=== PATIENT | male | born 1960 | race Caucasian/White ===

== ENCOUNTER 2020-05-17 00:41 | Outpatient (CLI) | payer BC, SELFPAY ==
[2020-05-18 13:40] LABS: SARS-CoV-2 RNA PCR Negative
== END 2020-05-17 00:42 | disposition home or self-care (01) ==
LOC: ANHCOVIDDT 00:42
PROVIDERS: Visit Provider Internal Medicine Critical Care Medicine
DX: R09.89 Other specified symptoms and signs involving the circulatory and respiratory systems (principal); Z20.828 Contact with and (suspected) exposure to other viral communicable diseases
CPT/HCPCS: 87635; C9803; U0003

== ENCOUNTER 2020-05-20 12:47 | Outpatient (CLI) | payer BC, SELFPAY ==
--- NOTE | 2020-06-06 02:02 | SLEEP_ITS ---
Split-night Sleep Study DATE OF STUDY: 05/20/2020 ORDERING PHYSICIAN: Lexis Garcia MD. REASON FOR THE STUDY: Hypersomnolence, insomnia. HISTORY: The patient is a 59-year-old male, 68 inches tall, weighing 230 pounds with a body mass index of 35. He had a CABG in 2018, and developed shortness of breath afterwards. About a year ago, he started having worsening insomnia, sleeping in very small blocks of time, going to bed at 2 a.m., waking at 9 or 10 in the morning, not feeling refreshed. He snores at night, kicks his legs and wears out the sheets. His is slept in a separate room for many years due to the work schedule. He wakes up with a dry mouth, keeps a glass of water by the bed and falls asleep soon after waking in the morning even right after breakfast. He attributes this to his diabetes and sleeps every time after he has a meal. Sometimes, he falls asleep with food in his mouth and chokes. Sleep is fragmented. He naps frequently. He has felt paralyzed on occasion when he wakes up. He is not having muscle weakness with strong emotion. He rarely has trouble sleeping with a cold. He frequently wakes up gasping for breath at night and has breathing problems at night observed by his . He does not sweat excessively at night or notices heart pounding irregularly at night. He constantly falls asleep during the day and involuntarily, occasionally while driving. He does not have difficulty during the daytime due to excessive sleepiness. He is never afraid to go to sleep and he denies nightmares. He occasionally remembers his dreams. He frequently has racing thoughts. He does not feel sad or depressed. He does not have anxiety or muscular tension. He does not notice parts of his body jerking and he does not kick at night, although he does wear out the sheets. He constantly has crawly achy feelings in his legs and leg pain at night. He does urinate multiple times at night. He naps frequently throughout the day. MEDICAL COMORBIDITIES: COPD, coronary artery disease with a history of a CABG x2, ablation for atrial fibrillation, thoracic aortic aneurysm replacement, aortic valve replacement for a bicuspid valve with a left atrial appendage removal, hypothyroidism, retinopathy, diabetes, peripheral arterial disease with revascularization of the right lower leg. MEDICATIONS: 1. Furosemide 20 mg a day. 2. Albuterol inhaler p.r.n. shortness of breath. 3. Aspirin 81 mg a day. 4. Atorvastatin 80 mg a day. 5. Hydralazine 50 mg t.i.d. 6. Lispro as instructed. 7. Levothyroxine 112 mcg a day. 8. Lisinopril 5 mg a day. 9. Tizanidine 2 mg p.o. t.i.d. 10. Clopidogrel 75 mg a day. 11. Empagliflozin 10 mg daily. 12. Nortriptyline 25 mg 2 tablets daily. 13. Gabapentin 300 mg daily. 14. Metoprolol tartrate 50 mg q.12 hours. 15. Anoro 1 puff daily. HABITS: Tobacco, 50-pack year history, quit in 2018. No alcohol. DESCRIPTION OF THE STUDY: On the [place] Sleepiness Scale, his score is 18. This was performed as a split-night study using the [employer] multiple channel system including EOG, EEG, submental EMG, EKG, nasal and oral airflow using thermistors and nasal pressure sensors, chest and abdominal belts, body position data, and pulse oximetry. The study was scored using [facility] guidelines. The duration of the study was during the diagnostic portion 230 minutes. The sleep time was 168 minutes. Sleep efficiency was 72.9%. Sleep latency was 3.2 minutes. REM latency was 188 minutes prolonged. He had 6 awakenings and spent 59 minutes awake after sleep onset. Sleep architecture showed 6.3% stage I sleep, 74.1% stage II sleep, 6.8% stage III sleep, and 12.8% stage REM. Stage II was increased relative to controls and stage REM was decreased. The patient had an a
== END 2020-05-20 12:48 | disposition home or self-care (01) ==
LOC: ANHCSM 12:53
PROVIDERS: Visit Provider Internal Medicine Critical Care Medicine
DX: G47.33 Obstructive sleep apnea (adult) (pediatric) (principal)
CPT/HCPCS: 95811

== ENCOUNTER 2020-07-10 13:36 | Outpatient (CLI) | payer BC, SELFPAY ==
--- NOTE | 2020-07-15 14:18 | WPDPFTINT ---
PFT Interpretation PFT Interpretation: DOS: 07/10/2020 REQUESTING: Dr. Garcia REASON FOR TESTING: COPD PULMONARY FUNCTION TESTS Test results are not reproducible or reliable. The patient had difficulty performing lung volumes, was unable to obtain the second attempt due to worsening shortness of breath. Spirometry: FEV1 is 47%, severely decreased, 1.44 L. FVC is 37%, severely decreased. The FEV1% is normal. VXL49-47% is 72% predicted. There is no statistically significant change after bronchodilator administration. Lung volumes: TLC severely decreased, 46%. RV is normal. RV/TLC mildly increased consistent with mild air trapping. Diffusion: DLCO 38%, severely decreased. Flow volume loop: Consistent with restriction. IMPRESSION: Severe restrictive ventilatory impairment, mild air trapping, severe diffusion impairment without change following bronchodilator. Restrictive disease can mask obstruction. Clinical correlation is recommended. Lack of response to bronchodilators should not preclude use if clinically indicated. Lexis Garcia MD
== END 2020-07-10 13:37 | disposition home or self-care (01) ==
LOC: ANHPFT 13:37
PROVIDERS: PCP Family Medicine; Visit Provider Internal Medicine Critical Care Medicine
DX: J44.9 Chronic obstructive pulmonary disease, unspecified (principal)
CPT/HCPCS: 94060; 94726; 94729

== ENCOUNTER 2022-02-19 08:21 | Outpatient (CLI) | payer BC, SELFPAY ==
[2022-02-19 08:30] VITALS: PULSE 80; O2SAT 87
[2022-02-19 08:31] VITALS: O2SAT 94
[2022-02-19 08:35] VITALS: O2SAT 87
[2022-02-19 08:37] VITALS: PULSE 99; O2SAT 93
[2022-02-19 08:45] VITALS: PULSE 86; O2SAT 95
--- NOTE | 2022-02-19 09:02 | HOMEO2EVAL ---
Evaluation was performed at [facility] Home Oxygen Evaluation RC: Home Oxygen (O2) Evaluation Start: 02/19/22 08:59 Freq: Status: Active Protocol: RPE Activity Type Activity Date Activity User E-sign Co-sign Detail Recorded Client Recorded Date Recorded By Document 02/19/22 08:30 LESTER [email or web address] 02/19/22 09:01 LESTER Document 02/19/22 08:31 LESTER [email or web address] 02/19/22 09:01 LESTER Document 02/19/22 08:35 LESTER [email or web address] 02/19/22 09:01 LESTER Document 02/19/22 08:37 LESTER [email or web address] 02/19/22 09:01 LESTER Document 02/19/22 08:45 LESTER [email or web address] 02/19/22 09:01 LESTER 02/19/22 02/19/22 02/19/22 08:30 08:31 08:35 Home O2 Evaluation Test Phase Resting Resting Exercise Oxygen Delivery Room Air Nasal Cannula Nasal Cannula Oxygen Flow Rate (L/min) 1 1 Pulse Oximetry (90-100 %) 87 L 94 87 L Pulse Rate (60-100 beats/min) 80 Ambulation Distance (feet) Ambulation Distance (meters) Home Oxygen Evaluation Comments Treatment Charges O2 Evaluation - Outpatient 02/19/22 02/19/22 08:37 08:45 Home O2 Evaluation Test Phase Exercise Resting Oxygen Delivery Nasal Cannula Nasal Cannula Oxygen Flow Rate (L/min) 2 1 Pulse Oximetry (90-100 %) 93 95 Pulse Rate (60-100 beats/min) 99 86 Ambulation Distance (feet) 400 Ambulation Distance (meters) 121.91 Home Oxygen Evaluation Comments Pt requires 1 l at rest and 2 l with activity Treatment Charges
--- NOTE | 2022-02-19 09:03 | PCRCNOTE ---
home o2 eval faxed to [facility] office staff
== END 2022-02-19 08:22 | disposition home or self-care (01) ==
PROVIDERS: PCP Family Medicine; Visit Provider Internal Medicine Critical Care Medicine
DX: J44.9 Chronic obstructive pulmonary disease, unspecified (principal); Z99.81 Dependence on supplemental oxygen
CPT/HCPCS: 94618

== ENCOUNTER 2022-08-07 13:53 | Outpatient (CLI) | payer BC, SELFPAY ==
--- NOTE | ~2022-08-07 | XR_ITS ---
XR abdomen/kub 1V 08/07/2022 14:19 INDICATION: End-stage renal disease TECHNIQUE: KUB COMPARISON: 04/11/2018 FINDINGS: Bowel gas pattern is normal. There is a peritoneal dialysis catheter coiled in the pelvis. There are splenic arterial calcifications. There is no evidence of free air, mass, organomegaly, asci carleen or obstruction. No abnormal calculi are seen. The bones appear intact. IMPRESSION: 1: No acute abdominal abnormality identified. Reviewed, dictated and finalized at location A. OGRAPHER ASSISTANT
== END 2022-08-07 13:54 | disposition home or self-care (01) ==
PROVIDERS: PCP Family Medicine; Visit Provider Internal Medicine Nephrology
DX: N18.6 End stage renal disease (principal)
CPT/HCPCS: 74018

== ENCOUNTER 2024-06-12 11:37 | Outpatient (CLI) | payer MEDICARE, SELFPAY ==
--- NOTE | ~2024-06-12 | XR_ITS ---
Lumbosacral Spine: AP and lateral views Clinical History: Pain Findings: The normal lordotic curve is maintained. The vertebral bodies and posterior elements are i ntact. The intervertebral disc spaces are preserved. There is moderate to advanced facet arthropathy from L4 through S1. The sacroiliac joints are normally outlined. Impression: Facet arthropathy lower lumbar spine, as above. Reviewed, dictated and finalized at location . Impression: Facet arthropathy lower lumbar spine, as above.
--- NOTE | ~2024-06-12 | XR_ITS ---
Clinical Indication: Shortness of breath PA and lateral views of the chest: Comparison: None Findings: There is probable bibasilar pulmonary edema and left basilar atelectasis. Probable right up per lobe scarring. Cardiomediastinal silhouette is within normal limits. Bones and soft tissues are unremarkable. Impression: Mild bibasilar pulmonary edema with probable discoid left basilar atelectasis. Probable right upper lobe scarring. Reviewed, dictated and finalized at location . Impression: Mild bibasilar pulmonary edema with probable discoid left basilar atelectasis. Probable right upper lobe scarring.
== END 2024-06-12 11:38 | disposition home or self-care (01) ==
LOC: ANHIMG 11:39
PROVIDERS: PCP Family Medicine
DX: R06.02 Shortness of breath (principal); Z91.81 History of falling; M54.9 Dorsalgia, unspecified
CPT/HCPCS: 71046; 72100

== ENCOUNTER 2024-06-23 16:08 | Inpatient (IN) | payer MEDICARE, SELFPAY ==
[2024-06-23] VITALS (59 sets, daily range): BP systolic 84–169; BP diastolic 54–90; PULSE 58–81; RESP 11–25; TEMP 35.2–37; O2SAT 50–100
--- NOTE | ~2024-06-23 | XR_ITS ---
EXAMINATION: XR chest 1V portable DATE: 06/30/2024 06:08 INDICATION: Pneumonia. TECHNIQUE: A single frontal view of the chest was obtained. COMPARISON: Chest single view 06/27/2024, chest CT 06/28/2024, chest 2 views 06/12/2024 FINDINGS: The lung volumes are small. There are interstitial airspace opacities involving all lung zo ashleigh bilaterally. No pleural effusion or pneumothorax. The heart size is normal. Median sternotomy wir es and mediastinal surgical clips are seen, likely from prior coronary artery bypass grafting. IMPRESSION: 1. Stable diffuse lung disease, likely a combination of chronic interstitial lung disease and pneumon ia. Reviewed, dictated and finalized at location A. IMPRESSION: 1. Stable diffuse lung disease, likely a combination of chronic interstitial chelsie ng disease and pneumonia.
--- NOTE | ~2024-06-23 | CT_ITS ---
EXAMINATION: CT diagnostic chest wo con DATE: 06/28/2024 14:12 INDICATION: pneumonia TECHNIQUE: Computed tomography (CT) of the chest was performed without intravenous contrast. Addition al 3D reconstructions utilizing coronal maximum intensity projection (MIP) were performed. Automated exposure control and iterative reconstruction technique were employed. The dose-length product was 56 5.17 mGy-cm. COMPARISON: None FINDINGS: Patchy consolidation groundglass opacities in the basilar left lower lobe consistent with pneumonia. There are additional more linear, bandlike and groundglass opacities scattered throughout the remaind er of the lungs with some associated bronchiectatic changes also suspicious for pneumonia rather acut e or chronic. The distribution is not performed basilar predominant is be expected for chronic inters titial lung disease although this would also remain on the differential. Small left pleural effusion. Heart size is normal. Atherosclerotic coronary artery calcific lesions and change of prior median st ernotomy and coronary artery bypass grafting. Likely prior aortic valve repair. Thoracic aorta is nor mal in caliber. No pathologically enlarged thoracic lymphadenopathy. Mild focal hepatic steatosis lig amentum teres. Mild thoracic spondylosis with mild dextrocurvature. IMPRESSION: 1. Patchy consolidation and groundglass opacities in the left lower lobe suspicious for pneumonia. Mo re widespread scattered bilateral linear, bandlike and groundglass opacities for which would include a broader differential also including chronic pneumonia or chronic interstitial lung disease. Reviewed, dictated and finalized at location A. IMPRESSION: 1. Patchy consolidation and groundglass opacities in the left lower lobe suspic ious for pneumonia. More widespread scattered bilateral linear, bandlike and gr oundglass opacities for which would include a broader differential also includi ng chronic pneumonia or chronic interstitial lung disease.
--- NOTE | ~2024-06-23 | XR_ITS ---
EXAMINATION: XR chest 1V portable DATE: 06/27/2024 04:32 INDICATION: Acute respiratory failure. TECHNIQUE: A single frontal view of the chest was obtained. COMPARISON: Chest single view 06/26/2024, chest CT 12/05/2018 FINDINGS: The lung volumes are small. There are airspace and interstitial opacities in all lung zones bilaterally. No pleural effusion or pneumothorax. The heart size is normal. Median sternotomy wires and mediastinal surgical clips are seen, likely from prior coronary artery bypass grafting. IMPRESSION: 1. Small lung volumes with stable diffuse lung disease, consistent with pulmonary edema versus pneumo benito. Reviewed, dictated and finalized at location A. IMPRESSION: 1. Small lung volumes with stable diffuse lung disease, consistent with pulmona ry edema versus pneumonia.
--- NOTE | ~2024-06-23 | XR_ITS ---
Portable chest x-ray Comparison: 06/25/2024 Clinical History: Respiratory failure Findings: Endotracheal tube and NG tube are in place. Bibasilar pulmonary consolidation is present, left worse than right. Probable small left pleural effusion. There is mild haziness right upper lobe. Cardiomediastinal silhouette is stable. Bones and soft tissues are unremarkable. Impression: Bilateral pulmonary airspace disease, with bibasilar predominance, as detailed above. Correlate for p ulmonary edema/atelectasis versus possibly pneumonia. Small left pleural effusion. Support tubes, as above. Reviewed, dictated and finalized at location . Impression: Bilateral pulmonary airspace disease, with bibasilar predominance, as detailed above. Correlate for pulmonary edema/atelectasis versus possibly pneumonia. Small left pleural effusion. Support tubes, as above.
--- NOTE | ~2024-06-23 | US_ITS ---
US renal BI 06/24/2024 09:03 Procedure: Realtime transabdominal ultrasound of the kidneys and bladder. Indication: Acute renal insufficiency Comparison: No prior studies for comparison. Findings: Renal echotexture is normal bilaterally without hydronephrosis, contour deforming mass or r enal calculus. The right kidney measures 11.3 cm and left kidney measures 9.5 cm. There is a Browning ca theter present limiting evaluation of the bladder. Impression: 1: Unremarkable renal ultrasound. No stones, masses or hydronephrosis. Reviewed, dictated and finalized at location B. Impression: 1: Unremarkable renal ultrasound. No stones, masses or hydronephrosis.
--- NOTE | ~2024-06-23 | XR_ITS ---
XR chest ET placement Ordering provider: Raina Tee MD History: 63 years Male with . ET PLACEMENT . Comparison: June 23, 2024 FINDINGS: MEDIASTINUM: The cardiac silhouette is slightly enlarged. Endotracheal tube is seen with the tip abov e the [place]. Retraction by 2 cm is advised. Congestive terri are noted. Postoperative changes in the mediastinum. Nasogastric tube is seen with the tip in the distal stomach. LUNGS: No effusions or pneumothorax. Opacification in the right upper lobe and left lower lobe suggestive of pneumonia. Changes are the sa me as previous study. OTHER: No free air under the diaphragm. Degenerative changes of the spine. IMPRESSION: Bilateral pneumonia. Endotracheal tube needs to be retracted by about 2 cm. Reviewed, dictated and finalized at location A.
--- NOTE | ~2024-06-23 | US_ITS ---
BILATERAL LOWER EXTREMITY VENOUS ULTRASOUND Ordering provider: Anyi Don MD History: . rule out DVT . Comparison: None. FINDINGS: RIGHT LOWER EXTREMITY VEINS: --COMMON FEMORAL: Patent and free of thrombus. Normal compressibility, phasic flow and augmentation. --PROXIMAL SUPERFICIAL FEMORAL: Patent and free of thrombus. Normal compressibility, phasic flow and augmentation. --DISTAL SUPERFICIAL FEMORAL: Patent and free of thrombus. Normal compressibility, phasic flow and au gmentation. --POPLITEAL: Patent and free of thrombus. Normal compressibility, phasic flow and augmentation. --POSTERIOR TIBIAL: Patent and free of thrombus. Normal compressibility, phasic flow and augmentation . LEFT LOWER EXTREMITY VEINS: --COMMON FEMORAL: Patent and free of thrombus. Normal compressibility, phasic flow and augmentation. --PROXIMAL SUPERFICIAL FEMORAL: Patent and free of thrombus. Normal compressibility, phasic flow and augmentation. --DISTAL SUPERFICIAL FEMORAL: Patent and free of thrombus. Normal compressibility, phasic flow and au gmentation. --POPLITEAL: Patent and free of thrombus. Normal compressibility, phasic flow and augmentation. --POSTERIOR TIBIAL: Patent and free of thrombus. Normal compressibility, phasic flow and augmentation . IMPRESSION: Negative bilateral lower extremity venous US. No deep vein thrombosis. Reviewed, dictated and finalized at location A.
--- NOTE | ~2024-06-23 | XR_ITS ---
Portable chest x-ray Comparison: 06/23/2024 Clinical History: Pneumonia Findings: Endotracheal tube and NG tube are in place. Probable mild pulmonary edema pattern and mild left basilar atelectatic change. Possible underlying chronic interstitial disease. Cardiomediastina l silhouette is stable. Bones and soft tissues are unremarkable. Impression: Probable mild central pulmonary edema and left basilar atelectatic change. Suspected mild underlying chronic interstitial disease. Support tubes, as above. Reviewed, dictated and finalized at location . Impression: Probable mild central pulmonary edema and left basilar atelectatic change. Suspected mild underlying chronic interstitial disease. Support tubes, as above.
--- NOTE | ~2024-06-23 | XR_ITS ---
XR chest 1V portable Ordering provider: Raina Tee MD History: 63 years Male with . hypoxia . Comparison: June 12, 2024 FINDINGS: MEDIASTINUM: The cardiac silhouette is slightly enlarged. Postoperative changes in the mediastinum. C ongestive terri. LUNGS: No effusions or pneumothorax. Bilateral airspace disease seen in the lower lobes more on the l eft side. Interstitial changes with prominent markings are seen bilaterally. OTHER: No free air under the diaphragm. IMPRESSION: Cardiomegaly with cardiac decompensation and pulmonary edema. Bilateral basal pneumonia with highly s uggestive bilateral pneumonitis. Changes are worse the the previous study. Reviewed, dictated and finalized at location A. IMPRESSION: Cardiomegaly with cardiac decompensation and pulmonary edema. Bilateral basal p neumonia with highly suggestive bilateral pneumonitis. Changes are worse the th e previous study.
--- NOTE | 2024-06-23 16:25 | PC.NURSE ---
Dr. Tee at bedside
--- NOTE | 2024-06-23 16:40 | ED.WEAKNESS ---
HPI - Weakness General Chief complaint: Weakness Stated complaint: I'm confused and weak. Time Seen by Provider: 06/23/24 16:24 History of Present Illness HPI Narrative: 63-year-old male with a history of COPD, diabetes, hypertension, aortic root and valve replacement, history of CABG, chronic noncompliance presenting with confusion and weakness. His is at bedside and provides the following history. Patient is noncompliant with apparently all of his medications and CPAP. He will intermittently be compliant. He has been increasingly agitated and confused over the last several days. Today he started saying nonsensical things so his family made him come in for evaluation. Apparently all of his outpatient specialists have been advising him to go to the ER for the last several days but he has refused. On my evaluation, the patient is somnolent but arouses to verbal stimuli. He is speaking nonsensically. Related Data Home Medications Medication Instructions Recorded Confirmed atorvastatin 80 mg tablet 80 mg PO DAILY 08/17/19 06/23/24 amlodipine 10 mg tablet 10 mg PO DAILY 02/25/23 06/23/24 sotalol 80 mg tablet 80 mg PO DAILY 02/25/23 06/23/24 blood-glucose sensor (Plan B [employer] G6 #1 ea 05/06/23 06/23/24 Sensor device) hydralazine 10 mg tablet 10 mg PO BID 05/06/23 06/23/24 insulin aspart U-100 100 unit/mL 0.09 unit continuous subcutaneous 05/06/23 06/23/24 subcutaneous solution infusion DAILY furosemide 20 mg tablet 60 mg PO DAILY 05/17/23 06/23/24 insulin aspart U-100 100 unit/mL 1 sliding scale dose subcut 11/10/23 06/23/24 (3 mL) subcutaneous pen (Novolog USEASDIRECTD FlexPen U-100 Insulin aspart) subcutaneous insulin pump (MiniMed 11/10/23 06/23/24 630G Insulin Pump) pregabalin 75 mg capsule 75 mg PO BID 06/12/24 06/23/24 Allergies Allergy/AdvReac Type Severity Reaction Status Date / Time cefepime Allergy Severe respiratory Verified 06/12/24 10:36 decompensation codeine AdvReac Severe Swelling Verified 06/12/24 10:36 penicillin G AdvReac Mild immune Verified 06/12/24 10:36 iv contrast Allergy Intermediate Anaphylaxis Uncoded 06/12/24 10:36 Review of Systems Review of Systems: ROS unobtainable: Yes unobtainable due to mental status [facility] Past Medical History Medical History Adult BMI 36.0-36.9 kg/sq m Adult BMI 37.0-37.9 kg/sq m Atrial fibrillation BMI 31.0-31.9,adult BMI 32.0-32.9,adult BMI 33.0-33.9,adult BMI greater than 30 Chronic shortness of breath COPD (chronic obstructive pulmonary disease) History of tobacco abuse Hypersomnia Hypothyroidism Loud snoring Low vitamin D level Major depressive disorder Neuropathy Pneumonia Retinopathy, diabetic, right eye Shortness of Breath Surgical History Surgical History History of revascularization procedure of lower extremity RLE S/P AVR S/P CABG x 2 Status post ablation of atrial fibrillation January 2018 Status post aortic aneurysm repair Family History Family History Father Acute myocardial infarction Hypertension Mother Diabetes mellitus Hypertension Thyroid activity decreased Scleroderma involving lung Heart disease Sibling Diabetes mellitus Other Loud snoring Social History Social History Social History: , is Lynda, has 2 grown kids; quit tobacco January 2018 with his PA and Atrial fib, smoked 1.5 ppd Smoking packs per day: 1.5 Smoking cigarettes per day: 30.0 Years smoked: 30 Smoking pack-years: 45.00 Smoking status: Former smoker Tobacco type: cigarettes Second hand tobacco smoke exposure: No Smoking end date: 12/05/17 Alcohol intake: former Substance use: never Substance use type: does not use Do You Feel Safe in your Home?: Yes Lack of Transportation: No Lack of Food: Never True Current Housing: I Have Housing Concerned About Future Housing: YES Difficulty Paying Gas/Electric Bills: No Difficulty Paying for Meds: No Currently Unemployed: No Education: High School Diploma/GED Difficulty w/ Childcare or Family Care: No Living arrangements: with family Occupation/Education: retired Additional occupation/education comments: 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 EYES: PERRLA and EOMI. ENT: Mucous membranes moist. NECK: Supple. CHEST: saturating 50% on room air, diminished breath sounds bilaterally HEART: Regular rate and rhythm ABDOMEN: Soft, obese non tender abdomen EXTREMITIES: Normal range of motion SKIN: Warm, dry, no rash. NEURO: somnolent, arouses to verbal stimuli, not responding appropriately, moving all extremities spontaneously PSYCH: Normal mood and affect. Course Vital Signs Vital signs: Vital Signs Temperature 98.6 F 06/23/24 16:17 Pulse Rate 79 06/23/24 16:17 Respiratory Rate 24 H 06/23/24 16:17 Blood Pressure 120/75 06/23/24 16:17 Pulse Oximetry 50 L 06/23/24 16:17 Oxygen Delivery Room Air 06/23/24 16:17 Temperature 96.8 F L 06/24/24 18:00 Pulse Rate 52 L 06/24/24 18:00 Respiratory Rate 18 06/24/24 18:00 Blood Pressure 103/52 L 06/24/24 18:00 Pulse Oximetry 96 06/24/24 18:00 Oxygen Delivery Mechanical Ventilation 06/24/24 16:18 Oxygen Flow Rate 10 06/23/24 16:31 Fraction of Inspired Oxygen 40 06/24/24 16:18 Procedures Intubation Intubation #1: Intubation Date: 06/23/24 Intubation Time: 20:33 sedative: Etomidate Mg Given: 20 paralytic: Rocuronium Mg Given: 100 Laryngoscope: Adebayo Tube Size (cm): 7.5 Method of Intubation: orotracheal Number of Attempts: 1 Tube Secured Depth (cm): 25 Tube Secured Location: lips Tube Placement Confirmation: visualized tube passing through cords, equal breath sounds bilaterally, no breath sounds over epigastrium and confirmation by capnometry Patient Tolerated Procedure: well Intubation Complications: none Additional Comments: post-intubation xray with tube a bit deep so it was retracted approx 2 cm MDM - Weakness MDM Narrative Medical decision making narrative: 63-year-old male presenting with confusion and hypoxia. On arrival, he is saturating 50% on room air. Placed on non-rebreather with improvement in his saturations to the upper 90s. He has a very long history of COPD and noncompliance. Stat BiPAP, ABG has been ordered. Will start breathing treatments, steroids. Patient's ABGs continue to not significantly improved despite BiPAP. He is really not pulling adequate tidal volumes to despite multiple adjustments to his settings. Decision was made to intubate. His is at bedside and agrees with intubation. patient has been covered with doxy and IV fluids are ongoing. Aztreonam added after discussing with hospitalist. He requires admission to the ICU for further management. I spoke with the pediatric associate accepts for admission. I spoke with the hospitalist who also accepts admission. Differential Diagnosis Differential diagnosis: Likely sepsis, dehydration and other ( COPD exacerbation, hypercapnic respiratory failure, noncompliance) Medical Records Attestation: I reviewed the patient's medical records. Lab Data Attestation: I reviewed the patient's lab results. 06/24/24 04:40 06/24/24 16:08 Labs: Lab Results 06/23/24 06/23/24 06/23/24 Range/Units 16:55 16:58 17:01 WBC 14.4 H (4.5-10.0) K/mm3 RBC 4.34 L (4.6-6.20) M/mm3 Hgb 13.0 L (14.0-18.0) g/dL Hct 42.2 (42.0-52.0) % MCV 97.2 (80-100) fl MCH 30.0 (26-34) pg MCHC 30.8 L (32-36) g/dl RDW 15.3 H (11.5-14.5) % Plt Count 165 (150-375) k/mm3 MPV 12.1 H (7.4-10.4) fl Immature Gran % (Auto) 2.8 H (0-0.5) % Neut % (Auto) 73.7 H (45.5-73.1) % Lymph % (Auto) 12.5 L (18.3-44.2) % [place] % (Auto) 10.2 H (2.6-8.5) % Eos % (Auto) 0.2 (0-4.4) % Baso % (Auto) 0.6 (0.2-1.2) % Lymph # (Auto) 1.81 (0.9-3.2) K/mm3 [place] # (Auto) 1.5 H (0.1-0.6) K/mm3 Eos # (Auto) 0.0 (0-0.3) K/mm3 Baso # (Auto) 0.1 (0.0-0.1) K/mm3 Abs Immat Gran (auto) 0.41 H (0.00-0.031) K/mm3 Absolute Neuts (auto) 10.6 H (1.3-6.7) K/mm3 Absolute Nucleated RBC 0.040 H (0.0-0.012) K/mm3 Nucleated RBC % 0.3 H (0.0-0.2) % PT 15.3 H (11.1-14.7) Seconds INR 1.2 APTT 30.2 (22.3-36.8) Seconds Methemoglobin 0.2 (0-1.5) %THb Expiratory Pressure CMH2O Inspiratory Pressure CMH2O Sodium 135 L (137-145) mmol/L Potassium 4.8 (3.4-5.0) mmol/L Chloride 101 (98-107) mmol/L Carbon Dioxide 26 (22-30) mmol/L Anion Gap 8 (4-12) mmol/L BUN 66 H (9-20) mg/dL Creatinine 3.00 H (0.7-1.3) mg/dL Estim Creat Clear Calc 27 ml/min Estimated GFR 21 L (59 - ) Glucose 259 H (65-110) mg/dL Lactic Acid 1.1 (0.7-2.0) mmol/L Calcium 8.7 (8.4-10.2) mg/dL Magnesium 2.5 H (1.6-2.3) mg/dL Total Bilirubin 0.3 (0.2-1.3) mg/dL AST 28 (17-59) U/L ALT 33 (6-50) U/L Alkaline Phosphatase 119 (38-126) U/L Troponin I < 0.012 (0.000-0.034) ng/mL NT-Pro-B Natriuret Pep 2780 H (19.9-100) pg/mL Total Protein 7.0 (6.3-8.2) g/dL Albumin 3.8 (3.5-5.1) g/dL Influenza A (RT-PCR) Negative (Negative) Influenza B (RT-PCR) Negative (Negative) RSV (RT-PCR) Negative (Negative) SARS-CoV-2 RNA (RT-PCR) Negative (Negative) 06/23/24 06/23/24 Range/Units 18:00 19:23 WBC (4.5-10.0) K/mm3 RBC (4.6-6.20) M/mm3 Hgb (14.0-18.0) g/dL Hct (42.0-52.0) % MCV (80-100) fl MCH (26-34) pg MCHC (32-36) g/dl RDW (11.5-14.5) % Plt Count (150-375) k/mm3 MPV (7.4-10.4) fl Immature Gran % (Auto) (0-0.5) % Neut % (Auto) (45.5-73.1) % Lymph % (Auto) (18.3-44.2) % [place] % (Auto) (2.6-8.5) % Eos % (Auto) (0-4.4) % Baso % (Auto) (0.2-1.2) % Lymph # (Auto) (0.9-3.2) K/mm3 [place] # (Auto) (0.1-0.6) K/mm3 Eos # (Auto) (0-0.3) K/mm3 Baso # (Auto) (0.0-0.1) K/mm3 Abs Immat Gran (auto) (0.00-0.031) K/mm3 Absolute Neuts (auto) (1.3-6.7) K/mm3 Absolute Nucleated RBC (0.0-0.012) K/mm3 Nucleated RBC % (0.0-0.2) % PT (11.1-14.7) Seconds INR APTT (22.3-36.8) Seconds Methemoglobin 0.2 (0-1.5) %THb Expiratory Pressure 7 8 CMH2O Inspiratory Pressure 16 20 CMH2O Sodium (137-145) mmol/L Potassium (3.4-5.0) mmol/L Chloride (98-107) mmol/L Carbon Dioxide (22-30) mmol/L Anion Gap (4-12) mmol/L BUN (9-20) mg/dL Creatinine (0.7-1.3) mg/dL Estim Creat Clear Calc ml/min Estimated GFR (59 - ) Glucose (65-110) mg/dL Lactic Acid (0.7-2.0) mmol/L Calcium (8.4-10.2) mg/dL Magnesium (1.6-2.3) mg/dL Total Bilirubin (0.2-1.3) mg/dL AST (17-59) U/L ALT (6-50) U/L Alkaline Phosphatase (38-126) U/L Troponin I (0.000-0.034) ng/mL NT-Pro-B Natriuret Pep (19.9-100) pg/mL Total Protein (6.3-8.2) g/dL Albumin (3.5-5.1) g/dL Influenza A (RT-PCR) (Negative) Influenza B (RT-PCR) (Negative) RSV (RT-PCR) (Negative) SARS-CoV-2 RNA (RT-PCR) (Negative) ABG Data ABG results: 06/23/24 06/23/24 06/23/24 16:58 18:00 19:23 Puncture Site Left brachial Left radial Right radial ABG pH 7.115 L* 7.104 L* 7.081 L* ABG pCO2 79.9 H* 87.2 H* 80.2 H* ABG pO2 211.6 H 90.4 82.5 ABG PO2/FiO2 Ratio 2.12 1.81 1.83 ABG HCO3 25.1 26.7 H 23.3 ABG O2 Saturation 99.0 93.1 L 90.8 L ABG O2 Content 18.8 17.4 17.0 ABG Base Excess -6.0 -4.9 -8.1 A-a Gradient 421.5 168.0 147.1 Oxyhemoglobin 97.3 93.3 92.2 Carboxyhemoglobin 1.4 1.6 Reduced Hemoglobin 1.1 4.9 Total Hemoglobin 13.4 13.2 13.1 O2 Delivery Device Non-rebreather mask Non-invasive vent Bipap O2 Liters/Min 10.0 Not Reportable Not Reportable Vent Rate 14 FiO2 100 50 45 Imaging Data Radiologist's impression: ITS Impressions Chest X-Ray 06/23/24 17:52 IMPRESSION: Cardiomegaly with cardiac decompensation and pulmonary edema. Bilateral basal pneumonia with highly suggestive bilateral pneumonitis. Changes are worse the the previous study. Critical Care Time Critical Care Time Critical Care Time: Yes Total Critical Care Time: 75 Discharge Plan Discharge Clinical Impression: Hypercapnic respiratory failure, COPD (chronic obstructive pulmonary disease), Pneumonia, Acute kidney injury superimposed on CKD, Noncompliance Patient Disposition: Still a Patient Condition: Serious
--- NOTE | 2024-06-23 16:47 | ECG_ITS ---
Test Date: 2024-06-23 16:21:46 Measurements Intervals [place] Rate: 76 P: 37 MD: 174 QRS: -54 QRSD: 113 T: 31 QT: 403 QTc: 456 Interpretive Statements SINUS RHYTHM LOW QRS VOLTAGE IN PRECORDIAL LEADS [QRS DEFLECTION < 1.0 mV IN CHEST LEADS] POOR R-WAVE PROGRESSION INFERIOR MYOCARDIAL INFARCTION , OF INDETERMINATE AGE [40+ ms Q WAVE AND/OR ST/T ABNORMALITY IN II/aVF] ABNORMAL ELECTROCARDIOGRAM No previous ECG available for comparison Electronically Signed On 06-24-2024 09:41:41 CDT by Bryant Patel M.D.
[2024-06-23] MEDS: IPRATROPIUM BR 0.02% INH SOLN 0.5 MG/2.5 ML VIAL INHALATION ×2 (17:00→18:19)
[2024-06-23] MEDS: ALBUTEROL SULFATE NEB 2.5 MG/3 ML INH 10 MG INHALATION ×2 (17:00→18:19)
--- NOTE | 2024-06-23 17:01 | PC.NURSE ---
RT at bedside
[2024-06-23 17:06] LABS: Basophils Absolute Auto 0.1 K/mm3 (0.0-0.1); Basophils Percent Auto 0.6 % (0.2-1.2); Eosinophils Percent Auto 0.2 % (0-4.4); Hematocrit 42.2 % (42.0-52.0); Immature Granulocyte Absolute 0.41 K/mm3 (0.00-0.031); Immature Granulocyte Percent A 2.8 % (0-0.5); Lymphocytes Absolute Auto 1.81 K/mm3 (0.9-3.2); Lymphocytes Percent Auto 12.5 % (18.3-44.2); Mean Corpuscular HGB Conc 30.8 g/dl (32-36); Mean Corpuscular Volume 97.2 fl (80-100); Mean Platelet Volume 12.1 fl (7.4-10.4); Monocytes Absolute Auto 1.5 K/mm3 (0.1-0.6); Monocytes Percent Auto 10.2 % (2.6-8.5); Neutrophils Absolute Auto 10.6 K/mm3 (1.3-6.7); Neutrophils Percent Auto 73.7 % (45.5-73.1); Nucleated Red Blood Cells Perc 0.3 % (0.0-0.2); Platelet Count Result 165 k/mm3 (150-375); Red Blood Count 4.34 M/mm3 (4.6-6.20); Red Cell Distribution Width 15.3 % (11.5-14.5); White Blood Count 14.4 K/mm3 (4.5-10.0)
[2024-06-23] MEDS: methylPREDNISolone SOD SUCC 125 MG VIAL IV PUSH (17:07)
[2024-06-23 17:11] LABS: Alveolar/Arterial O2 Gradient 421.5 mmHg; Carboxyhemoglobin 1.4 % THb (0-2.0); Fractional Inspired Oxygen 100 %; HCO3 ABG 25.1 mEq/l (22.0-26.0); Methemoglobin ABG 0.2 %THb (0-1.5); Oxygen Content ABG 18.8 %vol (16.0-22.0); Oxyhemoglobin 97.3 % THb (90.0-100.0); PO2 ABG 211.6 mmHg (80.0-100.0); PO2 FiO2 Ratio Arterial Blood 2.12 %; Reduced Hemoglobin 1.1 %THb (0-5.0); Total Hemoglobin 13.4 g/dL (12.0-18.0)
[2024-06-23 17:13] LABS: PCO2 ABG 79.9 mmHg (35.0-45.0); Site Drawn LEFT BRACHIAL; pH ABG 7.115 (7.350-7.450)
[2024-06-23 17:14] LABS: Device NON-REBREATHER MASK
[2024-06-23 17:16] LABS: INR 1.2; Prothrombin Time 15.3 Seconds (11.1-14.7)
[2024-06-23 17:17] LABS: Lactic Acid Reflex 1.1 mmol/L (0.7-2.0); Partial Thromboplastin Time 30.2 Seconds (22.3-36.8)
[2024-06-23 17:23] LABS: Alanine Aminotransferase 33 U/L (6-50); Albumin Level 3.8 g/dL (3.5-5.1); Alkaline Phosphatase 119 U/L (38-126); Anion Gap 8 mmol/L (4-12); Aspartate Amino Transferase 28 U/L (17-59); Bilirubin,Total 0.3 mg/dL (0.2-1.3); Blood Urea Nitrogen 66 mg/dL (9-20); Calcium 8.7 mg/dL (8.4-10.2); Carbon Dioxide 26 mmol/L (22-30); Chloride 101 mmol/L (98-107); Estimated CRCL calculation 27 ml/min; Estimated Glomerular Filt Rate 21; Glucose 259 mg/dL (65-110); Magnesium 2.5 mg/dL (1.6-2.3); Potassium 4.8 mmol/L (3.4-5.0); Sodium 135 mmol/L (137-145)
[2024-06-23 17:34] LABS: NT Pro B Type Natriuretic Pept 2780 pg/mL (19.9-100); Troponin I < 0.012 ng/mL (0.000-0.034)
[2024-06-23] MEDS: SODIUM CHLORIDE 0.9% IV 1,000 ML 999 ML IV CONT (17:36)
[2024-06-23 17:42] LABS: Influenza A QL RT-PCR Negative (Negative); Influenza B QL RT-PCR Negative (Negative); RSV RNA, RT-PCR Negative (Negative); SARS-CoV-2 RNA PCR Negative (Negative)
[2024-06-23 18:10] LABS: Base Excess ABG -4.9 mEq/l (+/-2.0); Carboxyhemoglobin 1.6 % THb (0-2.0); Fractional Inspired Oxygen 50 %; HCO3 ABG 26.7 mEq/l (22.0-26.0); Methemoglobin ABG 0.2 %THb (0-1.5); Oxygen Content ABG 17.4 %vol (16.0-22.0); Oxygen Saturation ABG 93.1 % (95.0-100.0); Oxyhemoglobin 93.3 % THb (90.0-100.0); PO2 ABG 90.4 mmHg (80.0-100.0); PO2 FiO2 Ratio Arterial Blood 1.81 %; Reduced Hemoglobin 4.9 %THb (0-5.0); Total Hemoglobin 13.2 g/dL (12.0-18.0)
[2024-06-23 18:12] LABS: Device NON-INVASIVE VENT; Modified Allen's Test Pass; Non-Invasive Expiratory Pressure 7 CMH2O; Non-Invasive Inspiratory Pressure 16 CMH2O; Non-Invasive Vent Rate 14 /MIN; PCO2 ABG 87.2 mmHg (35.0-45.0); Site Drawn LEFT RADIAL; pH ABG 7.104 (7.350-7.450)
[2024-06-23] MEDS: AZITHROMYCIN 500 MG/NS 250 ML 500 MG/250 ML BAG 250 MG IVPB (18:15)
--- NOTE | 2024-06-23 18:58 | PC.NURSE ---
BP cuff repositioned on both sides. BP still reading 80s/50s. made aware.
[2024-06-23] MEDS: ALBUMIN HUMAN 25% 25 GM/100 ML 100 ML IVPB (19:14)
[2024-06-23 19:30] LABS: Alveolar/Arterial O2 Gradient 147.1 mmHg; Base Excess ABG -8.1 mEq/l (+/-2.0); Fractional Inspired Oxygen 45 %; HCO3 ABG 23.3 mEq/l (22.0-26.0); Oxygen Saturation ABG 90.8 % (95.0-100.0); Oxyhemoglobin 92.2 % THb (90.0-100.0); PO2 ABG 82.5 mmHg (80.0-100.0); PO2 FiO2 Ratio Arterial Blood 1.83 %; Total Hemoglobin 13.1 g/dL (12.0-18.0)
[2024-06-23 19:32] LABS: pH ABG 7.081 (7.350-7.450)
[2024-06-23 19:33] LABS: Device BIPAP; Expiratory Pressure 8 cmH2O; Inspiratory Pressure 20 cmH2O; Modified Allen's Test Pass; PCO2 ABG 80.2 mmHg (35.0-45.0); Site Drawn RIGHT RADIAL
--- NOTE | 2024-06-23 19:43 | PC.NURSE ---
edp at bedside to speak with about need for intubation. asked for a few minutes to make a decision and speak with the family.
[2024-06-23] MEDS: ROCURONIUM BROMIDE 50 MG/5 ML VIAL 100 MG IV PUSH (20:07)
[2024-06-23] MEDS: ETOMIDATE 20 MG/10 ML AMPUL IV PUSH (20:07)
--- NOTE | 2024-06-23 20:07 | PC.NURSE ---
preparing to intubate due hypoxemia, 1L NS started for blood pressure support prior to RSI. 20 etomidate @2006 100 Rocuronium @2006. 7.5 ETT tube 25 @ lip verified by auscultation, CO2 color change, and radiology. plan for fentanyl and versed for sedation. Soft restraints applied @ 2010 OG inserted @2013 and temp sensing Browning placed @2019
--- NOTE | 2024-06-23 20:26 | PM.IMHP ---
H&P: HPI History of Present Illness Date/Time: 06/23/24 20:26 Chief Complaint: ams Narrative: This is a 63-year-old male with past medical history significant for obstructive sleep apnea, noncompliance with CPAP, insulin-dependent diabetes mellitus, COPD/emphysema, hypothyroidism, diabetic peripheral neuropathy, coronary artery bypass graft x2 vessel disease, atrial fibrillation rate controlled, aortic valve repair. Patient presents to the emergency room due to altered mental status speaking nonsensical, incoherent, history has been obtained from who is at bedside and emergency room medical records at the time of my visit patient is on ventilator support. Preliminary workup was significant for ABG with pH of 7.08 pCO2 80 PO2 82 a chest x-ray was significant for bilateral lung infiltrates. Patient has been admitted to the intensive care unit XR chest 1V portable Ordering provider: Raina Tee MD History: 63 years Male with . hypoxia . Comparison: June 12, 2024 FINDINGS: MEDIASTINUM: The cardiac silhouette is slightly enlarged. Postoperative changes in the mediastinum. Congestive terri. LUNGS: No effusions or pneumothorax. Bilateral airspace disease seen in the lower lobes more on the left side. Interstitial changes with prominent markings are seen bilaterally. OTHER: No free air under the diaphragm. IMPRESSION: Cardiomegaly with cardiac decompensation and pulmonary edema. Bilateral basal pneumonia with highly suggestive bilateral pneumonitis. Changes are worse the the previous study. Review of Systems Review of Systems: ROS unobtainable: Yes other (on ventilator support.) [facility] Past Medical History Medical History Adult BMI 36.0-36.9 kg/sq m Adult BMI 37.0-37.9 kg/sq m Atrial fibrillation BMI 31.0-31.9,adult BMI 32.0-32.9,adult BMI 33.0-33.9,adult BMI greater than 30 Chronic shortness of breath COPD (chronic obstructive pulmonary disease) History of tobacco abuse Hypersomnia Hypothyroidism Loud snoring Low vitamin D level Major depressive disorder Neuropathy Pneumonia Retinopathy, diabetic, right eye Shortness of Breath Surgical History Surgical History History of revascularization procedure of lower extremity RLE S/P AVR S/P CABG x 2 Status post ablation of atrial fibrillation January 2018 Status post aortic aneurysm repair Family History Family History Father Acute myocardial infarction Hypertension Mother Diabetes mellitus Hypertension Thyroid activity decreased Scleroderma involving lung Heart disease Sibling Diabetes mellitus Other Loud snoring Social History Social History Social History: , is Lynda, has 2 grown kids; quit tobacco January 2018 with his MT and Atrial fib, smoked 1.5 ppd Smoking packs per day: 1.5 Smoking cigarettes per day: 30.0 Years smoked: 30 Smoking pack-years: 45.00 Smoking status: Former smoker Tobacco type: cigarettes Second hand tobacco smoke exposure: No Smoking end date: 12/05/17 Alcohol intake: former Substance use: never Substance use type: does not use Do You Feel Safe in your Home?: Yes Lack of Transportation: No Lack of Food: Never True Current Housing: I Have Housing Concerned About Future Housing: YES Difficulty Paying Gas/Electric Bills: No Difficulty Paying for Meds: No Currently Unemployed: No Education: High School Diploma/GED Difficulty w/ Childcare or Family Care: No Living arrangements: with family Occupation/Education: retired Additional occupation/education comments: 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/ [employer]; had exposure to inks but does not think he had occupational exposure to anything adverse for his breathing Gender identity (if verbalized by the patient): Male Sexual Orientation (if Verbalized by the Patient): Straight or Heterosexual Spiritual care concerns: No Agree to blood products: Yes Meds Home Medications and Allergies Home Medications Medication Instructions Recorded Confirmed Type atorvastatin 80 mg tablet 80 mg PO DAILY 08/17/19 06/23/24 History amlodipine 10 mg tablet 10 mg PO DAILY 02/25/23 06/23/24 History sotalol 80 mg tablet 80 mg PO DAILY 02/25/23 06/23/24 History blood-glucose sensor (Dexcom G6 #1 ea 05/06/23 06/23/24 History Sensor device) hydralazine 10 mg tablet 10 mg PO BID 05/06/23 06/23/24 History insulin aspart U-100 100 unit/mL 0.09 unit continuous subcutaneous 05/06/23 06/23/24 History subcutaneous solution infusion DAILY furosemide 20 mg tablet 60 mg PO DAILY 05/17/23 06/23/24 History insulin aspart U-100 100 unit/mL 1 sliding scale dose subcut 11/10/23 06/23/24 History (3 mL) subcutaneous pen (Novolog USEASDIRECTD FlexPen U-100 Insulin aspart) subcutaneous insulin pump (MiniMed 11/10/23 06/23/24 History 630G Insulin Pump) levothyroxine 175 mcg tablet 175 mcg PO DAILY #90 tabs 01/05/24 06/23/24 Rx quetiapine 100 mg tablet (Seroquel) 100 mg PO QHS #90 tabs 02/03/24 06/23/24 Rx pantoprazole 40 mg tablet,delayed See Rx Instructions .Route 03/14/24 06/23/24 Rx release .COMPLEX #180 tabs fluticasone fur. 100 mcg-umeclid 1 inh inhalation Q24H #60 ea 03/22/24 06/23/24 Rx 62.5 mcg-vilant 25 mcg inhalat.powder (Trelegy Ellipta) lorazepam 1 mg tablet 1 mg PO BID PRN anxiety #180 tabs 04/03/24 06/23/24 Rx albuterol sulfate 90 mcg/actuation 2 inh inhalation Q4H PRN shortness 04/30/24 06/23/24 Rx aerosol inhaler of breath or wheezing #8.5 grams sertraline 100 mg tablet 100 mg PO DAILY #90 tabs 04/30/24 06/23/24 Rx pregabalin 75 mg capsule 75 mg PO BID 06/12/24 06/23/24 History Allergies Allergy/AdvReac Type Severity Reaction Status Date / Time cefepime Allergy Severe respiratory Verified 06/12/24 10:36 decompensation codeine AdvReac Severe Swelling Verified 06/12/24 10:36 penicillin G AdvReac Mild immune Verified 06/12/24 10:36 iv contrast Allergy Intermediate Anaphylaxis Uncoded 06/12/24 10:36 Vital Signs Vital Signs - 24 hr 06/23/24 16:17 06/23/24 16:28 06/23/24 16:31 Temperature 98.6 F Pulse Rate 79 Respiratory Rate 24 H Blood Pressure 120/75 Pulse Oximetry 50 L 98 100 Oxygen Delivery Room Air Non-Rebreather Mask Non-Rebreather Mask Oxygen Flow Rate 15 10 06/23/24 17:09 06/23/24 16:24 06/23/24 16:31 Temperature Pulse Rate 78 Respiratory Rate 15 14 Blood Pressure 120/67 Pulse Oximetry 100 96 100 Oxygen Delivery BiPAP Oxygen Flow Rate 06/23/24 16:32 06/23/24 16:45 06/23/24 17:01 Temperature Pulse Rate 80 80 80 Respiratory Rate 23 H 12 12 Blood Pressure Pulse Oximetry 100 100 Oxygen Delivery Oxygen Flow Rate 06/23/24 17:07 06/23/24 17:05 06/23/24 17:07 Temperature Pulse Rate 81 81 76 Respiratory Rate 14 18 16 Blood Pressure 115/68 Pulse Oximetry 97 100 Oxygen Delivery BiPAP Oxygen Flow Rate 06/23/24 17:59 06/23/24 18:19 06/23/24 17:08 Temperature Pulse Rate 72 77 81 Respiratory Rate 17 18 14 Blood Pressure Pulse Oximetry 100 Oxygen Delivery Oxygen Flow Rate 06/23/24 17:44 06/23/24 18:07 06/23/24 18:37 Temperature Pulse Rate 73 71 69 Respiratory Rate 12 13 21 H Blood Pressure Pulse Oximetry 96 95 92 Oxygen Delivery BiPAP Oxygen Flow Rate 06/23/24 18:57 06/23/24 19:26 06/23/24 19:30 Temperature Pulse Rate 67 62 Respiratory Rate 20 Blood Pressure 86/57 L 87/59 L Pulse Oximetry 96 96 96 Oxygen Delivery BiPAP BiPAP Oxygen Flow Rate Exam Narrative: lying i stretcher Const: General: comfortable, well developed, obese and other (on ventilator support) Nutritional Appearance: obese Orientation/consciousness: Other orientation findings (on ventilator support) HENMT: Head: normal to inspection, normocephalic and atraumatic Ears: hearing grossly normal bilaterally Face/Nose/Sinus: normal facial exam Face and sinus: normal facial exam Eyes: General: appearance normal, both eyes and all related structures Pupils: Equal, round and reactive pupils present EOM: EOMs intact bilaterally Neck: Neck: full ROM, no lymphadenopathy and no JVD Thyroid: thyroid normal Lymphatic: no lymphadenopathy noted Resp: Effort & Inspection: no paradoxical thoraco-abdom movements, symmetric chest movement and other Auscultation: clear to auscultation bilaterally Cardio: Jugular venous distension: no JVD Rate: regular rate Rhythm: regular rhythm Heart sounds: S1 normal heart sound present and S2 normal heart sound present GI: Inspection: Pannus present and obesity GI Palp: Yes Soft to palpation and Yes No hepatosplenomegaly present : General: Yes deferred Skin: Rashes: no rashes Wounds: no wounds Neuro: Cranial nerves: Yes CN's II-XII intact bilaterally and Yes Equal, round and reactive pupils present Cognition (Neuro): abnormal cognition (comatose) Speech: normal speech Gait exam (Neuro): Unable to assess gait Extrem: General: normal to inspection, full ROM, no joint enlargement and no pedal edema H&P: Results Labs Labs: Short CBC 06/23/24 Range/Units 16:55 WBC 14.4 H (4.5-10.0) K/mm3 Hgb 13.0 L (14.0-18.0) g/dL Hct 42.2 (42.0-52.0) % Plt Count 165 (150-375) k/mm3 BMP 06/23/24 16:55 Sodium 135 L Potassium 4.8 Chloride 101 Carbon Dioxide 26 BUN 66 H Creatinine 3.00 H Glucose 259 H Calcium 8.7 Cardiac Enzymes 06/23/24 Range/Units 16:55 Troponin I < 0.012 (0.000-0.034) ng/mL Liver Function 06/23/24 Range/Units 16:55 Total Bilirubin 0.3 (0.2-1.3) mg/dL AST 28 (17-59) U/L ALT 33 (6-50) U/L Alkaline Phosphatase 119 (38-126) U/L Albumin 3.8 (3.5-5.1) g/dL Assessment and Plan Assessment and plan (1) Hypercapnic respiratory failure: Code(s): J96.92 - Respiratory failure, unspecified with hypercapnia Status: Acute Assessment and Plan: patient placed on ventilator support admitted to intensive care unit vent management as per events traffic controller (2) COPD (chronic obstructive pulmonary disease): Code(s): J44.9 - Chronic obstructive pulmonary disease, unspecified Status: Acute Assessment and Plan: breathing treatments (3) Acute kidney injury superimposed on CKD: Code(s): N17.9 - Acute kidney failure, unspecified; N18.9 - Chronic kidney disease, unspecified Status: Acute Assessment and Plan: Browning catheter in daily intake and output kidney ultrasound in a.m. likely prerenal azotemia gentle hydration will hold Lasix use as needed continue to monitor (4) Obstructive sleep apnea: Code(s): G47.33 - Obstructive sleep apnea (adult) (pediatric) Status: Acute Assessment and Plan: currently on ventilator support history of noncompliance Hospitalist MIPS Advance Care Plan I have confirmed that the patient's Advanced Care Plan is present, code status is documented, or surrogate decision maker is listed in patient medical record.: Yes Medication Reconciliation I have utilized all available resources to obtain, update and review the patients current medications (includes all prescriptions, OTC, herbals, cannabis, and nutritional supplements).: Yes
[2024-06-23] MEDS: SODIUM CHLORIDE 0.9% IV 1,000 ML 999 ML (20:29)
--- NOTE | 2024-06-23 20:38 | PC.NURSE ---
Bed request received from warehouse administrator at 2037. Asked that chart be updated with current vital signs prior to giving bed assignment since patient's blood pressure has trended down and bp has not been charted since 1925.
[2024-06-23 20:54] LABS: Add Urine Microscopic? YES; Appearance Urine Cloudy (Clear); Bacteria Urine None Seen /hpf; Bilirubin Urine Negative (Negative); Blood Urine Negative (Negative); Color Urine Dark Yellow (Yellow); Glucose Urine UA Negative (Negative); Hyaline Casts Urine Present /lpf; Ketones Urine Negative (Negative); Leukocyte Esterase Ur Negative LEU/UL (Negative); Need Manual Microscopic Reviewed; Nitrate Urine Negative (Negative); Protein Urine 2+ mg/dL (Negative); RBC Urine 0-2 /hpf (0-2); Specific Grav Ur 1.019 (1.001-1.035); Squamous Epithelial Cell Urine Occasional /hpf (Few); Urobilinogen Urine 0.2 mg/dL (<2.0); WBC Urine 0-5 /hpf (0-3)
[2024-06-23] MEDS: FENTANYL 2,500MCG/NS250ML(*CRX 2,500 MCG/250 ML BAG IV CONT (21:02)
--- NOTE | 2024-06-23 22:13 | ADMGEN ---
This patient, Sherif Restrepo, \]
--- NOTE | 2024-06-23 22:15 | ADMGEN ---
This patient, Sherif Restrepo, was admitted to Intensive Care Unit-10. Patient/family oriented to hospital policies and general routines including ID bracelet, bed and alarms, visiting hours, pain management, procedures, bathroom and other care routines, personal items, smoking policy, room service/diet, and visiting hours. Information on how to activate the Rapid Response Team has been discussed. Patient/Family are encouraged to report perceived risks to care and to ask questions if they do not understand what they are told or what they should do.
[2024-06-23] MEDS: AZTREONAM 1 GM in SODIUM CHLORIDE 0.9% IV 50 ML 100 ML IVPB (23:00)
[2024-06-24] VITALS (38 sets, daily range): BP systolic 97–159; BP diastolic 45–82; PULSE 52–85; RESP 14–21; TEMP 35.9–37.6; O2SAT 93–100
[2024-06-24] MEDS: MIDAZOLAM HCL (*CRX) 2 MG/2 ML VIAL IV PUSH ×2 (01:42→02:35)
[2024-06-24] MEDS: FENTANYL 2,500MCG/NS250ML(*CRX 2,500 MCG/250 ML BAG IV CONT (02:00)
[2024-06-24] MEDS: MIDAZOLAM 100MG/NS 100ML(*CRX) 100 MG/100 ML BAG IV CONT (02:20)
[2024-06-24] MEDS: ALBUTEROL SULFATE NEB 2.5 MG/3 ML INH INHALATION ×4 (02:51→19:53)
[2024-06-24] MEDS: IPRATROPIUM BR 0.02% INH SOLN 0.5 MG/2.5 ML VIAL INHALATION ×3 (02:51→19:53)
[2024-06-24 04:50] LABS: Hematocrit 44.6 % (42.0-52.0); Hemoglobin 13.4 g/dL (14.0-18.0); Mean Corpuscular Hemoglobin 29.6 pg (26-34); Mean Corpuscular Volume 98.5 fl (80-100); Mean Platelet Volume 12.5 fl (7.4-10.4); Platelet Count Result 152 k/mm3 (150-375); Red Blood Count 4.53 M/mm3 (4.6-6.20); Red Cell Distribution Width 15.3 % (11.5-14.5); White Blood Count 16.8 K/mm3 (4.5-10.0)
[2024-06-24 05:22] LABS: Anion Gap 16 mmol/L (4-12); Blood Urea Nitrogen 66 mg/dL (9-20); Calcium 8.3 mg/dL (8.4-10.2); Carbon Dioxide 20 mmol/L (22-30); Chloride 101 mmol/L (98-107); Estimated CRCL calculation 27 ml/min; Estimated Glomerular Filt Rate 21; Glucose 445 mg/dL (65-110); Magnesium 2.4 mg/dL (1.6-2.3); Potassium 5.2 mmol/L (3.4-5.0); Sodium 137 mmol/L (137-145)
[2024-06-24 05:36] LABS: Alveolar/Arterial O2 Gradient 178.9 mmHg; Base Excess ABG -6.9 mEq/l (+/-2.0); Fractional Inspired Oxygen 45 %; HCO3 ABG 18.7 mEq/l (22.0-26.0); Oxygen Content ABG 18.3 %vol (16.0-22.0); Oxyhemoglobin 96.1 % THb (90.0-100.0); PCO2 ABG 38.2 mmHg (35.0-45.0); PO2 ABG 98.5 mmHg (80.0-100.0); PO2 FiO2 Ratio Arterial Blood 2.19 %; Total Hemoglobin 13.5 g/dL (12.0-18.0); pH ABG 7.308 (7.350-7.450)
[2024-06-24 05:43] LABS: Arterial Blood Gas PEEP 5 cmH2O; Arterial Blood Gas Vent Mode CMV; Arterial Blood Gas Ventilator rate 20 /MIN; Device VENTILATOR; Modified Allen's Test Pass; Site Drawn LEFT RADIAL
[2024-06-24 05:44] LABS: Arterial Blood Gas Tidal Volume 480 ml
[2024-06-24] MEDS: FLUTICASONE/UMECLIDIN/VILANTER 100-62.5-25 MCG ELLIPTA 1 PUFF INHALATION (07:25)
[2024-06-24 07:54] LABS: MRSA (PCR) NOT DETECTED (NOT DETECTE)
[2024-06-24 08:12] LABS: Hemoglobin A1C 7.5 % (<5.7)
[2024-06-24] MEDS: HEPARIN SODIUM 5,000 UNITS/ML VIAL 5000 UNITS SUB-Q ×3 (08:20→21:09)
[2024-06-24] MEDS: ATORVASTATIN 40 MG TABLET 80 MG PO (08:25)
[2024-06-24] MEDS: PANTOPRAZOLE SODIUM IV 40 MG VIAL IV PUSH ×2 (08:25→21:09)
[2024-06-24] MEDS: PREGABALIN (*CRX) 75 MG CAPSULE PO ×2 (08:25→18:15)
[2024-06-24] MEDS: SERTRALINE HCL 50 MG TABLET 100 MG PO (08:25)
[2024-06-24] MEDS: LACTATED RINGERS 500 ML IV CONT (08:26)
[2024-06-24] MEDS: INSULIN GLARGINE (*BKC) 100 UNITS/ML 32 UNITS SUB-Q (08:28)
[2024-06-24 08:34] LABS: Glucose Point of Care 461 mg/dl (65-105)
[2024-06-24] MEDS: INSULIN HUMAN REGULAR (*BKC) 100 UNITS/ML 10 UNITS IV PUSH ×2 (08:43→10:08)
[2024-06-24] MEDS: HYDROCORTISONE SODIUM SUCCINATE 100 MG/2 ML VIAL 50 MG IV PUSH ×3 (08:56→18:15)
[2024-06-24] MEDS: VANCOMYCIN 1,250 MG/NS 250 ML 1,250 MG/250 ML BAG 166.67 MG IVPB ×2 (08:57→10:41)
[2024-06-24 09:43] LABS: Glucose Point of Care 398 mg/dl (65-105)
[2024-06-24] MEDS: MINERAL OIL/WHITE PETROLATUM OINTMENT 1 APPLIC EACH EYE ×2 (10:46→21:10)
[2024-06-24] MEDS: LEVOTHYROXINE SODIUM 25 MCG TABLET PO (10:46)
[2024-06-24] MEDS: LACTATED RINGERS 1,000 ML 999 ML IV CONT (10:46)
[2024-06-24] MEDS: LEVOTHYROXINE SODIUM 150 MCG TABLET PO (10:46)
--- NOTE | 2024-06-24 11:28 | P.CONIN_ITS ---
Assessment and Plan Assessment and plan (1) Hypercapnic respiratory failure: Code(s): J96.92 - Respiratory failure, unspecified with hypercapnia Status: Acute Assessment and Plan: Patient presented with confusion, hypercapnia ABGs, was placed on BiPAP with worsening ABGs, likely related to COPD exacerbation, pneumonia and hypercapnic respiratory failure requiring intubation on 06/23/2024 -this morning remains intubated on CMV mode of ventilation -ABGs and chest x-rays reviewed, hypercapnia has resolved -patient does have bilateral pneumonia, ETT was retracted 3 cm -started patient on steroids for pneumonia -will wean FiO2 to maintain O2 sats greater than 92% -sedated with fentanyl and Versed infusion, daily SBT and SAT. -maintain RASS between 0 and -2 (2) COPD (chronic obstructive pulmonary disease): Code(s): J44.9 - Chronic obstructive pulmonary disease, unspecified Status: Acute Assessment and Plan: Patient has a history of COPD for which he has been intubated in the past, along with pneumonia. -continue bronchodilators, steroids, antibiotics -will start home Trelegy Ellipta - (3) Pneumonia: Code(s): J18.9 - Pneumonia, unspecified organism Status: Acute Assessment and Plan: Patient with bilateral pneumonia on chest x-ray -continue mechanical ventilation -continue bronchodilators -continue azithromycin, aztreonam and vancomycin (started on 06/23) (4) Acute kidney injury superimposed on CKD: Code(s): N17.9 - Acute kidney failure, unspecified; N18.9 - Chronic kidney disease, unspecified Status: Acute Assessment and Plan: Patient with acute kidney injury, has a history of stage 5 kidney injury requiring dialysis in the past -patient has been given IV fluids -will check urine lytes, urine eosinophils, CK level -06/24: Renal ultrasound did not show any stones masses or hydronephrosis -will continue to monitor urine output, renal function electrolytes -if renal functions worsen will obtain Nephrology consult (5) Diabetes: Qualifiers: Diabetes mellitus type: type 2 Diabetes mellitus superintendent terminal insulin use: with superintendent terminal use Diabetes mellitus complication status: without complication Qualified Code(s): E11.9 - Type 2 diabetes mellitus without complications; Z79.4 - remote computer terminal operator (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) use of insulin Code(s): E11.9 - Type 2 diabetes mellitus without complications Status: Acute Assessment and Plan: Patient has a history of diabetes, has an insulin pump -this morning patient is blood sugars 445, anion gap of 16, potassium of 5.2, CO2 of 20 -will obtain beta hydroxybutyrate -patient was given regular insulin Lantus despite which the blood sugars have been elevated -will start insulin infusion per DKA protocol -1.5 L of IV fluid bolus was given morning -will monitor blood sugars closely (6) Obstructive sleep apnea: Code(s): G47.33 - Obstructive sleep apnea (adult) (pediatric) Status: Acute Assessment and Plan: History of obstructive sleep apnea, noncompliant with CPAP. -follows with Dr. 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 Plan DVT prophylaxis: Heparin subQ Stress ulcer prophylaxis: Protonix Nutrition: Will start diabetic diet Code Status: Full code Critical Care Time Spent: 48 minutes Discussed with patient's spouse Lynda, updated with patient's condition and plan of care. Answered all her questions Due to a high probability of clinically significant, life threatening deterioration, the patient required my highest level of preparedness to intervene emergently and I personally spent this critical care time directly and personally managing the patient. This critical care time included obtaining a history; examining the patient; pulse oximetry; ordering and review of studies; arranging urgent treatment with development of a management plan; evaluation of patient's response to treatment; frequent reassessment; and discussions with other providers. It was exclusive of separately billable procedures and treating other patients and teaching time. Please see Assessment and Plan section and the rest of the note for further information on patient assessment and treatment This dictation may have been done utilizing a voice recognition system. Attempts have been made to correct errors. However, there may be uncorrected grammatical, spelling, and recognitions errors present. [employer] Consult Note Consult date: 06/24/24 Reason for consult: Acute hypercapnic respiratory failure, COPD exacerbation, confusion, altered mental status, acute kidney injury HPI: Sherif Restrepo is a 63 year old male with past medical history of COPD, obstructive sleep apnea noncompliant with his CPAP/BiPAP, hypothyroidism depression, history of pneumonia, multiple admissions with intubations in the past for COPD secondary to noncompliance presented the ED on with complains of confusion, altered mental status, generalized weakness, was found to have acute hypercapnic respiratory failure and was placed on BiPAP, repeat ABGs showed worsening of pH and pCO2, patient was intubated in the ER, sedated with fentanyl and Versed infusion and transfer the ICU for further management Pertinent labs showed a WBC count of 14.4, hemoglobin of 13.0, platelet counts of 165, INR was 1.2. ABG showed a pH of 7.08, pCO2 of 80, PO2 of 82, CO2 of 23, O2 sats of 90% on BiPAP, 20/8, 45% FiO2. Sodium 135, potassium 4.8, CO2 26, BUN 66, creatinine 3.0, blood sugar of 259, lactic acid 1.1, proBNP of 2780, troponins negative x1, LFTs were pneumonia Chest x-ray on admission: Cardiomegaly with cardiac decompensation and pulmonary edema. Bilateral basal pneumonia with highly suggestive bilateral pneumonitis. 06/24/2024: Patient seen and examined the ICU this morning, remains intubated on CMV mode of ventilation, peep 5, 45% FiO2. Sedated with fentanyl and Versed infusion. Patient does open his eyes, follows simple commands and nods to questions. Blood sugars 445, potassium 5.2, creatinine remains 3.00, urine output has been adequate. Chest x-ray shows ET tube at the [place], have asked the respiratory therapist to withdraw the ETT 3 cm. Anion gap of 16 Review of Systems Review of Systems: ROS unobtainable: Yes unobtainable due to endotracheal tube, unobtainable due to medical condition and unobtainable due to mental status PMFSH Past Medical History Medical History Adult BMI 36.0-36.9 kg/sq m Adult BMI 37.0-37.9 kg/sq m Atrial fibrillation BMI 31.0-31.9,adult BMI 32.0-32.9,adult BMI 33.0-33.9,adult BMI greater than 30 Chronic shortness of breath COPD (chronic obstructive pulmonary disease) History of tobacco abuse Hypersomnia Hypothyroidism Loud snoring Low vitamin D level Major depressive disorder Neuropathy Pneumonia Retinopathy, diabetic, right eye Shortness of Breath Surgical History Surgical History History of revascularization procedure of lower extremity RLE S/P AVR S/P CABG x 2 Status post ablation of atrial fibrillation January 2018 Status post aortic aneurysm repair Family History Family History Father Acute myocardial infarction Hypertension Mother Diabetes mellitus Hypertension Thyroid activity decreased Scleroderma involving lung Heart disease Sibling Diabetes mellitus Other Loud snoring Social History Social History Social History: , is Lynda, has 2 grown kids; quit tobacco January 2018 with his DE and Atrial fib, smoked 1.5 ppd Smoking packs per day: 1.5 Smoking cigarettes per day: 30.0 Years smoked: 30 Smoking pack-years: 45.00 Smoking status: Former smoker Tobacco type: cigarettes Second hand tobacco smoke exposure: No Smoking end date: 12/05/17 Alcohol intake: former Substance use: never Substance use type: does not use Do You Feel Safe in your Home?: Yes Lack of Transportation: No Lack of Food: Never True Current Housing: I Have Housing Concerned About Future Housing: YES Difficulty Paying Gas/Electric Bills: No Difficulty Paying for Meds: No Currently Unemployed: No Education: High School Diploma/GED Difficulty w/ Childcare or Family Care: No Living arrangements: with family Occupation/Education: retired Additional occupation/education comments: 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; had exposure to inks but does not think he had occupational exposure to anything adverse for his breathing Gender identity (if verbalized by the patient): Male Sexual Orientation (if Verbalized by the Patient): Straight or Heterosexual Spiritual care concerns: No Agree to blood products: Yes Meds Home Medications and Allergies Home Medications Medication Instructions Recorded Confirmed Type atorvastatin 80 mg tablet 80 mg PO DAILY 08/17/19 06/23/24 History amlodipine 10 mg tablet 10 mg PO DAILY 02/25/23 06/23/24 History sotalol 80 mg tablet 80 mg PO DAILY 02/25/23 06/23/24 History blood-glucose sensor (Dexcom G6 #1 ea 05/06/23 06/23/24 History Sensor device) hydralazine 10 mg tablet 10 mg PO BID 05/06/23 06/23/24 History insulin aspart U-100 100 unit/mL 0.09 unit continuous subcutaneous 05/06/23 06/23/24 History subcutaneous solution infusion DAILY furosemide 20 mg tablet 60 mg PO DAILY 05/17/23 06/23/24 History insulin aspart U-100 100 unit/mL 1 sliding scale dose subcut 11/10/23 06/23/24 History (3 mL) subcutaneous pen (Novolog USEASDIRECTD FlexPen U-100 Insulin aspart) subcutaneous insulin pump (MiniMed 11/10/23 06/23/24 History 630G Insulin Pump) levothyroxine 175 mcg tablet 175 mcg PO DAILY #90 tabs 01/05/24 06/23/24 Rx quetiapine 100 mg tablet (Seroquel) 100 mg PO QHS #90 tabs 02/03/24 06/23/24 Rx pantoprazole 40 mg tablet,delayed See Rx Instructions .Route 03/14/24 06/23/24 Rx release .COMPLEX #180 tabs fluticasone fur. 100 mcg-umeclid 1 inh inhalation Q24H #60 ea 03/22/24 06/23/24 Rx 62.5 mcg-vilant 25 mcg inhalat.powder (Trelegy Ellipta) lorazepam 1 mg tablet 1 mg PO BID PRN anxiety #180 tabs 04/03/24 06/23/24 Rx albuterol sulfate 90 mcg/actuation 2 inh inhalation Q4H PRN shortness 04/30/24 06/23/24 Rx aerosol inhaler of breath or wheezing #8.5 grams sertraline 100 mg tablet 100 mg PO DAILY #90 tabs 04/30/24 06/23/24 Rx pregabalin 75 mg capsule 75 mg PO BID 06/12/24 06/23/24 History Allergies Allergy/AdvReac Type Severity Reaction Status Date / Time cefepime Allergy Severe respiratory Verified 06/12/24 10:36 decompensation codeine AdvReac Severe Swelling Verified 06/12/24 10:36 penicillin G AdvReac Mild immune Verified 06/12/24 10:36 iv contrast Allergy Intermediate Anaphylaxis Uncoded 06/12/24 10:36 Vital Signs Vital Signs - 24 hr 06/23/24 16:17 06/23/24 16:28 06/23/24 16:31 Temperature 98.6 F Pulse Rate 79 Respiratory Rate 24 H Blood Pressure 120/75 Pulse Oximetry 50 L 98 100 Oxygen Delivery Room Air Non-Rebreather Mask Non-Rebreather Mask Oxygen Flow Rate 15 10 Fraction of Inspired Oxygen 06/23/24 17:09 06/23/24 16:24 06/23/24 16:31 Temperature Pulse Rate 78 Respiratory Rate 15 14 Blood Pressure 120/67 Pulse Oximetry 100 96 100 Oxygen Delivery BiPAP Oxygen Flow Rate Fraction of Inspired Oxygen 06/23/24 16:32 06/23/24 16:45 06/23/24 17:01 Temperature Pulse Rate 80 80 80 Respiratory Rate 23 H 12 12 Blood Pressure Pulse Oximetry 100 100 Oxygen Delivery Oxygen Flow Rate Fraction of Inspired Oxygen 06/23/24 17:07 06/23/24 17:05 06/23/24 17:07 Temperature Pulse Rate 81 81 76 Respiratory Rate 14 18 16 Blood Pressure 115/68 Pulse Oximetry 97 100 Oxygen Delivery BiPAP Oxygen Flow Rate Fraction of Inspired Oxygen 06/23/24 17:59 06/23/24 18:19 06/23/24 17:08 Temperature Pulse Rate 72 77 81 Respiratory Rate 17 18 14 Blood Pressure Pulse Oximetry 100 Oxygen Delivery Oxygen Flow Rate Fraction of Inspired Oxygen 06/23/24 17:44 06/23/24 18:07 06/23/24 18:37 Temperature Pulse Rate 73 71 69 Respiratory Rate 12 13 21 H Blood Pressure Pulse Oximetry 96 95 92 Oxygen Delivery BiPAP Oxygen Flow Rate Fraction of Inspired Oxygen 06/23/24 18:57 06/23/24 19:26 06/23/24 19:30 Temperature Pulse Rate 67 62 Respiratory Rate 20 Blood Pressure 86/57 L 87/59 L Pulse Oximetry 96 96 96 Oxygen Delivery BiPAP BiPAP Oxygen Flow Rate Fraction of Inspired Oxygen 06/23/24 20:27 06/23/24 20:41 06/23/24 21:02 Temperature Pulse Rate 65 59 L Respiratory Rate 20 Blood Pressure 106/80 Pulse Oximetry 100 Oxygen Delivery Mechanical Ventilation Oxygen Flow Rate Fraction of Inspired Oxygen 45 06/23/24 20:53 06/23/24 18:32 06/23/24 18:37 Temperature 96.0 F L Pulse Rate 70 Respiratory Rate 12 11 L Blood Pressure 85/54 L Pulse Oximetry 92 Oxygen Delivery Oxygen Flow Rate Fraction of Inspired Oxygen 06/23/24 18:45 06/23/24 18:53 06/23/24 18:55 Temperature Pulse Rate 68 67 67 Respiratory Rate 11 L 15 12 Blood Pressure 89/55 L 86/57 L Pulse Oximetry 94 95 95 Oxygen Delivery Oxygen Flow Rate Fraction of Inspired Oxygen 06/23/24 19:00 06/23/24 19:01 06/23/24 19:15 Temperature Pulse Rate 66 69 65 Respiratory Rate 12 12 14 Blood Pressure 88/62 L Pulse Oximetry 96 95 95 Oxygen Delivery Oxygen Flow Rate Fraction of Inspired Oxygen 06/23/24 19:16 06/23/24 19:21 06/23/24 19:26 Temperature Pulse Rate 64 63 62 Respiratory Rate 12 16 13 Blood Pressure 84/57 L 86/60 L 87/59 L Pulse Oximetry 96 95 96 Oxygen Delivery Oxygen Flow Rate Fraction of Inspired Oxygen 06/23/24 19:30 06/23/24 19:45 06/23/24 19:46 Temperature Pulse Rate 62 62 62 Respiratory Rate 13 17 14 Blood Pressure 97/58 L Pulse Oximetry 96 95 94 Oxygen Delivery Oxygen Flow Rate Fraction of Inspired Oxygen 06/23/24 19:51 06/23/24 20:00 06/23/24 20:01 Temperature Pulse Rate 61 62 61 Respiratory Rate 14 13 13 Blood Pressure 100/62 103/63 Pulse Oximetry 95 94 94 Oxygen Delivery Oxygen Flow Rate Fraction of Inspired Oxygen 06/23/24 20:06 06/23/24 20:21 06/23/24 20:22 Temperature Pulse Rate 62 65 65 Respiratory Rate 17 20 20 Blood Pressure 104/62 127/75 Pulse Oximetry 94 100 100 Oxygen Delivery Oxygen Flow Rate Fraction of Inspired Oxygen 06/23/24 20:26 06/23/24 20:30 06/23/24 20:31 Temperature 95.4 F L 96.1 F L 96.3 F L Pulse Rate 65 65 71 Respiratory Rate 20 20 20 Blood Pressure 142/85 H 160/89 H Pulse Oximetry 100 100 100 Oxygen Delivery Oxygen Flow Rate Fraction of Inspired Oxygen 06/23/24 20:36 06/23/24 20:41 06/23/24 20:45 Temperature 96.9 F L 97.2 F L 97.4 F L Pulse Rate 72 61 59 L Respiratory Rate 20 20 20 Blood Pressure 164/89 H 166/90 H Pulse Oximetry 100 100 100 Oxygen Delivery Oxygen Flow Rate Fraction of Inspired Oxygen 06/23/24 20:46 06/23/24 20:51 06/23/24 20:52 Temperature 97.4 F L 97.5 F L 97.5 F L Pulse Rate 63 59 L Respiratory Rate 20 25 H 20 Blood Pressure 162/84 H 165/84 H Pulse Oximetry 100 100 100 Oxygen Delivery Oxygen Flow Rate Fraction of Inspired Oxygen 06/23/24 21:00 06/23/24 21:01 06/23/24 21:11 Temperature 97.6 F 97.7 F 97.9 F Pulse Rate 58 L 59 L 58 L Respiratory Rate 20 20 20 Blood Pressure 166/86 H 165/83 H Pulse Oximetry 100 100 100 Oxygen Delivery Oxygen Flow Rate Fraction of Inspired Oxygen 06/23/24 21:35 06/23/24 21:12 06/23/24 21:16 Temperature 97.9 F Pulse Rate 65 59 L Respiratory Rate 20 Blood Pressure 169/82 H Pulse Oximetry 100 100 Oxygen Delivery Mechanical Ventilation Oxygen Flow Rate Fraction of Inspired Oxygen 45 06/23/24 22:00 06/23/24 23:09 06/24/24 01:00 Temperature Pulse Rate 67 68 68 Respiratory Rate 20 20 Blood Pressure Pulse Oximetry Oxygen Delivery Oxygen Flow Rate Fraction of Inspired Oxygen 06/23/24 21:30 06/24/24 00:00 06/24/24 02:00 Temperature 98.6 F 99 F 99.6 F Pulse Rate 72 69 69 Respiratory Rate 20 20 15 Blood Pressure 166/86 H 159/82 H 140/74 Pulse Oximetry 92 100 97 Oxygen Delivery Oxygen Flow Rate Fraction of Inspired Oxygen 06/23/24 21:28 06/24/24 00:00 06/23/24 23:28 Temperature Pulse Rate 67 67 64 Respiratory Rate 20 20 Blood Pressure Pulse Oximetry 100 100 97 Oxygen Delivery Mechanical Ventilation Mechanical Ventilation Mechanical Ventilation Oxygen Flow Rate Fraction of Inspired Oxygen 45 45 45 06/24/24 02:56 06/24/24 02:58 06/24/24 02:00 Temperature Pulse Rate 64 66 65 Respiratory Rate 20 20 Blood Pressure Pulse Oximetry 97 Oxygen Delivery Mechanical Ventilation Oxygen Flow Rate Fraction of Inspired Oxygen 45 06/24/24 02:20 06/24/24 03:02 06/24/24 03:37 Temperature Pulse Rate 67 74 63 Respiratory Rate 20 20 20 Blood Pressure Pulse Oximetry Oxygen Delivery Oxygen Flow Rate Fraction of Inspired Oxygen 06/24/24 04:06 06/24/24 03:15 06/24/24 03:45 Temperature Pulse Rate 61 62 61 Respiratory Rate 20 20 20 Blood Pressure Pulse Oximetry Oxygen Delivery Oxygen Flow Rate Fraction of Inspired Oxygen 06/24/24 05:25 06/24/24 04:00 06/24/24 04:00 Temperature Pulse Rate 61 64 61 Respiratory Rate 20 Blood Pressure Pulse Oximetry 96 96 Oxygen Delivery Mechanical Ventilation Mechanical Ventilation Oxygen Flow Rate Fraction of Inspired Oxygen 45 45 06/24/24 04:00 06/24/24 06:00 06/24/24 04:00 Temperature 99.6 F Pulse Rate 63 64 Respiratory Rate 14 Blood Pressure 117/45 L Pulse Oximetry 93 Oxygen Delivery Oxygen Flow Rate Fraction of Inspired Oxygen 45 06/24/24 05:50 06/24/24 05:50 06/24/24 05:57 Temperature 99.0 F Pulse Rate 62 62 60 Respiratory Rate 21 H 21 H 20 Blood Pressure 118/60 Pulse Oximetry 95 Oxygen Delivery Oxygen Flow Rate Fraction of Inspired Oxygen 06/24/24 07:25 06/24/24 07:25 06/24/24 07:35 Temperature Pulse Rate 64 64 67 Respiratory Rate 20 20 Blood Pressure Pulse Oximetry 96 Oxygen Delivery Mechanical Ventilation Oxygen Flow Rate Fraction of Inspired Oxygen 45 06/24/24 07:54 06/24/24 07:59 06/24/24 08:15 Temperature 98.7 F Pulse Rate 65 65 Respiratory Rate 18 Blood Pressure 138/68 Pulse Oximetry 96 94 Oxygen Delivery Mechanical Ventilation Mechanical Ventilation Oxygen Flow Rate Fraction of Inspired Oxygen 45 45 06/24/24 08:00 06/24/24 08:50 06/24/24 10:50 Temperature Pulse Rate 67 85 Respiratory Rate Blood Pressure Pulse Oximetry 95 94 Oxygen Delivery Mechanical Ventilation Mechanical Ventilation Oxygen Flow Rate Fraction of Inspired Oxygen 40 40 06/24/24 10:00 06/24/24 08:00 Temperature Pulse Rate 62 Respiratory Rate Blood Pressure Pulse Oximetry Oxygen Delivery Oxygen Flow Rate Fraction of Inspired Oxygen 45 Exam Narrative: General: Obese patient was intubated, sedated, in no acute distress HEENT:? Pupils equal and reactive, sclera is clear, ETT in place Neck:? Supple Respiratory:? Coarse breath sounds bilaterally, decreased at bases, no wheezing, adequate air Cardiac:? S1-S2 normal, regular rate and rhythm Abdomen:? Soft, nontender, nondistended, obese, normoactive bowel sounds Extremities:? Bilateral lower extremity edema, palpable pedal pulses Neuro:? Patient is intubated, sedated but opens his eyes and follows simple comm ands in all extremities, he also nods to questions Skin:? Warm and dry Psych:? Unable to assess at this time Results Labs 06/24/24 04:40 06/24/24 04:40 Labs: Short CBC 06/23/24 06/24/24 Range/Units 16:55 04:40 WBC 14.4 H 16.8 H (4.5-10.0) K/mm3 Hgb 13.0 L 13.4 L (14.0-18.0) g/dL Hct 42.2 44.6 (42.0-52.0) % Plt Count 165 152 (150-375) k/mm3 BMP 06/23/24 06/24/24 16:55 04:40 Sodium 135 L 137 Potassium 4.8 5.2 H Chloride 101 101 Carbon Dioxide 26 20 L BUN 66 H 66 H Creatinine 3.00 H 3.00 H Glucose 259 H 445 H Calcium 8.7 8.3 L Cardiac Enzymes 06/23/24 Range/Units 16:55 Troponin I < 0.012 (0.000-0.034) ng/mL Liver Function 06/23/24 Range/Units 16:55 Total Bilirubin 0.3 (0.2-1.3) mg/dL AST 28 (17-59) U/L ALT 33 (6-50) U/L Alkaline Phosphatase 119 (38-126) U/L Albumin 3.8 (3.5-5.1) g/dL Urine 06/23/24 Range/Units 20:33 Urine Color Dark yellow (Yellow) Urine Appearance Cloudy H (Clear) Urine pH 5.0 (5.0-9.0) Ur Specific [place] 1.019 (1.001-1.035) Urine Protein 2+ H (Negative) mg/dL Urine Glucose (UA) Negative (Negative) mg/dL Quality VTE Prophylaxis VTE prophylaxis: pharmacologic ordered Hospitalist MIPS Advance Care Plan I have confirmed that the patient's Advanced Care Plan is present, code status is documented, or surrogate decision maker is listed in patient medical record.: Yes Medication Reconciliation I have utilized all available resources to obtain, update and review the patients current medications (includes all prescriptions, OTC, herbals, cannabis, and nutritional supplements).: Yes
[2024-06-24] MEDS: AZTREONAM 1 GM in SODIUM CHLORIDE 0.9% IV 50 ML 100 ML IVPB ×2 (12:13→21:09)
[2024-06-24] MEDS: INSULIN HUMAN REGULAR (*BKC) 100 UNITS in SODIUM CHLORIDE 0.9% IV 99 ML 10.8 UNITS IV CONT (12:15)
[2024-06-24] MEDS: INSULIN HUMAN REGULAR (*BKC) 100 UNITS/ML IV PUSH (12:25)
[2024-06-24 12:30] LABS: Creatine Kinase 54 U/L (55-170)
[2024-06-24 12:33] LABS: Anion Gap 14 mmol/L (4-12); Blood Urea Nitrogen 71 mg/dL (9-20); Calcium 8.2 mg/dL (8.4-10.2); Carbon Dioxide 18 mmol/L (22-30); Chloride 104 mmol/L (98-107); Estimated CRCL calculation 28 ml/min; Estimated Glomerular Filt Rate 22; Glucose 351 mg/dL (65-110); Potassium 4.4 mmol/L (3.4-5.0); Sodium 136 mmol/L (137-145)
[2024-06-24] MEDS: SODIUM CHLORIDE 0.9% IV 1,000 ML 150 ML IV CONT (12:39)
[2024-06-24 12:59] LABS: Glucose Point of Care 408 mg/dl (65-105)
[2024-06-24 13:36] LABS: Glucose Point of Care 315 mg/dl (65-105)
--- NOTE | 2024-06-24 14:13 | PM.IMPN ---
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 Diabetes mellitus complication status: without complication Qualified Code(s): E11.9 - Type 2 diabetes mellitus without complications; 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 Patient has increasingly agitated and confused over the past several days. Started saying nonsensical things so family meeting come to the ER for evaluation. On arrival to the ED he was somnolent but arouses to verbal stimuli. His vitals were showed hypoxia with SpO2 in 50s. On air. He was placed on non-rebreather mask with improvement in saturation to upper 90s. Laboratory evaluation showed WBC 14.4 hemoglobin 13 creatinine of 3 electrolytes were unremarkable blood sugar 259. INR 1.2 influenza RSV COVID negative. Troponin was less than 0.012 BNP 2780. ABG 7.11/7 9// suggesting hypercapnic respiratory failure. Chest x-ray showed cardiomegaly with cardiac decompensation and pulmonary edema. Bilateral basal pneumonia with highly suggestive bilateral pneumonitis. Patient was placed on BiPAP and breathing treatment was started along with steroid. Repeat ABG 7.10/87/90/. With non improvement decision made to intubate the patient. Patient was intubated and hence was admitted to the ICU for further treatment. Patient started on IV antibiotics for pneumonia possible COPD exacerbation with steroid and bronchodilators. JERRY has history of stage 5 kidney injury requiring dialysis in the past. Baseline creatinine 1.6 01/26. Started on IV fluid. Renal ultrasound with no hydronephrosis. Type 2 diabetes on insulin pump at home. Insulin infusion per ICU protocol started. CHAZ noncompliant with CPAP Paresis of diaphragmatic Medication noncompliance DVT prophylaxis apparent subQ Code status full code Subjective Date/time seen: 06/24/24 14:13 Interval history: Chart reviewed. Patient intubated and sedated. Review of Systems Review of Systems: ROS unobtainable: Yes unobtainable due to mental status Exam Narrative: General: Obese patient was intubated, sedated, in no acute distress HEENT:? Pupils equal and reactive, sclera is clear, ETT in place Neck:? Supple Respiratory:? Coarse breath sounds bilaterally, decreased at bases, no wheezing, adequate air Cardiac:? S1-S2 normal, regular rate and rhythm Abdomen:? Soft, nontender, nondistended, obese, normoactive bowel sounds Extremities:? Bilateral lower extremity edema, palpable pedal pulses Neuro:? Patient is intubated, sedated Skin:? Warm and dry Psych:? Unable to assess at this time Objective Data Vital Signs Vital Signs: Vital Signs - 24 hr 06/23/24 16:17 06/23/24 16:28 06/23/24 16:31 Temperature 98.6 F Pulse Rate 79 Respiratory Rate 24 H Blood Pressure 120/75 Pulse Oximetry 50 L 98 100 Oxygen Delivery Room Air Non-Rebreather Mask Non-Rebreather Mask Oxygen Flow Rate 15 10 Fraction of Inspired Oxygen 06/23/24 17:09 06/23/24 16:24 06/23/24 16:31 Temperature Pulse Rate 78 Respiratory Rate 15 14 Blood Pressure 120/67 Pulse Oximetry 100 96 100 Oxygen Delivery BiPAP Oxygen Flow Rate Fraction of Inspired Oxygen 06/23/24 16:32 06/23/24 16:45 06/23/24 17:01 Temperature Pulse Rate 80 80 80 Respiratory Rate 23 H 12 12 Blood Pressure Pulse Oximetry 100 100 Oxygen Delivery Oxygen Flow Rate Fraction of Inspired Oxygen 06/23/24 17:07 06/23/24 17:05 06/23/24 17:07 Temperature Pulse Rate 81 81 76 Respiratory Rate 14 18 16 Blood Pressure 115/68 Pulse Oximetry 97 100 Oxygen Delivery BiPAP Oxygen Flow Rate Fraction of Inspired Oxygen 06/23/24 17:59 06/23/24 18:19 06/23/24 17:08 Temperature Pulse Rate 72 77 81 Respiratory Rate 17 18 14 Blood Pressure Pulse Oximetry 100 Oxygen Delivery Oxygen Flow Rate Fraction of Inspired Oxygen 06/23/24 17:44 06/23/24 18:07 06/23/24 18:37 Temperature Pulse Rate 73 71 69 Respiratory Rate 12 13 21 H Blood Pressure Pulse Oximetry 96 95 92 Oxygen Delivery BiPAP Oxygen Flow Rate Fraction of Inspired Oxygen 06/23/24 18:57 06/23/24 19:26 06/23/24 19:30 Temperature Pulse Rate 67 62 Respiratory Rate 20 Blood Pressure 86/57 L 87/59 L Pulse Oximetry 96 96 96 Oxygen Delivery BiPAP BiPAP Oxygen Flow Rate Fraction of Inspired Oxygen 06/23/24 20:27 06/23/24 20:41 06/23/24 21:02 Temperature Pulse Rate 65 59 L Respiratory Rate 20 Blood Pressure 106/80 Pulse Oximetry 100 Oxygen Delivery Mechanical Ventilation Oxygen Flow Rate Fraction of Inspired Oxygen 45 06/23/24 20:53 06/23/24 18:32 06/23/24 18:37 Temperature 96.0 F L Pulse Rate 70 Respiratory Rate 12 11 L Blood Pressure 85/54 L Pulse Oximetry 92 Oxygen Delivery Oxygen Flow Rate Fraction of Inspired Oxygen 06/23/24 18:45 06/23/24 18:53 06/23/24 18:55 Temperature Pulse Rate 68 67 67 Respiratory Rate 11 L 15 12 Blood Pressure 89/55 L 86/57 L Pulse Oximetry 94 95 95 Oxygen Delivery Oxygen Flow Rate Fraction of Inspired Oxygen 06/23/24 19:00 06/23/24 19:01 06/23/24 19:15 Temperature Pulse Rate 66 69 65 Respiratory Rate 12 12 14 Blood Pressure 88/62 L Pulse Oximetry 96 95 95 Oxygen Delivery Oxygen Flow Rate Fraction of Inspired Oxygen 06/23/24 19:16 06/23/24 19:21 06/23/24 19:26 Temperature Pulse Rate 64 63 62 Respiratory Rate 12 16 13 Blood Pressure 84/57 L 86/60 L 87/59 L Pulse Oximetry 96 95 96 Oxygen Delivery Oxygen Flow Rate Fraction of Inspired Oxygen 06/23/24 19:30 06/23/24 19:45 06/23/24 19:46 Temperature Pulse Rate 62 62 62 Respiratory Rate 13 17 14 Blood Pressure 97/58 L Pulse Oximetry 96 95 94 Oxygen Delivery Oxygen Flow Rate Fraction of Inspired Oxygen 06/23/24 19:51 06/23/24 20:00 06/23/24 20:01 Temperature Pulse Rate 61 62 61 Respiratory Rate 14 13 13 Blood Pressure 100/62 103/63 Pulse Oximetry 95 94 94 Oxygen Delivery Oxygen Flow Rate Fraction of Inspired Oxygen 06/23/24 20:06 06/23/24 20:21 06/23/24 20:22 Temperature Pulse Rate 62 65 65 Respiratory Rate 17 20 20 Blood Pressure 104/62 127/75 Pulse Oximetry 94 100 100 Oxygen Delivery Oxygen Flow Rate Fraction of Inspired Oxygen 06/23/24 20:26 06/23/24 20:30 06/23/24 20:31 Temperature 95.4 F L 96.1 F L 96.3 F L Pulse Rate 65 65 71 Respiratory Rate 20 20 20 Blood Pressure 142/85 H 160/89 H Pulse Oximetry 100 100 100 Oxygen Delivery Oxygen Flow Rate Fraction of Inspired Oxygen 06/23/24 20:36 06/23/24 20:41 06/23/24 20:45 Temperature 96.9 F L 97.2 F L 97.4 F L Pulse Rate 72 61 59 L Respiratory Rate 20 20 20 Blood Pressure 164/89 H 166/90 H Pulse Oximetry 100 100 100 Oxygen Delivery Oxygen Flow Rate Fraction of Inspired Oxygen 06/23/24 20:46 06/23/24 20:51 06/23/24 20:52 Temperature 97.4 F L 97.5 F L 97.5 F L Pulse Rate 63 59 L Respiratory Rate 20 25 H 20 Blood Pressure 162/84 H 165/84 H Pulse Oximetry 100 100 100 Oxygen Delivery Oxygen Flow Rate Fraction of Inspired Oxygen 06/23/24 21:00 06/23/24 21:01 06/23/24 21:11 Temperature 97.6 F 97.7 F 97.9 F Pulse Rate 58 L 59 L 58 L Respiratory Rate 20 20 20 Blood Pressure 166/86 H 165/83 H Pulse Oximetry 100 100 100 Oxygen Delivery Oxygen Flow Rate Fraction of Inspired Oxygen 06/23/24 21:35 06/23/24 21:12 06/23/24 21:16 Temperature 97.9 F Pulse Rate 65 59 L Respiratory Rate 20 Blood Pressure 169/82 H Pulse Oximetry 100 100 Oxygen Delivery Mechanical Ventilation Oxygen Flow Rate Fraction of Inspired Oxygen 45 06/23/24 22:00 06/23/24 23:09 06/24/24 01:00 Temperature Pulse Rate 67 68 68 Respiratory Rate 20 20 Blood Pressure Pulse Oximetry Oxygen Delivery Oxygen Flow Rate Fraction of Inspired Oxygen 06/23/24 21:30 06/24/24 00:00 06/24/24 02:00 Temperature 98.6 F 99 F 99.6 F Pulse Rate 72 69 69 Respiratory Rate 20 20 15 Blood Pressure 166/86 H 159/82 H 140/74 Pulse Oximetry 92 100 97 Oxygen Delivery Oxygen Flow Rate Fraction of Inspired Oxygen 06/23/24 21:28 06/24/24 00:00 06/23/24 23:28 Temperature Pulse Rate 67 67 64 Respiratory Rate 20 20 Blood Pressure Pulse Oximetry 100 100 97 Oxygen Delivery Mechanical Ventilation Mechanical Ventilation Mechanical Ventilation Oxygen Flow Rate Fraction of Inspired Oxygen 45 45 45 06/24/24 02:56 06/24/24 02:58 06/24/24 02:00 Temperature Pulse Rate 64 66 65 Respiratory Rate 20 20 Blood Pressure Pulse Oximetry 97 Oxygen Delivery Mechanical Ventilation Oxygen Flow Rate Fraction of Inspired Oxygen 45 06/24/24 02:20 06/24/24 03:02 06/24/24 03:37 Temperature Pulse Rate 67 74 63 Respiratory Rate 20 20 20 Blood Pressure Pulse Oximetry Oxygen Delivery Oxygen Flow Rate Fraction of Inspired Oxygen 06/24/24 04:06 06/24/24 03:15 06/24/24 03:45 Temperature Pulse Rate 61 62 61 Respiratory Rate 20 20 20 Blood Pressure Pulse Oximetry Oxygen Delivery Oxygen Flow Rate Fraction of Inspired Oxygen 06/24/24 05:25 06/24/24 04:00 06/24/24 04:00 Temperature Pulse Rate 61 64 61 Respiratory Rate 20 Blood Pressure Pulse Oximetry 96 96 Oxygen Delivery Mechanical Ventilation Mechanical Ventilation Oxygen Flow Rate Fraction of Inspired Oxygen 45 45 06/24/24 04:00 06/24/24 06:00 06/24/24 04:00 Temperature 99.6 F Pulse Rate 63 64 Respiratory Rate 14 Blood Pressure 117/45 L Pulse Oximetry 93 Oxygen Delivery Oxygen Flow Rate Fraction of Inspired Oxygen 45 06/24/24 05:50 06/24/24 05:50 06/24/24 05:57 Temperature 99.0 F Pulse Rate 62 62 60 Respiratory Rate 21 H 21 H 20 Blood Pressure 118/60 Pulse Oximetry 95 Oxygen Delivery Oxygen Flow Rate Fraction of Inspired Oxygen 06/24/24 07:25 06/24/24 07:25 06/24/24 07:35 Temperature Pulse Rate 64 64 67 Respiratory Rate 20 20 Blood Pressure Pulse Oximetry 96 Oxygen Delivery Mechanical Ventilation Oxygen Flow Rate Fraction of Inspired Oxygen 45 06/24/24 07:54 06/24/24 07:59 06/24/24 08:15 Temperature 98.7 F Pulse Rate 65 65 Respiratory Rate 18 Blood Pressure 138/68 Pulse Oximetry 96 94 Oxygen Delivery Mechanical Ventilation Mechanical Ventilation Oxygen Flow Rate Fraction of Inspired Oxygen 45 45 06/24/24 08:00 06/24/24 08:50 06/24/24 10:50 Temperature Pulse Rate 67 85 Respiratory Rate Blood Pressure Pulse Oximetry 95 94 Oxygen Delivery Mechanical Ventilation Mechanical Ventilation Oxygen Flow Rate Fraction of Inspired Oxygen 40 40 06/24/24 10:00 06/24/24 08:00 06/24/24 12:00 Temperature Pulse Rate 62 Respiratory Rate Blood Pressure Pulse Oximetry Oxygen Delivery Mechanical Ventilation Oxygen Flow Rate Fraction of Inspired Oxygen 45 45 06/24/24 12:00 06/24/24 12:00 06/24/24 14:00 Temperature Pulse Rate 57 L 57 L Respiratory Rate Blood Pressure Pulse Oximetry Oxygen Delivery Oxygen Flow Rate Fraction of Inspired Oxygen 45 06/24/24 13:25 06/24/24 13:25 06/24/24 13:32 Temperature Pulse Rate 59 L 59 L 58 L Respiratory Rate 18 18 Blood Pressure Pulse Oximetry 95 Oxygen Delivery Mechanical Ventilation Oxygen Flow Rate Fraction of Inspired Oxygen 40 Intake/Output Intake/Output: Intake & Output 06/21/24 06/22/24 06/23/24 06/24/24 23:59 23:59 23:59 23:59 Intake Total 1405.3 560.3 Output Total 1000 Balance 1405.3 -439.7 Meds/Results Medications: Active Medications Generic Name Dose Route Start Last Admin Trade Name Freq PRN Reason Stop Dose Admin Acetaminophen 650 mg 06/24/24 02:04 Acetaminophen Elixir 325 Mg/10.15 Ml Udc PO Q4H PRN Mild Pain (1-3) or Fever Albuterol 2.5 mg 06/24/24 02:00 06/24/24 13:22 Albuterol Sulfate Neb 2.5 Mg/3 Ml Inh INHALATION 2.5 mg Q6HRT CHARITY Administration Atorvastatin Calcium 80 mg 06/24/24 09:00 06/24/24 08:25 Atorvastatin 40 Mg Tablet PO 80 mg DAILY [facility]ITY Administration Dextrose 12.5 gm 06/24/24 11:32 Dextrose 50% 25 Gm/50 Ml Syringe IV PUSH PRN PRN Hypoglycemia Protocol Fluticasone/Umeclidinium/Vilanterol 1 puff 06/24/24 08:00 06/24/24 07:25 Fluticasone/Umeclidin/Vilanter 100-62.5-25 Mcg Ellipta INHALATION 1 puff DAILYRT CHARITY Administration Glucagon 1 mg 06/24/24 11:32 Glucagon For Inj 1 Mg Vial IM PRN PRN Hypoglycemia Protocol Glucose 15 gm 06/24/24 11:32 Glucose Oral Gel 15 Gm Of Glucse In 37.5 Gm Tube PO PRN PRN Hypoglycemia Protocol Heparin Sodium (Porcine) 5,000 units 06/24/24 07:50 06/24/24 08:20 Heparin Sodium 5,000 Units/Ml Vial SUB-Q 5,000 units Q8HR [facility] Administration Hydrocortisone Sodium Succinate 50 mg 06/24/24 07:50 06/24/24 12:30 Hydrocortisone Sodium Succinate 100 Mg/2 Ml Vial IV PUSH 50 mg Q6HR [facility] Administration Aztreonam 1 gm/ Sodium 50 mls @ 100 mls/hr 06/23/24 22:00 06/24/24 12:13 Chloride IVPB 100 mls/hr Q12H [facility]ITY Administration Midazolam HCl 100 mg in 100 mls @ 3 mls/hr 06/24/24 02:00 06/24/24 05:50 Versed 100 Mg/Ns 100 Ml IV CONT 3 mg/hr .[id number] CHARITY 3 mls/hr Titration Protocol 3 MG/HR Fentanyl Citrate 2,500 mcg in 250 mls @ 7.5 mls/hr 06/24/24 02:05 06/24/24 05:50 Fentanyl 2,500 Mcg/Ns 250 Ml IV CONT 75 mcg/hr .[id number] [facility] 7.5 mls/hr Titration Protocol 75 MCG/HR Azithromycin 500 mg in 250 mls @ 250 mls/hr 06/24/24 18:00 Zithromax IVPB Q24H [facility] Vancomycin HCl 1,500 mg in 500 mls @ 250 mls/hr 06/25/24 21:00 Vancomycin 1,500 Mg/Ns 500 Ml IVPB Q36H [facility] Insulin Human Regular 100 100 mls @ 12.8 mls/hr 06/24/24 12:00 06/24/24 13:36 units/ Sodium Chloride IV CONT 12.8 units/hr .Q7H49M [facility]ITY 12.8 mls/hr Titration Protocol 12.8 UNITS/HR Dextrose 1,000 mls @ 100 mls/hr 06/24/24 11:32 Dextrose 5% 1,000 Ml IVPB PRN PRN Hypoglycemia Protocol Sodium Chloride 1,000 mls @ 150 mls/hr 06/24/24 12:30 06/24/24 12:39 Normal Saline Iv IV CONT 150 mls/hr .Q6H40M [facility]ITY Administration Potassium Chloride/Dextrose/Sod Cl 1,000 mls @ 150 mls/hr 06/24/24 12:30 Kcl 20 Meq/D5/0.45% Sod Chl IV CONT .Q6H40M [facility] Dextrose/Sodium Chloride 1,000 mls @ 150 mls/hr 06/24/24 12:30 Dextrose 5% Sodium Chloride 0.45% IV CONT .Q6H40M [facility] Insulin Aspart 4 - 8 units 06/24/24 07:50 06/24/24 12:25 Insulin Aspart (*Bkc) 100 Units/Ml SUB-Q Not Given Q4H [facility] Protocol Insulin Glargine 32 units 06/24/24 09:00 06/24/24 08:28 Insulin Glargine (*Bkc) 100 Units/Ml 0.3 units/kg (32 units) 32 units SUB-Q Administration DAILY [facility] Ipratropium [place] 0.5 mg 06/24/24 02:00 06/24/24 07:25 Ipratropium Br 0.02% Inh Soln 0.5 Mg/2.5 Ml Vial INHALATION 0.5 mg Q6HRT CHARITY Administration Levothyroxine Sodium 150 mcg 06/24/24 10:00 06/24/24 10:46 Levothyroxine Sodium 150 Mcg Tablet PO 150 mcg DAILY@0630 [facility] Administration Levothyroxine Sodium 25 mcg 06/24/24 10:00 06/24/24 10:46 Levothyroxine Sodium 25 Mcg Tablet PO 25 mcg DAILY@0630 [facility] Administration Midazolam HCl 2 mg 06/24/24 01:34 06/24/24 01:42 Midazolam Hcl (*Crx) 2 Mg/2 Ml Vial IV PUSH 2 mg PRN PRN Administration Sedation Multi-Ingred Cream/Lotion/Oil/Oint 1 applic 06/24/24 09:00 06/24/24 10:46 Mineral Oil/White Petrolatum Ointment EACH EYE 1 applic Q12HR [facility]ITY Administration Pantoprazole Sodium 40 mg 06/24/24 09:00 06/24/24 08:25 Pantoprazole Sodium Iv 40 Mg Vial IV PUSH 40 mg Q12HR [facility] Administration Pregabalin 75 mg 06/24/24 09:00 06/24/24 08:25 Pregabalin (*Crx) 75 Mg Capsule PO 75 mg BID [facility]ITY Administration Sertraline HCl 100 mg 06/24/24 09:00 06/24/24 08:25 Sertraline Hcl 50 Mg Tablet PO 100 mg DAILY CHARITY Administration Radiology Results: ITS Impressions Chest X-Ray 06/23/24 21:14 IMPRESSION: Bilateral pneumonia. Endotracheal tube needs to be retracted by about 2 cm. Renal Ultrasound 06/24/24 09:12 Impression: 1: Unremarkable renal ultrasound. No stones, masses or hydronephrosis. Labs Labs: Laboratory Results - last 24 hr 06/23/24 06/23/24 06/23/24 16:55 16:58 17:01 WBC 14.4 H RBC 4.34 L Hgb 13.0 L Hct 42.2 MCV 97.2 MCH 30.0 MCHC 30.8 L RDW 15.3 H Plt Count 165 MPV 12.1 H Immature Gran % (Auto) 2.8 H Neut % (Auto) 73.7 H Lymph % (Auto) 12.5 L Jerome % (Auto) 10.2 H Eos % (Auto) 0.2 Baso % (Auto) 0.6 Lymph # (Auto) 1.81 Jerome # (Auto) 1.5 H Eos # (Auto) 0.0 Baso # (Auto) 0.1 Abs Immat Gran (auto) 0.41 H Absolute Neuts (auto) 10.6 H Absolute Nucleated RBC 0.040 H Nucleated RBC % 0.3 H PT 15.3 H INR 1.2 APTT 30.2 Puncture Site Left brachial ABG pH 7.115 L* ABG pCO2 79.9 H* ABG pO2 211.6 H ABG PO2/FiO2 Ratio 2.12 ABG HCO3 25.1 ABG O2 Saturation 99.0 ABG O2 Content 18.8 ABG Base Excess -6.0 A-a Gradient 421.5 Oxyhemoglobin 97.3 Carboxyhemoglobin 1.4 Methemoglobin 0.2 Reduced Hemoglobin 1.1 Total Hemoglobin 13.4 O2 Delivery Device Non-rebreather mask O2 Liters/Min 10.0 Minute Volume Vent Rate Vent Mode FiO2 100 Expiratory Pressure Tidal Volume PEEP Inspiratory Pressure Peak Inspir Pressure Pressure Support Sodium 135 L Potassium 4.8 Chloride 101 Carbon Dioxide 26 Anion Gap 8 BUN 66 H Creatinine 3.00 H Estim Creat Clear Calc 27 Estimated GFR 21 L Glucose 259 H POC Capillary Glucose Hemoglobin A1c Lactic Acid 1.1 Calcium 8.7 Magnesium 2.5 H Total Bilirubin 0.3 AST 28 ALT 33 Alkaline Phosphatase 119 Total Creatine Kinase Troponin I < 0.012 NT-Pro-B Natriuret Pep 2780 H Total Protein 7.0 Albumin 3.8 Beta-Hydroxybutyrate/Acetoacetate Urine Color Urine Appearance Urine pH Ur Specific [place] Urine Protein Urine Glucose (UA) Urine Ketones Ur Blood (Man) Urine Nitrate Urine Bilirubin Urine Urobilinogen Add Ur Microanalysis Leukocyte Esterase Rfl Urine RBC Urine WBC Ur Squamous Epith Cells Urine Bacteria Urine Casts Hyaline Casts Nasal MRSA (PCR) Influenza A (RT-PCR) Negative Influenza B (RT-PCR) Negative RSV (RT-PCR) Negative SARS-CoV-2 RNA (RT-PCR) Negative 06/23/24 06/23/24 06/23/24 18:00 19:23 20:33 WBC RBC Hgb Hct MCV MCH MCHC RDW Plt Count MPV Immature Gran % (Auto) Neut % (Auto) Lymph % (Auto) Jerome % (Auto) Eos % (Auto) Baso % (Auto) Lymph # (Auto) Jerome # (Auto) Eos # (Auto) Baso # (Auto) Abs Immat Gran (auto) Absolute Neuts (auto) Absolute Nucleated RBC Nucleated RBC % PT INR APTT Puncture Site Left radial Right radial ABG pH 7.104 L* 7.081 L* ABG pCO2 87.2 H* 80.2 H* ABG pO2 90.4 82.5 ABG PO2/FiO2 Ratio 1.81 1.83 ABG HCO3 26.7 H 23.3 ABG O2 Saturation 93.1 L 90.8 L ABG O2 Content 17.4 17.0 ABG Base Excess -4.9 -8.1 A-a Gradient 168.0 147.1 Oxyhemoglobin 93.3 92.2 Carboxyhemoglobin 1.6 Methemoglobin 0.2 Reduced Hemoglobin 4.9 Total Hemoglobin 13.2 13.1 O2 Delivery Device Non-invasive vent Bipap O2 Liters/Min Not Reportable Not Reportable Minute Volume Vent Rate 14 Vent Mode FiO2 50 45 Expiratory Pressure 7 8 Tidal Volume PEEP Inspiratory Pressure 16 20 Peak Inspir Pressure Pressure Support Sodium Potassium Chloride Carbon Dioxide Anion Gap BUN Creatinine Estim Creat Clear Calc Estimated GFR Glucose POC Capillary Glucose Hemoglobin A1c Lactic Acid Calcium Magnesium Total Bilirubin AST ALT Alkaline Phosphatase Total Creatine Kinase Troponin I NT-Pro-B Natriuret Pep Total Protein Albumin Beta-Hydroxybutyrate/Acetoacetate Urine Color Dark yellow Urine Appearance Cloudy H Urine pH 5.0 Ur Specific [place] 1.019 Urine Protein 2+ H Urine Glucose (UA) Negative Urine Ketones Negative Ur Blood (Man) Negative Urine Nitrate Negative Urine Bilirubin Negative Urine Urobilinogen 0.2 Add Ur Microanalysis Reviewed Leukocyte Esterase Rfl Negative Urine RBC 0-2 Urine WBC 0-5 Ur Squamous Epith Cells Occasional Urine Bacteria None seen Urine Casts 11-20 Hyaline Casts Present Nasal MRSA (PCR) Influenza A (RT-PCR) Influenza B (RT-PCR) RSV (RT-PCR) SARS-CoV-2 RNA (RT-PCR) 06/24/24 06/24/24 06/24/24 04:32 04:40 05:33 WBC 16.8 H RBC 4.53 L Hgb 13.4 L Hct 44.6 MCV 98.5 MCH 29.6 MCHC 30.0 L RDW 15.3 H Plt Count 152 MPV 12.5 H Immature Gran % (Auto) Neut % (Auto) Lymph % (Auto) Jerome % (Auto) Eos % (Auto) Baso % (Auto) Lymph # (Auto) Jerome # (Auto) Eos # (Auto) Baso # (Auto) Abs Immat Gran (auto) Absolute Neuts (auto) Absolute Nucleated RBC Nucleated RBC % PT INR APTT Puncture Site Left radial ABG pH 7.308 L ABG pCO2 38.2 ABG pO2 98.5 ABG PO2/FiO2 Ratio 2.19 ABG HCO3 18.7 L ABG O2 Saturation 97.0 ABG O2 Content 18.3 ABG Base Excess -6.9 A-a Gradient 178.9 Oxyhemoglobin 96.1 Carboxyhemoglobin Methemoglobin Reduced Hemoglobin Total Hemoglobin 13.5 O2 Delivery Device Ventilator O2 Liters/Min Not Reportable Minute Volume Not Reportable Vent Rate 20 Vent Mode Cmv FiO2 45 Expiratory Pressure Tidal Volume 480 PEEP 5 Inspiratory Pressure Peak Inspir Pressure Not Reportable Pressure Support Not Reportable Sodium 137 Potassium 5.2 H Chloride 101 Carbon Dioxide 20 L Anion Gap 16 H BUN 66 H Creatinine 3.00 H Estim Creat Clear Calc 27 Estimated GFR 21 L Glucose 445 H POC Capillary Glucose Hemoglobin A1c 7.5 H Lactic Acid Calcium 8.3 L Magnesium 2.4 H Total Bilirubin AST ALT Alkaline Phosphatase Total Creatine Kinase Troponin I NT-Pro-B Natriuret Pep Total Protein Albumin Beta-Hydroxybutyrate/Acetoacetate Urine Color Urine Appearance Urine pH Ur Specific [place] Urine Protein Urine Glucose (UA) Urine Ketones Ur Blood (Man) Urine Nitrate Urine Bilirubin Urine Urobilinogen Add Ur Microanalysis Leukocyte Esterase Rfl Urine RBC Urine WBC Ur Squamous Epith Cells Urine Bacteria Urine Casts Hyaline Casts Nasal MRSA (PCR) Influenza A (RT-PCR) Influenza B (RT-PCR) RSV (RT-PCR) SARS-CoV-2 RNA (RT-PCR) 06/24/24 06/24/24 06/24/24 06:34 08:31 09:41 WBC RBC Hgb Hct MCV MCH MCHC RDW Plt Count MPV Immature Gran % (Auto) Neut % (Auto) Lymph % (Auto) Jerome % (Auto) Eos % (Auto) Baso % (Auto) Lymph # (Auto) Jerome # (Auto) Eos # (Auto) Baso # (Auto) Abs Immat Gran (auto) Absolute Neuts (auto) Absolute Nucleated RBC Nucleated RBC % PT INR APTT Puncture Site ABG pH ABG pCO2 ABG pO2 ABG PO2/FiO2 Ratio ABG HCO3 ABG O2 Saturation ABG O2 Content ABG Base Excess A-a Gradient Oxyhemoglobin Carboxyhemoglobin Methemoglobin Reduced Hemoglobin Total Hemoglobin O2 Delivery Device O2 Liters/Min Minute Volume Vent Rate Vent Mode FiO2 Expiratory Pressure Tidal Volume PEEP Inspiratory Pressure Peak Inspir Pressure Pressure Support Sodium Potassium Chloride Carbon Dioxide Anion Gap BUN Creatinine Estim Creat Clear Calc Estimated GFR Glucose POC Capillary Glucose 461 H 398 H Hemoglobin A1c Lactic Acid Calcium Magnesium Total Bilirubin AST ALT Alkaline Phosphatase Total Creatine Kinase Troponin I NT-Pro-B Natriuret Pep Total Protein Albumin Beta-Hydroxybutyrate/Acetoacetate Urine Color Urine Appearance Urine pH Ur Specific [place] Urine Protein Urine Glucose (UA) Urine Ketones Ur Blood (Man) Urine Nitrate Urine Bilirubin Urine Urobilinogen Add Ur Microanalysis Leukocyte Esterase Rfl Urine RBC Urine WBC Ur Squamous Epith Cells Urine Bacteria Urine Casts Hyaline Casts Nasal MRSA (PCR) Not detected Influenza A (RT-PCR) Influenza B (RT-PCR) RSV (RT-PCR) SARS-CoV-2 RNA (RT-PCR) 06/24/24 06/24/24 06/24/24 11:31 12:15 13:33 WBC RBC Hgb Hct MCV MCH MCHC RDW Plt Count MPV Immature Gran % (Auto) Neut % (Auto) Lymph % (Auto) [place] % (Auto) Eos % (Auto) Baso % (Auto) Lymph # (Auto) [place] # (Auto) Eos # (Auto) Baso # (Auto) Abs Immat Gran (auto) Absolute Neuts (auto) Absolute Nucleated RBC Nucleated RBC % PT INR APTT Puncture Site ABG pH ABG pCO2 ABG pO2 ABG PO2/FiO2 Ratio ABG HCO3 ABG O2 Saturation ABG O2 Content ABG Base Excess A-a Gradient Oxyhemoglobin Carboxyhemoglobin Methemoglobin Reduced Hemoglobin Total Hemoglobin O2 Delivery Device O2 Liters/Min Minute Volume Vent Rate Vent Mode FiO2 Expiratory Pressure Tidal Volume PEEP Inspiratory Pressure Peak Inspir Pressure Pressure Support Sodium 136 L Potassium 4.4 Chloride 104 Carbon Dioxide 18 L Anion Gap 14 H BUN 71 H Creatinine 2.90 H Estim Creat Clear Calc 28 Estimated GFR 22 L Glucose 351 H POC Capillary Glucose 408 H 315 H Hemoglobin A1c Lactic Acid Calcium 8.2 L Magnesium Total Bilirubin AST ALT Alkaline Phosphatase Total Creatine Kinase 54 L Troponin I NT-Pro-B Natriuret Pep Total Protein Albumin Beta-Hydroxybutyrate/Acetoacetate 2.50 H Urine Color Urine Appearance Urine pH Ur Specific [place] Urine Protein Urine Glucose (UA) Urine Ketones Ur Blood (Man) Urine Nitrate Urine Bilirubin Urine Urobilinogen Add Ur Microanalysis Leukocyte Esterase Rfl Urine RBC Urine WBC Ur Squamous Epith Cells Urine Bacteria Urine Casts Hyaline Casts Nasal MRSA (PCR) Influenza A (RT-PCR) Influenza B (RT-PCR) RSV (RT-PCR) SARS-CoV-2 RNA (RT-PCR)
[2024-06-24 14:28] LABS: Glucose Point of Care 309 mg/dl (65-105)
[2024-06-24 14:44] LABS: Eosinophil Urine None Seen % (None Seen); Urine Eos QC 2nd Tech Confirmed
[2024-06-24 14:46] LABS: Creatinine Urine 104.5 mg/dL
[2024-06-24 14:54] LABS: Potassium Urine Random 34.9 meq/L; Sodium Urine Random 13 meq/L
[2024-06-24 15:42] LABS: Glucose Point of Care 262 mg/dl (65-105)
[2024-06-24 16:40] LABS: Anion Gap 11 mmol/L (4-12); Blood Urea Nitrogen 64 mg/dL (9-20); Calcium 6.9 mg/dL (8.4-10.2); Carbon Dioxide 17 mmol/L (22-30); Chloride 110 mmol/L (98-107); Estimated CRCL calculation 34 ml/min; Estimated Glomerular Filt Rate 27; Glucose 214 mg/dL (65-110); Potassium 3.7 mmol/L (3.4-5.0); Sodium 138 mmol/L (137-145)
[2024-06-24] MEDS: KCL 20 MEQ/D5/0.45% SOD CHL 1,000 ML 150 ML IV CONT (16:50)
[2024-06-24 17:21] LABS: Glucose Point of Care 211 mg/dl (65-105)
[2024-06-24] MEDS: AZITHROMYCIN 500 MG/NS 250 ML 500 MG/250 ML BAG 250 MG IVPB (18:14)
[2024-06-24 19:06] LABS: Glucose Point of Care 172 mg/dl (65-105)
[2024-06-24] MEDS: INSULIN HUMAN REGULAR (*BKC) 100 UNITS in SODIUM CHLORIDE 0.9% IV 99 ML IV CONT (19:23)
[2024-06-24 19:36] LABS: Glucose Point of Care 115 mg/dl (65-105)
[2024-06-24 20:34] LABS: Anion Gap 9 mmol/L (4-12); Blood Urea Nitrogen 72 mg/dL (9-20); Calcium 8.3 mg/dL (8.4-10.2); Carbon Dioxide 22 mmol/L (22-30); Chloride 107 mmol/L (98-107); Estimated CRCL calculation 31 ml/min; Estimated Glomerular Filt Rate 25; Glucose 156 mg/dL (65-110); Potassium 4.5 mmol/L (3.4-5.0); Sodium 138 mmol/L (137-145)
[2024-06-24] MEDS: INSULIN GLARGINE (*BKC) 100 UNITS/ML 10 UNITS SUB-Q (21:05)
[2024-06-24 21:21] LABS: Glucose Point of Care 117 mg/dl (65-105)
[2024-06-24 21:50] LABS: Glucose Point of Care 129 mg/dl (65-105)
[2024-06-24 22:45] LABS: Glucose Point of Care 109 mg/dl (65-105)
[2024-06-25] VITALS (33 sets, daily range): BP systolic 112–176; BP diastolic 58–89; PULSE 51–62; RESP 14–24; TEMP 36.6–36.9; O2SAT 94–96
[2024-06-25] MEDS: HYDROCORTISONE SODIUM SUCCINATE 100 MG/2 ML VIAL 50 MG IV PUSH ×2 (00:07→06:49)
[2024-06-25 00:34] LABS: Glucose Point of Care 139 mg/dl (65-105)
[2024-06-25] MEDS: IPRATROPIUM BR 0.02% INH SOLN 0.5 MG/2.5 ML VIAL INHALATION ×2 (02:02→07:01)
[2024-06-25] MEDS: ALBUTEROL SULFATE NEB 2.5 MG/3 ML INH INHALATION ×2 (02:02→07:00)
[2024-06-25] MEDS: INSULIN ASPART (*BKC) 100 UNITS/ML SUB-Q ×6 (04:35→23:13)
[2024-06-25 04:45] LABS: Glucose Point of Care 225 mg/dl (65-105)
[2024-06-25 04:53] LABS: Alveolar/Arterial O2 Gradient 119.6 mmHg; Carboxyhemoglobin 0.9 % THb (0-2.0); Fractional Inspired Oxygen 35 %; HCO3 ABG 22.1 mEq/l (22.0-26.0); Oxygen Content ABG 18.6 %vol (16.0-22.0); Oxygen Saturation ABG 94.6 % (95.0-100.0); Oxyhemoglobin 94.2 % THb (90.0-100.0); PCO2 ABG 44.2 mmHg (35.0-45.0); PO2 ABG 78.6 mmHg (80.0-100.0); PO2 FiO2 Ratio Arterial Blood 2.25 %; Reduced Hemoglobin 4.9 %THb (0-5.0); pH ABG 7.317 (7.350-7.450)
[2024-06-25 05:12] LABS: Device VENTILATOR; Site Drawn LEFT BRACHIAL
[2024-06-25 05:13] LABS: Arterial Blood Gas PEEP 8 cmH2O; Arterial Blood Gas Tidal Volume 480 ml; Arterial Blood Gas Vent Mode CMV; Arterial Blood Gas Ventilator rate 18 /MIN
[2024-06-25] MEDS: HEPARIN SODIUM 5,000 UNITS/ML VIAL 5000 UNITS SUB-Q ×3 (06:49→21:02)
[2024-06-25] MEDS: LEVOTHYROXINE SODIUM 25 MCG TABLET PO (06:49)
[2024-06-25] MEDS: LEVOTHYROXINE SODIUM 150 MCG TABLET PO (06:49)
[2024-06-25] MEDS: FENTANYL 2,500MCG/NS250ML(*CRX 2,500 MCG/250 ML BAG 7.5 MCG IV CONT (07:05)
[2024-06-25 08:09] LABS: Basophils Absolute Auto 0.1 K/mm3 (0.0-0.1); Basophils Percent Auto 0.3 % (0.2-1.2); Hematocrit 41.5 % (42.0-52.0); Hemoglobin 13.4 g/dL (14.0-18.0); Immature Granulocyte Absolute 0.46 K/mm3 (0.00-0.031); Immature Granulocyte Percent A 1.9 % (0-0.5); Lymphocytes Absolute Auto 1.41 K/mm3 (0.9-3.2); Lymphocytes Percent Auto 5.9 % (18.3-44.2); Mean Corpuscular HGB Conc 32.3 g/dl (32-36); Mean Corpuscular Hemoglobin 30.2 pg (26-34); Mean Corpuscular Volume 93.5 fl (80-100); Mean Platelet Volume 12.1 fl (7.4-10.4); Monocytes Percent Auto 8.3 % (2.6-8.5); Neutrophils Absolute Auto 19.9 K/mm3 (1.3-6.7); Neutrophils Percent Auto 83.6 % (45.5-73.1); Nucleated Red Blood Cells Perc 0.1 % (0.0-0.2); Platelet Count Result 180 k/mm3 (150-375); Red Blood Count 4.44 M/mm3 (4.6-6.20); Red Cell Distribution Width 15.9 % (11.5-14.5); White Blood Count 23.8 K/mm3 (4.5-10.0)
[2024-06-25 08:20] LABS: Alanine Aminotransferase 42 U/L (6-50); Albumin Level 3.3 g/dL (3.5-5.1); Alkaline Phosphatase 122 U/L (38-126); Anion Gap 10 mmol/L (4-12); Aspartate Amino Transferase 27 U/L (17-59); Bilirubin,Total 0.2 mg/dL (0.2-1.3); Blood Urea Nitrogen 75 mg/dL (9-20); Calcium 8.5 mg/dL (8.4-10.2); Carbon Dioxide 21 mmol/L (22-30); Chloride 107 mmol/L (98-107); Estimated CRCL calculation 32 ml/min; Estimated Glomerular Filt Rate 25; Glucose 240 mg/dL (65-110); Magnesium 2.5 mg/dL (1.6-2.3); Phosphorus 4.4 mg/dL (2.5-4.5); Potassium 4.7 mmol/L (3.4-5.0); Sodium 138 mmol/L (137-145)
[2024-06-25 08:21] LABS: Lactic Acid Reflex 1.4 mmol/L (0.7-2.0)
[2024-06-25] MEDS: MINERAL OIL/WHITE PETROLATUM OINTMENT 1 APPLIC EACH EYE ×2 (09:00→20:53)
[2024-06-25] MEDS: SERTRALINE HCL 50 MG TABLET 100 MG PO (09:02)
[2024-06-25] MEDS: PREGABALIN (*CRX) 75 MG CAPSULE PO ×2 (09:02→16:18)
[2024-06-25] MEDS: FUROSEMIDE INJ 40 MG/4 ML VIAL IV PUSH (09:02)
[2024-06-25] MEDS: INSULIN GLARGINE (*BKC) 100 UNITS/ML 35 UNITS SUB-Q (09:03)
[2024-06-25] MEDS: ATORVASTATIN 40 MG TABLET 80 MG PO (09:03)
[2024-06-25] MEDS: PANTOPRAZOLE SODIUM IV 40 MG VIAL IV PUSH ×2 (09:03→20:49)
[2024-06-25 09:10] LABS: Glucose Point of Care 258 mg/dl (65-105)
--- NOTE | 2024-06-25 09:39 | P.PNINT_ITS ---
Progress Note: A&P Assessment and Plan (1) Hypercapnic respiratory failure: Code(s): J96.92 - Respiratory failure, unspecified with hypercapnia Status: Acute Assessment and Plan: Patient presented with confusion, hypercapnia ABGs, was placed on BiPAP with worsening ABGs, likely related to COPD exacerbation, pneumonia and hypercapnic respiratory failure requiring intubation on 06/23/2024 -this morning remains intubated on CMV mode of ventilation -ABGs and chest x-rays reviewed, hypercapnia has resolved -patient does have bilateral pneumonia, ETT was retracted 3 cm -started patient on steroids for pneumonia -will wean FiO2 to maintain O2 sats greater than 92% -sedated with fentanyl and Versed infusion, daily SBT and SAT. -maintain RASS between 0 and -2 -will diurese today as chest x-ray shows pulmonary edema (2) COPD (chronic obstructive pulmonary disease): Code(s): J44.9 - Chronic obstructive pulmonary disease, unspecified Status: Acute Assessment and Plan: Patient has a history of COPD for which he has been intubated in the past, along with pneumonia. -continue bronchodilators, steroids, antibiotics -will start home Trelegy Ellipta (3) Pneumonia: Code(s): J18.9 - Pneumonia, unspecified organism Status: Acute Assessment and Plan: Patient with bilateral pneumonia on chest x-ray -continue mechanical ventilation -continue bronchodilators -continue azithromycin, aztreonam and vancomycin (started on 06/23) (4) Acute kidney injury superimposed on CKD: Code(s): N17.9 - Acute kidney failure, unspecified; N18.9 - Chronic kidney disease, unspecified Status: Acute Assessment and Plan: Patient with acute kidney injury, has a history of stage 5 kidney injury requiring dialysis in the past -patient has been given IV fluids -will check urine lytes, urine eosinophils, CK level -06/24: Renal ultrasound did not show any stones masses or hydronephrosis -will continue to monitor urine output, renal function electrolytes -if renal functions worsen will obtain Nephrology consult (5) Diabetes: Qualifiers: Diabetes mellitus type: type 2 Diabetes mellitus 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 Diabetes mellitus complication status: without complication Qualified Code(s): E11.9 - Type 2 diabetes mellitus without complications; 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 Code(s): E11.9 - Type 2 diabetes mellitus without complications Status: Acute Assessment and Plan: Patient has a history of diabetes, has an insulin pump -this morning patient is blood sugars 445, anion gap of 16, potassium of 5.2, CO2 of 20, elevated beta hydroxybutyrate -06/24: Started patient on insulin infusion, anion gap had closed, transition patient to long-acting insulin and sliding scale insulin -continue Lantus and sliding scale insulin with Accu-Cheks - (6) Obstructive sleep apnea: Code(s): G47.33 - Obstructive sleep apnea (adult) (pediatric) Status: Acute Assessment and Plan: History of obstructive sleep apnea, noncompliant with CPAP. -follows with Dr. 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 Plan DVT prophylaxis: Heparin subQ Stress ulcer prophylaxis: Protonix Nutrition: Patient on tube feeds, at goal and tolerating Code Status: Full code Critical Care Time Spent: 33 minutes Discussed with patient's spouse Lynda, updated with patient's condition and plan of care. Answered all her questions Due to a high probability of clinically significant, life threatening deterioration, the patient required my highest level of preparedness to intervene emergently and I personally spent this critical care time directly and personally managing the patient. This critical care time included obtaining a history; examining the patient; pulse oximetry; ordering and review of studies; arranging urgent treatment with development of a management plan; evaluation of patient's response to treatment; frequent reassessment; and discussions with other providers. It was exclusive of separately billable procedures and treating other patients and teaching time. Please see Assessment and Plan section and the rest of the note for further information on patient assessment and treatment This dictation may have been done utilizing a voice recognition system. Attempts have been made to correct errors. However, there may be uncorrected grammatical, spelling, and recognitions errors present. Subjective Date/time seen: 06/25/24 09:39 Interval history: Reason for consult: Acute hypercapnic respiratory failure, COPD exacerbation, confusion, altered mental status, acute kidney injury 06/25/2024: Patient seen and examined the ICU, remains intubated on CMV mode of ventilation, peep 5, 35% FiO2. Sedated with fentanyl and Versed infusion, patient opens eyes, follows simple commands and nods to questions. WBC count is increasing, patient is on steroids. Urine output has been adequate Review of Systems Review of Systems: ROS unobtainable: Yes unobtainable due to endotracheal tube, unobtainable due to medical condition and unobtainable due to mental status Exam Narrative: General: Obese patient was intubated, sedated, in no acute distress HEENT:? Pupils equal and reactive, sclera is clear, ETT in place Neck:? Supple Respiratory:? Coarse breath sounds bilaterally, decreased at bases, no wheezing, adequate air Cardiac:? S1-S2 normal, regular rate and rhythm Abdomen:? Soft, nontender, nondistended, obese, normoactive bowel sounds Extremities:? Bilateral lower extremity edema, palpable pedal pulses Neuro:? Patient is intubated, sedated but opens his eyes and follows simple commands in all extremities, he also nods to questions Skin:? Warm and dry Psych:? Unable to assess at this time Objective Data Vital Signs Vital Signs: Vital Signs - 24 hr 06/24/24 10:50 06/24/24 10:00 06/24/24 12:00 Temperature Pulse Rate 85 62 Respiratory Rate Blood Pressure Pulse Oximetry 94 Oxygen Delivery Mechanical Ventilation Mechanical Ventilation Fraction of Inspired Oxygen 40 45 06/24/24 12:00 06/24/24 12:00 06/24/24 14:00 Temperature Pulse Rate 57 L 57 L Respiratory Rate Blood Pressure Pulse Oximetry Oxygen Delivery Fraction of Inspired Oxygen 45 06/24/24 13:25 06/24/24 13:25 06/24/24 13:32 Temperature Pulse Rate 59 L 59 L 58 L Respiratory Rate 18 18 Blood Pressure Pulse Oximetry 95 Oxygen Delivery Mechanical Ventilation Fraction of Inspired Oxygen 40 06/24/24 10:00 06/24/24 12:00 06/24/24 14:00 Temperature 98.2 F 97.1 F L 96.6 F L Pulse Rate 63 58 L 59 L Respiratory Rate 18 18 18 Blood Pressure 97/50 L 105/49 L 110/54 L Pulse Oximetry 95 95 96 Oxygen Delivery Fraction of Inspired Oxygen 06/24/24 16:18 06/24/24 10:00 06/24/24 12:00 Temperature Pulse Rate 55 L 63 58 L Respiratory Rate 18 18 Blood Pressure Pulse Oximetry 96 Oxygen Delivery Mechanical Ventilation Fraction of Inspired Oxygen 40 06/24/24 14:00 06/24/24 16:00 06/24/24 10:00 Temperature Pulse Rate 59 L 55 L 63 Respiratory Rate 18 18 18 Blood Pressure Pulse Oximetry Oxygen Delivery Fraction of Inspired Oxygen 06/24/24 12:00 06/24/24 14:00 06/24/24 16:00 Temperature Pulse Rate 56 L 59 L 55 L Respiratory Rate 18 18 18 Blood Pressure Pulse Oximetry Oxygen Delivery Fraction of Inspired Oxygen 06/24/24 16:00 06/24/24 16:00 06/24/24 16:00 Temperature 96.7 F L Pulse Rate 55 L Respiratory Rate 18 Blood Pressure 104/46 L Pulse Oximetry 96 Oxygen Delivery Mechanical Ventilation Fraction of Inspired Oxygen 45 40 06/24/24 17:00 06/24/24 18:00 06/24/24 18:00 Temperature 96.8 F L Pulse Rate 53 L 52 L 52 L Respiratory Rate 18 18 Blood Pressure 103/52 L Pulse Oximetry 96 Oxygen Delivery Fraction of Inspired Oxygen 06/24/24 16:00 06/24/24 19:56 06/24/24 19:45 Temperature Pulse Rate 55 L 59 L 54 L Respiratory Rate 18 Blood Pressure Pulse Oximetry 97 Oxygen Delivery Mechanical Ventilation Fraction of Inspired Oxygen 40 06/24/24 19:58 06/24/24 20:00 06/24/24 20:00 Temperature Pulse Rate 55 L 54 L 54 L Respiratory Rate 18 18 18 Blood Pressure Pulse Oximetry Oxygen Delivery Fraction of Inspired Oxygen 06/24/24 20:00 06/24/24 22:33 06/24/24 20:00 Temperature 97.3 F L Pulse Rate 54 L 55 L Respiratory Rate 18 Blood Pressure 107/68 Pulse Oximetry 97 97 Oxygen Delivery Mechanical Ventilation Fraction of Inspired Oxygen 35 40 06/24/24 20:00 06/24/24 22:00 06/25/24 00:00 Temperature Pulse Rate 54 L 51 L Respiratory Rate 18 18 Blood Pressure Pulse Oximetry Oxygen Delivery Mechanical Ventilation Fraction of Inspired Oxygen 40 06/24/24 22:00 06/25/24 00:00 06/24/24 22:00 Temperature 97.5 F L Pulse Rate 54 L 51 L 54 L Respiratory Rate 18 18 18 Blood Pressure 131/71 Pulse Oximetry 97 Oxygen Delivery Fraction of Inspired Oxygen 06/25/24 00:00 06/25/24 02:05 06/25/24 02:06 Temperature 97.9 F Pulse Rate 51 L 53 L 53 L Respiratory Rate 18 18 Blood Pressure 122/70 Pulse Oximetry 96 96 Oxygen Delivery Mechanical Ventilation Fraction of Inspired Oxygen 35 06/24/24 20:00 06/24/24 22:00 06/25/24 00:00 Temperature Pulse Rate 53 L 54 L 53 L Respiratory Rate Blood Pressure Pulse Oximetry Oxygen Delivery Fraction of Inspired Oxygen 06/25/24 00:00 06/25/24 00:00 06/25/24 02:00 Temperature 98.1 F Pulse Rate 52 L Respiratory Rate 18 Blood Pressure 121/66 Pulse Oximetry 96 Oxygen Delivery Mechanical Ventilation Fraction of Inspired Oxygen 35 40 06/25/24 04:00 06/25/24 02:00 06/25/24 04:00 Temperature 98.2 F Pulse Rate 57 L 52 L Respiratory Rate 18 Blood Pressure 144/89 H Pulse Oximetry 96 Oxygen Delivery Mechanical Ventilation Fraction of Inspired Oxygen 35 06/25/24 04:00 06/25/24 02:00 06/25/24 04:00 Temperature Pulse Rate 52 L 57 L Respiratory Rate 24 H 24 H Blood Pressure Pulse Oximetry Oxygen Delivery Fraction of Inspired Oxygen 40 06/25/24 02:00 06/25/24 04:00 06/25/24 05:00 Temperature Pulse Rate 52 L 57 L 56 L Respiratory Rate 24 H 24 H Blood Pressure Pulse Oximetry 96 Oxygen Delivery Mechanical Ventilation Fraction of Inspired Oxygen 35 06/25/24 07:01 06/25/24 07:03 06/25/24 07:05 Temperature Pulse Rate 55 L 55 L 57 L Respiratory Rate 18 19 Blood Pressure Pulse Oximetry 95 Oxygen Delivery Mechanical Ventilation Fraction of Inspired Oxygen 35 06/25/24 07:05 06/25/24 06:00 06/25/24 06:00 Temperature Pulse Rate 57 L 54 L 54 L Respiratory Rate 19 18 18 Blood Pressure Pulse Oximetry Oxygen Delivery Fraction of Inspired Oxygen 06/25/24 04:00 06/25/24 06:00 06/25/24 06:00 Temperature 98.3 F Pulse Rate 56 L 54 L 54 L Respiratory Rate 18 Blood Pressure 120/69 Pulse Oximetry 96 Oxygen Delivery Fraction of Inspired Oxygen 06/25/24 07:38 06/25/24 07:38 Temperature Pulse Rate 54 L Respiratory Rate 18 Blood Pressure Pulse Oximetry 96 Oxygen Delivery Mechanical Ventilation Fraction of Inspired Oxygen 35 Intake/Output Intake/Output: Intake & Output 06/22/24 06/23/24 06/24/24 06/25/24 23:59 23:59 23:59 23:59 Intake Total 1405.3 4605.5 586.1 Output Total 1550 450 Balance 1405.3 3055.5 136.1 Meds/Results Medications: Active Medications Generic Name Dose Route Start Last Admin Trade Name Freq PRN Reason Stop Dose Admin Acetaminophen 650 mg 06/24/24 02:04 Acetaminophen Elixir 325 Mg/10.15 Ml Udc PO Q4H PRN Mild Pain (1-3) or Fever Albuterol 2.5 mg 06/24/24 02:00 06/25/24 07:00 Albuterol Sulfate Neb 2.5 Mg/3 Ml Inh INHALATION 2.5 mg Q6HRT CHARITY Administration Atorvastatin Calcium 80 mg 06/24/24 09:00 06/25/24 09:03 Atorvastatin 40 Mg Tablet PO 80 mg DAILY CHARITY Administration Dextrose 12.5 gm 06/24/24 11:32 Dextrose 50% 25 Gm/50 Ml Syringe IV PUSH PRN PRN Hypoglycemia Protocol Fluticasone/Umeclidinium/Vilanterol 1 puff 06/24/24 08:00 06/25/24 07:44 Fluticasone/Umeclidin/Vilanter 100-62.5-25 Mcg Ellipta INHALATION Not Given DAILYRT CHARITY Glucagon 1 mg 06/24/24 11:32 Glucagon For Inj 1 Mg Vial IM PRN PRN Hypoglycemia Protocol Glucose 15 gm 06/24/24 11:32 Glucose Oral Gel 15 Gm Of Glucse In 37.5 Gm Tube PO PRN PRN Hypoglycemia Protocol Heparin Sodium (Porcine) 5,000 units 06/24/24 07:50 06/25/24 06:49 Heparin Sodium 5,000 Units/Ml Vial SUB-Q 5,000 units Q8HR CHARITY Administration Hydrocortisone Sodium Succinate 50 mg 06/24/24 07:50 06/25/24 06:49 Hydrocortisone Sodium Succinate 100 Mg/2 Ml Vial IV PUSH 50 mg Q6HR CHARITY Administration Aztreonam 1 gm/ Sodium 50 mls @ 100 mls/hr 06/23/24 22:00 06/24/24 21:39 Chloride IVPB Infused Q12H CHARITY Infusion Midazolam HCl 100 mg in 100 mls @ 2 mls/hr 06/24/24 02:00 06/25/24 06:00 Versed 100 Mg/Ns 100 Ml IV CONT 2 mg/hr .Q50H CHARITY 2 mls/hr Titration Protocol 2 MG/HR Fentanyl Citrate 2,500 mcg in 250 mls @ 7.5 mls/hr 06/24/24 02:05 06/25/24 07:05 Fentanyl 2,500 Mcg/Ns 250 Ml IV CONT 75 mcg/hr .[id number] CHARITY 7.5 mls/hr Administration Protocol 75 MCG/HR Azithromycin 500 mg in 250 mls @ 250 mls/hr 06/24/24 18:00 06/24/24 19:13 Zithromax IVPB Infused Q24H CHARITY Infusion Vancomycin HCl 1,500 mg in 500 mls @ 250 mls/hr 06/25/24 21:00 Vancomycin 1,500 Mg/Ns 500 Ml IVPB Q36H CHARITY Dextrose 1,000 mls @ 100 mls/hr 06/24/24 11:32 Dextrose 5% 1,000 Ml IVPB PRN PRN Hypoglycemia Protocol Insulin Aspart 4 - 8 units 06/24/24 07:50 06/25/24 08:55 Insulin Aspart (*Bkc) 100 Units/Ml SUB-Q 5 units Q4H CHARITY Administration Protocol Insulin Glargine 35 units 06/25/24 09:00 06/25/24 09:03 Insulin Glargine (*Bkc) 100 Units/Ml SUB-Q 35 units DAILY CHARITY Administration Ipratropium [place] 0.5 mg 06/24/24 02:00 06/25/24 07:01 Ipratropium Br 0.02% Inh Soln 0.5 Mg/2.5 Ml Vial INHALATION 0.5 mg Q6HRT CHARITY Administration Levothyroxine Sodium 150 mcg 06/24/24 10:00 06/25/24 06:49 Levothyroxine Sodium 150 Mcg Tablet PO 150 mcg DAILY@0630 CHARITY Administration Levothyroxine Sodium 25 mcg 06/24/24 10:00 06/25/24 06:49 Levothyroxine Sodium 25 Mcg Tablet PO 25 mcg DAILY@0630 CHARITY Administration Midazolam HCl 2 mg 06/24/24 01:34 06/24/24 01:42 Midazolam Hcl (*Crx) 2 Mg/2 Ml Vial IV PUSH 2 mg PRN PRN Administration Sedation Multi-Ingred Cream/Lotion/Oil/Oint 1 applic 06/24/24 09:00 06/24/24 21:10 Mineral Oil/White Petrolatum Ointment EACH EYE 1 applic Q12HR CHARITY Administration Pantoprazole Sodium 40 mg 06/24/24 09:00 06/25/24 09:03 Pantoprazole Sodium Iv 40 Mg Vial IV PUSH 40 mg Q12HR CHARITY Administration Pregabalin 75 mg 06/24/24 09:00 06/25/24 09:02 Pregabalin (*Crx) 75 Mg Capsule PO 75 mg BID CHARITY Administration Sertraline HCl 100 mg 06/24/24 09:00 06/25/24 09:02 Sertraline Hcl 50 Mg Tablet PO 100 mg DAILY CHARITY Administration Radiology Results: ITS Impressions Renal Ultrasound 06/24/24 09:12 Impression: 1: Unremarkable renal ultrasound. No stones, masses or hydronephrosis. Chest X-Ray 06/25/24 06:23 Impression: Probable mild central pulmonary edema and left basilar atelectatic change. Suspected mild underlying chronic interstitial disease. Support tubes, as above. Labs Labs: Laboratory Results - last 24 hr 06/24/24 06/24/24 06/24/24 09:41 11:31 12:15 WBC RBC Hgb Hct MCV MCH MCHC RDW Plt Count MPV Immature Gran % (Auto) Neut % (Auto) Lymph % (Auto) [place] % (Auto) Eos % (Auto) Baso % (Auto) Lymph # (Auto) [place] # (Auto) Eos # (Auto) Baso # (Auto) Abs Immat Gran (auto) Absolute Neuts (auto) Absolute Nucleated RBC Nucleated RBC % Puncture Site ABG pH ABG pCO2 ABG pO2 ABG PO2/FiO2 Ratio ABG HCO3 ABG O2 Saturation ABG O2 Content ABG Base Excess A-a Gradient Oxyhemoglobin Carboxyhemoglobin Methemoglobin Reduced Hemoglobin Total Hemoglobin O2 Delivery Device O2 Liters/Min Minute Volume Vent Rate Vent Mode FiO2 Tidal Volume PEEP Peak Inspir Pressure Pressure Support Sodium 136 L Potassium 4.4 Chloride 104 Carbon Dioxide 18 L Anion Gap 14 H BUN 71 H Creatinine 2.90 H Estim Creat Clear Calc 28 Estimated GFR 22 L Glucose 351 H POC Capillary Glucose 398 H 408 H Lactic Acid Calcium 8.2 L Phosphorus Magnesium Total Bilirubin AST ALT Alkaline Phosphatase Total Creatine Kinase 54 L Total Protein Albumin Beta-Hydroxybutyrate/Acetoacetate 2.50 H Urine Eosinophils Ur Random Sodium Ur Random Potassium Urine Creatinine 06/24/24 06/24/24 06/24/24 13:33 14:17 14:23 WBC RBC Hgb Hct MCV MCH MCHC RDW Plt Count MPV Immature Gran % (Auto) Neut % (Auto) Lymph % (Auto) [place] % (Auto) Eos % (Auto) Baso % (Auto) Lymph # (Auto) [place] # (Auto) Eos # (Auto) Baso # (Auto) Abs Immat Gran (auto) Absolute Neuts (auto) Absolute Nucleated RBC Nucleated RBC % Puncture Site ABG pH ABG pCO2 ABG pO2 ABG PO2/FiO2 Ratio ABG HCO3 ABG O2 Saturation ABG O2 Content ABG Base Excess A-a Gradient Oxyhemoglobin Carboxyhemoglobin Methemoglobin Reduced Hemoglobin Total Hemoglobin O2 Delivery Device O2 Liters/Min Minute Volume Vent Rate Vent Mode FiO2 Tidal Volume PEEP Peak Inspir Pressure Pressure Support Sodium Potassium Chloride Carbon Dioxide Anion Gap BUN Creatinine Estim Creat Clear Calc Estimated GFR Glucose POC Capillary Glucose 315 H 309 H Lactic Acid Calcium Phosphorus Magnesium Total Bilirubin AST ALT Alkaline Phosphatase Total Creatine Kinase Total Protein Albumin Beta-Hydroxybutyrate/Acetoacetate Urine Eosinophils None seen Ur Random Sodium 13 Ur Random Potassium 34.9 Urine Creatinine 104.5 06/24/24 06/24/24 06/24/24 15:34 16:08 16:46 WBC RBC Hgb Hct MCV MCH MCHC RDW Plt Count MPV Immature Gran % (Auto) Neut % (Auto) Lymph % (Auto) [place] % (Auto) Eos % (Auto) Baso % (Auto) Lymph # (Auto) [place] # (Auto) Eos # (Auto) Baso # (Auto) Abs Immat Gran (auto) Absolute Neuts (auto) Absolute Nucleated RBC Nucleated RBC % Puncture Site ABG pH ABG pCO2 ABG pO2 ABG PO2/FiO2 Ratio ABG HCO3 ABG O2 Saturation ABG O2 Content ABG Base Excess A-a Gradient Oxyhemoglobin Carboxyhemoglobin Methemoglobin Reduced Hemoglobin Total Hemoglobin O2 Delivery Device O2 Liters/Min Minute Volume Vent Rate Vent Mode FiO2 Tidal Volume PEEP Peak Inspir Pressure Pressure Support Sodium 138 Potassium 3.7 Chloride 110 H Carbon Dioxide 17 L Anion Gap 11 BUN 64 H Creatinine 2.40 H Estim Creat Clear Calc 34 Estimated GFR 27 L Glucose 214 H POC Capillary Glucose 262 H 211 H Lactic Acid Calcium 6.9 L Phosphorus Magnesium Total Bilirubin AST ALT Alkaline Phosphatase Total Creatine Kinase Total Protein Albumin Beta-Hydroxybutyrate/Acetoacetate Urine Eosinophils Ur Random Sodium Ur Random Potassium Urine Creatinine 06/24/24 06/24/24 06/24/24 18:22 19:19 20:14 WBC RBC Hgb Hct MCV MCH MCHC RDW Plt Count MPV Immature Gran % (Auto) Neut % (Auto) Lymph % (Auto) [place] % (Auto) Eos % (Auto) Baso % (Auto) Lymph # (Auto) [place] # (Auto) Eos # (Auto) Baso # (Auto) Abs Immat Gran (auto) Absolute Neuts (auto) Absolute Nucleated RBC Nucleated RBC % Puncture Site ABG pH ABG pCO2 ABG pO2 ABG PO2/FiO2 Ratio ABG HCO3 ABG O2 Saturation ABG O2 Content ABG Base Excess A-a Gradient Oxyhemoglobin Carboxyhemoglobin Methemoglobin Reduced Hemoglobin Total Hemoglobin O2 Delivery Device O2 Liters/Min Minute Volume Vent Rate Vent Mode FiO2 Tidal Volume PEEP Peak Inspir Pressure Pressure Support Sodium 138 Potassium 4.5 Chloride 107 Carbon Dioxide 22 Anion Gap 9 BUN 72 H Creatinine 2.60 H Estim Creat Clear Calc 31 Estimated GFR 25 L Glucose 156 H POC Capillary Glucose 172 H 115 H Lactic Acid Calcium 8.3 L Phosphorus Magnesium Total Bilirubin AST ALT Alkaline Phosphatase Total Creatine Kinase Total Protein Albumin Beta-Hydroxybutyrate/Acetoacetate Urine Eosinophils Ur Random Sodium Ur Random Potassium Urine Creatinine 06/24/24 06/24/24 06/24/24 20:33 21:47 22:38 WBC RBC Hgb Hct MCV MCH MCHC RDW Plt Count MPV Immature Gran % (Auto) Neut % (Auto) Lymph % (Auto) [place] % (Auto) Eos % (Auto) Baso % (Auto) Lymph # (Auto) [place] # (Auto) Eos # (Auto) Baso # (Auto) Abs Immat Gran (auto) Absolute Neuts (auto) Absolute Nucleated RBC Nucleated RBC % Puncture Site ABG pH ABG pCO2 ABG pO2 ABG PO2/FiO2 Ratio ABG HCO3 ABG O2 Saturation ABG O2 Content ABG Base Excess A-a Gradient Oxyhemoglobin Carboxyhemoglobin Methemoglobin Reduced Hemoglobin Total Hemoglobin O2 Delivery Device O2 Liters/Min Minute Volume Vent Rate Vent Mode FiO2 Tidal Volume PEEP Peak Inspir Pressure Pressure Support Sodium Potassium Chloride Carbon Dioxide Anion Gap BUN Creatinine Estim Creat Clear Calc Estimated GFR Glucose POC Capillary Glucose 117 H 129 H 109 H Lactic Acid Calcium Phosphorus Magnesium Total Bilirubin AST ALT Alkaline Phosphatase Total Creatine Kinase Total Protein Albumin Beta-Hydroxybutyrate/Acetoacetate Urine Eosinophils Ur Random Sodium Ur Random Potassium Urine Creatinine 06/25/24 06/25/24 06/25/24 00:06 04:31 04:47 WBC RBC Hgb Hct MCV MCH MCHC RDW Plt Count MPV Immature Gran % (Auto) Neut % (Auto) Lymph % (Auto) [place] % (Auto) Eos % (Auto) Baso % (Auto) Lymph # (Auto) [place] # (Auto) Eos # (Auto) Baso # (Auto) Abs Immat Gran (auto) Absolute Neuts (auto) Absolute Nucleated RBC Nucleated RBC % Puncture Site Left brachial ABG pH 7.317 L ABG pCO2 44.2 ABG pO2 78.6 L ABG PO2/FiO2 Ratio 2.25 ABG HCO3 22.1 ABG O2 Saturation 94.6 L ABG O2 Content 18.6 ABG Base Excess -4.0 A-a Gradient 119.6 Oxyhemoglobin 94.2 Carboxyhemoglobin 0.9 Methemoglobin 0.0 Reduced Hemoglobin 4.9 Total Hemoglobin 14.0 O2 Delivery Device Ventilator O2 Liters/Min Not Reportable Minute Volume Not Reportable Vent Rate 18 Vent Mode Cmv FiO2 35 Tidal Volume 480 PEEP 8 Peak Inspir Pressure Not Reportable Pressure Support Not Reportable Sodium Potassium Chloride Carbon Dioxide Anion Gap BUN Creatinine Estim Creat Clear Calc Estimated GFR Glucose POC Capillary Glucose 139 H 225 H Lactic Acid Calcium Phosphorus Magnesium Total Bilirubin AST ALT Alkaline Phosphatase Total Creatine Kinase Total Protein Albumin Beta-Hydroxybutyrate/Acetoacetate Urine Eosinophils Ur Random Sodium Ur Random Potassium Urine Creatinine 06/25/24 06/25/24 08:00 08:53 WBC 23.8 H RBC 4.44 L Hgb 13.4 L Hct 41.5 L MCV 93.5 D MCH 30.2 MCHC 32.3 RDW 15.9 H Plt Count 180 MPV 12.1 H Immature Gran % (Auto) 1.9 H Neut % (Auto) 83.6 H Lymph % (Auto) 5.9 L [place] % (Auto) 8.3 Eos % (Auto) 0.0 Baso % (Auto) 0.3 Lymph # (Auto) 1.41 [place] # (Auto) 2.0 H Eos # (Auto) 0.0 Baso # (Auto) 0.1 Abs Immat Gran (auto) 0.46 H Absolute Neuts (auto) 19.9 H Absolute Nucleated RBC 0.030 H Nucleated RBC % 0.1 Puncture Site ABG pH ABG pCO2 ABG pO2 ABG PO2/FiO2 Ratio ABG HCO3 ABG O2 Saturation ABG O2 Content ABG Base Excess A-a Gradient Oxyhemoglobin Carboxyhemoglobin Methemoglobin Reduced Hemoglobin Total Hemoglobin O2 Delivery Device O2 Liters/Min Minute Volume Vent Rate Vent Mode FiO2 Tidal Volume PEEP Peak Inspir Pressure Pressure Support Sodium 138 Potassium 4.7 Chloride 107 Carbon Dioxide 21 L Anion Gap 10 BUN 75 H Creatinine 2.60 H Estim Creat Clear Calc 32 Estimated GFR 25 L Glucose 240 H POC Capillary Glucose 258 H Lactic Acid 1.4 Calcium 8.5 Phosphorus 4.4 Magnesium 2.5 H Total Bilirubin 0.2 AST 27 ALT 42 Alkaline Phosphatase 122 Total Creatine Kinase Total Protein 6.0 L Albumin 3.3 L Beta-Hydroxybutyrate/Acetoacetate Urine Eosinophils Ur Random Sodium Ur Random Potassium Urine Creatinine Quality VTE Prophylaxis VTE prophylaxis: pharmacologic ordered
[2024-06-25] MEDS: AZTREONAM 1 GM in SODIUM CHLORIDE 0.9% IV 50 ML 100 ML IVPB ×2 (12:03→21:02)
--- NOTE | 2024-06-25 12:23 | P.PNIM_ITS ---
Progress Note: A&P Assessment and Plan (1) Hypercapnic respiratory failure: Code(s): J96.92 - Respiratory failure, unspecified with hypercapnia Status: Acute (2) COPD (chronic obstructive pulmonary disease): Code(s): J44.9 - Chronic obstructive pulmonary disease, unspecified Status: Acute (3) Pneumonia: Code(s): J18.9 - Pneumonia, unspecified organism Status: Acute (4) Acute kidney injury superimposed on CKD: Code(s): N17.9 - Acute kidney failure, unspecified; N18.9 - Chronic kidney disease, unspecified Status: Acute (5) Diabetes: Qualifiers: Diabetes mellitus type: type 2 Diabetes mellitus buttermaker insulin use: with mcfp use Diabetes mellitus complication status: without complication Qualified Code(s): E11.9 - Type 2 diabetes mellitus without complications; Z79.4 - long term care administrator (current) use of insulin Code(s): E11.9 - Type 2 diabetes mellitus without complications Status: Acute (6) Obstructive sleep apnea: Code(s): G47.33 - Obstructive sleep apnea (adult) (pediatric) Status: Acute (7) 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 Patient has increasingly agitated and confused over the past several days. Started saying nonsensical things so family meeting come to the ER for evaluation. On arrival to the ED he was somnolent but arouses to verbal stimuli. His vitals were showed hypoxia with SpO2 in 50s. On air. He was placed on non-rebreather mask with improvement in saturation to upper 90s. Laboratory evaluation showed WBC 14.4 hemoglobin 13 creatinine of 3 electrolytes were unremarkable blood sugar 259. INR 1.2 influenza RSV COVID negative. Troponin was less than 0.012 BNP 2780. ABG 7.11/7 9// suggesting hypercapnic respiratory failure. Chest x-ray showed cardiomegaly with cardiac decompensation and pulmonary edema. Bilateral basal pneumonia with highly suggestive bilateral pneumonitis. Patient was placed on BiPAP and breathing treatment was started along with steroid. Repeat ABG 7.10/87/90/. With non improvement decision made to intubate the patient. Patient was intubated and hence was admitted to the ICU for further treatment. Patient started on IV antibiotics for pneumonia possible COPD exacerbation with steroid and bronchodilators. Chest x-ray today with mild pulmonary edema diuresis started. JERRY has history of stage 5 kidney injury requiring dialysis in the past. Baseline creatinine 1.6 01/26. Started on IV fluid. Renal ultrasound with no hydronephrosis. Creatinine improved some Type 2 diabetes on insulin pump at home. Insulin infusion per ICU protocol started. CHAZ noncompliant with CPAP Paresis of diaphragmatic Medication noncompliance DVT prophylaxis apparent subQ Code status full code Subjective Date/time seen: 06/25/24 12:23 Interval history: Overnight events noted. Labs reviewed. Discussed with nursing staff. Remains on mechanical ventilation. Review of Systems Review of Systems: ROS unobtainable: Yes unobtainable due to mental status Exam Narrative: General: Obese patient was intubated, sedated, in no acute distress HEENT:? Pupils equal and reactive, sclera is clear, ETT in place Neck:? Supple Respiratory:? Coarse breath sounds bilaterally, decreased at bases, no wheezing, adequate air Cardiac:? S1-S2 normal, regular rate and rhythm Abdomen:? Soft, nontender, nondistended, obese, normoactive bowel sounds Extremities:? Bilateral lower extremity edema, palpable pedal pulses Neuro:? Patient is intubated, sedated but opens his eyes and follows simple commands in all extremities, he also nods to questions Skin:? Warm and dry Psych:? Unable to assess at this time Objective Data Vital Signs Vital Signs: Vital Signs - 24 hr 06/24/24 14:00 06/24/24 13:25 06/24/24 13:25 Temperature Pulse Rate 57 L 59 L 59 L Respiratory Rate 18 Blood Pressure Pulse Oximetry 95 Oxygen Delivery Mechanical Ventilation Fraction of Inspired Oxygen 40 06/24/24 13:32 06/24/24 14:00 06/24/24 16:18 Temperature 96.6 F L Pulse Rate 58 L 59 L 55 L Respiratory Rate 18 18 Blood Pressure 110/54 L Pulse Oximetry 96 96 Oxygen Delivery Mechanical Ventilation Fraction of Inspired Oxygen 40 06/24/24 14:00 06/24/24 16:00 06/24/24 14:00 Temperature Pulse Rate 59 L 55 L 59 L Respiratory Rate 18 18 18 Blood Pressure Pulse Oximetry Oxygen Delivery Fraction of Inspired Oxygen 06/24/24 16:00 06/24/24 16:00 06/24/24 16:00 Temperature 96.7 F L Pulse Rate 55 L 55 L Respiratory Rate 18 18 Blood Pressure 104/46 L Pulse Oximetry 96 Oxygen Delivery Mechanical Ventilation Fraction of Inspired Oxygen 45 06/24/24 16:00 06/24/24 17:00 06/24/24 18:00 Temperature 96.8 F L Pulse Rate 53 L 52 L Respiratory Rate 18 18 Blood Pressure 103/52 L Pulse Oximetry 96 Oxygen Delivery Fraction of Inspired Oxygen 40 06/24/24 18:00 06/24/24 16:00 06/24/24 19:56 Temperature Pulse Rate 52 L 55 L 59 L Respiratory Rate Blood Pressure Pulse Oximetry 97 Oxygen Delivery Mechanical Ventilation Fraction of Inspired Oxygen 40 06/24/24 19:45 06/24/24 19:58 06/24/24 20:00 Temperature Pulse Rate 54 L 55 L 54 L Respiratory Rate 18 18 18 Blood Pressure Pulse Oximetry Oxygen Delivery Fraction of Inspired Oxygen 06/24/24 20:00 06/24/24 20:00 06/24/24 22:33 Temperature 97.3 F L Pulse Rate 54 L 54 L 55 L Respiratory Rate 18 18 Blood Pressure 107/68 Pulse Oximetry 97 97 Oxygen Delivery Mechanical Ventilation Fraction of Inspired Oxygen 35 06/24/24 20:00 06/24/24 20:00 06/24/24 22:00 Temperature Pulse Rate 54 L Respiratory Rate 18 Blood Pressure Pulse Oximetry Oxygen Delivery Mechanical Ventilation Fraction of Inspired Oxygen 40 40 06/25/24 00:00 06/24/24 22:00 06/25/24 00:00 Temperature Pulse Rate 51 L 54 L 51 L Respiratory Rate 18 18 18 Blood Pressure Pulse Oximetry Oxygen Delivery Fraction of Inspired Oxygen 06/24/24 22:00 06/25/24 00:00 06/25/24 02:05 Temperature 97.5 F L 97.9 F Pulse Rate 54 L 51 L 53 L Respiratory Rate 18 18 Blood Pressure 131/71 122/70 Pulse Oximetry 97 96 96 Oxygen Delivery Mechanical Ventilation Fraction of Inspired Oxygen 35 06/25/24 02:06 06/24/24 20:00 06/24/24 22:00 Temperature Pulse Rate 53 L 53 L 54 L Respiratory Rate 18 Blood Pressure Pulse Oximetry Oxygen Delivery Fraction of Inspired Oxygen 06/25/24 00:00 06/25/24 00:00 06/25/24 00:00 Temperature Pulse Rate 53 L Respiratory Rate Blood Pressure Pulse Oximetry Oxygen Delivery Mechanical Ventilation Fraction of Inspired Oxygen 35 40 06/25/24 02:00 06/25/24 04:00 06/25/24 02:00 Temperature 98.1 F 98.2 F Pulse Rate 52 L 57 L 52 L Respiratory Rate 18 18 Blood Pressure 121/66 144/89 H Pulse Oximetry 96 96 Oxygen Delivery Fraction of Inspired Oxygen 06/25/24 04:00 06/25/24 04:00 06/25/24 02:00 Temperature Pulse Rate 52 L Respiratory Rate 24 H Blood Pressure Pulse Oximetry Oxygen Delivery Mechanical Ventilation Fraction of Inspired Oxygen 35 40 06/25/24 04:00 06/25/24 02:00 06/25/24 04:00 Temperature Pulse Rate 57 L 52 L 57 L Respiratory Rate 24 H 24 H 24 H Blood Pressure Pulse Oximetry Oxygen Delivery Fraction of Inspired Oxygen 06/25/24 05:00 06/25/24 07:01 06/25/24 07:03 Temperature Pulse Rate 56 L 55 L 55 L Respiratory Rate 18 Blood Pressure Pulse Oximetry 96 95 Oxygen Delivery Mechanical Ventilation Mechanical Ventilation Fraction of Inspired Oxygen 35 35 06/25/24 07:05 06/25/24 07:05 06/25/24 06:00 Temperature Pulse Rate 57 L 57 L 54 L Respiratory Rate 19 19 18 Blood Pressure Pulse Oximetry Oxygen Delivery Fraction of Inspired Oxygen 06/25/24 06:00 06/25/24 04:00 06/25/24 06:00 Temperature 98.3 F Pulse Rate 54 L 56 L 54 L Respiratory Rate 18 18 Blood Pressure 120/69 Pulse Oximetry 96 Oxygen Delivery Fraction of Inspired Oxygen 06/25/24 06:00 06/25/24 07:38 06/25/24 07:38 Temperature Pulse Rate 54 L 54 L Respiratory Rate 18 Blood Pressure Pulse Oximetry 96 Oxygen Delivery Mechanical Ventilation Fraction of Inspired Oxygen 35 06/25/24 08:00 06/25/24 08:00 06/25/24 10:00 Temperature Pulse Rate 56 L 57 L Respiratory Rate 14 Blood Pressure 176/80 H Pulse Oximetry 94 Oxygen Delivery Fraction of Inspired Oxygen 35 06/25/24 10:49 06/25/24 10:00 Temperature Pulse Rate 53 L 53 L Respiratory Rate Blood Pressure Pulse Oximetry 95 Oxygen Delivery Mechanical Ventilation Fraction of Inspired Oxygen 35 Intake/Output Intake/Output: Intake & Output 06/22/24 06/23/24 06/24/24 06/25/24 23:59 23:59 23:59 23:59 Intake Total 1405.3 4605.5 586.1 Output Total 1550 450 Balance 1405.3 3055.5 136.1 Meds/Results Medications: Active Medications Generic Name Dose Route Start Last Admin Trade Name Freq PRN Reason Stop Dose Admin Acetaminophen 650 mg 06/24/24 02:04 Acetaminophen Elixir 325 Mg/10.15 Ml Udc PO Q4H PRN Mild Pain (1-3) or Fever Albuterol/Ipratropium 3 ml 06/25/24 14:00 Ipratropium 0.5 Mg/Albuterol Sulfate 2.5 Mg Ampul.Neb 3 Ml INHALATION Q6HRT CHARITY Atorvastatin Calcium 80 mg 06/24/24 09:00 06/25/24 09:03 Atorvastatin 40 Mg Tablet PO 80 mg DAILY CHARITY Administration Dextrose 12.5 gm 06/24/24 11:32 Dextrose 50% 25 Gm/50 Ml Syringe IV PUSH PRN PRN Hypoglycemia Protocol Fluticasone/Umeclidinium/Vilanterol 1 puff 06/24/24 08:00 06/25/24 07:44 Fluticasone/Umeclidin/Vilanter 100-62.5-25 Mcg Ellipta INHALATION Not Given DAILYRT CHARITY Glucagon 1 mg 06/24/24 11:32 Glucagon For Inj 1 Mg Vial IM PRN PRN Hypoglycemia Protocol Glucose 15 gm 06/24/24 11:32 Glucose Oral Gel 15 Gm Of Glucse In 37.5 Gm Tube PO PRN PRN Hypoglycemia Protocol Heparin Sodium (Porcine) 5,000 units 06/24/24 07:50 06/25/24 06:49 Heparin Sodium 5,000 Units/Ml Vial SUB-Q 5,000 units Q8HR CHARITY Administration Aztreonam 1 gm/ Sodium 50 mls @ 100 mls/hr 06/23/24 22:00 06/25/24 12:03 Chloride IVPB 100 mls/hr Q12H CHARITY Administration Midazolam HCl 100 mg in 100 mls @ 2 mls/hr 06/24/24 02:00 06/25/24 06:00 Versed 100 Mg/Ns 100 Ml IV CONT 2 mg/hr .Q50H CHARITY 2 mls/hr Titration Protocol 2 MG/HR Fentanyl Citrate 2,500 mcg in 250 mls @ 7.5 mls/hr 06/24/24 02:05 06/25/24 07:05 Fentanyl 2,500 Mcg/Ns 250 Ml IV CONT 75 mcg/hr .[id number] CHARITY 7.5 mls/hr Administration Protocol 75 MCG/HR Azithromycin 500 mg in 250 mls @ 250 mls/hr 06/24/24 18:00 06/24/24 19:13 Zithromax IVPB Infused Q24H CHARITY Infusion Vancomycin HCl 1,500 mg in 500 mls @ 250 mls/hr 06/25/24 21:00 Vancomycin 1,500 Mg/Ns 500 Ml IVPB Q36H CHARITY Dextrose 1,000 mls @ 100 mls/hr 06/24/24 11:32 Dextrose 5% 1,000 Ml IVPB PRN PRN Hypoglycemia Protocol Insulin Aspart 4 - 8 units 06/24/24 07:50 06/25/24 12:16 Insulin Aspart (*Bkc) 100 Units/Ml SUB-Q 5 units Q4H CHARITY Administration Protocol Insulin Glargine 35 units 06/25/24 09:00 06/25/24 09:03 Insulin Glargine (*Bkc) 100 Units/Ml SUB-Q 35 units DAILY CHARITY Administration Levothyroxine Sodium 150 mcg 06/24/24 10:00 06/25/24 06:49 Levothyroxine Sodium 150 Mcg Tablet PO 150 mcg DAILY@0630 CHARITY Administration Levothyroxine Sodium 25 mcg 06/24/24 10:00 06/25/24 06:49 Levothyroxine Sodium 25 Mcg Tablet PO 25 mcg DAILY@0630 CHARITY Administration Midazolam HCl 2 mg 06/24/24 01:34 06/24/24 01:42 Midazolam Hcl (*Crx) 2 Mg/2 Ml Vial IV PUSH 2 mg PRN PRN Administration Sedation Multi-Ingred Cream/Lotion/Oil/Oint 1 applic 06/24/24 09:00 06/24/24 21:10 Mineral Oil/White Petrolatum Ointment EACH EYE 1 applic Q12HR CHARITY Administration Pantoprazole Sodium 40 mg 06/24/24 09:00 06/25/24 09:03 Pantoprazole Sodium Iv 40 Mg Vial IV PUSH 40 mg Q12HR CHARITY Administration Pregabalin 75 mg 06/24/24 09:00 06/25/24 09:02 Pregabalin (*Crx) 75 Mg Capsule PO 75 mg BID CHARITY Administration Sertraline HCl 100 mg 06/24/24 09:00 06/25/24 09:02 Sertraline Hcl 50 Mg Tablet PO 100 mg DAILY CHARITY Administration Radiology Results: ITS Impressions Renal Ultrasound 06/24/24 09:12 Impression: 1: Unremarkable renal ultrasound. No stones, masses or hydronephrosis. Chest X-Ray 06/25/24 06:23 Impression: Probable mild central pulmonary edema and left basilar atelectatic change. Suspected mild underlying chronic interstitial disease. Support tubes, as above. Labs Labs: Laboratory Results - last 24 hr 06/24/24 06/24/24 06/24/24 11:31 12:15 13:33 WBC RBC Hgb Hct MCV MCH MCHC RDW Plt Count MPV Immature Gran % (Auto) Neut % (Auto) Lymph % (Auto) [place] % (Auto) Eos % (Auto) Baso % (Auto) Lymph # (Auto) [place] # (Auto) Eos # (Auto) Baso # (Auto) Abs Immat Gran (auto) Absolute Neuts (auto) Absolute Nucleated RBC Nucleated RBC % Puncture Site ABG pH ABG pCO2 ABG pO2 ABG PO2/FiO2 Ratio ABG HCO3 ABG O2 Saturation ABG O2 Content ABG Base Excess A-a Gradient Oxyhemoglobin Carboxyhemoglobin Methemoglobin Reduced Hemoglobin Total Hemoglobin O2 Delivery Device O2 Liters/Min Minute Volume Vent Rate Vent Mode FiO2 Tidal Volume PEEP Peak Inspir Pressure Pressure Support Sodium 136 L Potassium 4.4 Chloride 104 Carbon Dioxide 18 L Anion Gap 14 H BUN 71 H Creatinine 2.90 H Estim Creat Clear Calc 28 Estimated GFR 22 L Glucose 351 H POC Capillary Glucose 408 H 315 H Lactic Acid Calcium 8.2 L Phosphorus Magnesium Total Bilirubin AST ALT Alkaline Phosphatase Total Creatine Kinase 54 L Total Protein Albumin Beta-Hydroxybutyrate/Acetoacetate 2.50 H Urine Eosinophils Ur Random Sodium Ur Random Potassium Urine Creatinine 06/24/24 06/24/24 06/24/24 14:17 14:23 15:34 WBC RBC Hgb Hct MCV MCH MCHC RDW Plt Count MPV Immature Gran % (Auto) Neut % (Auto) Lymph % (Auto) [place] % (Auto) Eos % (Auto) Baso % (Auto) Lymph # (Auto) [place] # (Auto) Eos # (Auto) Baso # (Auto) Abs Immat Gran (auto) Absolute Neuts (auto) Absolute Nucleated RBC Nucleated RBC % Puncture Site ABG pH ABG pCO2 ABG pO2 ABG PO2/FiO2 Ratio ABG HCO3 ABG O2 Saturation ABG O2 Content ABG Base Excess A-a Gradient Oxyhemoglobin Carboxyhemoglobin Methemoglobin Reduced Hemoglobin Total Hemoglobin O2 Delivery Device O2 Liters/Min Minute Volume Vent Rate Vent Mode FiO2 Tidal Volume PEEP Peak Inspir Pressure Pressure Support Sodium Potassium Chloride Carbon Dioxide Anion Gap BUN Creatinine Estim Creat Clear Calc Estimated GFR Glucose POC Capillary Glucose 309 H 262 H Lactic Acid Calcium Phosphorus Magnesium Total Bilirubin AST ALT Alkaline Phosphatase Total Creatine Kinase Total Protein Albumin Beta-Hydroxybutyrate/Acetoacetate Urine Eosinophils None seen Ur Random Sodium 13 Ur Random Potassium 34.9 Urine Creatinine 104.5 06/24/24 06/24/24 06/24/24 16:08 16:46 18:22 WBC RBC Hgb Hct MCV MCH MCHC RDW Plt Count MPV Immature Gran % (Auto) Neut % (Auto) Lymph % (Auto) [place] % (Auto) Eos % (Auto) Baso % (Auto) Lymph # (Auto) [place] # (Auto) Eos # (Auto) Baso # (Auto) Abs Immat Gran (auto) Absolute Neuts (auto) Absolute Nucleated RBC Nucleated RBC % Puncture Site ABG pH ABG pCO2 ABG pO2 ABG PO2/FiO2 Ratio ABG HCO3 ABG O2 Saturation ABG O2 Content ABG Base Excess A-a Gradient Oxyhemoglobin Carboxyhemoglobin Methemoglobin Reduced Hemoglobin Total Hemoglobin O2 Delivery Device O2 Liters/Min Minute Volume Vent Rate Vent Mode FiO2 Tidal Volume PEEP Peak Inspir Pressure Pressure Support Sodium 138 Potassium 3.7 Chloride 110 H Carbon Dioxide 17 L Anion Gap 11 BUN 64 H Creatinine 2.40 H Estim Creat Clear Calc 34 Estimated GFR 27 L Glucose 214 H POC Capillary Glucose 211 H 172 H Lactic Acid Calcium 6.9 L Phosphorus Magnesium Total Bilirubin AST ALT Alkaline Phosphatase Total Creatine Kinase Total Protein Albumin Beta-Hydroxybutyrate/Acetoacetate Urine Eosinophils Ur Random Sodium Ur Random Potassium Urine Creatinine 06/24/24 06/24/24 06/24/24 19:19 20:14 20:33 WBC RBC Hgb Hct MCV MCH MCHC RDW Plt Count MPV Immature Gran % (Auto) Neut % (Auto) Lymph % (Auto) [place] % (Auto) Eos % (Auto) Baso % (Auto) Lymph # (Auto) [place] # (Auto) Eos # (Auto) Baso # (Auto) Abs Immat Gran (auto) Absolute Neuts (auto) Absolute Nucleated RBC Nucleated RBC % Puncture Site ABG pH ABG pCO2 ABG pO2 ABG PO2/FiO2 Ratio ABG HCO3 ABG O2 Saturation ABG O2 Content ABG Base Excess A-a Gradient Oxyhemoglobin Carboxyhemoglobin Methemoglobin Reduced Hemoglobin Total Hemoglobin O2 Delivery Device O2 Liters/Min Minute Volume Vent Rate Vent Mode FiO2 Tidal Volume PEEP Peak Inspir Pressure Pressure Support Sodium 138 Potassium 4.5 Chloride 107 Carbon Dioxide 22 Anion Gap 9 BUN 72 H Creatinine 2.60 H Estim Creat Clear Calc 31 Estimated GFR 25 L Glucose 156 H POC Capillary Glucose 115 H 117 H Lactic Acid Calcium 8.3 L Phosphorus Magnesium Total Bilirubin AST ALT Alkaline Phosphatase Total Creatine Kinase Total Protein Albumin Beta-Hydroxybutyrate/Acetoacetate Urine Eosinophils Ur Random Sodium Ur Random Potassium Urine Creatinine 06/24/24 06/24/24 06/25/24 21:47 22:38 00:06 WBC RBC Hgb Hct MCV MCH MCHC RDW Plt Count MPV Immature Gran % (Auto) Neut % (Auto) Lymph % (Auto) [place] % (Auto) Eos % (Auto) Baso % (Auto) Lymph # (Auto) [place] # (Auto) Eos # (Auto) Baso # (Auto) Abs Immat Gran (auto) Absolute Neuts (auto) Absolute Nucleated RBC Nucleated RBC % Puncture Site ABG pH ABG pCO2 ABG pO2 ABG PO2/FiO2 Ratio ABG HCO3 ABG O2 Saturation ABG O2 Content ABG Base Excess A-a Gradient Oxyhemoglobin Carboxyhemoglobin Methemoglobin Reduced Hemoglobin Total Hemoglobin O2 Delivery Device O2 Liters/Min Minute Volume Vent Rate Vent Mode FiO2 Tidal Volume PEEP Peak Inspir Pressure Pressure Support Sodium Potassium Chloride Carbon Dioxide Anion Gap BUN Creatinine Estim Creat Clear Calc Estimated GFR Glucose POC Capillary Glucose 129 H 109 H 139 H Lactic Acid Calcium Phosphorus Magnesium Total Bilirubin AST ALT Alkaline Phosphatase Total Creatine Kinase Total Protein Albumin Beta-Hydroxybutyrate/Acetoacetate Urine Eosinophils Ur Random Sodium Ur Random Potassium Urine Creatinine 06/25/24 06/25/24 06/25/24 04:31 04:47 08:00 WBC 23.8 H RBC 4.44 L Hgb 13.4 L Hct 41.5 L MCV 93.5 D MCH 30.2 MCHC 32.3 RDW 15.9 H Plt Count 180 MPV 12.1 H Immature Gran % (Auto) 1.9 H Neut % (Auto) 83.6 H Lymph % (Auto) 5.9 L [place] % (Auto) 8.3 Eos % (Auto) 0.0 Baso % (Auto) 0.3 Lymph # (Auto) 1.41 [place] # (Auto) 2.0 H Eos # (Auto) 0.0 Baso # (Auto) 0.1 Abs Immat Gran (auto) 0.46 H Absolute Neuts (auto) 19.9 H Absolute Nucleated RBC 0.030 H Nucleated RBC % 0.1 Puncture Site Left brachial ABG pH 7.317 L ABG pCO2 44.2 ABG pO2 78.6 L ABG PO2/FiO2 Ratio 2.25 ABG HCO3 22.1 ABG O2 Saturation 94.6 L ABG O2 Content 18.6 ABG Base Excess -4.0 A-a Gradient 119.6 Oxyhemoglobin 94.2 Carboxyhemoglobin 0.9 Methemoglobin 0.0 Reduced Hemoglobin 4.9 Total Hemoglobin 14.0 O2 Delivery Device Ventilator O2 Liters/Min Not Reportable Minute Volume Not Reportable Vent Rate 18 Vent Mode Cmv FiO2 35 Tidal Volume 480 PEEP 8 Peak Inspir Pressure Not Reportable Pressure Support Not Reportable Sodium 138 Potassium 4.7 Chloride 107 Carbon Dioxide 21 L Anion Gap 10 BUN 75 H Creatinine 2.60 H Estim Creat Clear Calc 32 Estimated GFR 25 L Glucose 240 H POC Capillary Glucose 225 H Lactic Acid 1.4 Calcium 8.5 Phosphorus 4.4 Magnesium 2.5 H Total Bilirubin 0.2 AST 27 ALT 42 Alkaline Phosphatase 122 Total Creatine Kinase Total Protein 6.0 L Albumin 3.3 L Beta-Hydroxybutyrate/Acetoacetate Urine Eosinophils Ur Random Sodium Ur Random Potassium Urine Creatinine 06/25/24 08:53 WBC RBC Hgb Hct MCV MCH MCHC RDW Plt Count MPV Immature Gran % (Auto) Neut % (Auto) Lymph % (Auto) [place] % (Auto) Eos % (Auto) Baso % (Auto) Lymph # (Auto) [place] # (Auto) Eos # (Auto) Baso # (Auto) Abs Immat Gran (auto) Absolute Neuts (auto) Absolute Nucleated RBC Nucleated RBC % Puncture Site ABG pH ABG pCO2 ABG pO2 ABG PO2/FiO2 Ratio ABG HCO3 ABG O2 Saturation ABG O2 Content ABG Base Excess A-a Gradient Oxyhemoglobin Carboxyhemoglobin Methemoglobin Reduced Hemoglobin Total Hemoglobin O2 Delivery Device O2 Liters/Min Minute Volume Vent Rate Vent Mode FiO2 Tidal Volume PEEP Peak Inspir Pressure Pressure Support Sodium Potassium Chloride Carbon Dioxide Anion Gap BUN Creatinine Estim Creat Clear Calc Estimated GFR Glucose POC Capillary Glucose 258 H Lactic Acid Calcium Phosphorus Magnesium Total Bilirubin AST ALT Alkaline Phosphatase Total Creatine Kinase Total Protein Albumin Beta-Hydroxybutyrate/Acetoacetate Urine Eosinophils Ur Random Sodium Ur Random Potassium Urine Creatinine
[2024-06-25 12:24] LABS: Glucose Point of Care 263 mg/dl (65-105)
[2024-06-25] MEDS: IPRATROPIUM 0.5 MG/ALBUTEROL SULFATE 2.5 MG AMPUL.NEB 3 ML INHALATION ×2 (13:16→19:43)
[2024-06-25] MEDS: MIDAZOLAM 100MG/NS 100ML(*CRX) 100 MG/100 ML BAG IV CONT (15:35)
[2024-06-25 16:31] LABS: Glucose Point of Care 270 mg/dl (65-105)
[2024-06-25] MEDS: AZITHROMYCIN 500 MG/NS 250 ML 500 MG/250 ML BAG 250 MG IVPB (18:41)
[2024-06-25] MEDS: VANCOMYCIN 1,500 MG/NS 500 ML 1,500 MG/500 ML BAG 250 MG IVPB (20:49)
[2024-06-25 21:19] LABS: Glucose Point of Care 287 mg/dl (65-105)
[2024-06-26] VITALS (42 sets, daily range): BP systolic 114–186; BP diastolic 57–88; PULSE 59–101; RESP 18–28; TEMP 36.5–38.4; O2SAT 60–98; BMI 36.3
[2024-06-26 00:04] LABS: Glucose Point of Care 221 mg/dl (65-105)
[2024-06-26] MEDS: IPRATROPIUM 0.5 MG/ALBUTEROL SULFATE 2.5 MG AMPUL.NEB 3 ML INHALATION ×4 (02:36→20:56)
[2024-06-26 04:11] LABS: Basophils Absolute Auto 0.1 K/mm3 (0.0-0.1); Basophils Percent Auto 0.5 % (0.2-1.2); Eosinophils Percent Auto 0.1 % (0-4.4); Hematocrit 44.3 % (42.0-52.0); Hemoglobin 13.9 g/dL (14.0-18.0); Immature Granulocyte Absolute 0.46 K/mm3 (0.00-0.031); Immature Granulocyte Percent A 2.3 % (0-0.5); Lymphocytes Absolute Auto 2.33 K/mm3 (0.9-3.2); Lymphocytes Percent Auto 11.8 % (18.3-44.2); Mean Corpuscular HGB Conc 31.4 g/dl (32-36); Mean Corpuscular Volume 95.5 fl (80-100); Mean Platelet Volume 12.1 fl (7.4-10.4); Monocytes Absolute Auto 2.4 K/mm3 (0.1-0.6); Monocytes Percent Auto 12.1 % (2.6-8.5); Neutrophils Absolute Auto 14.5 K/mm3 (1.3-6.7); Neutrophils Percent Auto 73.2 % (45.5-73.1); Nucleated Red Blood Cells Perc 0.2 % (0.0-0.2); Platelet Count Result 179 k/mm3 (150-375); Red Blood Count 4.64 M/mm3 (4.6-6.20); Red Cell Distribution Width 17.1 % (11.5-14.5); White Blood Count 19.8 K/mm3 (4.5-10.0)
[2024-06-26 04:30] LABS: Alanine Aminotransferase 38 U/L (6-50); Albumin Level 3.4 g/dL (3.5-5.1); Alkaline Phosphatase 136 U/L (38-126); Anion Gap 8 mmol/L (4-12); Aspartate Amino Transferase 26 U/L (17-59); Bilirubin,Total 0.3 mg/dL (0.2-1.3); Blood Urea Nitrogen 74 mg/dL (9-20); Calcium 8.9 mg/dL (8.4-10.2); Carbon Dioxide 25 mmol/L (22-30); Chloride 108 mmol/L (98-107); Estimated CRCL calculation 34 ml/min; Estimated Glomerular Filt Rate 27; Glucose 178 mg/dL (65-110); Magnesium 2.5 mg/dL (1.6-2.3); Potassium 4.1 mmol/L (3.4-5.0); Sodium 141 mmol/L (137-145)
[2024-06-26 05:23] LABS: Alveolar/Arterial O2 Gradient 132.6 mmHg; Base Excess ABG 0.4 mEq/l (+/-2.0); Carboxyhemoglobin 0.9 % THb (0-2.0); Fractional Inspired Oxygen 35 %; HCO3 ABG 25.2 mEq/l (22.0-26.0); Methemoglobin ABG 0.3 %THb (0-1.5); Oxygen Content ABG 17.9 %vol (16.0-22.0); Oxygen Saturation ABG 93.9 % (95.0-100.0); PCO2 ABG 41.3 mmHg (35.0-45.0); PO2 ABG 68.9 mmHg (80.0-100.0); PO2 FiO2 Ratio Arterial Blood 1.97 %; Reduced Hemoglobin 5.8 %THb (0-5.0); Total Hemoglobin 13.7 g/dL (12.0-18.0); pH ABG 7.404 (7.350-7.450)
[2024-06-26] MEDS: LEVOTHYROXINE SODIUM 25 MCG TABLET PO (05:39)
[2024-06-26] MEDS: LEVOTHYROXINE SODIUM 150 MCG TABLET PO (05:39)
[2024-06-26] MEDS: HEPARIN SODIUM 5,000 UNITS/ML VIAL 5000 UNITS SUB-Q ×2 (05:39→13:24)
[2024-06-26 06:03] LABS: Device VENTILATOR; Modified Allen's Test Pass; Site Drawn RIGHT RADIAL
[2024-06-26 06:08] LABS: Arterial Blood Gas PEEP 8 cmH2O; Arterial Blood Gas Tidal Volume 480 ml; Arterial Blood Gas Vent Mode CMV; Arterial Blood Gas Ventilator rate 18 /MIN
[2024-06-26] MEDS: FUROSEMIDE INJ 40 MG/4 ML VIAL IV PUSH (07:56)
[2024-06-26] MEDS: PREGABALIN (*CRX) 75 MG CAPSULE PO (08:00)
[2024-06-26] MEDS: INSULIN GLARGINE (*BKC) 100 UNITS/ML 35 UNITS SUB-Q (08:00)
[2024-06-26] MEDS: SERTRALINE HCL 50 MG TABLET 100 MG PO (08:00)
[2024-06-26] MEDS: PANTOPRAZOLE SODIUM IV 40 MG VIAL IV PUSH ×2 (08:00→20:50)
[2024-06-26] MEDS: ATORVASTATIN 40 MG TABLET 80 MG PO (08:00)
[2024-06-26] MEDS: MINERAL OIL/WHITE PETROLATUM OINTMENT 1 APPLIC EACH EYE (08:01)
[2024-06-26 08:33] LABS: Glucose Point of Care 148 mg/dl (65-105)
[2024-06-26] MEDS: AZTREONAM 1 GM in SODIUM CHLORIDE 0.9% IV 50 ML 100 ML IVPB ×2 (09:02→21:13)
--- NOTE | 2024-06-26 09:07 | WPDINTPN ---
Progress Note: A&P Assessment and Plan (1) Hypercapnic respiratory failure: Code(s): J96.92 - Respiratory failure, unspecified with hypercapnia Status: Acute Assessment and Plan: Patient presented with confusion, hypercapnia ABGs, was placed on BiPAP with worsening ABGs, likely related to COPD exacerbation, pneumonia and hypercapnic respiratory failure requiring intubation on 06/23/2024 -this morning remains intubated on CMV mode of ventilation -ABGs and chest x-rays reviewed, hypercapnia has resolved -patient does have bilateral pneumonia, ETT was retracted 3 cm -will wean FiO2 to maintain O2 sats greater than 92% -sedated with fentanyl and Versed infusion, daily SBT and SAT. -maintain RASS between 0 and -2 -patient responded to diuresis on 06/25, will diurese again today -I have asked the bedside RN to wean off sedation, will place patient on SBT (2) COPD (chronic obstructive pulmonary disease): Code(s): J44.9 - Chronic obstructive pulmonary disease, unspecified Status: Acute Assessment and Plan: Patient has a history of COPD for which he has been intubated in the past, along with pneumonia. -continue bronchodilators, , antibiotics -off steroids -continue home Trelegy Ellipta (3) Pneumonia: Code(s): J18.9 - Pneumonia, unspecified organism Status: Acute Assessment and Plan: Patient with bilateral pneumonia on chest x-ray -continue mechanical ventilation -continue bronchodilators -continue azithromycin, aztreonam and vancomycin (started on 06/23) (4) Acute kidney injury superimposed on CKD: Code(s): N17.9 - Acute kidney failure, unspecified; N18.9 - Chronic kidney disease, unspecified Status: Acute Assessment and Plan: Patient with acute kidney injury, has a history of stage 5 kidney injury requiring dialysis in the past -patient has been given IV fluids -will check urine lytes, urine eosinophils, CK level -06/24: Renal ultrasound did not show any stones masses or hydronephrosis -will continue to monitor urine output, renal function electrolytes -if renal functions worsen will obtain Nephrology consult -kidney function is improving after diuretics, continue to monitor (5) Diabetes: Qualifiers: Diabetes mellitus type: type 2 Diabetes mellitus prison insulin use: with continuous churn buttermaker use Diabetes mellitus complication status: without complication Qualified Code(s): E11.9 - Type 2 diabetes mellitus without complications; Z79.4 - intermediate frame tender (current) use of insulin Code(s): E11.9 - Type 2 diabetes mellitus without complications Status: Acute Assessment and Plan: Patient has a history of diabetes, has an insulin pump -this morning patient is blood sugars 445, anion gap of 16, potassium of 5.2, CO2 of 20, elevated beta hydroxybutyrate -06/24: Started patient on insulin infusion, anion gap had closed, transition patient to long-acting insulin and sliding scale insulin -continue Lantus and sliding scale insulin with Accu-Cheks -off insulin infusion -continue Lantus and sliding scale insulin along with Accu-Cheks (6) Obstructive sleep apnea: Code(s): G47.33 - Obstructive sleep apnea (adult) (pediatric) Status: Acute Assessment and Plan: History of obstructive sleep apnea, noncompliant with CPAP. -follows with Dr. 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 Plan DVT prophylaxis: Heparin subQ Stress ulcer prophylaxis: Protonix Nutrition: Patient on tube feeds, at goal and tolerating Code Status: Full code Critical Care Time Spent: 32 minutes Discussed with patient's spouse Lynda, updated with patient's condition and plan of care. Answered all her questions Due to a high probability of clinically significant, life threatening deterioration, the patient required my highest level of preparedness to intervene emergently and I personally spent this critical care time directly and personally managing the patient. This critical care time included obtaining a history; examining the patient; pulse oximetry; ordering and review of studies; arranging urgent treatment with development of a management plan; evaluation of patient's response to treatment; frequent reassessment; and discussions with other providers. It was exclusive of separately billable procedures and treating other patients and teaching time. Please see Assessment and Plan section and the rest of the note for further information on patient assessment and treatment This dictation may have been done utilizing a voice recognition system. Attempts have been made to correct errors. However, there may be uncorrected grammatical, spelling, and recognitions errors present. Subjective Date/time seen: 06/26/24 09:07 Interval history: Reason for consult: Acute hypercapnic respiratory failure, COPD exacerbation, confusion, altered mental status, acute kidney injury 06/26/2024: Patient seen and examined the ICU, remains intubated on CMV mode of ventilation, peep 5, 35% FiO2. Sedated with fentanyl and Versed infusion, denies this morning but did not follow simple commands. Urine output has been adequate in response to diuretics. Hemodynamically stable, WBC count trending down Review of Systems Review of Systems: ROS unobtainable: Yes unobtainable due to endotracheal tube, unobtainable due to medical condition and unobtainable due to mental status Exam Narrative: General: Obese patient was intubated, sedated, in no acute distress HEENT:? Pupils equal and reactive, sclera is clear, ETT in place Neck:? Supple Respiratory:? Coarse breath sounds bilaterally, decreased at bases, no wheezing, adequate air Cardiac:? S1-S2 normal, regular rate and rhythm Abdomen:? Soft, nontender, nondistended, obese, normoactive bowel sounds Extremities:? Bilateral lower extremity edema, palpable pedal pulses Neuro:? Patient is intubated, sedated but opens his eyes and follows simple commands in all extremities, he also nods to questions Skin:? Warm and dry Psych:? Unable to assess at this time Objective Data Vital Signs Vital Signs: Vital Signs - 24 hr 06/25/24 12:52 06/25/24 10:00 06/25/24 12:00 Temperature Pulse Rate 54 L 57 L 52 L Respiratory Rate 18 15 16 Blood Pressure Pulse Oximetry Oxygen Delivery Fraction of Inspired Oxygen 06/25/24 13:04 06/25/24 10:00 06/25/24 12:00 Temperature Pulse Rate 54 L 57 L 53 L Respiratory Rate 19 18 19 Blood Pressure Pulse Oximetry Oxygen Delivery Fraction of Inspired Oxygen 06/25/24 12:00 06/25/24 12:00 06/25/24 12:00 Temperature 98.0 F Pulse Rate 53 L 55 L Respiratory Rate 17 Blood Pressure 119/64 Pulse Oximetry 96 Oxygen Delivery Fraction of Inspired Oxygen 35 06/25/24 14:00 06/25/24 14:00 06/25/24 10:49 Temperature Pulse Rate 53 L 53 L 53 L Respiratory Rate 18 Blood Pressure 123/63 Pulse Oximetry 96 95 Oxygen Delivery Mechanical Ventilation Fraction of Inspired Oxygen 35 06/25/24 10:00 06/25/24 10:00 06/25/24 13:16 Temperature Pulse Rate 53 L 57 L 55 L Respiratory Rate 16 18 Blood Pressure 135/71 Pulse Oximetry 95 Oxygen Delivery Fraction of Inspired Oxygen 06/25/24 13:19 06/25/24 15:35 06/25/24 15:35 Temperature Pulse Rate 54 L 52 L 53 L Respiratory Rate 18 18 Blood Pressure Pulse Oximetry 96 Oxygen Delivery Mechanical Ventilation Fraction of Inspired Oxygen 35 06/25/24 13:30 06/25/24 16:43 06/25/24 16:00 Temperature Pulse Rate 53 L 54 L 52 L Respiratory Rate 18 Blood Pressure Pulse Oximetry 96 Oxygen Delivery Mechanical Ventilation Fraction of Inspired Oxygen 35 06/25/24 16:00 06/25/24 16:00 06/25/24 17:40 Temperature 98.2 F Pulse Rate 53 L 53 L Respiratory Rate 17 Blood Pressure 128/64 Pulse Oximetry 96 Oxygen Delivery Fraction of Inspired Oxygen 35 06/25/24 19:46 06/25/24 14:00 06/25/24 16:00 Temperature Pulse Rate 56 L 54 L 51 L Respiratory Rate 17 19 18 Blood Pressure Pulse Oximetry Oxygen Delivery Fraction of Inspired Oxygen 06/25/24 18:00 06/25/24 19:49 06/25/24 16:00 Temperature Pulse Rate 52 L 55 L 51 L Respiratory Rate 17 18 17 Blood Pressure Pulse Oximetry Oxygen Delivery Fraction of Inspired Oxygen 06/25/24 18:00 06/25/24 18:00 06/25/24 19:43 Temperature 98.3 F Pulse Rate 54 L 51 L 56 L Respiratory Rate 18 18 Blood Pressure 122/60 Pulse Oximetry 96 96 Oxygen Delivery Mechanical Ventilation Fraction of Inspired Oxygen 35 06/25/24 19:43 06/25/24 20:00 06/25/24 20:00 Temperature Pulse Rate 56 L 54 L Respiratory Rate 18 18 Blood Pressure Pulse Oximetry 96 Oxygen Delivery Mechanical Ventilation Fraction of Inspired Oxygen 35 06/25/24 20:00 06/25/24 20:00 06/25/24 20:00 Temperature 98.4 F Pulse Rate 54 L 54 L Respiratory Rate 18 18 Blood Pressure 118/69 Pulse Oximetry 96 Oxygen Delivery Fraction of Inspired Oxygen 35 06/25/24 22:00 06/25/24 20:00 06/25/24 22:00 Temperature Pulse Rate 57 L 54 L 57 L Respiratory Rate 18 18 18 Blood Pressure Pulse Oximetry Oxygen Delivery Fraction of Inspired Oxygen 06/25/24 22:00 06/25/24 22:00 06/25/24 23:27 Temperature 98.2 F Pulse Rate 57 L 57 L 62 Respiratory Rate 18 Blood Pressure 112/58 L Pulse Oximetry 95 95 Oxygen Delivery Mechanical Ventilation Fraction of Inspired Oxygen 35 06/26/24 00:00 06/26/24 00:00 06/26/24 00:00 Temperature Pulse Rate 64 Respiratory Rate 18 18 Blood Pressure Pulse Oximetry 95 Oxygen Delivery Mechanical Ventilation Fraction of Inspired Oxygen 35 35 06/26/24 00:00 06/26/24 00:00 06/26/24 00:00 Temperature 97.8 F Pulse Rate 64 64 64 Respiratory Rate 18 18 Blood Pressure 114/57 L Pulse Oximetry 95 Oxygen Delivery Fraction of Inspired Oxygen 06/26/24 02:00 06/26/24 02:00 06/26/24 02:00 Temperature 97.7 F Pulse Rate 62 62 62 Respiratory Rate 18 18 Blood Pressure 122/61 Pulse Oximetry 95 Oxygen Delivery Fraction of Inspired Oxygen 06/26/24 02:00 06/26/24 02:42 06/26/24 02:44 Temperature Pulse Rate 62 61 62 Respiratory Rate 18 18 Blood Pressure Pulse Oximetry 97 Oxygen Delivery Mechanical Ventilation Fraction of Inspired Oxygen 35 06/25/24 19:50 06/26/24 02:50 06/26/24 04:00 Temperature Pulse Rate 55 L 65 67 Respiratory Rate 18 18 Blood Pressure Pulse Oximetry Oxygen Delivery Fraction of Inspired Oxygen 06/26/24 04:00 06/26/24 04:00 06/26/24 04:00 Temperature 98.4 F Pulse Rate 67 Respiratory Rate 18 18 Blood Pressure 141/73 H Pulse Oximetry 92 92 Oxygen Delivery Mechanical Ventilation Fraction of Inspired Oxygen 35 35 06/26/24 04:00 06/26/24 04:00 06/26/24 05:53 Temperature Pulse Rate 67 67 59 L Respiratory Rate 18 18 Blood Pressure Pulse Oximetry 98 Oxygen Delivery Mechanical Ventilation Fraction of Inspired Oxygen 35 06/26/24 06:00 06/26/24 06:00 06/26/24 06:00 Temperature 98.3 F Pulse Rate 60 60 60 Respiratory Rate 18 18 Blood Pressure 128/66 Pulse Oximetry 94 Oxygen Delivery Fraction of Inspired Oxygen 06/26/24 06:00 06/26/24 07:55 06/26/24 07:55 Temperature Pulse Rate 60 60 60 Respiratory Rate 18 18 18 Blood Pressure Pulse Oximetry Oxygen Delivery Fraction of Inspired Oxygen 06/26/24 07:56 06/26/24 08:00 06/26/24 08:00 Temperature 98.7 F Pulse Rate 59 L Respiratory Rate 18 Blood Pressure 143/65 H 139/68 Pulse Oximetry 94 Oxygen Delivery Fraction of Inspired Oxygen 35 06/26/24 08:33 06/26/24 08:20 06/26/24 08:35 Temperature Pulse Rate 62 66 65 Respiratory Rate 18 18 Blood Pressure Pulse Oximetry 94 Oxygen Delivery Mechanical Ventilation Fraction of Inspired Oxygen 30 06/26/24 08:00 Temperature Pulse Rate 59 L Respiratory Rate Blood Pressure Pulse Oximetry Oxygen Delivery Fraction of Inspired Oxygen Intake/Output Intake/Output: Intake & Output 06/23/24 06/24/24 06/25/24 06/26/24 23:59 23:59 23:59 23:59 Intake Total 1405.3 4605.5 2111.1 768.0 Output Total 1550 1850 650 Balance 1405.3 3055.5 261.1 118.0 Meds/Results Medications: Active Medications Generic Name Dose Route Start Last Admin Trade Name Freq PRN Reason Stop Dose Admin Acetaminophen 650 mg 06/24/24 02:04 Acetaminophen Elixir 325 Mg/10.15 Ml Udc PO Q4H PRN Mild Pain (1-3) or Fever Albuterol/Ipratropium 3 ml 06/25/24 14:00 06/26/24 08:25 Ipratropium 0.5 Mg/Albuterol Sulfate 2.5 Mg Ampul.Neb 3 Ml INHALATION 3 ml Q6HRT CHARITY Administration Atorvastatin Calcium 80 mg 06/24/24 09:00 06/26/24 08:00 Atorvastatin 40 Mg Tablet PO 80 mg DAILY CHARITY Administration Dextrose 12.5 gm 06/24/24 11:32 Dextrose 50% 25 Gm/50 Ml Syringe IV PUSH PRN PRN Hypoglycemia Protocol Fluticasone/Umeclidinium/Vilanterol 1 puff 06/24/24 08:00 06/26/24 08:25 Fluticasone/Umeclidin/Vilanter 100-62.5-25 Mcg Ellipta INHALATION Not Given DAILYRT CHARITY Glucagon 1 mg 06/24/24 11:32 Glucagon For Inj 1 Mg Vial IM PRN PRN Hypoglycemia Protocol Glucose 15 gm 06/24/24 11:32 Glucose Oral Gel 15 Gm Of Glucse In 37.5 Gm Tube PO PRN PRN Hypoglycemia Protocol Heparin Sodium (Porcine) 5,000 units 06/24/24 07:50 06/26/24 05:39 Heparin Sodium 5,000 Units/Ml Vial SUB-Q 5,000 units Q8HR CHARITY Administration Aztreonam 1 gm/ Sodium 50 mls @ 100 mls/hr 06/23/24 22:00 06/26/24 09:02 Chloride IVPB 100 mls/hr Q12H CHARITY Administration Midazolam HCl 100 mg in 100 mls @ 2 mls/hr 06/24/24 02:00 06/26/24 07:55 Versed 100 Mg/Ns 100 Ml IV CONT 2 mg/hr .Q50H CHARITY 2 mls/hr Titration Protocol 2 MG/HR Fentanyl Citrate 2,500 mcg in 250 mls @ 7.5 mls/hr 06/24/24 02:05 06/26/24 07:55 Fentanyl 2,500 Mcg/Ns 250 Ml IV CONT 75 mcg/hr .[id number] CHARITY 7.5 mls/hr Titration Protocol 75 MCG/HR Azithromycin 500 mg in 250 mls @ 250 mls/hr 06/24/24 18:00 06/25/24 19:41 Zithromax IVPB Infused Q24H CHARITY Infusion Vancomycin HCl 1,500 mg in 500 mls @ 250 mls/hr 06/25/24 21:00 06/25/24 22:49 Vancomycin 1,500 Mg/Ns 500 Ml IVPB Infused Q36H CHARITY Infusion Dextrose 1,000 mls @ 100 mls/hr 06/24/24 11:32 Dextrose 5% 1,000 Ml IVPB PRN PRN Hypoglycemia Protocol Insulin Aspart 4 - 8 units 06/24/24 07:50 06/26/24 07:51 Insulin Aspart (*Bkc) 100 Units/Ml SUB-Q Not Given Q4H CHARITY Protocol Insulin Glargine 35 units 06/25/24 09:00 06/26/24 08:00 Insulin Glargine (*Bkc) 100 Units/Ml SUB-Q 35 units DAILY CHARITY Administration Levothyroxine Sodium 150 mcg 06/24/24 10:00 06/26/24 05:39 Levothyroxine Sodium 150 Mcg Tablet PO 150 mcg DAILY@0630 CHARITY Administration Levothyroxine Sodium 25 mcg 06/24/24 10:00 06/26/24 05:39 Levothyroxine Sodium 25 Mcg Tablet PO 25 mcg DAILY@0630 CHARITY Administration Midazolam HCl 2 mg 06/24/24 01:34 06/24/24 01:42 Midazolam Hcl (*Crx) 2 Mg/2 Ml Vial IV PUSH 2 mg PRN PRN Administration Sedation Multi-Ingred Cream/Lotion/Oil/Oint 1 applic 06/24/24 09:00 06/26/24 08:01 Mineral Oil/White Petrolatum Ointment EACH EYE 1 applic Q12HR CHARITY Administration Pantoprazole Sodium 40 mg 06/24/24 09:00 06/26/24 08:00 Pantoprazole Sodium Iv 40 Mg Vial IV PUSH 40 mg Q12HR CHARITY Administration Pregabalin 75 mg 06/24/24 09:00 06/26/24 08:00 Pregabalin (*Crx) 75 Mg Capsule PO 75 mg BID CHARITY Administration Sertraline HCl 100 mg 06/24/24 09:00 06/26/24 08:00 Sertraline Hcl 50 Mg Tablet PO 100 mg DAILY CHARITY Administration Radiology Results: ITS Impressions Renal Ultrasound 06/24/24 09:12 Impression: 1: Unremarkable renal ultrasound. No stones, masses or hydronephrosis. Chest X-Ray 06/26/24 06:28 Impression: Bilateral pulmonary airspace disease, with bibasilar predominance, as detailed above. Correlate for pulmonary edema/atelectasis versus possibly pneumonia. Small left pleural effusion. Support tubes, as above. Labs Labs: Laboratory Results - last 24 hr 06/25/24 06/25/24 06/25/24 08:53 12:05 16:16 WBC RBC Hgb Hct MCV MCH MCHC RDW Plt Count MPV Immature Gran % (Auto) Neut % (Auto) Lymph % (Auto) [place] % (Auto) Eos % (Auto) Baso % (Auto) Lymph # (Auto) [place] # (Auto) Eos # (Auto) Baso # (Auto) Abs Immat Gran (auto) Absolute Neuts (auto) Absolute Nucleated RBC Nucleated RBC % Puncture Site ABG pH ABG pCO2 ABG pO2 ABG PO2/FiO2 Ratio ABG HCO3 ABG O2 Saturation ABG O2 Content ABG Base Excess A-a Gradient Oxyhemoglobin Carboxyhemoglobin Methemoglobin Reduced Hemoglobin Total Hemoglobin O2 Delivery Device O2 Liters/Min Minute Volume Vent Rate Vent Mode FiO2 Tidal Volume PEEP Peak Inspir Pressure Pressure Support Sodium Potassium Chloride Carbon Dioxide Anion Gap BUN Creatinine Estim Creat Clear Calc Estimated GFR Glucose POC Capillary Glucose 258 H 263 H 270 H Calcium Phosphorus Magnesium Total Bilirubin AST ALT Alkaline Phosphatase Total Protein Albumin 06/25/24 06/25/24 06/26/24 20:48 23:11 03:55 WBC 19.8 H RBC 4.64 Hgb 13.9 L Hct 44.3 MCV 95.5 MCH 30.0 MCHC 31.4 L RDW 17.1 H Plt Count 179 MPV 12.1 H Immature Gran % (Auto) 2.3 H Neut % (Auto) 73.2 H Lymph % (Auto) 11.8 L [place] % (Auto) 12.1 H Eos % (Auto) 0.1 Baso % (Auto) 0.5 Lymph # (Auto) 2.33 [place] # (Auto) 2.4 H Eos # (Auto) 0.0 Baso # (Auto) 0.1 Abs Immat Gran (auto) 0.46 H Absolute Neuts (auto) 14.5 H Absolute Nucleated RBC 0.040 H Nucleated RBC % 0.2 Puncture Site ABG pH ABG pCO2 ABG pO2 ABG PO2/FiO2 Ratio ABG HCO3 ABG O2 Saturation ABG O2 Content ABG Base Excess A-a Gradient Oxyhemoglobin Carboxyhemoglobin Methemoglobin Reduced Hemoglobin Total Hemoglobin O2 Delivery Device O2 Liters/Min Minute Volume Vent Rate Vent Mode FiO2 Tidal Volume PEEP Peak Inspir Pressure Pressure Support Sodium 141 Potassium 4.1 Chloride 108 H Carbon Dioxide 25 Anion Gap 8 BUN 74 H Creatinine 2.40 H Estim Creat Clear Calc 34 Estimated GFR 27 L Glucose 178 H POC Capillary Glucose 287 H 221 H Calcium 8.9 Phosphorus 4.0 Magnesium 2.5 H Total Bilirubin 0.3 AST 26 ALT 38 Alkaline Phosphatase 136 H Total Protein 7.0 Albumin 3.4 L 06/26/24 06/26/24 05:00 07:50 WBC RBC Hgb Hct MCV MCH MCHC RDW Plt Count MPV Immature Gran % (Auto) Neut % (Auto) Lymph % (Auto) [place] % (Auto) Eos % (Auto) Baso % (Auto) Lymph # (Auto) [place] # (Auto) Eos # (Auto) Baso # (Auto) Abs Immat Gran (auto) Absolute Neuts (auto) Absolute Nucleated RBC Nucleated RBC % Puncture Site Right radial ABG pH 7.404 ABG pCO2 41.3 ABG pO2 68.9 L ABG PO2/FiO2 Ratio 1.97 ABG HCO3 25.2 ABG O2 Saturation 93.9 L ABG O2 Content 17.9 ABG Base Excess 0.4 A-a Gradient 132.6 Oxyhemoglobin 93.0 Carboxyhemoglobin 0.9 Methemoglobin 0.3 Reduced Hemoglobin 5.8 H Total Hemoglobin 13.7 O2 Delivery Device Ventilator O2 Liters/Min Not Reportable Minute Volume Not Reportable Vent Rate 18 Vent Mode Cmv FiO2 35 Tidal Volume 480 PEEP 8 Peak Inspir Pressure Not Reportable Pressure Support Not Reportable Sodium Potassium Chloride Carbon Dioxide Anion Gap BUN Creatinine Estim Creat Clear Calc Estimated GFR Glucose POC Capillary Glucose 148 H Calcium Phosphorus Magnesium Total Bilirubin AST ALT Alkaline Phosphatase Total Protein Albumin Quality VTE Prophylaxis VTE prophylaxis: pharmacologic ordered
[2024-06-26] MEDS: FENTANYL 2,500MCG/NS250ML(*CRX 2,500 MCG/250 ML BAG IV CONT (09:13)
[2024-06-26 11:02] LABS: Glucose Point of Care 177 mg/dl (65-105)
--- NOTE | 2024-06-26 11:20 | PM.CNPUL ---
Assessment and Plan Assessment and plan (1) Restrictive lung disease: Code(s): J98.4 - Other disorders of lung Status: Acute Assessment and Plan: Patient with a history of weak-paralyzed diaphragms after his CABG, AVR an aortic graft in 03/2018. PFTs on 12/05/2018 and 07/10/2020 demonstrate normal FEV1: FVC ratio, total lung capacity 46% predicted consistent with a restrictive abnormality. In addition he has morbid obesity. Patient has weak-paralyzed diaphragms postoperatively with restrictive lung volumes and chronic hypercarbic respiratory failure With pH of 7.12/80/211 on admission. He failed BiPAP and was intubated on 06/23/2024. Currently the patient is on CMV rate of 18, tidal volume 480, 30% FiO2 and a PEEP of 8 with saturations 93%. ABG this morning 7.40/41/ 69. Plan: Mechanical ventilation is being managed by account analyst. I recommend extubation to noninvasive ventilation (BiPAP or AVAPS mode) and continuation of noninvasive ventilation p.r.n. during the day and at night to maintain adequate minute ventilation. please call the Pulmonary consult service after the patient is extubated. The patient has previously been prescribed a CPAP for his obstructive sleep apnea but he does not like to use it and has not used it. The tells me he will not use a noninvasive ventilator or CPAP in the future. If this is truly the case and the patient will be non compliant discussions regarding patient's and/or family's wishes regarding re-intubation should take place. Discussed with Dr. Dno, will sign off. Please recall when patient is extubated. (2) COPD (chronic obstructive pulmonary disease): Code(s): J44.9 - Chronic obstructive pulmonary disease, unspecified Status: Acute Assessment and Plan: Patient has a 30 pack year tobacco use, PFTs with restriction, CT scan on 12/05/2018 with no evidence of emphysema. He has been prescribed trilogy in case he does have COPD. Plan: If the patient does have COPD, agree with bronchodilators and would continue DuoNebs q.6 hours. At this time he has no wheezing and can discontinue Inhaled corticosteroids and I see the note no need for systemic steroids at this time. The patient is treating for possible pneumonia with vancomycin, azithromycin and aztreonam (started 06/23/24) per ICU team. Vent management per ICU team. (3) Obstructive sleep apnea syndrome in adult: Code(s): G47.33 - Obstructive sleep apnea (adult) (pediatric) Status: Acute Assessment and Plan: 05/20/2020;Split night study: AHI=8.2,desaturation 84%, disrupted sleep, loud snoring;CPAP titration;optimal=8 cm & 1 cm EPR. On 03/15/2024: Pulmonary clinic note states the patient does not tolerate PAP. 06/26/24: The tells me he does not like to wear his mask and will wear it in the future. See above. History of Present Illness History of Present Illness Consult date: 06/26/24 Chief complaint: hypercapnic respiratory failure Narrative: 06/26/2024: This is a new pulmonary consult for COPD. 63-year-old with a history of coronary artery disease status post CABG, aortic valve replacement, JIA resection, and aortic aneurysm status post repair (all 03/2018). postoperatively worsening shortness of breath. Weak/paralyzed bilateral diaphragms by sniff 09/17/2020, restrictive PFTs 07/10/2020, obstructive sleep apnea 05/20/2020 not tolerant to PAP therapy, possible COPD. COVID 10/10/2021 in ICU 4 weeks, not intubated, coded during dialysis. 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 end-stage renal disease off of hemodialysis since 01/2023. last seen in the Pulmonary Clinic on 03/15/2024. problem list includes bilateral diaphragm paralysis, recess she did have impairment on PFTs. Was on oxygen since January of 2022 after COVID not using it now. CHAZ not tolerant to PAP. Cat score was 13, using trilogy 1 puff most days. Short of breath with limited activity. After walking 10-5th or 15 ft he needs to sit down and rest. Complains of constant clear nasal drainage sees ENT. Plan was to collect fluid to rule out CSF leak. Room air saturations 96%. Regarding his COPD this was a presumed diagnosis, former smoker, improved with trilogy but not using because he has to rinse his mouth out. Currently not on oxygen. Regarding diaphragm paralysis this was noted after CABG and AVR. Obstructive sleep apnea not on treatment. Problems using past due to excessive humidity in the tubing. Follow-up in 6 months. 06/12/2024: PCP office note. He is very weak. Legs hurt. Fallen 3 times in last 10 days. reports he is hallucinating at night. Not wearing CPAP. Not using oxygen at night. Saturations 82-85% on room air. They declined him ER visit. 06/23/2024: Presented to the emergency department with confusion and weakness. Increasingly agitated and confused over the last several days. Somnolent but arouses. Speaking nonsensically. Blood pressure 120/75, heart rate 79, respiratory rate 24, saturations 50% on room air. Diminished breath sounds bilaterally. White blood cell count 14.4. Creatinine 3.0, was 1.66 on 01/25/2023. Influenza, RSV and COVID negative. Chest x-ray with bilateral elevated hemidiaphragms, status post median sternotomy, congestion And bibasilar infiltrates. Stat BiPAP, ABG, steroids and bronchodilators started. ABG 7.1280/211 on 10 L oxygen. ABGs in not improved despite BiPAP 7./83 and he was intubated. Weight 106.7, Previous weight on 06/12/2024 106.1. 06/24/2024: Afebrile. White blood cell count 16.8. Creatinine 3.0. Remained intubated, On peep of 5 and 45% FiO2.developed hyperglycemia with an anion gap acidosis started on IV insulin. ABG 7.31/38 /99. Nasal MRSA. Weight 107.8. 06/25/2024 Afebrile. White blood cell count 23.8. Creatinine 2.6. intubated, peep of 8, FiO2 35%. ABG 7.32/44/79. Weight 111.1. 06/26/2024: I spoke with the at the bedside. she states that her his breathing was relatively good prior to his CABG, valve replacement and aortic graft placement in . After that he had breathing difficulty which has been unchanged over the last 6 years. The patient is intermittently compliant with inhalers for possible COPD. He is no longer smoking. Today white blood cell count 19.8. Creatinine 2.4. intubated, peep of 8, 35% FiO2. ABG 7.40/41/69. chest x-ray with ET tube in place, small lung volumes, bibasilar interstitial alveolar infiltrates. No change from 06/25/2024. At 10:00 a.m. he is febrile to 37.7. Weight 108.5. cumulative positive 4.8 L since admission. DATA: 01/14/2023: CT abdomen and pelvis. Findings. Imaged portions of the lower chest revealed patchy bibasilar ground-glass and interstitial opacities. Surgical changes of median sternotomy. * 08/21/2022 - 6 Min Walk: resting oxygen saturation on 2 L, 96%, pulse 62. While walking and breathing 4 L a minute he was able to walk for 2 minutes and 30 seconds. This was 305 m. Maintain saturation 96-98%. Heart rate at the end of this was 129 beats per minute. He used a wheeled walker. He had to stop at 2-1/2 minutes due to shortness of breath. 01/20/2022: CT scan of the chest without contrast. Impression: Interval improvement of the diffuse patchy lung opacities since 12/08/2021. This is favored to represent improving infection as described above. No suspicious pulmonary nodules or masses. No mediastinal, hilar axillary lymphadenopathy. *?09/17/2020:? fluoroscopic sniff test; no paradoxical motion of diaphragm, there is incomplete diaphragm excursion symmetrically with elevation of R and L diaphragm, Consider diaphragm eventration versus partial diaphragm paralysis bilaterally.? [facility], [address] [place] [address]. * 05/20/2020;Split night study: AHI=8.2,desaturation 84%, disrupted sleep, loud snoring;CPAP titration;optimal=8 cm & 1 cm EPR. * 07/10/2020 PFT : FEV1 = 47%, 1.44 L.? FVC = 37%, severely decreased. FEV1%=normal. [id number]%=72% predicted.? There is no statistically significant change after bronchodilator administration. TLC=46%. RV=nl. RV/TLC mildly increased consistent with mild air trapping. DLCO 38%, severely decreased. Flow volume loop: Consistent with restriction. IMPRESSION: Severe restrictive ventilatory impairment,? mild air trapping, severe diffusion impairment without change following? bronchodilator.? Restrictive disease can mask obstruction.? Clinical correlation is recommended.? Lack of response to bronchodilators should not preclude use if clinically indicated. * 05/20/2020 : Split night study:? AHI was 8.2,? desaturation to 84% disrupted sleep and loud snoring; proceeded to CPAP titration? with an optimal pressure of 8 cm with 1 cm of EPR.? He did not have REM at the setting.? He had elevated limb movements with an index of 86.6. He has been using? CPAP 8 cm with difficulty keeping the mask on.? He has significant air leak.? His compliance is measured from April 24 through July 22 but he did not even get his device until the end of June,? has only had a little over a month.? His AHI is 12.9, large air leak.? He has 1% Fabricio-Rodriguez respirations. 12/05/2018: CT scan chest: No prior studies for comparison. Findings: Heart size is normal. There is atherosclerosis of the coronary arteries and aorta. No significant pleural or pericardial effusion. Status post median sternotomy for CABG. No thoracic lymphadenopathy. Mild thoracic spondylosis with dextrocurvature. There is right lower lobe atelectasis. There is mild pleural thickening of the fissures. No suspicious pulmonary nodules or masses. There is an abnormal appearance of the ascending thoracic aorta consistent with aortic dissection extending from the aortic root to the proximal aspect of the aortic arch. There is gynecomastia. * 12/05/2018 PFT at [facility] in [place] FEV1= 54%, 1.83 L, FVC= 48%, normal FEV1/FVC.? No change with bronchodilator.? Lung volumes were not obtained. * echo at [facility] 10/06/2018 - right ventricle not well visualized, normal left atrium, right atrium mildly enlarged, right atrial pressure 3 mm mercury.? Normal IVC.? Prosthetic aortic valve.? Right ventricular systolic pressure less than 30 mmHg Review of Systems Review of Systems: ROS unobtainable: Yes unobtainable due to endotracheal tube PMFSH Past Medical History Medical History Adult BMI 36.0-36.9 kg/sq m Adult BMI 37.0-37.9 kg/sq m Atrial fibrillation BMI 31.0-31.9,adult BMI 32.0-32.9,adult BMI 33.0-33.9,adult BMI greater than 30 Chronic shortness of breath COPD (chronic obstructive pulmonary disease) History of tobacco abuse Hypersomnia Hypothyroidism Loud snoring Low vitamin D level Major depressive disorder Neuropathy Pneumonia Retinopathy, diabetic, right eye Shortness of Breath Surgical History Surgical History History of revascularization procedure of lower extremity RLE S/P AVR S/P CABG x 2 Status post ablation of atrial fibrillation January 2018 Status post aortic aneurysm repair Family History Family History Father Acute myocardial infarction Hypertension Mother Diabetes mellitus Hypertension Thyroid activity decreased Scleroderma involving lung Heart disease Sibling Diabetes mellitus Other Loud snoring Social History Social History Social History: , is Lynda, has 2 grown kids; quit tobacco January 2018 with his DE and Atrial fib, smoked 1.5 ppd Smoking packs per day: 1.5 Smoking cigarettes per day: 30.0 Years smoked: 30 Smoking pack-years: 45.00 Smoking status: Former smoker Tobacco type: cigarettes Second hand tobacco smoke exposure: No Smoking end date: 12/05/17 Alcohol intake: former Substance use: never Substance use type: does not use Do You Feel Safe in your Home?: Yes Lack of Transportation: No Lack of Food: Never True Current Housing: I Have Housing Concerned About Future Housing: YES Difficulty Paying Gas/Electric Bills: No Difficulty Paying for Meds: No Currently Unemployed: No Education: High School Diploma/GED Difficulty w/ Childcare or Family Care: No Living arrangements: with family Occupation/Education: retired Additional occupation/education comments: 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; had exposure to inks but does not think he had occupational exposure to anything adverse for his breathing Gender identity (if verbalized by the patient): Male Sexual Orientation (if Verbalized by the Patient): Straight or Heterosexual Spiritual care concerns: No Agree to blood products: Yes Meds Home Medications and Allergies Home Medications Medication Instructions Recorded Confirmed Type atorvastatin 80 mg tablet 80 mg PO DAILY 08/17/19 06/23/24 History amlodipine 10 mg tablet 10 mg PO DAILY 02/25/23 06/23/24 History sotalol 80 mg tablet 80 mg PO DAILY 02/25/23 06/23/24 History blood-glucose sensor (Dexcom G6 #1 ea 05/06/23 06/23/24 History Sensor device) hydralazine 10 mg tablet 10 mg PO BID 05/06/23 06/23/24 History insulin aspart U-100 100 unit/mL 0.09 unit continuous subcutaneous 05/06/23 06/23/24 History subcutaneous solution infusion DAILY furosemide 20 mg tablet 60 mg PO DAILY 05/17/23 06/23/24 History insulin aspart U-100 100 unit/mL 1 sliding scale dose subcut 11/10/23 06/23/24 History (3 mL) subcutaneous pen (Novolog USEASDIRECTD FlexPen U-100 Insulin aspart) subcutaneous insulin pump (MiniMed 11/10/23 06/23/24 History 630G Insulin Pump) levothyroxine 175 mcg tablet 175 mcg PO DAILY #90 tabs 01/05/24 06/23/24 Rx quetiapine 100 mg tablet (Seroquel) 100 mg PO QHS #90 tabs 02/03/24 06/23/24 Rx pantoprazole 40 mg tablet,delayed See Rx Instructions .Route 03/14/24 06/23/24 Rx release .COMPLEX #180 tabs fluticasone fur. 100 mcg-umeclid 1 inh inhalation Q24H #60 ea 03/22/24 06/23/24 Rx 62.5 mcg-vilant 25 mcg inhalat.powder (Trelegy Ellipta) lorazepam 1 mg tablet 1 mg PO BID PRN anxiety #180 tabs 04/03/24 06/23/24 Rx albuterol sulfate 90 mcg/actuation 2 inh inhalation Q4H PRN shortness 04/30/24 06/23/24 Rx aerosol inhaler of breath or wheezing #8.5 grams sertraline 100 mg tablet 100 mg PO DAILY #90 tabs 04/30/24 06/23/24 Rx pregabalin 75 mg capsule 75 mg PO BID 06/12/24 06/23/24 History Allergies Allergy/AdvReac Type Severity Reaction Status Date / Time cefepime Allergy Severe respiratory Verified 06/12/24 10:36 decompensation codeine AdvReac Severe Swelling Verified 06/12/24 10:36 penicillin G AdvReac Mild immune Verified 06/12/24 10:36 iv contrast Allergy Intermediate Anaphylaxis Uncoded 06/12/24 10:36 Vital Signs Vital Signs - 24 hr 06/25/24 12:52 06/25/24 12:00 06/25/24 13:04 Temperature Pulse Rate 54 L 52 L 54 L Respiratory Rate 18 16 19 Blood Pressure Pulse Oximetry Oxygen Delivery Fraction of Inspired Oxygen 06/25/24 12:00 06/25/24 12:00 06/25/24 12:00 Temperature 36.7 C Pulse Rate 53 L 53 L 55 L Respiratory Rate 19 17 Blood Pressure 119/64 Pulse Oximetry 96 Oxygen Delivery Fraction of Inspired Oxygen 06/25/24 12:00 06/25/24 14:00 06/25/24 14:00 Temperature Pulse Rate 53 L 53 L Respiratory Rate 18 Blood Pressure 123/63 Pulse Oximetry 96 Oxygen Delivery Fraction of Inspired Oxygen 35 06/25/24 13:16 06/25/24 13:19 06/25/24 15:35 Temperature Pulse Rate 55 L 54 L 52 L Respiratory Rate 18 18 Blood Pressure Pulse Oximetry 96 Oxygen Delivery Mechanical Ventilation Fraction of Inspired Oxygen 35 06/25/24 15:35 06/25/24 13:30 06/25/24 16:43 Temperature Pulse Rate 53 L 53 L 54 L Respiratory Rate 18 18 Blood Pressure Pulse Oximetry 96 Oxygen Delivery Mechanical Ventilation Fraction of Inspired Oxygen 35 06/25/24 16:00 06/25/24 16:00 06/25/24 16:00 Temperature 36.8 C Pulse Rate 52 L 53 L Respiratory Rate 17 Blood Pressure 128/64 Pulse Oximetry 96 Oxygen Delivery Fraction of Inspired Oxygen 35 06/25/24 17:40 06/25/24 19:46 06/25/24 14:00 Temperature Pulse Rate 53 L 56 L 54 L Respiratory Rate 17 19 Blood Pressure Pulse Oximetry Oxygen Delivery Fraction of Inspired Oxygen 06/25/24 16:00 06/25/24 18:00 06/25/24 19:49 Temperature Pulse Rate 51 L 52 L 55 L Respiratory Rate 18 17 18 Blood Pressure Pulse Oximetry Oxygen Delivery Fraction of Inspired Oxygen 06/25/24 16:00 06/25/24 18:00 06/25/24 18:00 Temperature 36.8 C Pulse Rate 51 L 54 L 51 L Respiratory Rate 17 18 18 Blood Pressure 122/60 Pulse Oximetry 96 Oxygen Delivery Fraction of Inspired Oxygen 06/25/24 19:43 06/25/24 19:43 06/25/24 20:00 Temperature Pulse Rate 56 L 56 L 54 L Respiratory Rate 18 Blood Pressure Pulse Oximetry 96 Oxygen Delivery Mechanical Ventilation Fraction of Inspired Oxygen 35 06/25/24 20:00 06/25/24 20:00 06/25/24 20:00 Temperature 36.9 C Pulse Rate 54 L Respiratory Rate 18 18 Blood Pressure 118/69 Pulse Oximetry 96 96 Oxygen Delivery Mechanical Ventilation Fraction of Inspired Oxygen 35 35 06/25/24 20:00 06/25/24 22:00 06/25/24 20:00 Temperature Pulse Rate 54 L 57 L 54 L Respiratory Rate 18 18 18 Blood Pressure Pulse Oximetry Oxygen Delivery Fraction of Inspired Oxygen 06/25/24 22:00 06/25/24 22:00 06/25/24 22:00 Temperature 36.8 C Pulse Rate 57 L 57 L 57 L Respiratory Rate 18 18 Blood Pressure 112/58 L Pulse Oximetry 95 Oxygen Delivery Fraction of Inspired Oxygen 06/25/24 23:27 06/26/24 00:00 06/26/24 00:00 Temperature Pulse Rate 62 Respiratory Rate 18 Blood Pressure Pulse Oximetry 95 95 Oxygen Delivery Mechanical Ventilation Mechanical Ventilation Fraction of Inspired Oxygen 35 35 35 06/26/24 00:00 06/26/24 00:00 06/26/24 00:00 Temperature Pulse Rate 64 64 64 Respiratory Rate 18 18 Blood Pressure Pulse Oximetry Oxygen Delivery Fraction of Inspired Oxygen 06/26/24 00:00 06/26/24 02:00 06/26/24 02:00 Temperature 36.6 C 36.5 C Pulse Rate 64 62 62 Respiratory Rate 18 18 Blood Pressure 114/57 L 122/61 Pulse Oximetry 95 95 Oxygen Delivery Fraction of Inspired Oxygen 06/26/24 02:00 06/26/24 02:00 06/26/24 02:42 Temperature Pulse Rate 62 62 61 Respiratory Rate 18 18 Blood Pressure Pulse Oximetry 97 Oxygen Delivery Mechanical Ventilation Fraction of Inspired Oxygen 35 06/26/24 02:44 06/25/24 19:50 06/26/24 02:50 Temperature Pulse Rate 62 55 L 65 Respiratory Rate 18 18 18 Blood Pressure Pulse Oximetry Oxygen Delivery Fraction of Inspired Oxygen 06/26/24 04:00 06/26/24 04:00 06/26/24 04:00 Temperature Pulse Rate 67 Respiratory Rate 18 Blood Pressure Pulse Oximetry 92 Oxygen Delivery Mechanical Ventilation Fraction of Inspired Oxygen 35 35 06/26/24 04:00 06/26/24 04:00 06/26/24 04:00 Temperature 36.9 C Pulse Rate 67 67 67 Respiratory Rate 18 18 18 Blood Pressure 141/73 H Pulse Oximetry 92 Oxygen Delivery Fraction of Inspired Oxygen 06/26/24 05:53 06/26/24 06:00 06/26/24 06:00 Temperature 36.8 C Pulse Rate 59 L 60 60 Respiratory Rate 18 Blood Pressure 128/66 Pulse Oximetry 98 94 Oxygen Delivery Mechanical Ventilation Fraction of Inspired Oxygen 35 06/26/24 06:00 06/26/24 06:00 06/26/24 07:55 Temperature Pulse Rate 60 60 60 Respiratory Rate 18 18 18 Blood Pressure Pulse Oximetry Oxygen Delivery Fraction of Inspired Oxygen 06/26/24 07:55 06/26/24 07:56 06/26/24 08:00 Temperature 37.1 C Pulse Rate 60 59 L Respiratory Rate 18 18 Blood Pressure 143/65 H 139/68 Pulse Oximetry 94 Oxygen Delivery Fraction of Inspired Oxygen 06/26/24 08:00 06/26/24 08:33 06/26/24 08:20 Temperature Pulse Rate 62 66 Respiratory Rate 18 Blood Pressure Pulse Oximetry 94 Oxygen Delivery Mechanical Ventilation Fraction of Inspired Oxygen 35 30 06/26/24 08:35 06/26/24 08:00 06/26/24 08:00 Temperature Pulse Rate 65 59 L Respiratory Rate 18 Blood Pressure Pulse Oximetry 94 Oxygen Delivery Mechanical Ventilation Fraction of Inspired Oxygen 35 06/26/24 09:00 06/26/24 09:00 06/26/24 09:13 Temperature Pulse Rate 60 60 62 Respiratory Rate 18 18 18 Blood Pressure Pulse Oximetry Oxygen Delivery Fraction of Inspired Oxygen 06/26/24 09:19 06/26/24 09:19 06/26/24 10:23 Temperature Pulse Rate 62 62 66 Respiratory Rate 18 18 Blood Pressure Pulse Oximetry 93 Oxygen Delivery Mechanical Ventilation Fraction of Inspired Oxygen 30 06/26/24 10:00 06/26/24 10:00 Temperature 37.7 C H Pulse Rate 62 72 Respiratory Rate 19 Blood Pressure 154/84 H Pulse Oximetry 92 Oxygen Delivery Fraction of Inspired Oxygen Exam Const: General: comfortable HENMT: Head: normal to inspection Ears: hearing grossly normal bilaterally Eyes: General: appearance normal, both eyes and all related structures Neck: Neck: normal visual inspection Chest: Chest palpation & inspection: normal inspection of the chest Resp: Auscultation: no crackles, no rales, no rhonchi and no wheezes Cardio: Jugular venous distension: no JVD GI: Inspection: normal to inspection GI Palp: No abdominal tenderness Skin: General skin exam: normal color Neuro: Other: Intubated. He shakes his head to his name. He is able to squeeze my hands and wiggles his toes to verbal commands. Extrem: General: normal to inspection Psych: Appearance: grossly normal Results Laboratory Findings 06/26/24 03:55 06/26/24 03:55 ABG, PT/INR, D-dimer: ABG ABG pH 7.404 (7.350-7.450) 06/26/24 05:00 ABG pCO2 41.3 mmHg (35.0-45.0) 06/26/24 05:00 ABG pO2 68.9 mmHg (80.0-100.0) L 06/26/24 05:00 ABG O2 Saturation 93.9 % (95.0-100.0) L 06/26/24 05:00 PT/INR, D-dimer PT 15.3 Seconds (11.1-14.7) H 06/23/24 16:55 INR 1.2 06/23/24 16:55 Abnormal lab findings: Abnormal Labs 06/23/24 06/23/24 06/23/24 16:55 16:58 18:00 WBC 14.4 H RBC 4.34 L Hgb 13.0 L Hct MCHC 30.8 L RDW 15.3 H MPV 12.1 H Immature Gran % (Auto) 2.8 H Neut % (Auto) 73.7 H Lymph % (Auto) 12.5 L [place] % (Auto) 10.2 H [place] # (Auto) 1.5 H Abs Immat Gran (auto) 0.41 H Absolute Neuts (auto) 10.6 H Absolute Nucleated RBC 0.040 H Nucleated RBC % 0.3 H PT 15.3 H ABG pH 7.115 L* 7.104 L* ABG pCO2 79.9 H* 87.2 H* ABG pO2 211.6 H ABG HCO3 26.7 H ABG O2 Saturation 93.1 L Reduced Hemoglobin Sodium 135 L Potassium Chloride Carbon Dioxide Anion Gap BUN 66 H Creatinine 3.00 H Estimated GFR 21 L Glucose 259 H POC Capillary Glucose Hemoglobin A1c Calcium Magnesium 2.5 H Alkaline Phosphatase Total Creatine Kinase NT-Pro-B Natriuret Pep 2780 H Total Protein Albumin Beta-Hydroxybutyrate/Acetoacetate Urine Appearance Urine Protein 06/23/24 06/23/24 06/24/24 19:23 20:33 04:32 WBC RBC Hgb Hct MCHC RDW MPV Immature Gran % (Auto) Neut % (Auto) Lymph % (Auto) [place] % (Auto) [place] # (Auto) Abs Immat Gran (auto) Absolute Neuts (auto) Absolute Nucleated RBC Nucleated RBC % PT ABG pH 7.081 L* ABG pCO2 80.2 H* ABG pO2 ABG HCO3 ABG O2 Saturation 90.8 L Reduced Hemoglobin Sodium Potassium Chloride Carbon Dioxide Anion Gap BUN Creatinine Estimated GFR Glucose POC Capillary Glucose Hemoglobin A1c 7.5 H Calcium Magnesium Alkaline Phosphatase Total Creatine Kinase NT-Pro-B Natriuret Pep Total Protein Albumin Beta-Hydroxybutyrate/Acetoacetate Urine Appearance Cloudy H Urine Protein 2+ H 06/24/24 06/24/24 06/24/24 04:40 05:33 08:31 WBC 16.8 H RBC 4.53 L Hgb 13.4 L Hct MCHC 30.0 L RDW 15.3 H MPV 12.5 H Immature Gran % (Auto) Neut % (Auto) Lymph % (Auto) [place] % (Auto) [place] # (Auto) Abs Immat Gran (auto) Absolute Neuts (auto) Absolute Nucleated RBC Nucleated RBC % PT ABG pH 7.308 L ABG pCO2 ABG pO2 ABG HCO3 18.7 L ABG O2 Saturation Reduced Hemoglobin Sodium Potassium 5.2 H Chloride Carbon Dioxide 20 L Anion Gap 16 H BUN 66 H Creatinine 3.00 H Estimated GFR 21 L Glucose 445 H POC Capillary Glucose 461 H Hemoglobin A1c Calcium 8.3 L Magnesium 2.4 H Alkaline Phosphatase Total Creatine Kinase NT-Pro-B Natriuret Pep Total Protein Albumin Beta-Hydroxybutyrate/Acetoacetate Urine Appearance Urine Protein 06/24/24 06/24/24 06/24/24 09:41 11:31 12:15 WBC RBC Hgb Hct MCHC RDW MPV Immature Gran % (Auto) Neut % (Auto) Lymph % (Auto) [place] % (Auto) [place] # (Auto) Abs Immat Gran (auto) Absolute Neuts (auto) Absolute Nucleated RBC Nucleated RBC % PT ABG pH ABG pCO2 ABG pO2 ABG HCO3 ABG O2 Saturation Reduced Hemoglobin Sodium 136 L Potassium Chloride Carbon Dioxide 18 L Anion Gap 14 H BUN 71 H Creatinine 2.90 H Estimated GFR 22 L Glucose 351 H POC Capillary Glucose 398 H 408 H Hemoglobin A1c Calcium 8.2 L Magnesium Alkaline Phosphatase Total Creatine Kinase 54 L NT-Pro-B Natriuret Pep Total Protein Albumin Beta-Hydroxybutyrate/Acetoacetate 2.50 H Urine Appearance Urine Protein 06/24/24 06/24/24 06/24/24 13:33 14:23 15:34 WBC RBC Hgb Hct MCHC RDW MPV Immature Gran % (Auto) Neut % (Auto) Lymph % (Auto) [place] % (Auto) [place] # (Auto) Abs Immat Gran (auto) Absolute Neuts (auto) Absolute Nucleated RBC Nucleated RBC % PT ABG pH ABG pCO2 ABG pO2 ABG HCO3 ABG O2 Saturation Reduced Hemoglobin Sodium Potassium Chloride Carbon Dioxide Anion Gap BUN Creatinine Estimated GFR Glucose POC Capillary Glucose 315 H 309 H 262 H Hemoglobin A1c Calcium Magnesium Alkaline Phosphatase Total Creatine Kinase NT-Pro-B Natriuret Pep Total Protein Albumin Beta-Hydroxybutyrate/Acetoacetate Urine Appearance Urine Protein 06/24/24 06/24/24 06/24/24 16:08 16:46 18:22 WBC RBC Hgb Hct MCHC RDW MPV Immature Gran % (Auto) Neut % (Auto) Lymph % (Auto) [place] % (Auto) [place] # (Auto) Abs Immat Gran (auto) Absolute Neuts (auto) Absolute Nucleated RBC Nucleated RBC % PT ABG pH ABG pCO2 ABG pO2 ABG HCO3 ABG O2 Saturation Reduced Hemoglobin Sodium Potassium Chloride 110 H Carbon Dioxide 17 L Anion Gap BUN 64 H Creatinine 2.40 H Estimated GFR 27 L Glucose 214 H POC Capillary Glucose 211 H 172 H Hemoglobin A1c Calcium 6.9 L Magnesium Alkaline Phosphatase Total Creatine Kinase NT-Pro-B Natriuret Pep Total Protein Albumin Beta-Hydroxybutyrate/Acetoacetate Urine Appearance Urine Protein 06/24/24 06/24/24 06/24/24 19:19 20:14 20:33 WBC RBC Hgb Hct MCHC RDW MPV Immature Gran % (Auto) Neut % (Auto) Lymph % (Auto) [place] % (Auto) [place] # (Auto) Abs Immat Gran (auto) Absolute Neuts (auto) Absolute Nucleated RBC Nucleated RBC % PT ABG pH ABG pCO2 ABG pO2 ABG HCO3 ABG O2 Saturation Reduced Hemoglobin Sodium Potassium Chloride Carbon Dioxide Anion Gap BUN 72 H Creatinine 2.60 H Estimated GFR 25 L Glucose 156 H POC Capillary Glucose 115 H 117 H Hemoglobin A1c Calcium 8.3 L Magnesium Alkaline Phosphatase Total Creatine Kinase NT-Pro-B Natriuret Pep Total Protein Albumin Beta-Hydroxybutyrate/Acetoacetate Urine Appearance Urine Protein 06/24/24 06/24/24 06/25/24 21:47 22:38 00:06 WBC RBC Hgb Hct MCHC RDW MPV Immature Gran % (Auto) Neut % (Auto) Lymph % (Auto) [place] % (Auto) [place] # (Auto) Abs Immat Gran (auto) Absolute Neuts (auto) Absolute Nucleated RBC Nucleated RBC % PT ABG pH ABG pCO2 ABG pO2 ABG HCO3 ABG O2 Saturation Reduced Hemoglobin Sodium Potassium Chloride Carbon Dioxide Anion Gap BUN Creatinine Estimated GFR Glucose POC Capillary Glucose 129 H 109 H 139 H Hemoglobin A1c Calcium Magnesium Alkaline Phosphatase Total Creatine Kinase NT-Pro-B Natriuret Pep Total Protein Albumin Beta-Hydroxybutyrate/Acetoacetate Urine Appearance Urine Protein 06/25/24 06/25/24 06/25/24 04:31 04:47 08:00 WBC 23.8 H RBC 4.44 L Hgb 13.4 L Hct 41.5 L MCHC RDW 15.9 H MPV 12.1 H Immature Gran % (Auto) 1.9 H Neut % (Auto) 83.6 H Lymph % (Auto) 5.9 L [place] % (Auto) [place] # (Auto) 2.0 H Abs Immat Gran (auto) 0.46 H Absolute Neuts (auto) 19.9 H Absolute Nucleated RBC 0.030 H Nucleated RBC % PT ABG pH 7.317 L ABG pCO2 ABG pO2 78.6 L ABG HCO3 ABG O2 Saturation 94.6 L Reduced Hemoglobin Sodium Potassium Chloride Carbon Dioxide 21 L Anion Gap BUN 75 H Creatinine 2.60 H Estimated GFR 25 L Glucose 240 H POC Capillary Glucose 225 H Hemoglobin A1c Calcium Magnesium 2.5 H Alkaline Phosphatase Total Creatine Kinase NT-Pro-B Natriuret Pep Total Protein 6.0 L Albumin 3.3 L Beta-Hydroxybutyrate/Acetoacetate Urine Appearance Urine Protein 06/25/24 06/25/24 06/25/24 08:53 12:05 16:16 WBC RBC Hgb Hct MCHC RDW MPV Immature Gran % (Auto) Neut % (Auto) Lymph % (Auto) [place] % (Auto) [place] # (Auto) Abs Immat Gran (auto) Absolute Neuts (auto) Absolute Nucleated RBC Nucleated RBC % PT ABG pH ABG pCO2 ABG pO2 ABG HCO3 ABG O2 Saturation Reduced Hemoglobin Sodium Potassium Chloride Carbon Dioxide Anion Gap BUN Creatinine Estimated GFR Glucose POC Capillary Glucose 258 H 263 H 270 H Hemoglobin A1c Calcium Magnesium Alkaline Phosphatase Total Creatine Kinase NT-Pro-B Natriuret Pep Total Protein Albumin Beta-Hydroxybutyrate/Acetoacetate Urine Appearance Urine Protein 06/25/24 06/25/24 06/26/24 20:48 23:11 03:55 WBC 19.8 H RBC Hgb 13.9 L Hct MCHC 31.4 L RDW 17.1 H MPV 12.1 H Immature Gran % (Auto) 2.3 H Neut % (Auto) 73.2 H Lymph % (Auto) 11.8 L [place] % (Auto) 12.1 H [place] # (Auto) 2.4 H Abs Immat Gran (auto) 0.46 H Absolute Neuts (auto) 14.5 H Absolute Nucleated RBC 0.040 H Nucleated RBC % PT ABG pH ABG pCO2 ABG pO2 ABG HCO3 ABG O2 Saturation Reduced Hemoglobin Sodium Potassium Chloride 108 H Carbon Dioxide Anion Gap BUN 74 H Creatinine 2.40 H Estimated GFR 27 L Glucose 178 H POC Capillary Glucose 287 H 221 H Hemoglobin A1c Calcium Magnesium 2.5 H Alkaline Phosphatase 136 H Total Creatine Kinase NT-Pro-B Natriuret Pep Total Protein Albumin 3.4 L Beta-Hydroxybutyrate/Acetoacetate Urine Appearance Urine Protein 06/26/24 06/26/24 06/26/24 05:00 07:50 10:55 WBC RBC Hgb Hct MCHC RDW MPV Immature Gran % (Auto) Neut % (Auto) Lymph % (Auto) [place] % (Auto) [place] # (Auto) Abs Immat Gran (auto) Absolute Neuts (auto) Absolute Nucleated RBC Nucleated RBC % PT ABG pH ABG pCO2 ABG pO2 68.9 L ABG HCO3 ABG O2 Saturation 93.9 L Reduced Hemoglobin 5.8 H Sodium Potassium Chloride Carbon Dioxide Anion Gap BUN Creatinine Estimated GFR Glucose POC Capillary Glucose 148 H 177 H Hemoglobin A1c Calcium Magnesium Alkaline Phosphatase Total Creatine Kinase NT-Pro-B Natriuret Pep Total Protein Albumin Beta-Hydroxybutyrate/Acetoacetate Urine Appearance Urine Protein Diagnostic Findings Additional studies: ITS Impressions Chest X-Ray 06/23/24 17:52 IMPRESSION: Cardiomegaly with cardiac decompensation and pulmonary edema. Bilateral basal pneumonia with highly suggestive bilateral pneumonitis. Changes are worse the the previous study. Chest X-Ray 06/23/24 21:14 IMPRESSION: Bilateral pneumonia. Endotracheal tube needs to be retracted by about 2 cm. Renal Ultrasound 06/24/24 09:12 Impression: 1: Unremarkable renal ultrasound. No stones, masses or hydronephrosis. Chest X-Ray 06/25/24 06:23 Impression: Probable mild central pulmonary edema and left basilar atelectatic change. Suspected mild underlying chronic interstitial disease. Support tubes, as above. Chest X-Ray 06/26/24 06:28 Impression: Bilateral pulmonary airspace disease, with bibasilar predominance, as detailed above. Correlate for pulmonary edema/atelectasis versus possibly pneumonia. Small left pleural effusion. Support tubes, as above.
--- NOTE | 2024-06-26 12:52 | P.PNIM_ITS ---
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 insulin use: with penitentiary use Diabetes mellitus complication status: without complication Qualified Code(s): E11.9 - Type 2 diabetes mellitus without complications; Z79.4 - intermediate frame tender (current) use of insulin Code(s): E11.9 - Type 2 diabetes mellitus without complications Status: Acute (6) Obstructive sleep apnea: Code(s): G47.33 - Obstructive sleep apnea (adult) (pediatric) Status: Acute (7) 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 Patient has increasingly agitated and confused over the past several days. Started saying nonsensical things so family meeting come to the ER for evaluation. On arrival to the ED he was somnolent but arouses to verbal stimuli. His vitals were showed hypoxia with SpO2 in 50s. On air. He was placed on non-rebreather mask with improvement in saturation to upper 90s. Laboratory evaluation showed WBC 14.4 hemoglobin 13 creatinine of 3 electrolytes were unremarkable blood sugar 259. INR 1.2 influenza RSV COVID negative. Troponin was less than 0.012 BNP 2780. ABG 7.11/7 9// suggesting hypercapnic respiratory failure. Chest x-ray showed cardiomegaly with cardiac decompensation and pulmonary edema. Bilateral basal pneumonia with highly suggestive bilateral pneumonitis. Patient was placed on BiPAP and breathing treatment was started along with steroid. Repeat ABG 7.10/87/90/. With non improvement decision made to intubate the patient. Patient was intubated and hence was admitted to the ICU for further treatment. SVT started for potential extubation Patient started on IV antibiotics for pneumonia possible COPD exacerbation with steroid and bronchodilators. Chest x-ray with mild pulmonary edema diuresis started. Leukocytosis trending down with taper of steroid JERRY has history of stage 5 kidney injury requiring dialysis in the past. Baseline creatinine 1.6 01/26. Started on IV fluid. Renal ultrasound with no hydronephrosis. Creatinine improved some Type 2 diabetes on insulin pump at home. Insulin infusion per ICU protocol started. Off insulin drip now [facility]AZ noncompliant with CPAP Paresis of diaphragmatic Medication noncompliance DVT prophylaxis heparin subQ Code status full code Subjective Date/time seen: 06/26/24 12:52 Interval history: Mild spike a fever earlier today. Otherwise remains afebrile. Patient intubated Review of Systems Review of Systems: ROS unobtainable: Yes unobtainable due to endotracheal tube Exam Narrative: General: Obese patient was intubated, sedated, in no acute distress HEENT:? Pupils equal and reactive, sclera is clear, ETT in place Neck:? Supple Respiratory:? Coarse breath sounds bilaterally, decreased at bases, no wheezing, adequate air Cardiac:? S1-S2 normal, regular rate and rhythm Abdomen:? Soft, nontender, nondistended, obese, normoactive bowel sounds Extremities:? Bilateral lower extremity edema, palpable pedal pulses Neuro:? Patient is intubated, sedated but opens his eyes and follows simple commands in all extremities, he also nods to questions Skin:? Warm and dry Psych:? Unable to assess at this time Objective Data Vital Signs Vital Signs: Vital Signs - 24 hr 06/25/24 13:04 06/25/24 14:00 06/25/24 14:00 Temperature Pulse Rate 54 L 53 L 53 L Respiratory Rate 19 18 Blood Pressure 123/63 Pulse Oximetry 96 Oxygen Delivery Fraction of Inspired Oxygen 06/25/24 13:16 06/25/24 13:19 06/25/24 15:35 Temperature Pulse Rate 55 L 54 L 52 L Respiratory Rate 18 18 Blood Pressure Pulse Oximetry 96 Oxygen Delivery Mechanical Ventilation Fraction of Inspired Oxygen 35 06/25/24 15:35 06/25/24 13:30 06/25/24 16:43 Temperature Pulse Rate 53 L 53 L 54 L Respiratory Rate 18 18 Blood Pressure Pulse Oximetry 96 Oxygen Delivery Mechanical Ventilation Fraction of Inspired Oxygen 35 06/25/24 16:00 06/25/24 16:00 06/25/24 16:00 Temperature 98.2 F Pulse Rate 52 L 53 L Respiratory Rate 17 Blood Pressure 128/64 Pulse Oximetry 96 Oxygen Delivery Fraction of Inspired Oxygen 35 06/25/24 17:40 06/25/24 19:46 06/25/24 14:00 Temperature Pulse Rate 53 L 56 L 54 L Respiratory Rate 17 19 Blood Pressure Pulse Oximetry Oxygen Delivery Fraction of Inspired Oxygen 06/25/24 16:00 06/25/24 18:00 06/25/24 19:49 Temperature Pulse Rate 51 L 52 L 55 L Respiratory Rate 18 17 18 Blood Pressure Pulse Oximetry Oxygen Delivery Fraction of Inspired Oxygen 06/25/24 16:00 06/25/24 18:00 06/25/24 18:00 Temperature 98.3 F Pulse Rate 51 L 54 L 51 L Respiratory Rate 17 18 18 Blood Pressure 122/60 Pulse Oximetry 96 Oxygen Delivery Fraction of Inspired Oxygen 06/25/24 19:43 06/25/24 19:43 06/25/24 20:00 Temperature Pulse Rate 56 L 56 L 54 L Respiratory Rate 18 Blood Pressure Pulse Oximetry 96 Oxygen Delivery Mechanical Ventilation Fraction of Inspired Oxygen 35 06/25/24 20:00 06/25/24 20:00 06/25/24 20:00 Temperature 98.4 F Pulse Rate 54 L Respiratory Rate 18 18 Blood Pressure 118/69 Pulse Oximetry 96 96 Oxygen Delivery Mechanical Ventilation Fraction of Inspired Oxygen 35 35 06/25/24 20:00 06/25/24 22:00 06/25/24 20:00 Temperature Pulse Rate 54 L 57 L 54 L Respiratory Rate 18 18 18 Blood Pressure Pulse Oximetry Oxygen Delivery Fraction of Inspired Oxygen 06/25/24 22:00 06/25/24 22:00 06/25/24 22:00 Temperature 98.2 F Pulse Rate 57 L 57 L 57 L Respiratory Rate 18 18 Blood Pressure 112/58 L Pulse Oximetry 95 Oxygen Delivery Fraction of Inspired Oxygen 06/25/24 23:27 06/26/24 00:00 06/26/24 00:00 Temperature Pulse Rate 62 Respiratory Rate 18 Blood Pressure Pulse Oximetry 95 95 Oxygen Delivery Mechanical Ventilation Mechanical Ventilation Fraction of Inspired Oxygen 35 35 35 06/26/24 00:00 06/26/24 00:00 06/26/24 00:00 Temperature Pulse Rate 64 64 64 Respiratory Rate 18 18 Blood Pressure Pulse Oximetry Oxygen Delivery Fraction of Inspired Oxygen 06/26/24 00:00 06/26/24 02:00 06/26/24 02:00 Temperature 97.8 F 97.7 F Pulse Rate 64 62 62 Respiratory Rate 18 18 Blood Pressure 114/57 L 122/61 Pulse Oximetry 95 95 Oxygen Delivery Fraction of Inspired Oxygen 06/26/24 02:00 06/26/24 02:00 06/26/24 02:42 Temperature Pulse Rate 62 62 61 Respiratory Rate 18 18 Blood Pressure Pulse Oximetry 97 Oxygen Delivery Mechanical Ventilation Fraction of Inspired Oxygen 35 06/26/24 02:44 06/25/24 19:50 06/26/24 02:50 Temperature Pulse Rate 62 55 L 65 Respiratory Rate 18 18 18 Blood Pressure Pulse Oximetry Oxygen Delivery Fraction of Inspired Oxygen 06/26/24 04:00 06/26/24 04:00 06/26/24 04:00 Temperature Pulse Rate 67 Respiratory Rate 18 Blood Pressure Pulse Oximetry 92 Oxygen Delivery Mechanical Ventilation Fraction of Inspired Oxygen 35 35 06/26/24 04:00 06/26/24 04:00 06/26/24 04:00 Temperature 98.4 F Pulse Rate 67 67 67 Respiratory Rate 18 18 18 Blood Pressure 141/73 H Pulse Oximetry 92 Oxygen Delivery Fraction of Inspired Oxygen 06/26/24 05:53 06/26/24 06:00 06/26/24 06:00 Temperature 98.3 F Pulse Rate 59 L 60 60 Respiratory Rate 18 Blood Pressure 128/66 Pulse Oximetry 98 94 Oxygen Delivery Mechanical Ventilation Fraction of Inspired Oxygen 35 06/26/24 06:00 06/26/24 06:00 06/26/24 07:55 Temperature Pulse Rate 60 60 60 Respiratory Rate 18 18 18 Blood Pressure Pulse Oximetry Oxygen Delivery Fraction of Inspired Oxygen 06/26/24 07:55 06/26/24 07:56 06/26/24 08:00 Temperature 98.7 F Pulse Rate 60 59 L Respiratory Rate 18 18 Blood Pressure 143/65 H 139/68 Pulse Oximetry 94 Oxygen Delivery Fraction of Inspired Oxygen 06/26/24 08:00 06/26/24 08:33 06/26/24 08:20 Temperature Pulse Rate 62 66 Respiratory Rate 18 Blood Pressure Pulse Oximetry 94 Oxygen Delivery Mechanical Ventilation Fraction of Inspired Oxygen 35 30 06/26/24 08:35 06/26/24 08:00 06/26/24 08:00 Temperature Pulse Rate 65 59 L Respiratory Rate 18 Blood Pressure Pulse Oximetry 94 Oxygen Delivery Mechanical Ventilation Fraction of Inspired Oxygen 35 06/26/24 09:00 06/26/24 09:00 06/26/24 09:13 Temperature Pulse Rate 60 60 62 Respiratory Rate 18 18 18 Blood Pressure Pulse Oximetry Oxygen Delivery Fraction of Inspired Oxygen 06/26/24 09:19 06/26/24 09:19 06/26/24 10:23 Temperature Pulse Rate 62 62 66 Respiratory Rate 18 18 Blood Pressure Pulse Oximetry 93 Oxygen Delivery Mechanical Ventilation Fraction of Inspired Oxygen 30 06/26/24 10:00 06/26/24 10:00 06/26/24 11:19 Temperature 99.9 F H Pulse Rate 62 72 71 Respiratory Rate 19 18 Blood Pressure 154/84 H Pulse Oximetry 92 Oxygen Delivery Fraction of Inspired Oxygen 06/26/24 11:19 06/26/24 12:00 06/26/24 12:00 Temperature Pulse Rate 71 77 77 Respiratory Rate 19 18 18 Blood Pressure Pulse Oximetry Oxygen Delivery Fraction of Inspired Oxygen Intake/Output Intake/Output: Intake & Output 06/23/24 06/24/24 06/25/24 06/26/24 23:59 23:59 23:59 23:59 Intake Total 1405.3 4605.5 2111.1 824.9 Output Total 1550 1850 650 Balance 1405.3 3055.5 261.1 174.9 Meds/Results Medications: Active Medications Generic Name Dose Route Start Last Admin Trade Name Freq PRN Reason Stop Dose Admin Acetaminophen 650 mg 06/24/24 02:04 Acetaminophen Elixir 325 Mg/10.15 Ml Udc PO Q4H PRN Mild Pain (1-3) or Fever Albuterol/Ipratropium 3 ml 06/25/24 14:00 06/26/24 08:25 Ipratropium 0.5 Mg/Albuterol Sulfate 2.5 Mg Ampul.Neb 3 Ml INHALATION 3 ml Q6HRT CHARITY Administration Atorvastatin Calcium 80 mg 06/24/24 09:00 06/26/24 08:00 Atorvastatin 40 Mg Tablet PO 80 mg DAILY CHARITY Administration Dextrose 12.5 gm 06/24/24 11:32 Dextrose 50% 25 Gm/50 Ml Syringe IV PUSH PRN PRN Hypoglycemia Protocol Fluticasone/Umeclidinium/Vilanterol 1 puff 06/24/24 08:00 06/26/24 08:25 Fluticasone/Umeclidin/Vilanter 100-62.5-25 Mcg Ellipta INHALATION Not Given DAILYRT CHARITY Glucagon 1 mg 06/24/24 11:32 Glucagon For Inj 1 Mg Vial IM PRN PRN Hypoglycemia Protocol Glucose 15 gm 06/24/24 11:32 Glucose Oral Gel 15 Gm Of Glucse In 37.5 Gm Tube PO PRN PRN Hypoglycemia Protocol Heparin Sodium (Porcine) 5,000 units 06/24/24 07:50 06/26/24 05:39 Heparin Sodium 5,000 Units/Ml Vial SUB-Q 5,000 units Q8HR CHARITY Administration Aztreonam 1 gm/ Sodium 50 mls @ 100 mls/hr 06/23/24 22:00 06/26/24 09:32 Chloride IVPB Infused Q12H [facility] Infusion Midazolam HCl 100 mg in 100 mls @ 0 mls/hr 06/24/24 02:00 06/26/24 12:00 Versed 100 Mg/Ns 100 Ml IV CONT 0 mg/hr .Q0M CHARITY 0 mls/hr Titration Protocol Fentanyl Citrate 2,500 mcg in 250 mls @ 0 mls/hr 06/24/24 02:05 06/26/24 12:00 Fentanyl 2,500 Mcg/Ns 250 Ml IV CONT 0 mcg/hr .Q0M [facility]ITY 0 mls/hr Titration Protocol Azithromycin 500 mg in 250 mls @ 250 mls/hr 06/24/24 18:00 06/25/24 19:41 Zithromax IVPB Infused Q24H [facility] Infusion Vancomycin HCl 1,500 mg in 500 mls @ 250 mls/hr 06/25/24 21:00 06/25/24 22:49 Vancomycin 1,500 Mg/Ns 500 Ml IVPB Infused Q36H [facility] Infusion Dextrose 1,000 mls @ 100 mls/hr 06/24/24 11:32 Dextrose 5% 1,000 Ml IVPB PRN PRN Hypoglycemia Protocol Insulin Aspart 4 - 8 units 06/24/24 07:50 06/26/24 12:22 Insulin Aspart (*Bkc) 100 Units/Ml SUB-Q Not Given Q4H [facility] Protocol Insulin Glargine 35 units 06/25/24 09:00 06/26/24 08:00 Insulin Glargine (*Bkc) 100 Units/Ml SUB-Q 35 units DAILY CHARITY Administration Levothyroxine Sodium 150 mcg 06/24/24 10:00 06/26/24 05:39 Levothyroxine Sodium 150 Mcg Tablet PO 150 mcg DAILY@0630 [facility] Administration Levothyroxine Sodium 25 mcg 06/24/24 10:00 06/26/24 05:39 Levothyroxine Sodium 25 Mcg Tablet PO 25 mcg DAILY@0630 [facility] Administration Midazolam HCl 2 mg 06/24/24 01:34 06/24/24 01:42 Midazolam Hcl (*Crx) 2 Mg/2 Ml Vial IV PUSH 2 mg PRN PRN Administration Sedation Multi-Ingred Cream/Lotion/Oil/Oint 1 applic 06/24/24 09:00 06/26/24 08:01 Mineral Oil/White Petrolatum Ointment EACH EYE 1 applic Q12HR [facility]ITY Administration Pantoprazole Sodium 40 mg 06/24/24 09:00 06/26/24 08:00 Pantoprazole Sodium Iv 40 Mg Vial IV PUSH 40 mg Q12HR [facility]ITY Administration Polyethylene Glycol 17 gm 06/26/24 10:20 Polyethylene Glycol 3350 17 Gm Powd.Pack PO QAM PRN Constipation Pregabalin 75 mg 06/24/24 09:00 06/26/24 08:00 Pregabalin (*Crx) 75 Mg Capsule PO 75 mg BID CHARITY Administration Sertraline HCl 100 mg 06/24/24 09:00 06/26/24 08:00 Sertraline Hcl 50 Mg Tablet PO 100 mg DAILY CHARITY Administration Radiology Results: ITS Impressions Renal Ultrasound 06/24/24 09:12 Impression: 1: Unremarkable renal ultrasound. No stones, masses or hydronephrosis. Chest X-Ray 06/26/24 06:28 Impression: Bilateral pulmonary airspace disease, with bibasilar predominance, as detailed above. Correlate for pulmonary edema/atelectasis versus possibly pneumonia. Small left pleural effusion. Support tubes, as above. Labs Labs: Laboratory Results - last 24 hr 06/25/24 06/25/24 06/25/24 16:16 20:48 23:11 WBC RBC Hgb Hct MCV MCH MCHC RDW Plt Count MPV Immature Gran % (Auto) Neut % (Auto) Lymph % (Auto) [place] % (Auto) Eos % (Auto) Baso % (Auto) Lymph # (Auto) [place] # (Auto) Eos # (Auto) Baso # (Auto) Abs Immat Gran (auto) Absolute Neuts (auto) Absolute Nucleated RBC Nucleated RBC % Puncture Site ABG pH ABG pCO2 ABG pO2 ABG PO2/FiO2 Ratio ABG HCO3 ABG O2 Saturation ABG O2 Content ABG Base Excess A-a Gradient Oxyhemoglobin Carboxyhemoglobin Methemoglobin Reduced Hemoglobin Total Hemoglobin O2 Delivery Device O2 Liters/Min Minute Volume Vent Rate Vent Mode FiO2 Tidal Volume PEEP Peak Inspir Pressure Pressure Support Sodium Potassium Chloride Carbon Dioxide Anion Gap BUN Creatinine Estim Creat Clear Calc Estimated GFR Glucose POC Capillary Glucose 270 H 287 H 221 H Calcium Phosphorus Magnesium Total Bilirubin AST ALT Alkaline Phosphatase Total Protein Albumin 06/26/24 06/26/24 06/26/24 03:55 05:00 07:50 WBC 19.8 H RBC 4.64 Hgb 13.9 L Hct 44.3 MCV 95.5 MCH 30.0 MCHC 31.4 L RDW 17.1 H Plt Count 179 MPV 12.1 H Immature Gran % (Auto) 2.3 H Neut % (Auto) 73.2 H Lymph % (Auto) 11.8 L [place] % (Auto) 12.1 H Eos % (Auto) 0.1 Baso % (Auto) 0.5 Lymph # (Auto) 2.33 [place] # (Auto) 2.4 H Eos # (Auto) 0.0 Baso # (Auto) 0.1 Abs Immat Gran (auto) 0.46 H Absolute Neuts (auto) 14.5 H Absolute Nucleated RBC 0.040 H Nucleated RBC % 0.2 Puncture Site Right radial ABG pH 7.404 ABG pCO2 41.3 ABG pO2 68.9 L ABG PO2/FiO2 Ratio 1.97 ABG HCO3 25.2 ABG O2 Saturation 93.9 L ABG O2 Content 17.9 ABG Base Excess 0.4 A-a Gradient 132.6 Oxyhemoglobin 93.0 Carboxyhemoglobin 0.9 Methemoglobin 0.3 Reduced Hemoglobin 5.8 H Total Hemoglobin 13.7 O2 Delivery Device Ventilator O2 Liters/Min Not Reportable Minute Volume Not Reportable Vent Rate 18 Vent Mode Cmv FiO2 35 Tidal Volume 480 PEEP 8 Peak Inspir Pressure Not Reportable Pressure Support Not Reportable Sodium 141 Potassium 4.1 Chloride 108 H Carbon Dioxide 25 Anion Gap 8 BUN 74 H Creatinine 2.40 H Estim Creat Clear Calc 34 Estimated GFR 27 L Glucose 178 H POC Capillary Glucose 148 H Calcium 8.9 Phosphorus 4.0 Magnesium 2.5 H Total Bilirubin 0.3 AST 26 ALT 38 Alkaline Phosphatase 136 H Total Protein 7.0 Albumin 3.4 L 06/26/24 10:55 WBC RBC Hgb Hct MCV MCH MCHC RDW Plt Count MPV Immature Gran % (Auto) Neut % (Auto) Lymph % (Auto) [place] % (Auto) Eos % (Auto) Baso % (Auto) Lymph # (Auto) [place] # (Auto) Eos # (Auto) Baso # (Auto) Abs Immat Gran (auto) Absolute Neuts (auto) Absolute Nucleated RBC Nucleated RBC % Puncture Site ABG pH ABG pCO2 ABG pO2 ABG PO2/FiO2 Ratio ABG HCO3 ABG O2 Saturation ABG O2 Content ABG Base Excess A-a Gradient Oxyhemoglobin Carboxyhemoglobin Methemoglobin Reduced Hemoglobin Total Hemoglobin O2 Delivery Device O2 Liters/Min Minute Volume Vent Rate Vent Mode FiO2 Tidal Volume PEEP Peak Inspir Pressure Pressure Support Sodium Potassium Chloride Carbon Dioxide Anion Gap BUN Creatinine Estim Creat Clear Calc Estimated GFR Glucose POC Capillary Glucose 177 H Calcium Phosphorus Magnesium Total Bilirubin AST ALT Alkaline Phosphatase Total Protein Albumin
[2024-06-26] MEDS: polyethylene glycoL 3350 17 GM POWD.PACK PO (13:24)
[2024-06-26 15:48] LABS: Glucose Point of Care 198 mg/dl (65-105)
--- NOTE | 2024-06-26 17:27 | PC.NURSE ---
Addendum entered by Babs Roberson RN 06/26/24 18:37: RN at bedside at 1833 to check on patient and . Patient remains on Vapotherm 30L 60% FiO2, patients children are on their way to hospital, remains tearful. Everyone states they are in agreement with DNR/DNI status. [facility] PAC updated and orders to be changed in patients chart. Patient states he feels somewhat short of breath, loose productive cough noted and coarse inspiratory breath sounds on auscultation. expresses concerns for CO2 retention on Vapotherm, patient states that he refuses to wear a bipap if CO2 retention becomes worse. at bedside and understands patient refuses Bipap, CPR, and Intubation. Addendum entered by Babs Roberson RN 06/26/24 18:08: Patient placed on Vapotherm at 1748 per RT. Patient settings as follows: 30 liters with 60% FiO2, oxygen saturations remain at 93%. All vital signs obtained and patient continued to be monitored. Code status still undecided at this time. Patient continues to express wishes to RN and that he does not want chest compression, defibrillation, or intubation in the case of an emergency, and children remain in disagreement with patients decision. Addendum entered by Babs Roberson RN 06/26/24 18:03: [facility] at bedside at 1724 to speak with patient and . Patient agreeable to try Vapotherm. Patient still insistent that he does not want to be a full code and does not want to be intubated. remains at bedside with children on the phone stating that she does not agree with her husbands decision. Respiratory therapist notified and plans to bring and set up Vapotherm. Addendum entered by Babs Roberson RN 06/26/24 17:56: MD Dr. Don called [facility] back at 1714, orders to place patient on Vapotherm. Patient currently on 4L NC. RN at bedside, RN explained what a Vapotherm is to the patient and stated that respiratory was on their way to set up Vapotherm. Patient refuses Vapotherm at this time. Patient and talking, RN remains at bedside. Patient states that he is done. Patient verbally states that he does not want the Vapotherm, he does not want re-intubated, and he does not want to be placed on a Bipap. Patients Lynda at bedside and tearful. Patient states that he wishes to be a DNR and that he and his talked about this . states that she does not recall this conversation. RN updated and made Whit PAC aware of patient refusal of Vapotherm and also of wishes to be DNR. Whit to speak with patient and . Addendum entered by Babs Roberson RN 06/26/24 17:33: Hospitalist Whit Wolf PAC at bedside at 1700 to assess the patient. Patients saturations now in upper 90's and breathing comfortably without support. brought back to bedside. Patient remains on 4L NC. Pediatric Physical Therapist Dr. Don updated, awaiting for further orders. Original Note: At 1655, RN in another patient room when ventilator alarms noted with high priority alarm. RN went to assess this patient. Upon entering the room, patient's standing on left side hovering the bed, asking the patient if he can breathe . Patient notably in distress with oxygen saturations decreasing into the 70's, heart rate elevated, and face red. Patients Lynda who was visiting the patient at the time was unsure of what happened. ET tube noted to be dislodged and completely out of airway. RN emergently called charge nurse and respiratory care, while ambu bag was set up. Patient's airway supported and oxygen saturations returned to upper 90's. Hospital marine water tender assisted patients Lynda to the waiting area. 4L nasal cannula applied to patient and hospitalists called to evaluate patient.
[2024-06-26] MEDS: AZITHROMYCIN 500 MG/NS 250 ML 500 MG/250 ML BAG 250 MG IVPB (18:58)
[2024-06-26] MEDS: INSULIN ASPART (*BKC) 100 UNITS/ML SUB-Q (20:47)
[2024-06-26 20:48] LABS: Alveolar/Arterial O2 Gradient 287.1 mmHg; Base Excess ABG 2.4 mEq/l (+/-2.0); Fractional Inspired Oxygen 60 %; HCO3 ABG 29.7 mEq/l (22.0-26.0); Methemoglobin ABG 0.3 %THb (0-1.5); Oxygen Content ABG 19.2 %vol (16.0-22.0); Oxygen Saturation ABG 94.5 % (95.0-100.0); Oxyhemoglobin 93.5 % THb (90.0-100.0); PCO2 ABG 57.1 mmHg (35.0-45.0); PO2 ABG 77.9 mmHg (80.0-100.0); Reduced Hemoglobin 5.2 %THb (0-5.0); Total Hemoglobin 14.6 g/dL (12.0-18.0); pH ABG 7.334 (7.350-7.450)
[2024-06-26 20:50] LABS: Modified Allen's Test Pass; Site Drawn RIGHT RADIAL
[2024-06-26 20:51] LABS: Device HIGH FLOW NASAL CANN
[2024-06-26 20:55] LABS: Glucose Point of Care 203 mg/dl (65-105)
[2024-06-27] VITALS (28 sets, daily range): BP systolic 132–167; BP diastolic 74–86; PULSE 66–91; RESP 13–24; TEMP 36.9–37.6; O2SAT 93–100
--- NOTE | 2024-06-27 | ECHO_ITS ---
Patient Info Name: Sherif Restrepo Age: 63 years : 1960 Gender: Male Ht: 68 in Wt: 228 lbs BSA: 2.27 m2 HR: 69 bpm BP: 132 / 82 mmHg Heart Rhythm: Sinus Rhythm Technical Quality: Poor Exam Date: 06/27/2024 9:48 AM Exam Location: Echo Lab Patient Status: Inpatient Admit Date: 06/23/2024 Staff Ordering Physician: Geovanny Santacruz MD Medicaid Nurse: Rosemary Najera RDCS Attending Provider: Sandro French MD Exam Type: CA echo doppler color flow Study Info Indications I50.20 - Unspecified systolic (congestive) heart failure Complete two-dimensional, color flow and Doppler transthoracic echocardiogram is performed. Reason for Poor Study: poor patient cooperation Summary 1. Technically difficult study with limited views. 2. Cannot estimate LVEF due to poor visualization of endocardial borders. Patient refused Definity. Recommend obtaining a repeat limited study with Definity (if patient agreeable) or consider alternative cardiac imaging modality to assess LVEF. The mid and distal colby of the LV appear hypokinetic, however, cannot accurately assess for regional wall motion abnormalities due to poor visualization of endocardial borders. 3. No significant valvular disease appreciated on this study, however, technically difficult study. Left Ventricle Cannot estimate LVEF due to poor visualization of endocardial borders. Patient refused Definity. Recommend obtaining a repeat limited study with Definity (if patient agreeable) or consider alternative cardiac imaging modality to assess LVEF. The mid and distal colby of the LV appear hypokinetic, however, cannot accurately assess for regional wall motion abnormalities due to poor visualization of endocardial borders. Left ventricular chamber dimension is normal. The left ventricular diastolic function is grade III diastolic dysfunction. Right Ventricle Right ventricular chamber dimension is not well visualized. Left Atria Left atrial chamber dimension is normal. Right Atria Right atrial chamber dimension is normal. Atrial Septum Intact interatrial septum visualized by color flow imaging. Aortic Valve The aortic valve is not well visualized. There is no aortic valve regurgitation. Pulmonic Valve The pulmonic valve is not well visualized. There is no pulmonic regurgitation. Mitral Valve There is trace mitral valve regurgitation. Tricuspid Valve There is trace tricuspid valve regurgitation. Pericardium/Pleural There is no pericardial effusion. Inferior Vena Cava Normal inferior vena cava with >50% collapse upon inspiration consistent with normal right atrial pressure, 3 mmHg. Aorta The aortic root size at the sinus of Valsalva is normal. Left Ventricular Outflow Tract Name Value Normal LVOT 2D LVOT Diameter 2.1 cm LVOT Doppler LVOT Peak Gradient 6 mmHg LVOT Mean Gradient 3 mmHg LVOT VTI 26 cm LVOT VTI/AV VTI Ratio 1.6 LVOT Stroke Volume 86 ml LVOT CO 5.3 l/min LVOT CI 2.3 l/min/m2 Pulmonic Valve Name Value Normal PV Doppler PV Peak Gradient 2 mmHg Mitral Valve Name Value Normal MV Doppler MV Decel [place] 479 cm/s2 MV PHT 68 ms MV Area (PHT) 3.2 cm2 4.0-5.0 MV Diastolic Function MV E Peak Velocity 113 cm/s MV A Peak Velocity 47 cm/s MV E/A 2.4 MV Decel Time 236 ms Tricuspid Valve Name Value Normal Estimated PAP/RSVP RA Pressure 3 mmHg <=5 Aorta Name Value Normal Ascending Aorta Ao Root Diameter (MM) 2.2 cm Ao Root Diam Index (MM) 1.0 cm/m2 Aortic Valve Name Value Normal AV Doppler AV Peak Velocity 79 cm/s AV Peak Gradient 3 mmHg AV Mean Gradient 1 mmHg AV VTI 16 cm AV Area (Cont Eq VTI) 5.4 cm2 >=3.0 AV Area (Cont Eq Krutis) 5.2 cm2 AV Regurgitation 2D LVOT Area 3.3 cm2 Ventricles Name Value Normal LV Dimensions 2D/MM IVS Diastolic Thickness (2D) 1.1 cm 0.6-1.0 IVS Diastole Thickness (MM) 1.1 cm 0.6-1.0 LVID Diastole (2D) 3.4 cm 4.2-5.8 LVID Diastole (MM) 4.4 cm 4.2-5.8 LVIW Diastolic Thickness (2D) 1.1 cm 0.6-1.0 LVIW Diastolic Thickness (MM) 1.1 cm 0.6-1.0 LVID Systole (2D) 2.2 cm 2.5-4.0 LVID Systole (MM) 3.6 cm 2.5-4.0 LVOT Diameter 2.1 cm LV Mass (2D Cubed) 116.55 g 88.00-224.00 LV Mass Index (2D Cubed) 51 g/m2 49-115 Relative Wall Thickness (2D) 0.66 LV Mass (MM Cubed) 172.03 g 88.00-224.00 LV Mass Index (MM Cubed) 76 g/m2 49-115 Relative Wall Thickness (MM) 0.51 LV Fractional Shortening/Ejection Fraction 2D/MM LV Fractional Shortening (2D) 36 % 25-43 LV Fractional Shortening (MM) 18 % 25-43 LV EF (MM Teicholz) 37 % 52-72 LV EF (2D Teicholz) 66 % 52-72 Atria Name Value Normal LA Dimensions LA Dimension (MM) 3.7 cm 3.0-4.1 LA Volume (4C A-L) 22 ml LA Volume (BP A-L) 23 ml RA Dimensions RA Area (4C) 9.6 cm2 <=18.0 Report Signatures
[2024-06-27 00:04] LABS: Glucose Point of Care 140 mg/dl (65-105)
[2024-06-27] MEDS: IPRATROPIUM 0.5 MG/ALBUTEROL SULFATE 2.5 MG AMPUL.NEB 3 ML INHALATION ×4 (02:51→19:09)
[2024-06-27 04:03] LABS: Basophils Absolute Auto 0.1 K/mm3 (0.0-0.1); Basophils Percent Auto 0.5 % (0.2-1.2); Eosinophils Absolute Auto 0.2 K/mm3 (0-0.3); Hematocrit 46.6 % (42.0-52.0); Hemoglobin 14.7 g/dL (14.0-18.0); Immature Granulocyte Absolute 0.28 K/mm3 (0.00-0.031); Immature Granulocyte Percent A 1.8 % (0-0.5); Lymphocytes Absolute Auto 2.19 K/mm3 (0.9-3.2); Lymphocytes Percent Auto 14.1 % (18.3-44.2); Mean Corpuscular HGB Conc 31.5 g/dl (32-36); Mean Corpuscular Hemoglobin 30.1 pg (26-34); Mean Corpuscular Volume 95.5 fl (80-100); Mean Platelet Volume 11.6 fl (7.4-10.4); Monocytes Absolute Auto 2.1 K/mm3 (0.1-0.6); Monocytes Percent Auto 13.3 % (2.6-8.5); Neutrophils Absolute Auto 10.8 K/mm3 (1.3-6.7); Neutrophils Percent Auto 69.3 % (45.5-73.1); Platelet Count Result 171 k/mm3 (150-375); Red Blood Count 4.88 M/mm3 (4.6-6.20); Red Cell Distribution Width 16.9 % (11.5-14.5); White Blood Count 15.5 K/mm3 (4.5-10.0)
[2024-06-27 04:07] LABS: Alveolar/Arterial O2 Gradient 215.1 mmHg; Base Excess ABG 5.8 mEq/l (+/-2.0); Fractional Inspired Oxygen 50 %; HCO3 ABG 32.6 mEq/l (22.0-26.0); Methemoglobin ABG 0.1 %THb (0-1.5); Oxygen Content ABG 19.7 %vol (16.0-22.0); Oxygen Saturation ABG 95.2 % (95.0-100.0); Oxyhemoglobin 94.5 % THb (90.0-100.0); PCO2 ABG 56.1 mmHg (35.0-45.0); PO2 ABG 78.3 mmHg (80.0-100.0); PO2 FiO2 Ratio Arterial Blood 1.57 %; Reduced Hemoglobin 4.4 %THb (0-5.0); Total Hemoglobin 14.8 g/dL (12.0-18.0); pH ABG 7.382 (7.350-7.450)
[2024-06-27 04:11] LABS: Device HIGH FLOW NASAL CANN; Modified Allen's Test Pass; Site Drawn RIGHT RADIAL
[2024-06-27 04:34] LABS: Alanine Aminotransferase 38 U/L (6-50); Albumin Level 3.5 g/dL (3.5-5.1); Alkaline Phosphatase 128 U/L (38-126); Anion Gap 4 mmol/L (4-12); Aspartate Amino Transferase 23 U/L (17-59); Bilirubin,Total 0.6 mg/dL (0.2-1.3); Blood Urea Nitrogen 59 mg/dL (9-20); Calcium 9.1 mg/dL (8.4-10.2); Carbon Dioxide 35 mmol/L (22-30); Chloride 106 mmol/L (98-107); Estimated CRCL calculation 45 ml/min; Estimated Glomerular Filt Rate 38; Glucose 147 mg/dL (65-110); Magnesium 2.3 mg/dL (1.6-2.3); Potassium 3.9 mmol/L (3.4-5.0); Sodium 145 mmol/L (137-145)
[2024-06-27 07:58] LABS: Glucose Point of Care 153 mg/dl (65-105)
[2024-06-27 08:45] LABS: NT Pro B Type Natriuretic Pept 1580 pg/mL (19.9-100)
[2024-06-27] MEDS: FUROSEMIDE INJ 100 MG/10 ML VIAL 80 MG IV PUSH (09:07)
[2024-06-27] MEDS: PANTOPRAZOLE SODIUM IV 40 MG VIAL IV PUSH (09:12)
[2024-06-27] MEDS: INSULIN GLARGINE (*BKC) 100 UNITS/ML 35 UNITS SUB-Q (09:12)
[2024-06-27] MEDS: PREGABALIN (*CRX) 75 MG CAPSULE PO ×2 (09:17→16:57)
[2024-06-27] MEDS: ATORVASTATIN 40 MG TABLET 80 MG PO (09:17)
[2024-06-27] MEDS: SERTRALINE HCL 50 MG TABLET 100 MG PO (09:17)
--- NOTE | 2024-06-27 09:22 | P.PNPL_ITS ---
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 PFTs on 12/05/2018 and 07/10/2020 demonstrate normal FEV1: FVC ratio, total lung capacity 46% predicted consistent with a restrictive abnormality. Patient has chronic hypercarbic respiratory failure and would benefit from noninvasive ventilation to prevent further deterioration and subsequent hospitalizations. Patient was placed on BiPAP on 06/26 but could not tolerate the the pressures. I placed him on a noninvasive ventilator with the AVAPS mode. Patient has weak-paralyzed diaphragms postoperatively with restrictive lung volumes and chronic hypercarbic respiratory failure With pH of 7.12/80/211 on admission. He failed BiPAP and was intubated on 06/23/2024. Currently the patient is on CMV rate of 18, tidal volume 480, 30% FiO2 and a PEEP of 8 with saturations 93%. ABG this morning 7.40/41/ 69. Plan: Mechanical ventilation is being managed by fire range technician. I recommend extubation to noninvasive ventilation (BiPAP or AVAPS mode) and continuation of noninvasive ventilation p.r.n. during the day and at night to maintain adequate minute ventilation. please call the Pulmonary consult service after the patient is extubated. The patient has previously been prescribed a CPAP for his obstructive sleep apnea but he does not like to use it and has not used it. The tells me he will not use a noninvasive ventilator or CPAP in the future. If this is truly the case and the patient will be non compliant discussions regarding patient's and/or family's wishes regarding re-intubation should take place. 06/27/24: Patient self-extubated last night. He was initially placed on Vapotherm 60 L 30% FiO2 With a blood gas of 7.33/57/78, but then became tired and was placed on BiPAP Rate of 18 pressures 12 over rate inspiratory time 1.0 and a rise of 3. He tolerated BiPAP poorly and was attempting to pull it off and could not tolerate it. He was placed back on Vapotherm 50 L 45% FiO2 With a repeat blood gas of 7.38/56/78. When I enter the room the patient was awake and alert on Vapotherm 45 L and 30% FiO2 with saturations 94%. Patient denies any fevers but had a temperature last night. White blood cell count 15.5, creatinine 1.8. chest x-ray today shows decreased lung volumes with diffuse interstitial and alveolar infiltrates. He diuresed 2.5 L yesterday and cumulative he is +62 mL since admission. His weight today is 103.5 with an admission weight of 106.7. The patient could not tolerate the BiPAP and I placed him on a noninvasive ventilator with the AVAPS mode and adjusted settings to comfort resulting in a rate of 14, tidal volume 500, EPAP 8, minimal pressure support 6, maximal pressure support 25, inspiratory time 1.2, rise of 5 and 32% FiO2. He gerardo erated the settings. Plan: I will place him on the noninvasive ventilator with the AVAPS mode with the settings as above. I will obtain an overnight oximetry on 32% and an ABG in the morning prior to removal. I have discussed with the conference coordinator will begin the process for a home noninvasive ventilator with the AVAPS mode. Discussed with Dr. Santacruz, will follow with you (2) COPD (chronic obstructive pulmonary disease): Code(s): J44.9 - Chronic obstructive pulmonary disease, unspecified Status: Acute Assessment and Plan: Patient has a 30 pack year tobacco use, PFTs with restriction, CT scan on 12/05/2018 with no evidence of emphysema. He has been prescribed trelegy in case he does have COPD. 06/26/24: Plan: If the patient does have COPD, agree with bronchodilators and would continue DuoNebs q.6 hours. At this time he has no wheezing and can discontinue Inhaled corticosteroids and I see the note no need for systemic steroids at this time. The patient is treating for possible pneumonia with vancomycin, azithromycin and aztreonam (started 06/23/24) per ICU team. Vent management per ICU team. 06/27/24: no wheezes on exam. Plan: Continue DuoNebs q.6 hours. Currently being treated for possible pne umonia and the ICU has begun deescalating his antibiotics. Agree with as aggressive diuresis as tolerated per ICU and hospitalist teams. (3) Obstructive sleep apnea syndrome in adult: Code(s): G47.33 - Obstructive sleep apnea (adult) (pediatric) Status: Acute Assessment and Plan: 05/20/2020;Split night study: AHI=8.2,desaturation 84%, disrupted sleep, loud snoring;CPAP titration;optimal=8 cm & 1 cm EPR. On 03/15/2024: Pulmonary clinic note states the patient does not tolerate PAP. 06/26/24: The tells me he does not like to wear his mask and hopefully will wear it in the future if needed. See above. Subjective Date/time seen: 06/27/24 09:22 Interval history: 06/26/2024: This is a new pulmonary consult for COPD. 63-year-old with a history of coronary artery disease status post CABG, aortic valve replacement, JIA resection, and aortic aneurysm status post repair (all 03/2018). postoperatively worsening shortness of breath. Weak/paralyzed bilateral diaphragms by sniff 09/17/2020, restrictive PFTs 07/10/2020, obstructive sleep apnea 05/20/2020 not tolerant to PAP therapy, possible COPD. COVID 10/10/2021 in ICU 4 weeks, not intubated, coded during dialysis. 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 end-stage renal disease off of hemodialysis since 01/2023. last seen in the Pulmonary Clinic on 03/15/2024. problem list includes bilateral diaphragm paralysis, recess she did have impairment on PFTs. Was on oxygen since January of 2022 after COVID not using it now. CHAZ not tolerant to PAP. Cat score was 13, using trilogy 1 puff most days. Short of breath with limited activity. After walking 10-5th or 15 ft he needs to sit down and rest. Complains of constant clear nasal drainage sees ENT. Plan was to collect fluid to rule out CSF leak. Room air saturations 96%. Regarding his COPD this was a presumed diagnosis, former smoker, improved with trilogy but not using because he has to rinse his mouth out. Currently not on oxygen. Regarding diaphragm paralysis this was noted after CABG and AVR. Obstructive sleep apnea not on treatment. Problems using past due to excessive humidity in the tubing. Follow-up in 6 months. 06/12/2024: PCP office note. He is very weak. Legs hurt. Fallen 3 times in last 10 days. reports he is hallucinating at night. Not wearing CPAP. Not using oxygen at night. Saturations 82-85% on room air. They declined him ER visit. 06/23/2024: Presented to the emergency department with confusion and weakness. Increasingly agitated and confused over the last several days. Somnolent but arouses. Speaking nonsensically. Blood pressure 120/75, heart rate 79, respiratory rate 24, saturations 50% on room air. Diminished breath sounds bilaterally. White blood cell count 14.4. Creatinine 3.0, was 1.66 on 01/25/2023. Influenza, RSV and COVID negative. Chest x-ray with bilateral elevated hemidiaphragms, status post median sternotomy, congestion And bibasilar infiltrates. Stat BiPAP, ABG, steroids and bronchodilators started. ABG 7. on 10 L oxygen. ABGs in not improved despite BiPAP 7. and he was intubated. Weight 106.7, Previous weight on 06/12/2024 106.1. 06/24/2024: Afebrile. White blood cell count 16.8. Creatinine 3.0. Remained intubated, On peep of 5 and 45% FiO2.developed hyperglycemia with an anion gap acidosis started on IV insulin. ABG 7.31/38 /99. Nasal MRSA. Weight 107.8. 06/25/2024 Afebrile. White blood cell count 23.8. Creatinine 2.6. intubated, peep of 8, FiO2 35%. ABG 7.32/44/79. Weight 111.1. 06/26/2024: I spoke with the at the bedside. she states that her his breathing was relatively good prior to his CABG, valve replacement and aortic graft placement in . After that he had breathing difficulty which has been unchanged over the last 6 years. The patient is intermittently compliant with inhalers for possible COPD. He is no longer smoking. Today white blood cell count 19.8. Creatinine 2.4. intubated, peep of 8, 35% FiO2. ABG 7.40/41/69. chest x-ray with ET tube in place, small lung volumes, bibasilar interstitial alveolar infiltrates. No change from 06/25/2024. At 10:00 a.m. he is febrile to 37.7. Weight 108.5. cumulative positive 4.8 L since admission. 06/27/24: Patient self-extubated last night. He was initially placed on Vapotherm 60 L 30% FiO2 With a blood gas of 7.33/57/78, but then became tired and was placed on BiPAP Rate of 18 pressures 12 over rate inspiratory time 1.0 and a rise of 3. He tolerated BiPAP poorly and was attempting to pull it off and could not tolerate it. He was placed back on Vapotherm 50 L 45% FiO2 With a repeat blood gas of 7.38/56/78. When I enter the room the patient was awake and alert on Vapotherm 45 L and 30% FiO2 with saturations 94%. Patient denies any fevers but had a temperature last night. White blood cell count 15.5, creatinine 1.8. chest x-ray today shows decreased lung volumes with diffuse interstitial and alveolar infiltrates. He diuresed 2.5 L yesterday and cumulative he is +62 mL since admission. His weight today is 103.5 with an admission weight of 106.7. The patient could not tolerate the BiPAP and I placed him on a noninvasive ventilator with the AVAPS mode and adjusted settings to comfort resulting in a rate of 14, tidal volume 500, EPAP 5, minimal pressure support 6, maximal pressure support 25, inspiratory time 1.2, rise of 5 and 32% FiO2. He tolerated the settings. DATA: 01/14/2023: CT abdomen and pelvis. Findings. Imaged portions of the lower chest revealed patchy bibasilar ground-glass and interstitial opacities. Surgical changes of median sternotomy. * 08/21/2022 - 6 Min Walk: resting oxygen saturation on 2 L, 96%, pulse 62. While walking and breathing 4 L a minute he was able to walk for 2 minutes and 30 seconds. This was 305 m. Maintain saturation 96-98%. Heart rate at the end of this was 129 beats per minute. He used a wheeled walker. He had to stop at 2-1/2 minutes due to shortness of breath. 01/20/2022: CT scan of the chest without contrast. Impression: Interval improvement of the diffuse patchy lung opacities since 12/08/2021. This is favored to represent improving infection as described above. No suspicious pulmonary nodules or masses. No mediastinal, hilar axillary lymphadenopathy. *?09/17/2020:? fluoroscopic sniff test; no paradoxical motion of diaphragm, there is incomplete diaphragm excursion symmetrically with elevation of R and L diaphragm, Consider diaphragm eventration versus partial diaphragm paralysis bilaterally.? [facility], [address] [place] [address]. * 05/20/2020;Split night study: AHI=8.2,desaturation 84%, disrupted sleep, loud snoring;CPAP titration;optimal=8 cm & 1 cm EPR. * 07/10/2020 PFT : FEV1 = 47%, 1.44 L.? FVC = 37%, severely decreased. FEV1%=normal. [id number]%=72% predicted.? There is no statistically significant change after bronchodilator administration. TLC=46%. RV=nl. RV/TLC mildly increased consistent with mild air trapping. DLCO 38%, severely decreased. Flow volume loop: Consistent with restriction. IMPRESSION: Severe restrictive ventilatory impairment,? mild air trapping, severe diffusion impairment without change following? bronchodilator.? Restrictive disease can mask obstruction.? Clinical correlation is recommended.? Lack of response to bronchodilators should not preclude use if clinically indicated. * 05/20/2020 : Split night study:? AHI was 8.2,? desaturation to 84% disrupted sleep and loud snoring; proceeded to CPAP titration? with an optimal pressure of 8 cm with 1 cm of EPR.? He did not have REM at the setting.? He had elevated limb movements with an index of 86.6. He has been using? CPAP 8 cm with difficulty keeping the mask on.? He has significant air leak.? His compliance is measured from April 24 through July 22 but he did not even get his device until the end of June,? has only had a little over a month.? His AHI is 12.9, large air leak.? He has 1% Fabricio-Rodriguez respirations. 12/05/2018: CT scan chest: No prior studies for comparison. Findings: Heart size is normal. There is atherosclerosis of the coronary arteries and aorta. No significant pleural or pericardial effusion. Status post median sternotomy for CABG. No thoracic lymphadenopathy. Mild thoracic spondylosis with dextrocurvature. There is right lower lobe atelectasis. There is mild pleural thickening of the fissures. No suspicious pulmonary nodules or masses. There is an abnormal appearance of the ascending thoracic aorta consistent with aortic dissection extending from the aortic root to the proximal aspect of the aortic arch. There is gynecomastia. * 12/05/2018 PFT at [facility] in [place] FEV1= 54%, 1.83 L, FVC= 48%, normal FEV1/FVC.? No change with bronchodilator.? Lung volumes were not obtained. * echo at [facility], [facility] 10/06/2018 - right ventricle not well visualized, normal left atrium, right atrium mildly enlarged, right atrial pressure 3 mm mercury.? Normal IVC.? Prosthetic aortic valve.? Right ventricular systolic pressure less than 30 mmHg Review of Systems Constitutional: Constitutional: Reports no additional constitutional complaints Eyes: Eyes: Reports no additional eye complaints ENT: Reports system reviewed and no additional complaints, except as documented Cardiovascular: Cardiovascular: Reports no additional cardiovascular complaints Respiratory: Respiratory: Reports no additional respiratory complaints Gastrointestinal: Gastrointestinal: Reports no additional gastrointestinal complaints Musculoskeletal: Musculoskeletal: Reports no additional musculoskeletal complaints Neurologic: Reports system reviewed and no additional complaints, except as documented Psychiatric: Psychiatric: Reports no additional psychiatric complaints Endocrine: Endocrine: Reports no additional endocrine complaints Hematologic/Lymphatic: Hematologic/Lymphatic: Reports no additional hematologic/lymphatic complaints Allergic/Immunologic: Allergic/Immunologic: Reports no additional allergic/immunologic complaints Exam Const: General: comfortable HENMT: Head: normal to inspection Ears: hearing grossly normal bilaterally Eyes: General: appearance normal, both eyes and all related structures Neck: Neck: normal visual inspection Chest: Chest palpation & inspection: normal inspection of the chest Resp: Auscultation: no crackles, no rales, no rhonchi and no wheezes Cardio: Jugular venous distension: no JVD GI: Inspection: normal to inspection Skin: General skin exam: normal color Neuro: Other: Intubated. He shakes his head to his name. He is able to squeeze my hands and wiggles his toes to verbal commands. Extrem: General: normal to inspection Psych: Appearance: grossly normal Objective Data Vital Signs Vital Signs: Vital Signs - 24 hr 06/26/24 10:23 06/26/24 10:00 06/26/24 10:00 Temperature 37.7 C H Pulse Rate 66 62 72 Respiratory Rate 19 Blood Pressure 154/84 H Pulse Oximetry 93 92 Oxygen Delivery Mechanical Ventilation Oxygen Flow Rate Fraction of Inspired Oxygen 30 06/26/24 11:19 06/26/24 11:19 06/26/24 12:00 Temperature Pulse Rate 71 71 77 Respiratory Rate 18 19 18 Blood Pressure Pulse Oximetry Oxygen Delivery Oxygen Flow Rate Fraction of Inspired Oxygen 06/26/24 12:00 06/26/24 12:00 06/26/24 12:00 Temperature Pulse Rate 77 74 Respiratory Rate 18 Blood Pressure Pulse Oximetry 93 Oxygen Delivery Mechanical Ventilation Oxygen Flow Rate Fraction of Inspired Oxygen 30 06/26/24 12:00 06/26/24 12:00 06/26/24 14:00 Temperature 37.8 C H Pulse Rate 71 72 Respiratory Rate 18 20 Blood Pressure 154/66 H Pulse Oximetry 93 Oxygen Delivery Oxygen Flow Rate Fraction of Inspired Oxygen 30 06/26/24 14:04 06/26/24 14:00 06/26/24 14:00 Temperature 37.8 C H Pulse Rate 71 77 74 Respiratory Rate 22 H Blood Pressure 170/82 H Pulse Oximetry 98 92 Oxygen Delivery Mechanical Ventilation Oxygen Flow Rate Fraction of Inspired Oxygen 30 06/26/24 15:42 06/26/24 16:00 06/26/24 13:48 Temperature 38.3 C H Pulse Rate 78 71 Respiratory Rate 19 18 Blood Pressure 152/82 H 156/73 H Pulse Oximetry 90 Oxygen Delivery Oxygen Flow Rate Fraction of Inspired Oxygen 06/26/24 13:48 06/26/24 16:55 06/26/24 16:00 Temperature Pulse Rate 71 101 H Respiratory Rate 18 23 H Blood Pressure Pulse Oximetry 78 L Oxygen Delivery Oxygen Flow Rate Fraction of Inspired Oxygen 60 06/26/24 16:00 06/26/24 16:00 06/26/24 18:00 Temperature Pulse Rate 71 93 Respiratory Rate Blood Pressure Pulse Oximetry 93 Oxygen Delivery Mechanical Ventilation Oxygen Flow Rate Fraction of Inspired Oxygen 30 06/26/24 17:30 06/26/24 18:30 06/26/24 16:55 Temperature 38.4 C H 38.4 C H Pulse Rate 92 93 101 H Respiratory Rate 24 H 26 H Blood Pressure 160/81 H 153/78 H Pulse Oximetry 95 94 75 L Oxygen Delivery Oxygen Flow Rate Fraction of Inspired Oxygen 06/26/24 17:48 06/26/24 17:00 06/26/24 17:05 Temperature 38.4 C H Pulse Rate 94 93 92 Respiratory Rate 26 H 24 H 26 H Blood Pressure 186/86 H 160/81 H Pulse Oximetry 95 91 95 Oxygen Delivery High Flow Nasal Cannula Oxygen Flow Rate 30 Fraction of Inspired Oxygen 60 06/26/24 17:10 06/26/24 17:50 06/26/24 19:00 Temperature 38.4 C H 38.4 C H Pulse Rate 93 92 92 Respiratory Rate 28 H 21 H 21 H Blood Pressure 163/87 H 163/87 H 127/77 Pulse Oximetry 94 95 94 Oxygen Delivery Oxygen Flow Rate Fraction of Inspired Oxygen 06/26/24 17:00 06/26/24 17:48 06/26/24 20:57 Temperature Pulse Rate 91 Respiratory Rate 26 H 21 H Blood Pressure Pulse Oximetry 91 60 L Oxygen Delivery Nasal Cannula High Flow Therapy with Na Oxygen Flow Rate 4 30 Fraction of Inspired Oxygen 94 06/26/24 21:06 06/26/24 21:10 06/26/24 20:00 Temperature Pulse Rate 88 91 Respiratory Rate 22 H 23 H Blood Pressure Pulse Oximetry 92 94 Oxygen Delivery High Flow Therapy with Na High Flow Therapy with Na Oxygen Flow Rate 40 40 Fraction of Inspired Oxygen 50 50 06/26/24 20:00 06/26/24 22:00 06/27/24 00:00 Temperature 37.9 C H 37.7 C H Pulse Rate 92 90 Respiratory Rate 21 H 22 H Blood Pressure 137/74 150/88 H Pulse Oximetry 94 93 95 Oxygen Delivery High Flow Therapy with Na Oxygen Flow Rate 40 Fraction of Inspired Oxygen 50 06/27/24 00:00 06/26/24 20:00 06/26/24 22:00 Temperature 37.6 C H Pulse Rate 91 89 90 Respiratory Rate 19 Blood Pressure 144/85 H Pulse Oximetry 95 Oxygen Delivery Oxygen Flow Rate Fraction of Inspired Oxygen 06/27/24 00:00 06/27/24 02:00 06/27/24 02:00 Temperature 37.2 C Pulse Rate 89 84 84 Respiratory Rate 24 H Blood Pressure 158/79 H Pulse Oximetry 95 Oxygen Delivery Oxygen Flow Rate Fraction of Inspired Oxygen 06/27/24 02:52 06/27/24 02:52 06/27/24 02:59 Temperature Pulse Rate 79 79 77 Respiratory Rate 18 18 18 Blood Pressure Pulse Oximetry 100 Oxygen Delivery High Flow Therapy with Na Oxygen Flow Rate 40 Fraction of Inspired Oxygen 50 06/27/24 04:34 06/27/24 04:00 06/27/24 04:00 Temperature Pulse Rate 70 78 Respiratory Rate 20 Blood Pressure Pulse Oximetry 97 95 Oxygen Delivery BiPAP BiPAP Oxygen Flow Rate Fraction of Inspired Oxygen 40 06/27/24 04:00 06/27/24 06:00 06/27/24 06:00 Temperature 37.2 C 37.1 C Pulse Rate 78 68 68 Respiratory Rate 23 H 13 Blood Pressure 133/76 150/74 H Pulse Oximetry 95 96 Oxygen Delivery Oxygen Flow Rate Fraction of Inspired Oxygen 06/27/24 08:04 06/27/24 08:06 06/27/24 08:18 Temperature Pulse Rate 69 69 Respiratory Rate 16 16 Blood Pressure Pulse Oximetry 99 Oxygen Delivery High Flow Therapy with Na Oxygen Flow Rate 45 Fraction of Inspired Oxygen 40 06/27/24 08:00 06/27/24 08:30 Temperature 36.9 C Pulse Rate 68 Respiratory Rate 22 H Blood Pressure 132/82 Pulse Oximetry 100 93 Oxygen Delivery High Flow Therapy with Na Oxygen Flow Rate 45 Fraction of Inspired Oxygen 30 Intake/Output Intake/Output: Intake & Output 06/24/24 06/25/24 06/26/24 06/27/24 23:59 23:59 23:59 23:59 Intake Total 4605.5 2111.1 2039.9 Output Total 1550 1850 4550 2150 Balance 3055.5 261.1 -2510.1 -2150 Meds/Results Medications: Active Medications Generic Name Dose Route Start Last Admin Trade Name Freq PRN Reason Stop Dose Admin Acetaminophen 650 mg 06/24/24 02:04 Acetaminophen Elixir 325 Mg/10.15 Ml Udc PO Q4H PRN Mild Pain (1-3) or Fever Albuterol/Ipratropium 3 ml 06/25/24 14:00 06/27/24 08:01 Ipratropium 0.5 Mg/Albuterol Sulfate 2.5 Mg Ampul.Neb 3 Ml INHALATION 3 ml Q6HRT CHARITY Administration Atorvastatin Calcium 80 mg 06/24/24 09:00 06/27/24 09:17 Atorvastatin 40 Mg Tablet PO 80 mg DAILY CHARITY Administration Dextrose 12.5 gm 06/24/24 11:32 Dextrose 50% 25 Gm/50 Ml Syringe IV PUSH PRN PRN Hypoglycemia Protocol Glucagon 1 mg 06/24/24 11:32 Glucagon For Inj 1 Mg Vial IM PRN PRN Hypoglycemia Protocol Glucose 15 gm 06/24/24 11:32 Glucose Oral Gel 15 Gm Of Glucse In 37.5 Gm Tube PO PRN PRN Hypoglycemia Protocol Heparin Sodium (Porcine) 5,000 units 06/24/24 07:50 06/27/24 02:32 Heparin Sodium 5,000 Units/Ml Vial SUB-Q Not Given Q8HR CHARITY Aztreonam 1 gm/ Sodium 50 mls @ 100 mls/hr 06/23/24 22:00 06/26/24 21:43 Chloride IVPB Infused Q12H CHARITY Infusion Azithromycin 500 mg in 250 mls @ 250 mls/hr 06/24/24 18:00 06/26/24 19:58 Zithromax IVPB Infused Q24H CHARITY Infusion Dextrose 1,000 mls @ 100 mls/hr 06/24/24 11:32 Dextrose 5% 1,000 Ml IVPB PRN PRN Hypoglycemia Protocol Insulin Aspart 4 - 8 units 06/24/24 07:50 06/27/24 08:17 Insulin Aspart (*Bkc) 100 Units/Ml SUB-Q Not Given Q4H [facility] Protocol Insulin Glargine 35 units 06/25/24 09:00 06/27/24 09:12 Insulin Glargine (*Bkc) 100 Units/Ml SUB-Q 35 units DAILY CHARITY Administration Levothyroxine Sodium 150 mcg 06/24/24 10:00 06/27/24 05:41 Levothyroxine Sodium 150 Mcg Tablet PO Not Given DAILY@0630 [facility] Levothyroxine Sodium 25 mcg 06/24/24 10:00 06/27/24 05:41 Levothyroxine Sodium 25 Mcg Tablet PO Not Given DAILY@0630 [facility] Midazolam HCl 2 mg 06/24/24 01:34 06/24/24 01:42 Midazolam Hcl (*Crx) 2 Mg/2 Ml Vial IV PUSH 2 mg PRN PRN Administration Sedation Multi-Ingred Cream/Lotion/Oil/Oint 1 applic 06/24/24 09:00 06/27/24 09:05 Mineral Oil/White Petrolatum Ointment EACH EYE Not Given Q12HR [facility] Pantoprazole Sodium 40 mg 06/24/24 09:00 06/27/24 09:12 Pantoprazole Sodium Iv 40 Mg Vial IV PUSH 40 mg Q12HR CHARITY Administration Perflutren Lipid Microsphere 0 ml 06/27/24 08:09 Perflutren Lipid Microspheres 1.5 Ml Vial Diluted To 10 Ml Total Volume IV PUSH 06/30/24 08:10 ONCE PRN adequate visualization Protocol Polyethylene Glycol 17 gm 06/26/24 10:20 06/26/24 13:24 Polyethylene Glycol 3350 17 Gm Powd.Pack PO 17 gm QAM PRN Administration Constipation Pregabalin 75 mg 06/24/24 09:00 06/27/24 09:17 Pregabalin (*Crx) 75 Mg Capsule PO 75 mg BID CHARITY Administration Quetiapine Fumarate 25 mg 06/27/24 21:00 Quetiapine Fumarate 25 Mg Tablet PO HS CHARITY Sertraline HCl 100 mg 06/24/24 09:00 06/27/24 09:17 Sertraline Hcl 50 Mg Tablet PO 100 mg DAILY CHARITY Administration Radiology Results: ITS Impressions Renal Ultrasound 06/24/24 09:12 Impression: 1: Unremarkable renal ultrasound. No stones, masses or hydronephrosis. Venous Doppler Study 06/26/24 15:41 IMPRESSION: Negative bilateral lower extremity venous US. No deep vein thrombosis. Chest X-Ray 06/27/24 05:55 IMPRESSION: 1. Small lung volumes with stable diffuse lung disease, consistent with pulmonary edema versus pneumonia. Labs Labs: Laboratory Results - last 24 hr 06/26/24 06/26/24 06/26/24 10:55 15:43 20:20 WBC RBC Hgb Hct MCV MCH MCHC RDW Plt Count MPV Immature Gran % (Auto) Neut % (Auto) Lymph % (Auto) [place] % (Auto) Eos % (Auto) Baso % (Auto) Lymph # (Auto) [place] # (Auto) Eos # (Auto) Baso # (Auto) Abs Immat Gran (auto) Absolute Neuts (auto) Absolute Nucleated RBC Nucleated RBC % Puncture Site Right radial ABG pH 7.334 L ABG pCO2 57.1 H ABG pO2 77.9 L ABG PO2/FiO2 Ratio 1.30 ABG HCO3 29.7 H ABG O2 Saturation 94.5 L ABG O2 Content 19.2 ABG Base Excess 2.4 A-a Gradient 287.1 Oxyhemoglobin 93.5 Carboxyhemoglobin 1.0 Methemoglobin 0.3 Reduced Hemoglobin 5.2 H Total Hemoglobin 14.6 O2 Delivery Device High flow nasal rubi O2 Liters/Min 30.0 FiO2 60 Sodium Potassium Chloride Carbon Dioxide Anion Gap BUN Creatinine Estim Creat Clear Calc Estimated GFR Glucose POC Capillary Glucose 177 H 198 H Calcium Phosphorus Magnesium Total Bilirubin AST ALT Alkaline Phosphatase NT-Pro-B Natriuret Pep Total Protein Albumin TSH 06/26/24 06/27/24 06/27/24 20:46 00:01 03:53 WBC 15.5 H RBC 4.88 Hgb 14.7 Hct 46.6 MCV 95.5 MCH 30.1 MCHC 31.5 L RDW 16.9 H Plt Count 171 MPV 11.6 H Immature Gran % (Auto) 1.8 H Neut % (Auto) 69.3 Lymph % (Auto) 14.1 L [place] % (Auto) 13.3 H Eos % (Auto) 1.0 Baso % (Auto) 0.5 Lymph # (Auto) 2.19 [place] # (Auto) 2.1 H Eos # (Auto) 0.2 Baso # (Auto) 0.1 Abs Immat Gran (auto) 0.28 H Absolute Neuts (auto) 10.8 H Absolute Nucleated RBC 0.000 Nucleated RBC % 0.0 Puncture Site ABG pH ABG pCO2 ABG pO2 ABG PO2/FiO2 Ratio ABG HCO3 ABG O2 Saturation ABG O2 Content ABG Base Excess A-a Gradient Oxyhemoglobin Carboxyhemoglobin Methemoglobin Reduced Hemoglobin Total Hemoglobin O2 Delivery Device O2 Liters/Min FiO2 Sodium 145 Potassium 3.9 Chloride 106 Carbon Dioxide 35 H Anion Gap 4 BUN 59 H D Creatinine 1.80 H Estim Creat Clear Calc 45 Estimated GFR 38 L Glucose 147 H POC Capillary Glucose 203 H 140 H Calcium 9.1 Phosphorus 3.0 Magnesium 2.3 Total Bilirubin 0.6 AST 23 ALT 38 Alkaline Phosphatase 128 H NT-Pro-B Natriuret Pep Total Protein 7.0 Albumin 3.5 TSH 06/27/24 06/27/24 06/27/24 04:09 07:54 08:10 WBC RBC Hgb Hct MCV MCH MCHC RDW Plt Count MPV Immature Gran % (Auto) Neut % (Auto) Lymph % (Auto) [place] % (Auto) Eos % (Auto) Baso % (Auto) Lymph # (Auto) [place] # (Auto) Eos # (Auto) Baso # (Auto) Abs Immat Gran (auto) Absolute Neuts (auto) Absolute Nucleated RBC Nucleated RBC % Puncture Site Right radial ABG pH 7.382 ABG pCO2 56.1 H ABG pO2 78.3 L ABG PO2/FiO2 Ratio 1.57 ABG HCO3 32.6 H ABG O2 Saturation 95.2 ABG O2 Content 19.7 ABG Base Excess 5.8 A-a Gradient 215.1 Oxyhemoglobin 94.5 Carboxyhemoglobin 1.0 Methemoglobin 0.1 Reduced Hemoglobin 4.4 Total Hemoglobin 14.8 O2 Delivery Device High flow nasal rubi O2 Liters/Min 45.0 FiO2 50 Sodium Potassium Chloride Carbon Dioxide Anion Gap BUN Creatinine Estim Creat Clear Calc Estimated GFR Glucose POC Capillary Glucose 153 H Calcium Phosphorus Magnesium Total Bilirubin AST ALT Alkaline Phosphatase NT-Pro-B Natriuret Pep 1580 H Total Protein Albumin TSH 15.400 H
--- NOTE | 2024-06-27 09:45 | PCSTNOTE ---
Please refer to the Bedside Swallow Evaluation in the EMR. Please note, silent aspiration cannot be ruled out at bedside.
[2024-06-27 09:56] LABS: Free T4 Free Thyroxine 0.82 ng/mL (0.78-2.19)
[2024-06-27] MEDS: AZTREONAM 1 GM in SODIUM CHLORIDE 0.9% IV 50 ML 100 ML IVPB ×2 (10:08→21:49)
[2024-06-27 10:16] LABS: Procalcitonin 0.9 ng/mL
--- NOTE | 2024-06-27 10:26 | P.PNINT_ITS ---
Progress Note: A&P Assessment and Plan (1) Hypercapnic respiratory failure: Code(s): J96.92 - Respiratory failure, unspecified with hypercapnia Status: Acute Assessment and Plan: Patient presented with confusion, hypercapnia ABGs, was placed on BiPAP with worsening ABGs, likely related to restrictive lung disease, CHF, bilateral diaphragmatic weakness 06/26 self-extubated. Was on BiPAP overnight and Airvo this morning ABG reviewed Chest x-ray reviewed Will give diuretics Continue aztreonam and azithromycin. DC vancomycin. Wean FiO2 to 30%. Discussed with fingerprinter (2) COPD (chronic obstructive pulmonary disease): Code(s): J44.9 - Chronic obstructive pulmonary disease, unspecified Status: Acute Assessment and Plan: Patient has a history of COPD for which he has been intubated in the past, along with pneumonia. -continue bronchodilators, , antibiotics -off steroids -continue home Trelegy Ellipta (3) Pneumonia: Code(s): J18.9 - Pneumonia, unspecified organism Status: Acute Assessment and Plan: Patient with bilateral pneumonia on chest x-ray -continue mechanical ventilation -continue bronchodilators -continue azithromycin, aztreonam. Will discontinue vancomycin (started on 06/23) (4) Acute kidney injury superimposed on CKD: Code(s): N17.9 - Acute kidney failure, unspecified; N18.9 - Chronic kidney disease, unspecified Status: Acute Assessment and Plan: Patient with acute kidney injury, has a history of stage 5 kidney injury requiring dialysis in the past -patient has been given IV fluids -06/24: Renal ultrasound did not show any stones masses or hydronephrosis -Lasix IV today -will continue to monitor urine output, renal function electrolytes -kidney function is improving after diuretics, continue to monitor (5) Diabetes: Qualifiers: Diabetes mellitus type: type 2 Diabetes mellitus meterman insulin use: with correction use Diabetes mellitus complication status: without complication Qualified Code(s): E11.9 - Type 2 diabetes mellitus without complications; 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 - 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 Code(s): E11.9 - Type 2 diabetes mellitus without complications Status: Acute Assessment and Plan: Patient has a history of diabetes, has an insulin pump -this morning patient is blood sugars 445, anion gap of 16, potassium of 5.2, CO2 of 20, elevated beta hydroxybutyrate -06/24: Started patient on insulin infusion, anion gap had closed, transition patient to long-acting insulin and sliding scale insulin -continue Lantus and sliding scale insulin with Accu-Cheks -off insulin infusion Patient was evaluated by speech therapy and modified diet has been ordered (6) Obstructive sleep apnea: Code(s): G47.33 - Obstructive sleep apnea (adult) (pediatric) Status: Acute Assessment and Plan: History of obstructive sleep apnea, noncompliant with CPAP. 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 Discussed with patient and his and emphasized importance of using positive- pressure ventilation at night and p.r.n. during the day. Plan DVT prophylaxis: Heparin subQ Stress ulcer prophylaxis: Protonix Nutrition: diet ordered Code Status: Patient is DNR DNI Consult speech therapy, PT, OT Up in chair Incentive spirometry Transfer out of ICU today Subjective Date/time seen: 06/27/24 Patient self-extubated yesterday and has done well and was on BiPAP overnight and Airvo this morning. On 45 L flow and 40% FiO2. He does feel short of breath but states it is not too bad. He has dry cough. He denies any pain. He states that BiPAP mask headache. He has been noncompliant with CPAP for last many years at home. He denies any other complaints and is thirsty and hungry and would like to eat food. Patient denies fever, chest pain, nausea vomiting, abdominal pain,, diarrhea, headache or constipation. All other systems reviewed and were negative Interval history: Reason for consult: Acute hypercapnic respiratory failure, COPD exacerbation, confusion, altered mental status, acute kidney injury 06/26/2024: Patient seen and examined the ICU, remains intubated on CMV mode of ventilation, peep 5, 35% FiO2. Sedated with fentanyl and Versed infusion, denies this morning but did not follow simple commands. Urine output has been adequate in response to diuretics. Hemodynamically stable, WBC count trending down Exam Narrative: General: Obese patient on Airvo but not in any respiratory distress HEENT:? Pupils equal and reactive, sclera is clear, ETT in place Neck:? Supple Respiratory:? Breath sounds decreased at bases, no wheezing, decreased air movement Cardiac:? S1-S2 normal, regular rate and rhythm Abdomen:? Soft, nontender, nondistended, obese, normoactive bowel sounds Extremities:? Bilateral lower extremity edema, palpable pedal pulses Neuro:? Alert awake answers all questions. Partially oriented. Follows commands and moves all 4 extremities. Skin:? Warm and dry Psych:? Normal speech and affect Objective Data Vital Signs Vital Signs: Vital Signs - 24 hr 06/26/24 11:19 06/26/24 11:19 06/26/24 12:00 Temperature Pulse Rate 71 71 77 Respiratory Rate 18 19 18 Blood Pressure Pulse Oximetry Oxygen Delivery Oxygen Flow Rate Fraction of Inspired Oxygen 06/26/24 12:00 06/26/24 12:00 06/26/24 12:00 Temperature Pulse Rate 77 74 Respiratory Rate 18 Blood Pressure Pulse Oximetry 93 Oxygen Delivery Mechanical Ventilation Oxygen Flow Rate Fraction of Inspired Oxygen 30 06/26/24 12:00 06/26/24 12:00 06/26/24 14:00 Temperature 37.8 C H Pulse Rate 71 72 Respiratory Rate 18 20 Blood Pressure 154/66 H Pulse Oximetry 93 Oxygen Delivery Oxygen Flow Rate Fraction of Inspired Oxygen 30 06/26/24 14:04 06/26/24 14:00 06/26/24 14:00 Temperature 37.8 C H Pulse Rate 71 77 74 Respiratory Rate 22 H Blood Pressure 170/82 H Pulse Oximetry 98 92 Oxygen Delivery Mechanical Ventilation Oxygen Flow Rate Fraction of Inspired Oxygen 30 06/26/24 15:42 06/26/24 16:00 06/26/24 13:48 Temperature 38.3 C H Pulse Rate 78 71 Respiratory Rate 19 18 Blood Pressure 152/82 H 156/73 H Pulse Oximetry 90 Oxygen Delivery Oxygen Flow Rate Fraction of Inspired Oxygen 06/26/24 13:48 06/26/24 16:55 06/26/24 16:00 Temperature Pulse Rate 71 101 H Respiratory Rate 18 23 H Blood Pressure Pulse Oximetry 78 L Oxygen Delivery Oxygen Flow Rate Fraction of Inspired Oxygen 60 06/26/24 16:00 06/26/24 16:00 06/26/24 18:00 Temperature Pulse Rate 71 93 Respiratory Rate Blood Pressure Pulse Oximetry 93 Oxygen Delivery Mechanical Ventilation Oxygen Flow Rate Fraction of Inspired Oxygen 30 06/26/24 17:30 06/26/24 18:30 06/26/24 16:55 Temperature 38.4 C H 38.4 C H Pulse Rate 92 93 101 H Respiratory Rate 24 H 26 H Blood Pressure 160/81 H 153/78 H Pulse Oximetry 95 94 75 L Oxygen Delivery Oxygen Flow Rate Fraction of Inspired Oxygen 06/26/24 17:48 06/26/24 17:00 06/26/24 17:05 Temperature 38.4 C H Pulse Rate 94 93 92 Respiratory Rate 26 H 24 H 26 H Blood Pressure 186/86 H 160/81 H Pulse Oximetry 95 91 95 Oxygen Delivery High Flow Nasal Cannula Oxygen Flow Rate 30 Fraction of Inspired Oxygen 60 06/26/24 17:10 06/26/24 17:50 06/26/24 19:00 Temperature 38.4 C H 38.4 C H Pulse Rate 93 92 92 Respiratory Rate 28 H 21 H 21 H Blood Pressure 163/87 H 163/87 H 127/77 Pulse Oximetry 94 95 94 Oxygen Delivery Oxygen Flow Rate Fraction of Inspired Oxygen 06/26/24 17:00 06/26/24 17:48 06/26/24 20:57 Temperature Pulse Rate 91 Respiratory Rate 26 H 21 H Blood Pressure Pulse Oximetry 91 60 L Oxygen Delivery Nasal Cannula High Flow Therapy with Na Oxygen Flow Rate 4 30 Fraction of Inspired Oxygen 94 06/26/24 21:06 06/26/24 21:10 06/26/24 20:00 Temperature Pulse Rate 88 91 Respiratory Rate 22 H 23 H Blood Pressure Pulse Oximetry 92 94 Oxygen Delivery High Flow Therapy with Na High Flow Therapy with Na Oxygen Flow Rate 40 40 Fraction of Inspired Oxygen 50 50 06/26/24 20:00 06/26/24 22:00 06/27/24 00:00 Temperature 37.9 C H 37.7 C H Pulse Rate 92 90 Respiratory Rate 21 H 22 H Blood Pressure 137/74 150/88 H Pulse Oximetry 94 93 95 Oxygen Delivery High Flow Therapy with Na Oxygen Flow Rate 40 Fraction of Inspired Oxygen 50 06/27/24 00:00 06/26/24 20:00 06/26/24 22:00 Temperature 37.6 C H Pulse Rate 91 89 90 Respiratory Rate 19 Blood Pressure 144/85 H Pulse Oximetry 95 Oxygen Delivery Oxygen Flow Rate Fraction of Inspired Oxygen 06/27/24 00:00 06/27/24 02:00 06/27/24 02:00 Temperature 37.2 C Pulse Rate 89 84 84 Respiratory Rate 24 H Blood Pressure 158/79 H Pulse Oximetry 95 Oxygen Delivery Oxygen Flow Rate Fraction of Inspired Oxygen 06/27/24 02:52 06/27/24 02:52 06/27/24 02:59 Temperature Pulse Rate 79 79 77 Respiratory Rate 18 18 18 Blood Pressure Pulse Oximetry 100 Oxygen Delivery High Flow Therapy with Na Oxygen Flow Rate 40 Fraction of Inspired Oxygen 50 06/27/24 04:34 06/27/24 04:00 06/27/24 04:00 Temperature Pulse Rate 70 78 Respiratory Rate 20 Blood Pressure Pulse Oximetry 97 95 Oxygen Delivery BiPAP BiPAP Oxygen Flow Rate Fraction of Inspired Oxygen 40 06/27/24 04:00 06/27/24 06:00 06/27/24 06:00 Temperature 37.2 C 37.1 C Pulse Rate 78 68 68 Respiratory Rate 23 H 13 Blood Pressure 133/76 150/74 H Pulse Oximetry 95 96 Oxygen Delivery Oxygen Flow Rate Fraction of Inspired Oxygen 06/27/24 08:04 06/27/24 08:06 06/27/24 08:18 Temperature Pulse Rate 69 69 Respiratory Rate 16 16 Blood Pressure Pulse Oximetry 99 Oxygen Delivery High Flow Therapy with Na Oxygen Flow Rate 45 Fraction of Inspired Oxygen 40 06/27/24 08:00 06/27/24 08:30 06/27/24 08:00 Temperature 36.9 C Pulse Rate 68 Respiratory Rate 22 H Blood Pressure 132/82 Pulse Oximetry 100 93 95 Oxygen Delivery High Flow Therapy with Na High Flow Therapy with Na Oxygen Flow Rate 45 40 Fraction of Inspired Oxygen 30 30 06/27/24 08:00 Temperature Pulse Rate 71 Respiratory Rate Blood Pressure Pulse Oximetry Oxygen Delivery Oxygen Flow Rate Fraction of Inspired Oxygen Intake/Output Intake/Output: Intake & Output 06/24/24 06/25/24 06/26/24 06/27/24 23:59 23:59 23:59 23:59 Intake Total 4605.5 2111.1 2039.9 Output Total 1550 1850 4550 2150 Balance 3055.5 261.1 -2510.1 -2150 Meds/Results Medications: Active Medications Generic Name Dose Route Start Last Admin Trade Name Freq PRN Reason Stop Dose Admin Acetaminophen 650 mg 06/24/24 02:04 Acetaminophen Elixir 325 Mg/10.15 Ml Udc PO Q4H PRN Mild Pain (1-3) or Fever Albuterol/Ipratropium 3 ml 06/25/24 14:00 06/27/24 08:01 Ipratropium 0.5 Mg/Albuterol Sulfate 2.5 Mg Ampul.Neb 3 Ml INHALATION 3 ml Q6HRT CHARITY Administration Atorvastatin Calcium 80 mg 06/24/24 09:00 06/27/24 09:17 Atorvastatin 40 Mg Tablet PO 80 mg DAILY CHARITY Administration Dextrose 12.5 gm 06/24/24 11:32 Dextrose 50% 25 Gm/50 Ml Syringe IV PUSH PRN PRN Hypoglycemia Protocol Glucagon 1 mg 06/24/24 11:32 Glucagon For Inj 1 Mg Vial IM PRN PRN Hypoglycemia Protocol Glucose 15 gm 06/24/24 11:32 Glucose Oral Gel 15 Gm Of Glucse In 37.5 Gm Tube PO PRN PRN Hypoglycemia Protocol Heparin Sodium (Porcine) 5,000 units 06/24/24 07:50 06/27/24 02:32 Heparin Sodium 5,000 Units/Ml Vial SUB-Q Not Given Q8HR [facility] Aztreonam 1 gm/ Sodium 50 mls @ 100 mls/hr 06/23/24 22:00 06/27/24 10:08 Chloride IVPB 100 mls/hr Q12H [facility] Administration Azithromycin 500 mg in 250 mls @ 250 mls/hr 06/24/24 18:00 06/26/24 19:58 Zithromax IVPB Infused Q24H [facility] Infusion Dextrose 1,000 mls @ 100 mls/hr 06/24/24 11:32 Dextrose 5% 1,000 Ml IVPB PRN PRN Hypoglycemia Protocol Insulin Aspart 4 - 8 units 06/24/24 07:50 06/27/24 08:17 Insulin Aspart (*Bkc) 100 Units/Ml SUB-Q Not Given Q4H [facility] Protocol Insulin Glargine 35 units 06/25/24 09:00 06/27/24 09:12 Insulin Glargine (*Bkc) 100 Units/Ml SUB-Q 35 units DAILY [facility]ITY Administration Levothyroxine Sodium 150 mcg 06/24/24 10:00 06/27/24 05:41 Levothyroxine Sodium 150 Mcg Tablet PO Not Given DAILY@0630 [facility] Levothyroxine Sodium 25 mcg 06/24/24 10:00 06/27/24 05:41 Levothyroxine Sodium 25 Mcg Tablet PO Not Given DAILY@0630 [facility] Midazolam HCl 2 mg 06/24/24 01:34 06/24/24 01:42 Midazolam Hcl (*Crx) 2 Mg/2 Ml Vial IV PUSH 2 mg PRN PRN Administration Sedation Multi-Ingred Cream/Lotion/Oil/Oint 1 applic 06/24/24 09:00 06/27/24 09:05 Mineral Oil/White Petrolatum Ointment EACH EYE Not Given Q12HR [facility] Pantoprazole Sodium 40 mg 06/24/24 09:00 06/27/24 09:12 Pantoprazole Sodium Iv 40 Mg Vial IV PUSH 40 mg Q12HR [facility] Administration Perflutren Lipid Microsphere 0 ml 06/27/24 08:09 Perflutren Lipid Microspheres 1.5 Ml Vial Diluted To 10 Ml Total Volume IV PUSH 06/30/24 08:10 ONCE PRN adequate visualization Protocol Polyethylene Glycol 17 gm 06/26/24 10:20 06/26/24 13:24 Polyethylene Glycol 3350 17 Gm Powd.Pack PO 17 gm QAM PRN Administration Constipation Pregabalin 75 mg 06/24/24 09:00 06/27/24 09:17 Pregabalin (*Crx) 75 Mg Capsule PO 75 mg BID [facility] Administration Quetiapine Fumarate 25 mg 06/27/24 21:00 Quetiapine Fumarate 25 Mg Tablet PO HS [facility] Sertraline HCl 100 mg 06/24/24 09:00 06/27/24 09:17 Sertraline Hcl 50 Mg Tablet PO 100 mg DAILY [facility]ITY Administration Radiology Results: ITS Impressions Renal Ultrasound 06/24/24 09:12 Impression: 1: Unremarkable renal ultrasound. No stones, masses or hydronephrosis. Venous Doppler Study 06/26/24 15:41 IMPRESSION: Negative bilateral lower extremity venous US. No deep vein thrombosis. Chest X-Ray 06/27/24 05:55 IMPRESSION: 1. Small lung volumes with stable diffuse lung disease, consistent with pulmonary edema versus pneumonia. Labs Labs: Laboratory Results - last 24 hr 06/26/24 06/26/24 06/26/24 10:55 15:43 20:20 WBC RBC Hgb Hct MCV MCH MCHC RDW Plt Count MPV Immature Gran % (Auto) Neut % (Auto) Lymph % (Auto) [place] % (Auto) Eos % (Auto) Baso % (Auto) Lymph # (Auto) [place] # (Auto) Eos # (Auto) Baso # (Auto) Abs Immat Gran (auto) Absolute Neuts (auto) Absolute Nucleated RBC Nucleated RBC % Puncture Site Right radial ABG pH 7.334 L ABG pCO2 57.1 H ABG pO2 77.9 L ABG PO2/FiO2 Ratio 1.30 ABG HCO3 29.7 H ABG O2 Saturation 94.5 L ABG O2 Content 19.2 ABG Base Excess 2.4 A-a Gradient 287.1 Oxyhemoglobin 93.5 Carboxyhemoglobin 1.0 Methemoglobin 0.3 Reduced Hemoglobin 5.2 H Total Hemoglobin 14.6 O2 Delivery Device High flow nasal rubi O2 Liters/Min 30.0 FiO2 60 Sodium Potassium Chloride Carbon Dioxide Anion Gap BUN Creatinine Estim Creat Clear Calc Estimated GFR Glucose POC Capillary Glucose 177 H 198 H Calcium Phosphorus Magnesium Total Bilirubin AST ALT Alkaline Phosphatase NT-Pro-B Natriuret Pep Total Protein Albumin Procalcitonin TSH Free T4 06/26/24 06/27/24 06/27/24 20:46 00:01 03:53 WBC 15.5 H RBC 4.88 Hgb 14.7 Hct 46.6 MCV 95.5 MCH 30.1 MCHC 31.5 L RDW 16.9 H Plt Count 171 MPV 11.6 H Immature Gran % (Auto) 1.8 H Neut % (Auto) 69.3 Lymph % (Auto) 14.1 L [place] % (Auto) 13.3 H Eos % (Auto) 1.0 Baso % (Auto) 0.5 Lymph # (Auto) 2.19 [place] # (Auto) 2.1 H Eos # (Auto) 0.2 Baso # (Auto) 0.1 Abs Immat Gran (auto) 0.28 H Absolute Neuts (auto) 10.8 H Absolute Nucleated RBC 0.000 Nucleated RBC % 0.0 Puncture Site ABG pH ABG pCO2 ABG pO2 ABG PO2/FiO2 Ratio ABG HCO3 ABG O2 Saturation ABG O2 Content ABG Base Excess A-a Gradient Oxyhemoglobin Carboxyhemoglobin Methemoglobin Reduced Hemoglobin Total Hemoglobin O2 Delivery Device O2 Liters/Min FiO2 Sodium 145 Potassium 3.9 Chloride 106 Carbon Dioxide 35 H Anion Gap 4 BUN 59 H D Creatinine 1.80 H Estim Creat Clear Calc 45 Estimated GFR 38 L Glucose 147 H POC Capillary Glucose 203 H 140 H Calcium 9.1 Phosphorus 3.0 Magnesium 2.3 Total Bilirubin 0.6 AST 23 ALT 38 Alkaline Phosphatase 128 H NT-Pro-B Natriuret Pep Total Protein 7.0 Albumin 3.5 Procalcitonin TSH Free T4 06/27/24 06/27/24 06/27/24 04:09 07:54 08:10 WBC RBC Hgb Hct MCV MCH MCHC RDW Plt Count MPV Immature Gran % (Auto) Neut % (Auto) Lymph % (Auto) [place] % (Auto) Eos % (Auto) Baso % (Auto) Lymph # (Auto) [place] # (Auto) Eos # (Auto) Baso # (Auto) Abs Immat Gran (auto) Absolute Neuts (auto) Absolute Nucleated RBC Nucleated RBC % Puncture Site Right radial ABG pH 7.382 ABG pCO2 56.1 H ABG pO2 78.3 L ABG PO2/FiO2 Ratio 1.57 ABG HCO3 32.6 H ABG O2 Saturation 95.2 ABG O2 Content 19.7 ABG Base Excess 5.8 A-a Gradient 215.1 Oxyhemoglobin 94.5 Carboxyhemoglobin 1.0 Methemoglobin 0.1 Reduced Hemoglobin 4.4 Total Hemoglobin 14.8 O2 Delivery Device High flow nasal rubi O2 Liters/Min 45.0 FiO2 50 Sodium Potassium Chloride Carbon Dioxide Anion Gap BUN Creatinine Estim Creat Clear Calc Estimated GFR Glucose POC Capillary Glucose 153 H Calcium Phosphorus Magnesium Total Bilirubin AST ALT Alkaline Phosphatase NT-Pro-B Natriuret Pep 1580 H Total Protein Albumin Procalcitonin 0.9 TSH 15.400 H Free T4 0.82 Quality VTE Prophylaxis VTE prophylaxis: pharmacologic ordered
--- NOTE | 2024-06-27 10:39 | PCNFU ---
Nutrition Follow-Up Complete: Increased protein energy needs related to mechanical ventilation as evidenced by need for full tube feeding Goal: Meet estimated nutrition needs Patient is progressing towards goal. We will continue current goal. Pt current nutrition is DBCC/Soft and Bite Sized, Level 6. Last recorded weight is 103.5 kg, down from 108.5 kg. Diuresing patient, down 3 liters. Bowel Motility: Last BM reported 06/23 Labs Reviewed: Glu 147, BUN 59, GFR 38, Cr 1.8 Meds Noted:Protonix, Miralax. Skin: WNL Additional Notes: Patient self extubated on 06/26. Speech Eval today recommending soft and bite sized, Level 6. Spoke with patient today and diet order has been advanced. He is interested in diet supplements for additional 220 kcal and 10 gm protein. Agree with diet orders at this time. Monitoring weights, labs, meds, vitals Follow daily in ICU rounds, reassess every 5 days.
[2024-06-27 11:57] LABS: Glucose Point of Care 217 mg/dl (65-105)
[2024-06-27] MEDS: INSULIN ASPART (*BKC) 100 UNITS/ML SUB-Q ×2 (12:12→16:58)
--- NOTE | 2024-06-27 12:22 | PC.NURSE ---
Overheard patient discussing DNR/DNI status with son when entering room for noon assessment/meds and mealtime observation. He stated Me and Lynda are going to have a conversation because under no circumstances am I to be intubated. She should know that already.
--- NOTE | 2024-06-27 14:41 | PCPTNOTE ---
Attempted PT evaluation, pt refused stating maybe tomorrow he will have more energy to participate in physical therapy. RN aware. Will follow.
--- NOTE | 2024-06-27 15:07 | P.PNIM_ITS ---
Progress Note: A&P Assessment and Plan (1) Hypercapnic respiratory failure: Code(s): J96.92 - Respiratory failure, unspecified with hypercapnia Status: Acute (2) COPD (chronic obstructive pulmonary disease): Code(s): J44.9 - Chronic obstructive pulmonary disease, unspecified Status: Acute (3) Pneumonia: Code(s): J18.9 - Pneumonia, unspecified organism Status: Acute (4) Acute kidney injury superimposed on CKD: Code(s): N17.9 - Acute kidney failure, unspecified; N18.9 - Chronic kidney disease, unspecified Status: Acute (5) Diabetes: Qualifiers: Diabetes mellitus type: type 2 Diabetes mellitus office specialist insulin use: with chcf use Diabetes mellitus complication status: without complication Qualified Code(s): E11.9 - Type 2 diabetes mellitus without complications; Z79.4 - program evaluation consultant (current) use of insulin Code(s): E11.9 - Type 2 diabetes mellitus without complications Status: Acute (6) Obstructive sleep apnea: Code(s): G47.33 - Obstructive sleep apnea (adult) (pediatric) Status: Acute (7) 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 Patient has increasingly agitated and confused over the past several days. Started saying nonsensical things so family meeting come to the ER for evaluation. On arrival to the ED he was somnolent but arouses to verbal stimuli. His vitals were showed hypoxia with SpO2 in 50s. On air. He was placed on non-rebreather mask with improvement in saturation to upper 90s. Laboratory evaluation showed WBC 14.4 hemoglobin 13 creatinine of 3 electrolytes were unremarkable blood sugar 259. INR 1.2 influenza RSV COVID negative. Troponin was less than 0.012 BNP 2780. ABG 7.11/7 9// suggesting hypercapnic respiratory failure. Chest x-ray showed cardiomegaly with cardiac decompensation and pulmonary edema. Bilateral basal pneumonia with highly suggestive bilateral pneumonitis. Patient was placed on BiPAP and breathing treatment was started along with steroid. Repeat ABG 7.10/87/90/. With non improvement decision made to intubate the patient. Patient was intubated and hence was admitted to the ICU for further treatment. he did tolerated SBT 06/26/2024 Patient self extubated later in the evening 06/26/2024. Placed on Vapotherm since then. Did not tolerate BiPAP. Continue to monitor ABG. Pulmonary on board. Patient started on IV antibiotics for pneumonia possible COPD exacerbation with steroid and bronchodilators. Chest x-ray with mild pulmonary edema diuresis started. Leukocytosis trending down with taper of steroid JERRY has history of stage 5 kidney injury requiring dialysis in the past. Baseline creatinine 1.6 01/26. Started on IV fluid. Renal ultrasound with no hydronephrosis. Creatinine Continues to improve. Down to 1.8 Type 2 diabetes on insulin pump at home. Insulin infusion per ICU protocol started. Off insulin drip now. On Lantus and NovoLog CHAZ noncompliant with CPAP Paresis of diaphragmatic Medication noncompliance DVT prophylaxis heparin subQ Code status do not resuscitate Subjective Date/time seen: 06/27/24 15:07 Interval history: overnight events noted. Patient self-extubated last night. Was placed on Vapotherm since then. Subsequently was also placed on BiPAP at night which he did not tolerate. He has been placed back to Vapotherm. Review of Systems Review of Systems: All systems reviewed & are unremarkable except as noted in HPI and below Exam Narrative: General: Obese patient on Airvo but not in any respiratory distress HEENT:? Pupils equal and reactive, sclera is clear Neck:? Supple Respiratory:? Breath sounds decreased at bases, no wheezing, decreased air movement Cardiac:? S1-S2 normal, regular rate and rhythm Abdomen:? Soft, nontender, nondistended, obese, normoactive bowel sounds Extremities:? Bilateral lower extremity edema, palpable pedal pulses Neuro:? Alert awake Oriented to place and person, Follows commands and moves all 4 extremities. Skin:? Warm and dry Psych:? Normal speech and affect Objective Data Vital Signs Vital Signs: Vital Signs - 24 hr 06/26/24 15:42 06/26/24 16:00 06/26/24 16:55 Temperature 100.9 F H Pulse Rate 78 101 H Respiratory Rate 19 23 H Blood Pressure 152/82 H 156/73 H Pulse Oximetry 90 78 L Oxygen Delivery Oxygen Flow Rate Fraction of Inspired Oxygen 06/26/24 16:00 06/26/24 16:00 06/26/24 16:00 Temperature Pulse Rate 71 Respiratory Rate Blood Pressure Pulse Oximetry 93 Oxygen Delivery Mechanical Ventilation Oxygen Flow Rate Fraction of Inspired Oxygen 60 30 06/26/24 18:00 06/26/24 17:30 06/26/24 18:30 Temperature 101.2 F H 101.2 F H Pulse Rate 93 92 93 Respiratory Rate 24 H 26 H Blood Pressure 160/81 H 153/78 H Pulse Oximetry 95 94 Oxygen Delivery Oxygen Flow Rate Fraction of Inspired Oxygen 06/26/24 16:55 06/26/24 17:48 06/26/24 17:00 Temperature 101.1 F H Pulse Rate 101 H 94 93 Respiratory Rate 26 H 24 H Blood Pressure 186/86 H Pulse Oximetry 75 L 95 91 Oxygen Delivery High Flow Nasal Cannula Oxygen Flow Rate 30 Fraction of Inspired Oxygen 60 06/26/24 17:05 06/26/24 17:10 06/26/24 17:50 Temperature 101.2 F H 101.2 F H Pulse Rate 92 93 92 Respiratory Rate 26 H 28 H 21 H Blood Pressure 160/81 H 163/87 H 163/87 H Pulse Oximetry 95 94 95 Oxygen Delivery Oxygen Flow Rate Fraction of Inspired Oxygen 06/26/24 19:00 06/26/24 17:00 06/26/24 17:48 Temperature Pulse Rate 92 Respiratory Rate 21 H 26 H Blood Pressure 127/77 Pulse Oximetry 94 91 60 L Oxygen Delivery Nasal Cannula High Flow Therapy with Na Oxygen Flow Rate 4 30 Fraction of Inspired Oxygen 94 06/26/24 20:57 06/26/24 21:06 06/26/24 21:10 Temperature Pulse Rate 91 88 91 Respiratory Rate 21 H 22 H 23 H Blood Pressure Pulse Oximetry 92 Oxygen Delivery High Flow Therapy with Na Oxygen Flow Rate 40 Fraction of Inspired Oxygen 50 06/26/24 20:00 06/26/24 20:00 06/26/24 22:00 Temperature 100.3 F H 99.9 F H Pulse Rate 92 90 Respiratory Rate 21 H 22 H Blood Pressure 137/74 150/88 H Pulse Oximetry 94 94 93 Oxygen Delivery High Flow Therapy with Na Oxygen Flow Rate 40 Fraction of Inspired Oxygen 50 06/27/24 00:00 06/27/24 00:00 06/26/24 20:00 Temperature 99.7 F H Pulse Rate 91 89 Respiratory Rate 19 Blood Pressure 144/85 H Pulse Oximetry 95 95 Oxygen Delivery High Flow Therapy with Na Oxygen Flow Rate 40 Fraction of Inspired Oxygen 50 06/26/24 22:00 06/27/24 00:00 06/27/24 02:00 Temperature Pulse Rate 90 89 84 Respiratory Rate Blood Pressure Pulse Oximetry Oxygen Delivery Oxygen Flow Rate Fraction of Inspired Oxygen 06/27/24 02:00 06/27/24 02:52 06/27/24 02:52 Temperature 99 F Pulse Rate 84 79 79 Respiratory Rate 24 H 18 18 Blood Pressure 158/79 H Pulse Oximetry 95 100 Oxygen Delivery High Flow Therapy with Na Oxygen Flow Rate 40 Fraction of Inspired Oxygen 50 06/27/24 02:59 06/27/24 04:34 06/27/24 04:00 Temperature Pulse Rate 77 70 78 Respiratory Rate 18 20 Blood Pressure Pulse Oximetry 97 Oxygen Delivery BiPAP Oxygen Flow Rate Fraction of Inspired Oxygen 06/27/24 04:00 06/27/24 04:00 06/27/24 06:00 Temperature 99 F Pulse Rate 78 68 Respiratory Rate 23 H Blood Pressure 133/76 Pulse Oximetry 95 95 Oxygen Delivery BiPAP Oxygen Flow Rate Fraction of Inspired Oxygen 40 06/27/24 06:00 06/27/24 08:04 06/27/24 08:06 Temperature 98.7 F Pulse Rate 68 69 Respiratory Rate 13 16 Blood Pressure 150/74 H Pulse Oximetry 96 99 Oxygen Delivery High Flow Therapy with Na Oxygen Flow Rate 45 Fraction of Inspired Oxygen 40 06/27/24 08:18 06/27/24 08:00 06/27/24 08:30 Temperature 98.4 F Pulse Rate 69 68 Respiratory Rate 16 22 H Blood Pressure 132/82 Pulse Oximetry 100 93 Oxygen Delivery High Flow Therapy with Na Oxygen Flow Rate 45 Fraction of Inspired Oxygen 30 06/27/24 08:00 06/27/24 08:00 06/27/24 10:00 Temperature Pulse Rate 71 71 Respiratory Rate Blood Pressure Pulse Oximetry 95 Oxygen Delivery High Flow Therapy with Na Oxygen Flow Rate 40 Fraction of Inspired Oxygen 30 06/27/24 10:00 06/27/24 12:26 06/27/24 12:00 Temperature 98.9 F Pulse Rate 66 74 71 Respiratory Rate 17 16 Blood Pressure 162/74 H 167/81 H Pulse Oximetry 94 98 Oxygen Delivery High Flow Therapy with Na Oxygen Flow Rate 40 Fraction of Inspired Oxygen 06/27/24 12:00 06/27/24 12:00 06/27/24 13:08 Temperature 98.7 F Pulse Rate 71 Respiratory Rate 17 Blood Pressure 167/81 H Pulse Oximetry 98 97 Oxygen Delivery High Flow Therapy with Na High Flow Therapy with Na Oxygen Flow Rate 40 45 Fraction of Inspired Oxygen 30 06/27/24 13:47 06/27/24 13:57 06/27/24 14:00 Temperature Pulse Rate 74 71 72 Respiratory Rate 15 14 Blood Pressure Pulse Oximetry Oxygen Delivery Oxygen Flow Rate Fraction of Inspired Oxygen Intake/Output Intake/Output: Intake & Output 06/24/24 06/25/24 06/26/24 06/27/24 23:59 23:59 23:59 23:59 Intake Total 4605.5 2111.1 2039.9 50 Output Total 1550 1850 4550 4550 Balance 3055.5 261.1 -2510.1 -4500 Meds/Results Medications: Active Medications Generic Name Dose Route Start Last Admin Trade Name Freq PRN Reason Stop Dose Admin Acetaminophen 650 mg 06/24/24 02:04 Acetaminophen Elixir 325 Mg/10.15 Ml Udc PO Q4H PRN Mild Pain (1-3) or Fever Albuterol/Ipratropium 3 ml 06/25/24 14:00 06/27/24 13:45 Ipratropium 0.5 Mg/Albuterol Sulfate 2.5 Mg Ampul.Neb 3 Ml INHALATION 3 ml Q6HRT CHARITY Administration Atorvastatin Calcium 80 mg 06/24/24 09:00 06/27/24 09:17 Atorvastatin 40 Mg Tablet PO 80 mg DAILY CHARITY Administration Azithromycin 500 mg 06/27/24 17:00 Azithromycin 250 Mg Tablet PO 06/29/24 17:01 DAILY@1700 [facility] Dextrose 12.5 gm 06/24/24 11:32 Dextrose 50% 25 Gm/50 Ml Syringe IV PUSH PRN PRN Hypoglycemia Protocol Glucagon 1 mg 06/24/24 11:32 Glucagon For Inj 1 Mg Vial IM PRN PRN Hypoglycemia Protocol Glucose 15 gm 06/24/24 11:32 Glucose Oral Gel 15 Gm Of Glucse In 37.5 Gm Tube PO PRN PRN Hypoglycemia Protocol Heparin Sodium (Porcine) 5,000 units 06/24/24 07:50 06/27/24 12:56 Heparin Sodium 5,000 Units/Ml Vial SUB-Q Not Given Q8HR CHARITY Aztreonam 1 gm/ Sodium 50 mls @ 100 mls/hr 06/23/24 22:00 06/27/24 10:38 Chloride IVPB 06/30/24 10:29 Infused Q12H CHARITY Infusion Dextrose 1,000 mls @ 100 mls/hr 06/24/24 11:32 Dextrose 5% 1,000 Ml IVPB PRN PRN Hypoglycemia Protocol Insulin Aspart 4 - 8 units 06/24/24 07:50 06/27/24 12:12 Insulin Aspart (*Bkc) 100 Units/Ml SUB-Q 4 units Q4H CHARITY Administration Protocol Insulin Glargine 35 units 06/25/24 09:00 06/27/24 09:12 Insulin Glargine (*Bkc) 100 Units/Ml SUB-Q 35 units DAILY CHARITY Administration Levothyroxine Sodium 150 mcg 06/24/24 10:00 06/27/24 05:41 Levothyroxine Sodium 150 Mcg Tablet PO Not Given DAILY@0630 [facility] Levothyroxine Sodium 25 mcg 06/24/24 10:00 06/27/24 05:41 Levothyroxine Sodium 25 Mcg Tablet PO Not Given DAILY@0630 [facility] Pantoprazole Sodium 40 mg 06/24/24 09:00 06/27/24 09:12 Pantoprazole Sodium Iv 40 Mg Vial IV PUSH 40 mg Q12HR CHARITY Administration Perflutren Lipid Microsphere 0 ml 06/27/24 08:09 Perflutren Lipid Microspheres 1.5 Ml Vial Diluted To 10 Ml Total Volume IV PUSH 06/30/24 08:10 ONCE PRN adequate visualization Protocol Polyethylene Glycol 17 gm 06/26/24 10:20 06/26/24 13:24 Polyethylene Glycol 3350 17 Gm Powd.Pack PO 17 gm QAM PRN Administration Constipation Pregabalin 75 mg 06/24/24 09:00 06/27/24 09:17 Pregabalin (*Crx) 75 Mg Capsule PO 75 mg BID CHARITY Administration Quetiapine Fumarate 25 mg 06/27/24 21:00 Quetiapine Fumarate 25 Mg Tablet PO HS [facility]ITY Sertraline HCl 100 mg 06/24/24 09:00 06/27/24 09:17 Sertraline Hcl 50 Mg Tablet PO 100 mg DAILY CHARITY Administration Radiology Results: ITS Impressions Renal Ultrasound 06/24/24 09:12 Impression: 1: Unremarkable renal ultrasound. No stones, masses or hydronephrosis. Venous Doppler Study 06/26/24 15:41 IMPRESSION: Negative bilateral lower extremity venous US. No deep vein thrombosis. Chest X-Ray 06/27/24 05:55 IMPRESSION: 1. Small lung volumes with stable diffuse lung disease, consistent with pulmonary edema versus pneumonia. Labs Labs: Laboratory Results - last 24 hr 06/26/24 06/26/24 06/26/24 15:43 20:20 20:46 WBC RBC Hgb Hct MCV MCH MCHC RDW Plt Count MPV Immature Gran % (Auto) Neut % (Auto) Lymph % (Auto) [place] % (Auto) Eos % (Auto) Baso % (Auto) Lymph # (Auto) [place] # (Auto) Eos # (Auto) Baso # (Auto) Abs Immat Gran (auto) Absolute Neuts (auto) Absolute Nucleated RBC Nucleated RBC % Puncture Site Right radial ABG pH 7.334 L ABG pCO2 57.1 H ABG pO2 77.9 L ABG PO2/FiO2 Ratio 1.30 ABG HCO3 29.7 H ABG O2 Saturation 94.5 L ABG O2 Content 19.2 ABG Base Excess 2.4 A-a Gradient 287.1 Oxyhemoglobin 93.5 Carboxyhemoglobin 1.0 Methemoglobin 0.3 Reduced Hemoglobin 5.2 H Total Hemoglobin 14.6 O2 Delivery Device High flow nasal rubi O2 Liters/Min 30.0 FiO2 60 Sodium Potassium Chloride Carbon Dioxide Anion Gap BUN Creatinine Estim Creat Clear Calc Estimated GFR Glucose POC Capillary Glucose 198 H 203 H Calcium Phosphorus Magnesium Total Bilirubin AST ALT Alkaline Phosphatase NT-Pro-B Natriuret Pep Total Protein Albumin Procalcitonin TSH Free T4 06/27/24 06/27/24 06/27/24 00:01 03:53 04:09 WBC 15.5 H RBC 4.88 Hgb 14.7 Hct 46.6 MCV 95.5 MCH 30.1 MCHC 31.5 L RDW 16.9 H Plt Count 171 MPV 11.6 H Immature Gran % (Auto) 1.8 H Neut % (Auto) 69.3 Lymph % (Auto) 14.1 L [place] % (Auto) 13.3 H Eos % (Auto) 1.0 Baso % (Auto) 0.5 Lymph # (Auto) 2.19 [place] # (Auto) 2.1 H Eos # (Auto) 0.2 Baso # (Auto) 0.1 Abs Immat Gran (auto) 0.28 H Absolute Neuts (auto) 10.8 H Absolute Nucleated RBC 0.000 Nucleated RBC % 0.0 Puncture Site Right radial ABG pH 7.382 ABG pCO2 56.1 H ABG pO2 78.3 L ABG PO2/FiO2 Ratio 1.57 ABG HCO3 32.6 H ABG O2 Saturation 95.2 ABG O2 Content 19.7 ABG Base Excess 5.8 A-a Gradient 215.1 Oxyhemoglobin 94.5 Carboxyhemoglobin 1.0 Methemoglobin 0.1 Reduced Hemoglobin 4.4 Total Hemoglobin 14.8 O2 Delivery Device High flow nasal rubi O2 Liters/Min 45.0 FiO2 50 Sodium 145 Potassium 3.9 Chloride 106 Carbon Dioxide 35 H Anion Gap 4 BUN 59 H D Creatinine 1.80 H Estim Creat Clear Calc 45 Estimated GFR 38 L Glucose 147 H POC Capillary Glucose 140 H Calcium 9.1 Phosphorus 3.0 Magnesium 2.3 Total Bilirubin 0.6 AST 23 ALT 38 Alkaline Phosphatase 128 H NT-Pro-B Natriuret Pep Total Protein 7.0 Albumin 3.5 Procalcitonin TSH Free T4 06/27/24 06/27/24 06/27/24 07:54 08:10 11:49 WBC RBC Hgb Hct MCV MCH MCHC RDW Plt Count MPV Immature Gran % (Auto) Neut % (Auto) Lymph % (Auto) [place] % (Auto) Eos % (Auto) Baso % (Auto) Lymph # (Auto) [place] # (Auto) Eos # (Auto) Baso # (Auto) Abs Immat Gran (auto) Absolute Neuts (auto) Absolute Nucleated RBC Nucleated RBC % Puncture Site ABG pH ABG pCO2 ABG pO2 ABG PO2/FiO2 Ratio ABG HCO3 ABG O2 Saturation ABG O2 Content ABG Base Excess A-a Gradient Oxyhemoglobin Carboxyhemoglobin Methemoglobin Reduced Hemoglobin Total Hemoglobin O2 Delivery Device O2 Liters/Min FiO2 Sodium Potassium Chloride Carbon Dioxide Anion Gap BUN Creatinine Estim Creat Clear Calc Estimated GFR Glucose POC Capillary Glucose 153 H 217 H Calcium Phosphorus Magnesium Total Bilirubin AST ALT Alkaline Phosphatase NT-Pro-B Natriuret Pep 1580 H Total Protein Albumin Procalcitonin 0.9 TSH 15.400 H Free T4 0.82
[2024-06-27 16:27] LABS: Glucose Point of Care 250 mg/dl (65-105)
[2024-06-27] MEDS: hydrALAZINE 10 MG TABLET PO (16:57)
[2024-06-27] MEDS: AZITHROMYCIN 250 MG TABLET 500 MG PO (16:57)
--- NOTE | 2024-06-27 20:15 | PC.NURSE ---
RT started patient on apnea link at this time. Patient stated that he was not sleepy at this moment. RT made aware.
[2024-06-27 20:30] LABS: Glucose Point of Care 429 mg/dl (65-105)
[2024-06-27 20:30] LABS: Glucose Point of Care 415 mg/dl (65-105)
[2024-06-27] MEDS: PANTOPRAZOLE 40 MG TABLET BY MOUTH (20:30)
[2024-06-27] MEDS: QUEtiapine FUMARATE 25 MG TABLET PO (20:30)
[2024-06-27] MEDS: INSULIN ASPART (*BKC) 100 UNITS/ML 12 UNITS SUB-Q (21:47)
[2024-06-27] MEDS: hydrALAZINE HCL 20 MG/ML VIAL 10 MG IV PUSH (22:51)
[2024-06-28] VITALS (26 sets, daily range): BP systolic 91–167; BP diastolic 51–84; PULSE 59–97; RESP 14–23; TEMP 36.7–37.3; O2SAT 92–100
[2024-06-28] MEDS: INSULIN ASPART (*BKC) 100 UNITS/ML SUB-Q ×2 (00:09→20:23)
[2024-06-28 00:31] LABS: Glucose Point of Care 311 mg/dl (65-105)
[2024-06-28 04:12] LABS: Alveolar/Arterial O2 Gradient 92.6 mmHg; Base Excess ABG 8.2 mEq/l (+/-2.0); Fractional Inspired Oxygen 32 %; HCO3 ABG 33.6 mEq/l (22.0-26.0); Oxygen Content ABG 20.1 %vol (16.0-22.0); Oxyhemoglobin 94.4 % THb (90.0-100.0); PCO2 ABG 48.8 mmHg (35.0-45.0); PO2 ABG 78.5 mmHg (80.0-100.0); PO2 FiO2 Ratio Arterial Blood 2.45 %; Total Hemoglobin 15.1 g/dL (12.0-18.0); pH ABG 7.456 (7.350-7.450)
[2024-06-28 04:14] LABS: Device NON-INVASIVE VENT; Modified Allen's Test Pass; Site Drawn RIGHT RADIAL
[2024-06-28 04:15] LABS: Non-Invasive Expiratory Pressure 9 CMH2O; Non-Invasive Inspiratory Pressure 25 CMH2O; Non-Invasive Vent Rate 14 /MIN
[2024-06-28 04:35] LABS: Glucose Point of Care 185 mg/dl (65-105)
[2024-06-28] MEDS: LEVOTHYROXINE SODIUM 25 MCG TABLET PO (05:30)
[2024-06-28] MEDS: LEVOTHYROXINE SODIUM 150 MCG TABLET PO (05:30)
--- NOTE | 2024-06-28 06:30 | PC.NURSE ---
This patient, Sherif Restrepo, was transferred to [[id number] ] on 06/28/24 at 0630. Personal belongings sent with patient. Report given to [ Josue RN]. Appropriate documentation sent with patient. Call placed to spouse, Lynda, regarding transfer. Lynda verbalized understanding and thanked this nurse.
--- NOTE | 2024-06-28 06:50 | PC.NURSE ---
This patient, Sherif Restrepo, was received from ICU 10 on 06/28/24 at 0628. Patient/family oriented to unit policies and routines
[2024-06-28 07:37] LABS: Glucose Point of Care 200 mg/dl (65-105)
[2024-06-28] MEDS: IPRATROPIUM 0.5 MG/ALBUTEROL SULFATE 2.5 MG AMPUL.NEB 3 ML INHALATION (07:48)
--- NOTE | 2024-06-28 08:36 | PM.PNPUL ---
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 PFTs on 12/05/2018 and 07/10/2020 demonstrate normal FEV1: FVC ratio, total lung capacity 46% predicted consistent with a restrictive abnormality. Patient has chronic hypercarbic respiratory failure and would benefit from noninvasive ventilation to prevent further deterioration and subsequent hospitalizations. Patient was placed on BiPAP on 06/26 but could not tolerate the the pressures. I placed him on a noninvasive ventilator with the AVAPS mode. Patient has weak-paralyzed diaphragms postoperatively with restrictive lung volumes and chronic hypercarbic respiratory failure With pH of 7.12/80/211 on admission. He failed BiPAP and was intubated on 06/23/2024. Currently the patient is on CMV rate of 18, tidal volume 480, 30% FiO2 and a PEEP of 8 with saturations 93%. ABG this morning 7.40/41/ 69. Plan: Mechanical ventilation is being managed by legal executive assistant. I recommend extubation to noninvasive ventilation (BiPAP or AVAPS mode) and continuation of noninvasive ventilation p.r.n. during the day and at night to maintain adequate minute ventilation. please call the Pulmonary consult service after the patient is extubated. The patient has previously been prescribed a CPAP for his obstructive sleep apnea but he does not like to use it and has not used it. The tells me he will not use a noninvasive ventilator or CPAP in the future. If this is truly the case and the patient will be non compliant discussions regarding patient's and/or family's wishes regarding re-intubation should take place. 06/27/24: Patient self-extubated last night. He was initially placed on Vapotherm 60 L 30% FiO2 With a blood gas of 7.33/57/78, but then became tired and was placed on BiPAP Rate of 18 pressures 12 over rate inspiratory time 1.0 and a rise of 3. He tolerated BiPAP poorly and was attempting to pull it off and could not tolerate it. He was placed back on Vapotherm 50 L 45% FiO2 With a repeat blood gas of 7.38/56/78. When I enter the room the patient was awake and alert on Vapotherm 45 L and 30% FiO2 with saturations 94%. Patient denies any fevers but had a temperature last night. White blood cell count 15.5, creatinine 1.8. chest x-ray today shows decreased lung volumes with diffuse interstitial and alveolar infiltrates. He diuresed 2.5 L yesterday and cumulative he is +62 mL since admission. His weight today is 103.5 with an admission weight of 106.7. The patient could not tolerate the BiPAP and I placed him on a noninvasive ventilator with the AVAPS mode and adjusted settings to comfort resulting in a rate of 14, tidal volume 500, EPAP 8, minimal pressure support 6, maximal pressure support 25, inspiratory time 1.2, rise of 5 and 32% FiO2. He tolerated the settings. Plan: I will place him on the noninvasive ventilator with the AVAPS mode with the settings as above. I will obtain an overnight oximetry on 32% and an ABG in the morning prior to removal. I have discussed with the tender coordinator will begin the process for a home noninvasive ventilator with the AVAPS mode. Later in the day filled out an order form to [employer] for a Adelita machine with a T TV -AVAPS-AE settings: rate 14, tidal volume 500, minimum EPAP 5, maximum EPAP 15, minimum pressure support 6, maximum pressure support 25, inspiratory time 1.2. 06/28: Patient transferred out of the ICU yesterday. Overall the patient states he is improved. States he is breathing back to his normal. Short says he has a worsening dry cough but no phlegm. No fever. Patient wore the hospital noninvasive ventilator with AVAPS settings as above with 32% FiO2 and did well overnight. He said he did get some sleep. ABG on these settings was 7.46/49/79. Overnight oximetry with recording duration 9 hours and 7 minutes, average saturation 97%, low saturation 76%, time with saturation less than or equal to 88% was 17 minutes. Oxygen desaturation index 24 with multiple sharp desaturations. Plan: Current noninvasive ventilator settings provide adequate ventilation. Patient has hypoxemia with frequent sharp desats. If he uses a hospital machine tonight will place him on EPAP 10 and increase his FiO2 to 36%. If his home machine is set up this has autoPEEP settings from [address] him on 4 L bleed in. Will repeat overnight oximetry tonight. Discussed with Dr. Guerrier, will follow with you (2) COPD (chronic obstructive pulmonary disease): Code(s): J44.9 - Chronic obstructive pulmonary disease, unspecified Status: Acute Assessment and Plan: Patient Smoked tobacco from 1987 to 2014 for total of 54 pack years, secondhand smoke exposure From his until 2005. Denies vaping or illicit drug use. PFTs with restriction, CT scan on 12/05/2018 with no evidence of emphysema. He has been prescribed trelegy in case he does have COPD. 06/26/24: Plan: If the patient does have COPD, agree with bronchodilators and would continue DuoNebs q.6 hours. At this time he has no wheezing and can discontinue Inhaled corticosteroids and I see the note no need for systemic steroids at this time. The patient is treating for possible pneumonia with vancomycin, azithromycin and aztreonam (started 06/23/24) per ICU team. Vent management per ICU team. 06/27/24: no wheezes on exam. Plan: Continue DuoNebs q.6 hours. Currently being treated for possible pneumonia and the ICU has begun deescalating his antibiotics. Agree with as aggressive diuresis as tolerated per ICU and hospitalist teams. 06/28/24: Patient states the DuoNebs provide him no clinical improvement. No wheezes on exam. Plan: I will change his DuoNebs to Anoro Ellipta 62.5-25 at 1 puff q.day and will continue this to see if he has a clinical benefit. Regarding pneumonia, status post vancomycin 04/24 through 04/27. Patient is s/p azithromycin 5 days from 04/23 through 04/27 and will DC today. Continue aztreonam, day 6. procalcitonin yesterday was 0.9. Last fever was 06/27 at midnight. I will check a CT scan of the chest today to assess for infiltrates. Patient was given 80 of Lasix and diuresed 5.2 L yesterday cumulative diuresis since admission is 4.6 L. His weight today is 99.9 with admission weight 106.7. Agree with diuresis as tolerated by his cardiac and renal systems. (3) Obstructive sleep apnea syndrome in adult: Code(s): G47.33 - Obstructive sleep apnea (adult) (pediatric) Status: Acute Assessment and Plan: 05/20/2020;Split night study: AHI=8.2,desaturation 84%, disrupted sleep, loud snoring;CPAP titration;optimal=8 cm & 1 cm EPR. On 03/15/2024: Pulmonary clinic note states the patient does not tolerate PAP. 06/26/24: The tells me he does not like to wear his mask and hopefully will wear it in the future if needed. See above. Subjective Date/time seen: 06/28/24 08:36 Interval history: 06/26/2024: This is a new pulmonary consult for COPD. 63-year-old with a history of coronary artery disease status post CABG, aortic valve replacement, JIA resection, and aortic aneurysm status post repair (all 03/2018). postoperatively worsening shortness of breath. Weak/paralyzed bilateral diaphragms by sniff 09/17/2020, restrictive PFTs 07/10/2020, obstructive sleep apnea 05/20/2020 not tolerant to PAP therapy, possible COPD. COVID 10/10/2021 in ICU 4 weeks, not intubated, coded during dialysis. 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 end-stage renal disease off of hemodialysis since 01/2023. last seen in the Pulmonary Clinic on 03/15/2024. problem list includes bilateral diaphragm paralysis, recess she did have impairment on PFTs. Was on oxygen since January of 2022 after COVID not using it now. CHAZ not tolerant to PAP. Cat score was 13, using trilogy 1 puff most days. Short of breath with limited activity. After walking 10-5th or 15 ft he needs to sit down and rest. Complains of constant clear nasal drainage sees ENT. Plan was to collect fluid to rule out CSF leak. Room air saturations 96%. Regarding his COPD this was a presumed diagnosis, former smoker, improved with trilogy but not using because he has to rinse his mouth out. Currently not on oxygen. Regarding diaphragm paralysis this was noted after CABG and AVR. Obstructive sleep apnea not on treatment. Problems using past due to excessive humidity in the tubing. Follow-up in 6 months. 06/12/2024: PCP office note. He is very weak. Legs hurt. Fallen 3 times in last 10 days. reports he is hallucinating at night. Not wearing CPAP. Not using oxygen at night. Saturations 82-85% on room air. They declined him ER visit. 06/23/2024: Presented to the emergency department with confusion and weakness. Increasingly agitated and confused over the last several days. Somnolent but arouses. Speaking nonsensically. Blood pressure 120/75, heart rate 79, respiratory rate 24, saturations 50% on room air. Diminished breath sounds bilaterally. White blood cell count 14.4. Creatinine 3.0, was 1.66 on 01/25/2023. Influenza, RSV and COVID negative. Chest x-ray with bilateral elevated hemidiaphragms, status post median sternotomy, congestion And bibasilar infiltrates. Stat BiPAP, ABG, steroids and bronchodilators started. ABG 7./ on 10 L oxygen. ABGs in not improved despite BiPAP 7. and he was intubated. Weight 106.7, Previous weight on 06/12/2024 106.1. 06/24/2024: Afebrile. White blood cell count 16.8. Creatinine 3.0. Remained intubated, On peep of 5 and 45% FiO2.developed hyperglycemia with an anion gap acidosis started on IV insulin. ABG 7.31/38 /99. Nasal MRSA. Weight 107.8. 06/25/2024 Afebrile. White blood cell count 23.8. Creatinine 2.6. intubated, peep of 8, FiO2 35%. ABG 7.32/44/79. Weight 111.1. 06/26/2024: I spoke with the at the bedside. she states that her his breathing was relatively good prior to his CABG, valve replacement and aortic graft placement in . After that he had breathing difficulty which has been unchanged over the last 6 years. The patient is intermittently compliant with inhalers for possible COPD. He is no longer smoking. Today white blood cell count 19.8. Creatinine 2.4. intubated, peep of 8, 35% FiO2. ABG 7.40/41/69. chest x-ray with ET tube in place, small lung volumes, bibasilar interstitial alveolar infiltrates. No change from 06/25/2024. At 10:00 a.m. he is febrile to 37.7. Weight 108.5. cumulative positive 4.8 L since admission. 06/27/24: Patient self-extubated last night. He was initially placed on Vapotherm 60 L 30% FiO2 With a blood gas of 7.33/57/78, but then became tired and was placed on BiPAP Rate of 18 pressures 12 over rate inspiratory time 1.0 and a rise of 3. He tolerated BiPAP poorly and was attempting to pull it off and could not tolerate it. He was placed back on Vapotherm 50 L 45% FiO2 With a repeat blood gas of 7.38/56/78. When I enter the room the patient was awake and alert on Vapotherm 45 L and 30% FiO2 with saturations 94%. Patient denies any fevers but had a temperature last night. White blood cell count 15.5, creatinine 1.8. chest x-ray today shows decreased lung volumes with diffuse interstitial and alveolar infiltrates. He diuresed 2.5 L yesterday and cumulative he is +62 mL since admission. His weight today is 103.5 with an admission weight of 106.7. The patient could not tolerate the BiPAP and I placed him on a noninvasive ventilator with the AVAPS mode and adjusted settings to comfort resulting in a rate of 14, tidal volume 500, EPAP 8, minimal pressure support 9, maximal pressure support 25, inspiratory time 1.2, rise of 5 and 32% FiO2. He tolerated the settings. 06/28: Patient transferred out of the ICU yesterday. Overall the patient states he is improved. States he is breathing back to his normal. Short says he has a worsening dry cough but no phlegm. No fever. Patient wore the hospital noninvasive ventilator with AVAPS settings as above with 32% FiO2 and did well overnight. He said he did get some sleep. ABG on these settings was 7.46/49/79. Overnight oximetry with recording duration 9 hours and 7 minutes, average saturation 97%, low saturation 76%, time with saturation less than or equal to 88% was 17 minutes. Oxygen desaturation index 24 with multiple sharp desaturations. Patient was given 80 of Lasix and diuresed 5.2 L yesterday cumulative diuresis since admission is 4.6 L. His weight today is 99.9. DATA: 01/14/2023: CT abdomen and pelvis. Findings. Imaged portions of the lower chest revealed patchy bibasilar ground-glass and interstitial opacities. Surgical changes of median sternotomy. * 08/21/2022 - 6 Min Walk: resting oxygen saturation on 2 L, 96%, pulse 62. While walking and breathing 4 L a minute he was able to walk for 2 minutes and 30 seconds. This was 305 m. Maintain saturation 96-98%. Heart rate at the end of this was 129 beats per minute. He used a wheeled walker. He had to stop at 2-1/2 minutes due to shortness of breath. 01/20/2022: CT scan of the chest without contrast. Impression: Interval improvement of the diffuse patchy lung opacities since 12/08/2021. This is favored to represent improving infection as described above. No suspicious pulmonary nodules or masses. No mediastinal, hilar axillary lymphadenopathy. *?09/17/2020:? fluoroscopic sniff test; no paradoxical motion of diaphragm, there is incomplete diaphragm excursion symmetrically with elevation of R and L diaphragm, Consider diaphragm eventration versus partial diaphragm paralysis bilaterally.? [facility], [address] [place] [address]. * 05/20/2020;Split night study: AHI=8.2,desaturation 84%, disrupted sleep, loud snoring;CPAP titration;optimal=8 cm & 1 cm EPR. * 07/10/2020 PFT : FEV1 = 47%, 1.44 L.? FVC = 37%, severely decreased. FEV1%=normal. XVP83-87%=72% predicted.? There is no statistically significant change after bronchodilator administration. TLC=46%. RV=nl. RV/TLC mildly increased consistent with mild air trapping. DLCO 38%, severely decreased. Flow volume loop: Consistent with restriction. IMPRESSION: Severe restrictive ventilatory impairment,? mild air trapping, severe diffusion impairment without change following? bronchodilator.? Restrictive disease can mask obstruction.? Clinical correlation is recommended.? Lack of response to bronchodilators should not preclude use if clinically indicated. * 05/20/2020 : Split night study:? AHI was 8.2,? desaturation to 84% disrupted sleep and loud snoring; proceeded to CPAP titration? with an optimal pressure of 8 cm with 1 cm of EPR.? He did not have REM at the setting.? He had elevated limb movements with an index of 86.6. He has been using? CPAP 8 cm with difficulty keeping the mask on.? He has significant air leak.? His compliance is measured from April 24 through July 22 but he did not even get his device until the end of June,? has only had a little over a month.? His AHI is 12.9, large air leak.? He has 1% Fabricio-Rodriguez respirations. 12/05/2018: CT scan chest: No prior studies for comparison. Findings: Heart size is normal. There is atherosclerosis of the coronary arteries and aorta. No significant pleural or pericardial effusion. Status post median sternotomy for CABG. No thoracic lymphadenopathy. Mild thoracic spondylosis with dextrocurvature. There is right lower lobe atelectasis. There is mild pleural thickening of the fissures. No suspicious pulmonary nodules or masses. There is an abnormal appearance of the ascending thoracic aorta consistent with aortic dissection extending from the aortic root to the proximal aspect of the aortic arch. There is gynecomastia. * 12/05/2018 PFT at [facility] in [place] FEV1= 54%, 1.83 L, FVC= 48%, normal FEV1/FVC.? No change with bronchodilator.? Lung volumes were not obtained. * echo at [facility], [facility] 10/06/2018 - right ventricle not well visualized, normal left atrium, right atrium mildly enlarged, right atrial pressure 3 mm mercury.? Normal IVC.? Prosthetic aortic valve.? Right ventricular systolic pressure less than 30 mmHg Review of Systems Constitutional: Constitutional: Reports no additional constitutional complaints Eyes: Eyes: Reports no additional eye complaints ENT: Reports system reviewed and no additional complaints, except as documented Cardiovascular: Cardiovascular: Reports no additional cardiovascular complaints Respiratory: Respiratory: Reports no additional respiratory complaints Gastrointestinal: Gastrointestinal: Reports no additional gastrointestinal complaints Musculoskeletal: Musculoskeletal: Reports no additional musculoskeletal complaints Neurologic: Reports system reviewed and no additional complaints, except as documented Psychiatric: Psychiatric: Reports no additional psychiatric complaints Endocrine: Endocrine: Reports no additional endocrine complaints Hematologic/Lymphatic: Hematologic/Lymphatic: Reports no additional hematologic/lymphatic complaints Allergic/Immunologic: Allergic/Immunologic: Reports no additional allergic/immunologic complaints Exam Const: General: comfortable HENMT: Head: normal to inspection Ears: hearing grossly normal bilaterally Eyes: General: appearance normal, both eyes and all related structures Neck: Neck: normal visual inspection Chest: Chest palpation & inspection: normal inspection of the chest Resp: Auscultation: crackles, no rales, no rhonchi and no wheezes Other: Basilar crackles, no wheezes. Cardio: Jugular venous distension: no JVD GI: Inspection: normal to inspection Skin: General skin exam: normal color Neuro: Other: Patient is communicative and follows all commands. Extrem: General: normal to inspection Psych: Appearance: grossly normal Objective Data Vital Signs Vital Signs: Vital Signs - 24 hr 06/27/24 10:00 06/27/24 10:00 06/27/24 12:26 Temperature 37.2 C Pulse Rate 71 66 74 Respiratory Rate 17 16 Blood Pressure 162/74 H 167/81 H Pulse Oximetry 94 98 Oxygen Delivery High Flow Therapy with Na Oxygen Flow Rate 40 Fraction of Inspired Oxygen 06/27/24 12:00 06/27/24 12:00 06/27/24 12:00 Temperature 37.1 C Pulse Rate 71 71 Respiratory Rate 17 Blood Pressure 167/81 H Pulse Oximetry 98 97 Oxygen Delivery High Flow Therapy with Na Oxygen Flow Rate 40 Fraction of Inspired Oxygen 30 06/27/24 13:08 06/27/24 13:47 06/27/24 13:57 Temperature Pulse Rate 74 71 Respiratory Rate 15 14 Blood Pressure Pulse Oximetry Oxygen Delivery High Flow Therapy with Na Oxygen Flow Rate 45 Fraction of Inspired Oxygen 06/27/24 14:00 06/27/24 16:00 06/27/24 16:00 Temperature 37.5 C Pulse Rate 72 69 70 Respiratory Rate 16 Blood Pressure 141/85 H Pulse Oximetry 97 Oxygen Delivery Oxygen Flow Rate Fraction of Inspired Oxygen 06/27/24 18:00 06/27/24 16:00 06/27/24 19:09 Temperature Pulse Rate 79 75 Respiratory Rate 14 Blood Pressure Pulse Oximetry 94 Oxygen Delivery High Flow Therapy with Na Oxygen Flow Rate 40 Fraction of Inspired Oxygen 30 06/27/24 19:13 06/27/24 19:24 06/27/24 19:20 Temperature Pulse Rate 70 70 Respiratory Rate 17 16 Blood Pressure Pulse Oximetry 96 98 Oxygen Delivery High Flow Therapy with Na Oxygen Flow Rate 45 Fraction of Inspired Oxygen 30 06/27/24 19:30 06/27/24 22:09 06/27/24 20:00 Temperature 37.2 C Pulse Rate 72 72 Respiratory Rate 14 20 Blood Pressure 167/86 H Pulse Oximetry 98 99 95 Oxygen Delivery BiPAP Oxygen Flow Rate Fraction of Inspired Oxygen 06/27/24 20:00 06/27/24 20:00 06/27/24 22:00 Temperature Pulse Rate 72 71 Respiratory Rate Blood Pressure Pulse Oximetry 95 Oxygen Delivery High Flow Therapy with Na Oxygen Flow Rate 45 Fraction of Inspired Oxygen 30 06/28/24 00:00 06/28/24 00:00 06/28/24 00:00 Temperature 37.2 C Pulse Rate 71 71 Respiratory Rate 16 Blood Pressure 167/83 H Pulse Oximetry 99 99 Oxygen Delivery High Flow Therapy with Na Oxygen Flow Rate 45 Fraction of Inspired Oxygen 30 06/28/24 02:00 06/28/24 01:56 06/28/24 04:00 Temperature 37.3 C Pulse Rate 75 80 74 Respiratory Rate 23 H 14 Blood Pressure 167/84 H Pulse Oximetry 99 100 Oxygen Delivery Oxygen Flow Rate Fraction of Inspired Oxygen 06/28/24 04:00 06/28/24 04:00 06/28/24 06:00 Temperature Pulse Rate 69 74 Respiratory Rate Blood Pressure Pulse Oximetry 100 Oxygen Delivery High Flow Therapy with Na Oxygen Flow Rate 45 Fraction of Inspired Oxygen 30 06/28/24 06:43 06/28/24 07:52 06/28/24 07:51 Temperature Pulse Rate 76 Respiratory Rate 16 Blood Pressure Pulse Oximetry 100 95 Oxygen Delivery High Flow Therapy with Na High Flow Therapy with Na Oxygen Flow Rate 20 15 Fraction of Inspired Oxygen 30 30 06/28/24 07:56 06/28/24 07:56 Temperature 36.9 C Pulse Rate 81 75 Respiratory Rate 16 22 H Blood Pressure 155/78 H Pulse Oximetry 100 Oxygen Delivery Oxygen Flow Rate Fraction of Inspired Oxygen Intake/Output Intake/Output: Intake & Output 06/25/24 06/26/24 06/27/24 06/28/24 23:59 23:59 23:59 23:59 Intake Total 2111.1 2039.9 400 Output Total 5701 5623 0654 1600 Balance 261.1 -2730.1 -7416 -8416 Meds/Results Medications: Active Medications Generic Name Dose Route Start Last Admin Trade Name Freq PRN Reason Stop Dose Admin Acetaminophen 650 mg 06/24/24 02:04 Acetaminophen Elixir 325 Mg/10.15 Ml Udc PO Q4H PRN Mild Pain (1-3) or Fever Albuterol/Ipratropium 3 ml 06/25/24 14:00 06/28/24 07:48 Ipratropium 0.5 Mg/Albuterol Sulfate 2.5 Mg Ampul.Neb 3 Ml INHALATION 3 ml Q6HRT CHARITY Administration Amlodipine Besylate 10 mg 06/28/24 09:00 Amlodipine Besylate 10 Mg Tablet PO DAILY [facility] Atorvastatin Calcium 80 mg 06/24/24 09:00 06/27/24 09:17 Atorvastatin 40 Mg Tablet PO 80 mg DAILY CHARITY Administration Azithromycin 500 mg 06/27/24 17:00 06/27/24 16:57 Azithromycin 250 Mg Tablet PO 06/29/24 17:01 500 mg DAILY@1700 CHARITY Administration Dextrose 12.5 gm 06/24/24 11:32 Dextrose 50% 25 Gm/50 Ml Syringe IV PUSH PRN PRN Hypoglycemia Protocol Glucagon 1 mg 06/24/24 11:32 Glucagon For Inj 1 Mg Vial IM PRN PRN Hypoglycemia Protocol Glucose 15 gm 06/24/24 11:32 Glucose Oral Gel 15 Gm Of Glucse In 37.5 Gm Tube PO PRN PRN Hypoglycemia Protocol Heparin Sodium (Porcine) 5,000 units 06/24/24 07:50 06/28/24 05:31 Heparin Sodium 5,000 Units/Ml Vial SUB-Q Not Given Q8HR CHARITY Hydralazine HCl 10 mg 06/27/24 17:00 06/27/24 16:57 Hydralazine 10 Mg Tablet PO 10 mg BID CHARITY Administration Aztreonam 1 gm/ Sodium 50 mls @ 100 mls/hr 06/23/24 22:00 06/27/24 22:19 Chloride IVPB 06/30/24 10:29 Infused Q12H CHARITY Infusion Dextrose 1,000 mls @ 100 mls/hr 06/24/24 11:32 Dextrose 5% 1,000 Ml IVPB PRN PRN Hypoglycemia Protocol Insulin Aspart 4 - 8 units 06/24/24 07:50 06/28/24 07:42 Insulin Aspart (*Bkc) 100 Units/Ml SUB-Q Not Given Q4H [facility] Protocol Insulin Glargine 35 units 06/25/24 09:00 06/27/24 09:12 Insulin Glargine (*Bkc) 100 Units/Ml SUB-Q 35 units DAILY [facility]ITY Administration Levothyroxine Sodium 150 mcg 06/24/24 10:00 06/28/24 05:30 Levothyroxine Sodium 150 Mcg Tablet PO 150 mcg DAILY@0630 CHRAITY Administration Levothyroxine Sodium 25 mcg 06/24/24 10:00 06/28/24 05:30 Levothyroxine Sodium 25 Mcg Tablet PO 25 mcg DAILY@0630 CHARITY Administration Pantoprazole Sodium 40 mg 06/27/24 21:00 06/27/24 20:30 Pantoprazole 40 Mg Tablet BY MOUTH 40 mg Q12HR [facility]ITY Administration Perflutren Lipid Microsphere 0 ml 06/27/24 08:09 Perflutren Lipid Microspheres 1.5 Ml Vial Diluted To 10 Ml Total Volume IV PUSH 06/30/24 08:10 ONCE PRN adequate visualization Protocol Polyethylene Glycol 17 gm 06/26/24 10:20 06/26/24 13:24 Polyethylene Glycol 3350 17 Gm Powd.Pack PO 17 gm QAM PRN Administration Constipation Pregabalin 75 mg 06/24/24 09:00 06/27/24 16:57 Pregabalin (*Crx) 75 Mg Capsule PO 75 mg BID CHARITY Administration Quetiapine Fumarate 25 mg 06/27/24 21:00 06/27/24 20:30 Quetiapine Fumarate 25 Mg Tablet PO 25 mg HS CHARITY Administration Sertraline HCl 100 mg 06/24/24 09:00 06/27/24 09:17 Sertraline Hcl 50 Mg Tablet PO 100 mg DAILY [facility] Administration Sotalol HCl 80 mg 06/28/24 09:00 Sotalol Hcl 80 Mg Tablet PO DAILY [facility] Radiology Results: ITS Impressions Renal Ultrasound 06/24/24 09:12 Impression: 1: Unremarkable renal ultrasound. No stones, masses or hydronephrosis. Venous Doppler Study 06/26/24 15:41 IMPRESSION: Negative bilateral lower extremity venous US. No deep vein thrombosis. Chest X-Ray 06/27/24 05:55 IMPRESSION: 1. Small lung volumes with stable diffuse lung disease, consistent with pulmonary edema versus pneumonia. Labs Labs: Laboratory Results - last 24 hr 06/27/24 06/27/24 06/27/24 08:10 11:49 16:25 Puncture Site ABG pH ABG pCO2 ABG pO2 ABG PO2/FiO2 Ratio ABG HCO3 ABG O2 Saturation ABG O2 Content ABG Base Excess A-a Gradient Oxyhemoglobin Total Hemoglobin O2 Delivery Device O2 Liters/Min Vent Rate FiO2 Expiratory Pressure Inspiratory Pressure POC Capillary Glucose 217 H 250 H NT-Pro-B Natriuret Pep 1580 H Procalcitonin 0.9 TSH 15.400 H Free T4 0.82 06/27/24 06/27/24 06/28/24 20:23 20:27 00:07 Puncture Site ABG pH ABG pCO2 ABG pO2 ABG PO2/FiO2 Ratio ABG HCO3 ABG O2 Saturation ABG O2 Content ABG Base Excess A-a Gradient Oxyhemoglobin Total Hemoglobin O2 Delivery Device O2 Liters/Min Vent Rate FiO2 Expiratory Pressure Inspiratory Pressure POC Capillary Glucose 429 H 415 H 311 H NT-Pro-B Natriuret Pep Procalcitonin TSH Free T4 06/28/24 06/28/24 06/28/24 03:55 04:32 07:35 Puncture Site Right radial ABG pH 7.456 H ABG pCO2 48.8 H ABG pO2 78.5 L ABG PO2/FiO2 Ratio 2.45 ABG HCO3 33.6 H ABG O2 Saturation 96.0 ABG O2 Content 20.1 ABG Base Excess 8.2 A-a Gradient 92.6 Oxyhemoglobin 94.4 Total Hemoglobin 15.1 O2 Delivery Device Non-invasive vent O2 Liters/Min Vent Rate 14 FiO2 32 Expiratory Pressure 9 Inspiratory Pressure 25 POC Capillary Glucose 185 H 200 H NT-Pro-B Natriuret Pep Procalcitonin TSH Free T4
[2024-06-28] MEDS: INSULIN GLARGINE (*BKC) 100 UNITS/ML 35 UNITS SUB-Q (08:49)
[2024-06-28] MEDS: PANTOPRAZOLE 40 MG TABLET BY MOUTH ×2 (08:50→20:24)
[2024-06-28] MEDS: SERTRALINE HCL 50 MG TABLET 100 MG PO (08:50)
[2024-06-28] MEDS: ATORVASTATIN 40 MG TABLET 80 MG PO (08:50)
[2024-06-28] MEDS: PREGABALIN (*CRX) 75 MG CAPSULE PO ×2 (08:50→16:53)
[2024-06-28] MEDS: amLODIPine BESYLATE 10 MG TABLET PO (08:50)
[2024-06-28] MEDS: hydrALAZINE 10 MG TABLET PO ×2 (08:50→16:53)
[2024-06-28] MEDS: SOTALOL HCL 80 MG TABLET PO (08:50)
[2024-06-28 08:57] LABS: Hematocrit 47.1 % (42.0-52.0); Mean Corpuscular HGB Conc 31.8 g/dl (32-36); Mean Corpuscular Hemoglobin 30.1 pg (26-34); Mean Corpuscular Volume 94.4 fl (80-100); Mean Platelet Volume 11.5 fl (7.4-10.4); Platelet Count Result 176 k/mm3 (150-375); Red Blood Count 4.99 M/mm3 (4.6-6.20); Red Cell Distribution Width 16.1 % (11.5-14.5)
[2024-06-28 09:14] LABS: Alanine Aminotransferase 33 U/L (6-50); Albumin Level 3.7 g/dL (3.5-5.1); Alkaline Phosphatase 126 U/L (38-126); Anion Gap 6 mmol/L (4-12); Aspartate Amino Transferase 23 U/L (17-59); Bilirubin,Total 0.8 mg/dL (0.2-1.3); Blood Urea Nitrogen 51 mg/dL (9-20); Calcium 9.1 mg/dL (8.4-10.2); Carbon Dioxide 32 mmol/L (22-30); Chloride 101 mmol/L (98-107); Estimated CRCL calculation 51 ml/min; Estimated Glomerular Filt Rate 47; Glucose 373 mg/dL (65-110); Magnesium 2.1 mg/dL (1.6-2.3); Potassium 3.7 mmol/L (3.4-5.0); Sodium 139 mmol/L (137-145)
[2024-06-28] MEDS: AZTREONAM 1 GM in SODIUM CHLORIDE 0.9% IV 50 ML 100 ML IVPB ×2 (10:04→20:24)
[2024-06-28] MEDS: INSULIN ASPART (*BKC) 100 UNITS/ML 10 UNITS SUB-Q (11:47)
[2024-06-28 11:59] LABS: Glucose Point of Care > 500 mg/dl (65-105)
[2024-06-28 11:59] LABS: Glucose Point of Care > 500 mg/dl (65-105)
[2024-06-28] MEDS: UMECLIDINIUM/VILANTEROL 62.5-25 MCG ELLIPTA 1 PUFF INHALATION (12:36)
--- NOTE | 2024-06-28 16:13 | PM.IMPN ---
Progress Note: A&P Assessment and Plan (1) Hypercapnic respiratory failure: Code(s): J96.92 - Respiratory failure, unspecified with hypercapnia Status: Acute Assessment and Plan: Patient has been noncompliant with his medications and CPAP. Patient has increasingly agitated and confused over the past several days so family brought him to the ER for evaluation. He was hypoxic with SpO2 in 50s on RA. He was placed on non-rebreather mask with improvement in saturation to upper 90s. ABG 7.11/211 on NRBM suggesting hypercapnic respiratory failure. CXR showed cardiomegaly with cardiac decompensation and pulmonary edema. Bilateral basal pneumonia with highly suggestive bilateral pneumonitis. Placed on BiPAP. Nebs and steroids started. IV abx started. Repeat ABG 7./82 on bipap. Patient intubated and admitted to the ICU. he was also treated with intermittent doses of Lasix IV He was stablized. ABG improved. He tolerated SBT. Patient self extubated later in the evening 06/26/2024. He was placed on Vapotherm since then. Was not tolerating BiPAP. Pulmonary consulted and appreciate their input. Echo was unhelpful due to poor images and patient refusing contrast. He has had an excellent diuresis with cumulative fluid balance of -4.3L. Patient wore the hospital noninvasive ventilator with AVAPS last night and and did well. ABG this morning was 7.46/49/79. Apnea showing SpO2 <88% was 17 minutes. Oxygen desat index 24 with multiple sharp desats. Continue current noninvasive ventilator; pulmonary adjusting with plans to repeat overnight oximetry tonight. (2) COPD (chronic obstructive pulmonary disease): Code(s): J44.9 - Chronic obstructive pulmonary disease, unspecified Status: Acute Assessment and Plan: As above. Concern that his symptoms may be more likely related to diaph paralysis then from COPD. Nebs stopped. Steroids stopped. Wean o2 as tolerated (3) Pneumonia: Code(s): J18.9 - Pneumonia, unspecified organism Status: Acute Assessment and Plan: CXR as above. He was started on IV antibiotics for pneumonia. WBC elevated on admisison and climbed to 24K felt related to steroids. Leukocytosis trending down now that he is off steroids Continue abx to complete a 7 day course. (4) Acute kidney injury superimposed on CKD: Code(s): N17.9 - Acute kidney failure, unspecified; N18.9 - Chronic kidney disease, unspecified Status: Acute Assessment and Plan: Patient has a history of stage 5 kidney injury requiring dialysis in the past. Baseline creatinine 1.6 01/26. Cr was 3.0 on admission but has trended down from there. Renal ultrasound with no hydronephrosis. Creatinine continued to improve and now down to 1.5. Follow (5) Diabetes: Qualifiers: Diabetes mellitus complication status: without complication Diabetes mellitus ferry terminal agent insulin use: with ferry terminal agent use Diabetes mellitus type: type 2 Qualified Code(s): E11.9 - Type 2 diabetes mellitus without complications; Z79.4 - ad terminal makeup operator (current) use of insulin Code(s): E11.9 - Type 2 diabetes mellitus without complications Status: Acute Assessment and Plan: A1c 7.5. Patient with Type 2 diabetes on insulin pump at home. He did require insulin infusion per ICU protocol but weaned off now. He takes 1.65U/hour. Lantus started. Glucose poorly controlled. Will add NovoLog at meal times. Continue AccuCheks covering with sliding scale. Hypoglycemia protocol available as needed. Continue to follow. If his confusion is better, than will resume insulin pump tomorrow. 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 Plan hx of AFib - maintaining NSR. QTc 456. Continue sotalol. DVT prophylaxis - refusing heparin subQ; add SCDs Code status - DNR Subjective Date/time seen: 06/28/24 16:13 Interval history: 63yo male with CHAZ noncompliant with CPAP, COPD, tobacco abuse and diaphragmatic paralysis here for altered mental status. Assuming care. Chart reveiwed. He feels better. He had n/v last night but tolerating oral intake today. Normally on insulin pump and CGM system as well. He feels confused but this is improved. Exam Narrative: AF 98.2 121/60 65 20 99% HFNC Gen - NARD sitting up in the chair. Chest - mid and lower inspiratory crackles. nml RR CV - RRR S1/S2. Tele showing no significant dysrhythmias Abd - Soft, obese, NT - Browning secured draining clear yellow urine Ext - 1+ pedal edema Neuro - Alert and oriented x2 (yr and Edvin name). Nonfocal exam. Psych - Nml mood and affect Skin - Warm and dry Objective Data Vital Signs Vital Signs: Vital Signs - 24 hr 06/27/24 18:00 06/27/24 19:09 06/27/24 19:13 Temperature Pulse Rate 79 75 Respiratory Rate 14 Blood Pressure Pulse Oximetry 96 Oxygen Delivery High Flow Therapy with Na Oxygen Flow Rate 45 Fraction of Inspired Oxygen 30 06/27/24 19:24 06/27/24 19:20 06/27/24 19:30 Temperature Pulse Rate 70 70 Respiratory Rate 17 16 Blood Pressure Pulse Oximetry 98 98 Oxygen Delivery BiPAP Oxygen Flow Rate Fraction of Inspired Oxygen 06/27/24 22:09 06/27/24 20:00 06/27/24 20:00 Temperature 98.9 F Pulse Rate 72 72 Respiratory Rate 14 20 Blood Pressure 167/86 H Pulse Oximetry 99 95 95 Oxygen Delivery High Flow Therapy with Na Oxygen Flow Rate 45 Fraction of Inspired Oxygen 30 06/27/24 20:00 06/27/24 22:00 06/28/24 00:00 Temperature 99.0 F Pulse Rate 72 71 71 Respiratory Rate 16 Blood Pressure 167/83 H Pulse Oximetry 99 Oxygen Delivery Oxygen Flow Rate Fraction of Inspired Oxygen 06/28/24 00:00 06/28/24 00:00 06/28/24 02:00 Temperature Pulse Rate 71 75 Respiratory Rate Blood Pressure Pulse Oximetry 99 Oxygen Delivery High Flow Therapy with Na Oxygen Flow Rate 45 Fraction of Inspired Oxygen 30 06/28/24 01:56 06/28/24 04:00 06/28/24 04:00 Temperature 99.2 F Pulse Rate 80 74 Respiratory Rate 23 H 14 Blood Pressure 167/84 H Pulse Oximetry 99 100 100 Oxygen Delivery High Flow Therapy with Na Oxygen Flow Rate 45 Fraction of Inspired Oxygen 30 06/28/24 04:00 06/28/24 06:00 06/28/24 06:43 Temperature Pulse Rate 69 74 Respiratory Rate Blood Pressure Pulse Oximetry 100 Oxygen Delivery High Flow Therapy with Na Oxygen Flow Rate 20 Fraction of Inspired Oxygen 30 06/28/24 07:52 06/28/24 07:51 06/28/24 07:56 Temperature Pulse Rate 76 81 Respiratory Rate 16 16 Blood Pressure Pulse Oximetry 95 Oxygen Delivery High Flow Therapy with Na Oxygen Flow Rate 15 Fraction of Inspired Oxygen 30 06/28/24 07:56 06/28/24 08:50 06/28/24 09:49 Temperature 98.5 F Pulse Rate 75 96 Respiratory Rate 22 H Blood Pressure 155/78 H Pulse Oximetry 100 Oxygen Delivery High Flow Therapy with Na Oxygen Flow Rate 15 Fraction of Inspired Oxygen 06/28/24 11:11 06/28/24 08:00 06/28/24 12:00 Temperature 98.6 F Pulse Rate 67 Respiratory Rate 15 Blood Pressure 91/51 L Pulse Oximetry 92 100 92 Oxygen Delivery High Flow Therapy with Na Nasal Cannula Oxygen Flow Rate 20 2 Fraction of Inspired Oxygen 30 06/28/24 08:00 06/28/24 10:00 06/28/24 12:00 Temperature Pulse Rate 97 90 66 Respiratory Rate Blood Pressure Pulse Oximetry Oxygen Delivery Oxygen Flow Rate Fraction of Inspired Oxygen 06/28/24 12:15 06/28/24 12:37 06/28/24 15:45 Temperature 98.2 F Pulse Rate 65 Respiratory Rate 20 Blood Pressure 121/60 Pulse Oximetry 100 99 99 Oxygen Delivery High Flow Therapy with Na High Flow Nasal Cannula Oxygen Flow Rate 15 2 Fraction of Inspired Oxygen 30 Intake/Output Intake/Output: Intake & Output 06/25/24 06/26/24 06/27/24 06/28/24 23:59 23:59 23:59 23:59 Intake Total 2111.1 2039.9 400 360 Output Total 1850 4550 5650 1600 Balance 261.1 -2510.1 -5250 -1240 Meds/Results Medications: Active Medications Generic Name Dose Route Start Last Admin Trade Name Freq PRN Reason Stop Dose Admin Acetaminophen 650 mg 06/24/24 02:04 Acetaminophen Elixir 325 Mg/10.15 Ml Udc PO Q4H PRN Mild Pain (1-3) or Fever Amlodipine Besylate 10 mg 06/28/24 09:00 06/28/24 08:50 Amlodipine Besylate 10 Mg Tablet PO 10 mg DAILY CHARITY Administration Atorvastatin Calcium 80 mg 06/24/24 09:00 06/28/24 08:50 Atorvastatin 40 Mg Tablet PO 80 mg DAILY [facility]ITY Administration Dextrose 12.5 gm 06/24/24 11:32 Dextrose 50% 25 Gm/50 Ml Syringe IV PUSH PRN PRN Hypoglycemia Protocol Glucagon 1 mg 06/24/24 11:32 Glucagon For Inj 1 Mg Vial IM PRN PRN Hypoglycemia Protocol Glucose 15 gm 06/24/24 11:32 Glucose Oral Gel 15 Gm Of Glucse In 37.5 Gm Tube PO PRN PRN Hypoglycemia Protocol Hydralazine HCl 10 mg 06/27/24 17:00 06/28/24 08:50 Hydralazine 10 Mg Tablet PO 10 mg BID CHARITY Administration Aztreonam 1 gm/ Sodium 50 mls @ 100 mls/hr 06/23/24 22:00 06/28/24 10:04 Chloride IVPB 06/30/24 10:29 100 mls/hr Q12H [facility] Administration Dextrose 1,000 mls @ 100 mls/hr 06/24/24 11:32 Dextrose 5% 1,000 Ml IVPB PRN PRN Hypoglycemia Protocol Insulin Aspart 5 units 06/28/24 17:00 06/28/24 15:54 Insulin Aspart (*Bkc) 100 Units/Ml 0.05 units/kg (5 units) Not Given SUB-Q [facility] Insulin Aspart 4 - 8 units 06/28/24 16:30 06/28/24 15:54 Insulin Aspart (*Bkc) 100 Units/Ml SUB-Q Not Given ACHS [facility] Protocol Insulin Glargine 35 units 06/25/24 09:00 06/28/24 08:49 Insulin Glargine (*Bkc) 100 Units/Ml SUB-Q 35 units DAILY CHARITY Administration Levothyroxine Sodium 150 mcg 06/24/24 10:00 06/28/24 05:30 Levothyroxine Sodium 150 Mcg Tablet PO 150 mcg DAILY@0630 [facility] Administration Levothyroxine Sodium 25 mcg 06/24/24 10:00 06/28/24 05:30 Levothyroxine Sodium 25 Mcg Tablet PO 25 mcg DAILY@0630 [facility] Administration Pantoprazole Sodium 40 mg 06/27/24 21:00 06/28/24 08:50 Pantoprazole 40 Mg Tablet BY MOUTH 40 mg Q12HR [facility] Administration Perflutren Lipid Microsphere 0 ml 06/27/24 08:09 Perflutren Lipid Microspheres 1.5 Ml Vial Diluted To 10 Ml Total Volume IV PUSH 06/30/24 08:10 ONCE PRN adequate visualization Protocol Polyethylene Glycol 17 gm 06/26/24 10:20 06/26/24 13:24 Polyethylene Glycol 3350 17 Gm Powd.Pack PO 17 gm QAM PRN Administration Constipation Pregabalin 75 mg 06/24/24 09:00 06/28/24 08:50 Pregabalin (*Crx) 75 Mg Capsule PO 75 mg BID [facility] Administration Quetiapine Fumarate 25 mg 06/27/24 21:00 06/27/24 20:30 Quetiapine Fumarate 25 Mg Tablet PO 25 mg HS [facility] Administration Sertraline HCl 100 mg 06/24/24 09:00 06/28/24 08:50 Sertraline Hcl 50 Mg Tablet PO 100 mg DAILY [facility] Administration Sotalol HCl 80 mg 06/28/24 09:00 06/28/24 08:50 Sotalol Hcl 80 Mg Tablet PO 80 mg DAILY [facility] Administration Umeclidinium/Vilanterol 1 puff 06/28/24 12:00 06/28/24 12:36 Umeclidinium/Vilanterol 62.5-25 Mcg Ellipta INHALATION 1 puff DAILYRT [facility]ITY Administration Radiology Results: ITS Impressions Renal Ultrasound 06/24/24 09:12 Impression: 1: Unremarkable renal ultrasound. No stones, masses or hydronephrosis. Venous Doppler Study 06/26/24 15:41 IMPRESSION: Negative bilateral lower extremity venous US. No deep vein thrombosis. Chest X-Ray 06/27/24 05:55 IMPRESSION: 1. Small lung volumes with stable diffuse lung disease, consistent with pulmonary edema versus pneumonia. Chest CT 06/28/24 14:36 IMPRESSION: 1. Patchy consolidation and groundglass opacities in the left lower lobe suspicious for pneumonia. More widespread scattered bilateral linear, bandlike and groundglass opacities for which would include a broader differential also including chronic pneumonia or chronic interstitial lung disease. Labs Labs: Laboratory Results - last 24 hr 06/27/24 06/27/24 06/27/24 16:25 20:23 20:27 WBC RBC Hgb Hct MCV MCH MCHC RDW Plt Count MPV Puncture Site ABG pH ABG pCO2 ABG pO2 ABG PO2/FiO2 Ratio ABG HCO3 ABG O2 Saturation ABG O2 Content ABG Base Excess A-a Gradient Oxyhemoglobin Total Hemoglobin O2 Delivery Device O2 Liters/Min Vent Rate FiO2 Expiratory Pressure Inspiratory Pressure Sodium Potassium Chloride Carbon Dioxide Anion Gap BUN Creatinine Estim Creat Clear Calc Estimated GFR Glucose POC Capillary Glucose 250 H 429 H 415 H Calcium Magnesium Total Bilirubin AST ALT Alkaline Phosphatase Total Protein Albumin 06/28/24 06/28/24 06/28/24 00:07 03:55 04:32 WBC RBC Hgb Hct MCV MCH MCHC RDW Plt Count MPV Puncture Site Right radial ABG pH 7.456 H ABG pCO2 48.8 H ABG pO2 78.5 L ABG PO2/FiO2 Ratio 2.45 ABG HCO3 33.6 H ABG O2 Saturation 96.0 ABG O2 Content 20.1 ABG Base Excess 8.2 A-a Gradient 92.6 Oxyhemoglobin 94.4 Total Hemoglobin 15.1 O2 Delivery Device Non-invasive vent O2 Liters/Min Vent Rate 14 FiO2 32 Expiratory Pressure 9 Inspiratory Pressure 25 Sodium Potassium Chloride Carbon Dioxide Anion Gap BUN Creatinine Estim Creat Clear Calc Estimated GFR Glucose POC Capillary Glucose 311 H 185 H Calcium Magnesium Total Bilirubin AST ALT Alkaline Phosphatase Total Protein Albumin 06/28/24 06/28/24 06/28/24 07:35 08:48 11:03 WBC 14.0 H RBC 4.99 Hgb 15.0 Hct 47.1 MCV 94.4 MCH 30.1 MCHC 31.8 L RDW 16.1 H Plt Count 176 MPV 11.5 H Puncture Site ABG pH ABG pCO2 ABG pO2 ABG PO2/FiO2 Ratio ABG HCO3 ABG O2 Saturation ABG O2 Content ABG Base Excess A-a Gradient Oxyhemoglobin Total Hemoglobin O2 Delivery Device O2 Liters/Min Vent Rate FiO2 Expiratory Pressure Inspiratory Pressure Sodium 139 Potassium 3.7 Chloride 101 Carbon Dioxide 32 H Anion Gap 6 BUN 51 H Creatinine 1.50 H Estim Creat Clear Calc 51 Estimated GFR 47 L Glucose 373 H POC Capillary Glucose 200 H > 500 H* Calcium 9.1 Magnesium 2.1 Total Bilirubin 0.8 AST 23 ALT 33 Alkaline Phosphatase 126 Total Protein 7.0 Albumin 3.7 06/28/24 11:06 WBC RBC Hgb Hct MCV MCH MCHC RDW Plt Count MPV Puncture Site ABG pH ABG pCO2 ABG pO2 ABG PO2/FiO2 Ratio ABG HCO3 ABG O2 Saturation ABG O2 Content ABG Base Excess A-a Gradient Oxyhemoglobin Total Hemoglobin O2 Delivery Device O2 Liters/Min Vent Rate FiO2 Expiratory Pressure Inspiratory Pressure Sodium Potassium Chloride Carbon Dioxide Anion Gap BUN Creatinine Estim Creat Clear Calc Estimated GFR Glucose POC Capillary Glucose > 500 H* Calcium Magnesium Total Bilirubin AST ALT Alkaline Phosphatase Total Protein Albumin
[2024-06-28 16:20] LABS: Glucose Point of Care 440 mg/dl (65-105)
[2024-06-28] MEDS: INSULIN ASPART (*BKC) 100 UNITS/ML 12 UNITS SUB-Q (16:53)
--- NOTE | 2024-06-28 18:55 | PC.NURSE ---
Pt called this RN into the room to discuss code status. He would like to be a Full Code. Pt is A&OX2. agrees to Full code status. Dr Guerrier made aware. KARON Kennedy verified with pt/.
[2024-06-28 19:44] LABS: Glucose Point of Care 346 mg/dl (65-105)
[2024-06-28] MEDS: QUEtiapine FUMARATE 25 MG TABLET PO (20:24)
[2024-06-29] VITALS (27 sets, daily range): BP systolic 99–151; BP diastolic 49–74; PULSE 57–86; RESP 19–22; TEMP 36.4–36.9; O2SAT 88–98
[2024-06-29 05:07] LABS: Alveolar/Arterial O2 Gradient 128.8 mmHg; Base Excess ABG 6.7 mEq/l (+/-2.0); Fractional Inspired Oxygen 36 %; Oxygen Content ABG 17.5 %vol (16.0-22.0); Oxygen Saturation ABG 94.8 % (95.0-100.0); Oxyhemoglobin 93.6 % THb (90.0-100.0); PCO2 ABG 48.4 mmHg (35.0-45.0); PO2 ABG 71.7 mmHg (80.0-100.0); PO2 FiO2 Ratio Arterial Blood 1.99 %; Total Hemoglobin 13.3 g/dL (12.0-18.0); pH ABG 7.438 (7.350-7.450)
[2024-06-29 05:08] LABS: Device OTHER DEVICE; Modified Allen's Test Pass; Site Drawn RIGHT RADIAL
[2024-06-29] MEDS: LEVOTHYROXINE SODIUM 150 MCG TABLET PO (05:36)
[2024-06-29] MEDS: LEVOTHYROXINE SODIUM 25 MCG TABLET PO (05:36)
[2024-06-29 05:39] LABS: Glucose Point of Care 128 mg/dl (65-105)
[2024-06-29 07:07] LABS: Hematocrit 43.6 % (42.0-52.0); Hemoglobin 13.8 g/dL (14.0-18.0); Mean Corpuscular HGB Conc 31.7 g/dl (32-36); Mean Corpuscular Hemoglobin 29.6 pg (26-34); Mean Corpuscular Volume 93.6 fl (80-100); Mean Platelet Volume 11.9 fl (7.4-10.4); Platelet Count Result 174 k/mm3 (150-375); Red Blood Count 4.66 M/mm3 (4.6-6.20); Red Cell Distribution Width 15.9 % (11.5-14.5); White Blood Count 14.6 K/mm3 (4.5-10.0)
[2024-06-29] MEDS: UMECLIDINIUM/VILANTEROL 62.5-25 MCG ELLIPTA 1 PUFF INHALATION (07:19)
[2024-06-29 07:21] LABS: Alanine Aminotransferase 33 U/L (6-50); Albumin Level 3.4 g/dL (3.5-5.1); Alkaline Phosphatase 110 U/L (38-126); Anion Gap 5 mmol/L (4-12); Aspartate Amino Transferase 29 U/L (17-59); Bilirubin,Total 0.6 mg/dL (0.2-1.3); Blood Urea Nitrogen 52 mg/dL (9-20); Carbon Dioxide 34 mmol/L (22-30); Chloride 100 mmol/L (98-107); Estimated CRCL calculation 49 ml/min; Estimated Glomerular Filt Rate 44; Glucose 122 mg/dL (65-110); Magnesium 2.2 mg/dL (1.6-2.3); Potassium 3.4 mmol/L (3.4-5.0); Sodium 139 mmol/L (137-145)
[2024-06-29 07:44] LABS: Rheumatoid Factor < 12.0 IU/ML (<12)
[2024-06-29 07:50] LABS: Glucose Point of Care 138 mg/dl (65-105)
[2024-06-29 07:51] LABS: Creatine Kinase 33 U/L (55-170)
[2024-06-29 08:14] LABS: NT Pro B Type Natriuretic Pept 800 pg/mL (19.9-100)
--- NOTE | 2024-06-29 09:01 | PM.PNPUL ---
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 PFTs on 12/05/2018 and 07/10/2020 demonstrate normal FEV1: FVC ratio, total lung capacity 46% predicted consistent with a restrictive abnormality. Patient has chronic hypercarbic respiratory failure and would benefit from noninvasive ventilation to prevent further deterioration and subsequent hospitalizations. Patient was placed on BiPAP on 06/26 but could not tolerate the the pressures. I placed him on a noninvasive ventilator with the AVAPS mode. Patient has weak-paralyzed diaphragms postoperatively with restrictive lung volumes and chronic hypercarbic respiratory failure With pH of 7.12/80/211 on admission. He failed BiPAP and was intubated on 06/23/2024. Currently the patient is on CMV rate of 18, tidal volume 480, 30% FiO2 and a PEEP of 8 with saturations 93%. ABG this morning 7.40/41/ 69. Plan: Mechanical ventilation is being managed by safety grooving machine operator. I recommend extubation to noninvasive ventilation (BiPAP or AVAPS mode) and continuation of noninvasive ventilation p.r.n. during the day and at night to maintain adequate minute ventilation. please call the Pulmonary consult service after the patient is extubated. The patient has previously been prescribed a CPAP for his obstructive sleep apnea but he does not like to use it and has not used it. The tells me he will not use a noninvasive ventilator or CPAP in the future. If this is truly the case and the patient will be non compliant discussions regarding patient's and/or family's wishes regarding re-intubation should take place. 06/27/24: Patient self-extubated last night. He was initially placed on Vapotherm 60 L 30% FiO2 With a blood gas of 7.33/57/78, but then became tired and was placed on BiPAP Rate of 18 pressures 12 over rate inspiratory time 1.0 and a rise of 3. He tolerated BiPAP poorly and was attempting to pull it off and could not tolerate it. He was placed back on Vapotherm 50 L 45% FiO2 With a repeat blood gas of 7.38/56/78. When I enter the room the patient was awake and alert on Vapotherm 45 L and 30% FiO2 with saturations 94%. Patient denies any fevers but had a temperature last night. White blood cell count 15.5, creatinine 1.8. chest x-ray today shows decreased lung volumes with diffuse interstitial and alveolar infiltrates. He diuresed 2.5 L yesterday and cumulative he is +62 mL since admission. His weight today is 103.5 with an admission weight of 106.7. The patient could not tolerate the BiPAP and I placed him on a noninvasive ventilator with the AVAPS mode and adjusted settings to comfort resulting in a rate of 14, tidal volume 500, EPAP 8, minimal pressure support 6, maximal pressure support 25, inspiratory time 1.2, rise of 5 and 32% FiO2. He tolerated the settings. Plan: I will place him on the noninvasive ventilator with the AVAPS mode with the settings as above. I will obtain an overnight oximetry on 32% and an ABG in the morning prior to removal. I have discussed with the clinical unit coordinator will begin the process for a home noninvasive ventilator with the AVAPS mode. Later in the day filled out an order form to [employer] for a Adelita machine with a T TV -AVAPS-AE settings: rate 14, tidal volume 500, minimum EPAP 5, maximum EPAP 15, minimum pressure support 6, maximum pressure support 25, inspiratory time 1.2. 06/28: Patient transferred out of the ICU yesterday. Overall the patient states he is improved. States he is breathing back to his normal. Short says he has a worsening dry cough but no phlegm. No fever. Patient wore the hospital noninvasive ventilator with AVAPS settings as above with 32% FiO2 and did well overnight. He said he did get some sleep. ABG on these settings was 7.46/49/79. Overnight oximetry with recording duration 9 hours and 7 minutes, average saturation 97%, low saturation 76%, time with saturation less than or equal to 88% was 17 minutes. Oxygen desaturation index 24 with multiple sharp desaturations. Plan: Current noninvasive ventilator settings provide adequate ventilation. Patient has hypoxemia with frequent sharp desats. If he uses a hospital machine tonight will place him on EPAP 10 and increase his FiO2 to 36%. If his home machine is set up this has autoPEEP settings from [address] him on 4 L bleed in. Will repeat overnight oximetry tonight. Later in the day patient had a more confluent left lower lobe infiltrate and diffuse bilateral septal thickening with mild reticulation with an upper lobe predominance without a peripheral predominance and without honeycombing. 06/29/24: The patient continues to improve. He is sitting in a chair eating breakfast. He says he feels normal except for his weakness. He says his breathing is normal and denies fever, chills, phlegm or hemoptysis. When I enter the room he is on 2 L with saturations 96%. I decreased him to 1 L and his saturation was 93%. He is afebrile. White blood cell count 14.6, creatinine 1.6, cumulative diuresis since admission is 3.7 L. His weight today is 103. BNP has decreased from 1580 to 800. Patient wore home noninvasive ventilator with a Adelita machine with a T TV -AVAPS-AE settings: rate 14, tidal volume 500, minimum EPAP 5, maximum EPAP 15, minimum pressure support 6, maximum pressure support 25, inspiratory time 1.2, 4 L bleed in. Patient said he slept well with the machine and had no issues. ABG prior to removal was 7.44/48/72. Overnight oximetry with recording duration 6 hours and 10 minutes, average saturation 95%, low saturation 92%, time with saturation less than or equal to 88 was 0 minutes. Oxygen desaturation index was 0. CT scan with more confluent left lower lobe infiltrate consistent with pneumonia and diffuse bilateral septal thickening with mild reticulations with an upper lobe predominance. These changes may all be related to immune pneumonia but he may have chronic interstitial lung disease. He does not eyes arthritis, rashes. States that his dyspnea on exertion is been stable for the last 2 or 3 years. 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 He may have an interstitial lung disease. Plan: current home ventilator with 4 L bleed in provide adequate ventilation and oxygenation. He should continue this when he was transferred from the hospital. Regarding other etiologies for his possible interstitial lung disease I will send serologies. I will order a LINA screen that includes 11 different auto antibodies, an ANCA screen, a rheumatoid factor, anti CCP antibody, hypersensitivity pneumonitis panel, a CPK, an aldolase level, and myomarker 3 plus profile. patient will need a follow-up CT scan after he has recovered from this hospitalization to reassess his infiltrates. From a pulmonary perspective patient is ready to be discharged on these pulmonary medications: Anoro Ellipta 62.5-25 at 1 puff q.day Albuterol rescue inhaler 2 puffs q.4 hours p.r.n. shortness of breath. Oxygen at rest or with activity per home O2 assessment which I have ordered. He needs this home O2 assessment to also qualify for nocturnal oxygen. When he naps or sleeps noninvasive ventilation through [employer] with TTV -AVAPS-AE settings: rate 14, tidal volume 500, minimum EPAP 5, maximum EPAP 15, minimum pressure support 6, maximum pressure support 25, inspiratory time 1.2, and 4 L bleed in. Discussed with Dr. Guerrier, will follow with you (2) COPD (chronic obstructive pulmonary disease): Code(s): J44.9 - Chronic obstructive pulmonary disease, unspecified Status: Acute Assessment and Plan: Patient Smoked tobacco from 1987 to 2014 for total of 54 pack years, secondhand smoke exposure From his until 2004. Denies vaping or illicit drug use. PFTs with restriction, CT scan on 12/05/2018 with no evidence of emphysema. He has been prescribed trelegy in case he does have COPD. 06/26/24: Plan: If the patient does have COPD, agree with bronchodilators and would continue DuoNebs q.6 hours. At this time he has no wheezing and can discontinue Inhaled corticosteroids and I see the note no need for systemic steroids at this time. The patient is treating for possible pneumonia with vancomycin, azithromycin and aztreonam (started 06/23/24) per ICU team. Vent management per ICU team. 06/27/24: no wheezes on exam. Plan: Continue DuoNebs q.6 hours. Currently being treated for possible pneumonia and the ICU has begun deescalating his antibiotics. Agree with as aggressive diuresis as tolerated per ICU and hospitalist teams. 06/28/24: Patient states the DuoNebs provide him no clinical improvement. No wheezes on exam. Plan: I will change his DuoNebs to Anoro Ellipta 62.5-25 at 1 puff q.day and will continue this to see if he has a clinical benefit. Regarding pneumonia, status post vancomycin 04/24 through 04/27. Patient is s/p azithromycin 5 days from 04/23 through 04/27 and will DC today. Continue aztreonam, day 6. procalcitonin yesterday was 0.9. Last fever was 06/27 at midnight. I will check a CT scan of the chest today to assess for infiltrates. Patient was given 80 of Lasix and diuresed 5.2 L on 06/27 cumulative diuresis since admission is 4.6 L. His weight today is 99.9 with admission weight 106.7. Agree with diuresis as tolerated by his cardiac and renal systems. 06/29: Afebrile, white blood cell count 14.6. cumulative diuresis since admission is 3.7 L. His weight today is 103. BNP has decreased from 1580 to 800. Plan: Continue Anoro Ellipta 62.5-25 at 1 puff q.day. for pneumonia continue azithromycin, day 7. Patient diuresed 450 mL yesterday without Lasix. BNP is improved. Will follow off of Lasix for now. (3) Obstructive sleep apnea syndrome in adult: Code(s): G47.33 - Obstructive sleep apnea (adult) (pediatric) Status: Acute Assessment and Plan: 05/20/2020;Split night study: AHI=8.2,desaturation 84%, disrupted sleep, loud snoring;CPAP titration;optimal=8 cm & 1 cm EPR. On 03/15/2024: Pulmonary clinic note states the patient does not tolerate PAP. 06/26/24: The tells me he does not like to wear his mask and hopefully will wear it in the future if needed. See above. Subjective Date/time seen: 06/29/24 09:01 Interval history: 06/26/2024: This is a new pulmonary consult for COPD. 63-year-old with a history of coronary artery disease status post CABG, aortic valve replacement, JIA resection, and aortic aneurysm status post repair (all 03/2018). postoperatively worsening shortness of breath. Weak/paralyzed bilateral diaphragms by sniff 09/17/2020, restrictive PFTs 07/10/2020, obstructive sleep apnea 05/20/2020 not tolerant to PAP therapy, possible COPD. COVID 10/10/2021 in ICU 4 weeks, not intubated, coded during dialysis. 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 end-stage renal disease off of hemodialysis since 01/2023. last seen in the Pulmonary Clinic on 03/15/2024. problem list includes bilateral diaphragm paralysis, recess she did have impairment on PFTs. Was on oxygen since January of 2022 after COVID not using it now. CHAZ not tolerant to PAP. Cat score was 13, using trilogy 1 puff most days. Short of breath with limited activity. After walking 10-5th or 15 ft he needs to sit down and rest. Complains of constant clear nasal drainage sees ENT. Plan was to collect fluid to rule out CSF leak. Room air saturations 96%. Regarding his COPD this was a presumed diagnosis, former smoker, improved with trilogy but not using because he has to rinse his mouth out. Currently not on oxygen. Regarding diaphragm paralysis this was noted after CABG and AVR. Obstructive sleep apnea not on treatment. Problems using past due to excessive humidity in the tubing. Follow-up in 6 months. 06/12/2024: PCP office note. He is very weak. Legs hurt. Fallen 3 times in last 10 days. reports he is hallucinating at night. Not wearing CPAP. Not using oxygen at night. Saturations 82-85% on room air. They declined him ER visit. 06/23/2024: Presented to the emergency department with confusion and weakness. Increasingly agitated and confused over the last several days. Somnolent but arouses. Speaking nonsensically. Blood pressure 120/75, heart rate 79, respiratory rate 24, saturations 50% on room air. Diminished breath sounds bilaterally. White blood cell count 14.4. Creatinine 3.0, was 1.66 on 01/25/2023. Influenza, RSV and COVID negative. Chest x-ray with bilateral elevated hemidiaphragms, status post median sternotomy, congestion And bibasilar infiltrates. Stat BiPAP, ABG, steroids and bronchodilators started. ABG 7./211 on 10 L oxygen. ABGs in not improved despite BiPAP 7./ and he was intubated. Weight 106.7, Previous weight on 06/12/2024 106.1. 06/24/2024: Afebrile. White blood cell count 16.8. Creatinine 3.0. Remained intubated, On peep of 5 and 45% FiO2.developed hyperglycemia with an anion gap acidosis started on IV insulin. ABG 7.31/38 /99. Nasal MRSA. Weight 107.8. 06/25/2024 Afebrile. White blood cell count 23.8. Creatinine 2.6. intubated, peep of 8, FiO2 35%. ABG 7.32/44/79. Weight 111.1. 06/26/2024: I spoke with the at the bedside. she states that her his breathing was relatively good prior to his CABG, valve replacement and aortic graft placement in . After that he had breathing difficulty which has been unchanged over the last 6 years. The patient is intermittently compliant with inhalers for possible COPD. He is no longer smoking. Today white blood cell count 19.8. Creatinine 2.4. intubated, peep of 8, 35% FiO2. ABG 7.40/41/69. chest x-ray with ET tube in place, small lung volumes, bibasilar interstitial alveolar infiltrates. No change from 06/25/2024. At 10:00 a.m. he is febrile to 37.7. Weight 108.5. cumulative positive 4.8 L since admission. 06/27/24: Patient self-extubated last night. He was initially placed on Vapotherm 60 L 30% FiO2 With a blood gas of 7.33/57/78, but then became tired and was placed on BiPAP Rate of 18 pressures 12 over rate inspiratory time 1.0 and a rise of 3. He tolerated BiPAP poorly and was attempting to pull it off and could not tolerate it. He was placed back on Vapotherm 50 L 45% FiO2 With a repeat blood gas of 7.38/56/78. When I enter the room the patient was awake and alert on Vapotherm 45 L and 30% FiO2 with saturations 94%. Patient denies any fevers but had a temperature last night. White blood cell count 15.5, creatinine 1.8. chest x-ray today shows decreased lung volumes with diffuse interstitial and alveolar infiltrates. He diuresed 2.5 L yesterday and cumulative he is +62 mL since admission. His weight today is 103.5 with an admission weight of 106.7. The patient could not tolerate the BiPAP and I placed him on a noninvasive ventilator with the AVAPS mode and adjusted settings to comfort resulting in a rate of 14, tidal volume 500, EPAP 8, minimal pressure support 9, maximal pressure support 25, inspiratory time 1.2, rise of 5 and 32% FiO2. He tolerated the settings. Later in the day filled out an order form to [employer] for a Adelita machine with a T TV -AVAPS-AE settings: rate 14, tidal volume 500, minimum EPAP 5, maximum EPAP 15, minimum pressure support 6, maximum pressure support 25, inspiratory time 1.2. 06/28: Patient transferred out of the ICU yesterday. Overall the patient states he is improved. States he is breathing back to his normal. Short says he has a worsening dry cough but no phlegm. No fever. Patient wore the hospital noninvasive ventilator with AVAPS settings as above with 32% FiO2 and did well overnight. He said he did get some sleep. ABG on these settings was 7.46/49/79. Overnight oximetry with recording duration 9 hours and 7 minutes, average saturation 97%, low saturation 76%, time with saturation less than or equal to 88% was 17 minutes. Oxygen desaturation index 24 with multiple sharp desaturations. Patient was given 80 of Lasix and diuresed 5.2 L yesterday cumulative diuresis since admission is 4.6 L. His weight today is 99.9. Later in the day patient had a more confluent left lower lobe infiltrate and diffuse bilateral septal thickening with mild reticulation with an upper lobe predominance without a peripheral predominance and without honeycombing. 06/29/24: The patient continues to improve. He is sitting in a chair eating breakfast. He says he feels normal except for his weakness. He says his breathing is normal and denies fever, chills, phlegm or hemoptysis. When I enter the room he is on 2 L with saturations 96%. I decreased him to 1 L and his saturation was 93%. He is afebrile. White blood cell count 14.6, creatinine 1.6, cumulative diuresis since admission is 3.7 L. His weight today is 103. BNP has decreased from 1580 to 800. patient wore home noninvasive ventilator with a Adelita machine with a T TV -AVAPS-AE settings: rate 14, tidal volume 500, minimum EPAP 5, maximum EPAP 15, minimum pressure support 6, maximum pressure support 25, inspiratory time 1.2, 4 L bleed in. Patient said he slept well with the machine and had no issues. ABG prior to removal was 7.44/48/72. Overnight oximetry with recording duration 6 hours and 10 minutes, average saturation 95%, low saturation 92%, time with saturation less than or equal to 88 was 0 minutes. Oxygen desaturation index was 0. DATA: 01/14/2023: CT abdomen and pelvis. Findings. Imaged portions of the lower chest revealed patchy bibasilar ground-glass and interstitial opacities. Surgical changes of median sternotomy. * 08/21/2022 - 6 Min Walk: resting oxygen saturation on 2 L, 96%, pulse 62. While walking and breathing 4 L a minute he was able to walk for 2 minutes and 30 seconds. This was 305 m. Maintain saturation 96-98%. Heart rate at the end of this was 129 beats per minute. He used a wheeled walker. He had to stop at 2-1/2 minutes due to shortness of breath. 01/20/2022: CT scan of the chest without contrast. Impression: Interval improvement of the diffuse patchy lung opacities since 12/08/2021. This is favored to represent improving infection as described above. No suspicious pulmonary nodules or masses. No mediastinal, hilar axillary lymphadenopathy. *?09/17/2020:? fluoroscopic sniff test; no paradoxical motion of diaphragm, there is incomplete diaphragm excursion symmetrically with elevation of R and L diaphragm, Consider diaphragm eventration versus partial diaphragm paralysis bilaterally.? [facility], [address] [place] [address]. * 05/20/2020;Split night study: AHI=8.2,desaturation 84%, disrupted sleep, loud snoring;CPAP titration;optimal=8 cm & 1 cm EPR. * 07/10/2020 PFT : FEV1 = 47%, 1.44 L.? FVC = 37%, severely decreased. FEV1%=normal. THF83-88%=72% predicted.? There is no statistically significant change after bronchodilator administration. TLC=46%. RV=nl. RV/TLC mildly increased consistent with mild air trapping. DLCO 38%, severely decreased. Flow volume loop: Consistent with restriction. IMPRESSION: Severe restrictive ventilatory impairment,? mild air trapping, severe diffusion impairment without change following? bronchodilator.? Restrictive disease can mask obstruction.? Clinical correlation is recommended.? Lack of response to bronchodilators should not preclude use if clinically indicated. * 05/20/2020 : Split night study:? AHI was 8.2,? desaturation to 84% disrupted sleep and loud snoring; proceeded to CPAP titration? with an optimal pressure of 8 cm with 1 cm of EPR.? He did not have REM at the setting.? He had elevated limb movements with an index of 86.6. He has been using? CPAP 8 cm with difficulty keeping the mask on.? He has significant air leak.? His compliance is measured from April 24 through July 22 but he did not even get his device until the end of June,? has only had a little over a month.? His AHI is 12.9, large air leak.? He has 1% Fabricio-Rodriguez respirations. 12/05/2018: CT scan chest: No prior studies for comparison. Findings: Heart size is normal. There is atherosclerosis of the coronary arteries and aorta. No significant pleural or pericardial effusion. Status post median sternotomy for CABG. No thoracic lymphadenopathy. Mild thoracic spondylosis with dextrocurvature. There is right lower lobe atelectasis. There is mild pleural thickening of the fissures. No suspicious pulmonary nodules or masses. There is an abnormal appearance of the ascending thoracic aorta consistent with aortic dissection extending from the aortic root to the proximal aspect of the aortic arch. There is gynecomastia. * 12/05/2018 PFT at [facility] in [place] FEV1= 54%, 1.83 L, FVC= 48%, normal FEV1/FVC.? No change with bronchodilator.? Lung volumes were not obtained. * echo at [facility], [facility] 10/06/2018 - right ventricle not well visualized, normal left atrium, right atrium mildly enlarged, right atrial pressure 3 mm mercury.? Normal IVC.? Prosthetic aortic valve.? Right ventricular systolic pressure less than 30 mmHg Review of Systems Review of Systems: ROS unobtainable: Yes unobtainable due to endotracheal tube Constitutional: Constitutional: Reports no additional constitutional complaints Eyes: Eyes: Reports no additional eye complaints ENT: Reports system reviewed and no additional complaints, except as documented Cardiovascular: Cardiovascular: Reports no additional cardiovascular complaints Respiratory: Respiratory: Reports no additional respiratory complaints Gastrointestinal: Gastrointestinal: Reports no additional gastrointestinal complaints Musculoskeletal: Musculoskeletal: Reports no additional musculoskeletal complaints Neurologic: Reports system reviewed and no additional complaints, except as documented Psychiatric: Psychiatric: Reports no additional psychiatric complaints Endocrine: Endocrine: Reports no additional endocrine complaints Hematologic/Lymphatic: Hematologic/Lymphatic: Reports no additional hematologic/lymphatic complaints Allergic/Immunologic: Allergic/Immunologic: Reports no additional allergic/immunologic complaints Exam Const: General: comfortable HENMT: Head: normal to inspection Ears: hearing grossly normal bilaterally Eyes: General: appearance normal, both eyes and all related structures Neck: Neck: normal visual inspection Chest: Chest palpation & inspection: normal inspection of the chest Resp: Auscultation: crackles, no rales, no rhonchi and no wheezes Other: 06/28 Basilar crackles, no wheezes. 06/29: Few basilar crackles, no wheezes Cardio: Jugular venous distension: no JVD GI: Inspection: normal to inspection Skin: General skin exam: normal color Neuro: Other: Patient is communicative and follows all commands. Extrem: General: normal to inspection Other: edema Psych: Appearance: grossly normal Objective Data Vital Signs Vital Signs: Vital Signs - 24 hr 06/28/24 09:49 06/28/24 11:11 06/28/24 12:00 Temperature 37.0 C Pulse Rate 67 Respiratory Rate 15 Blood Pressure 91/51 L Pulse Oximetry 92 92 Oxygen Delivery High Flow Therapy with Na Nasal Cannula Oxygen Flow Rate 15 2 Fraction of Inspired Oxygen 06/28/24 10:00 06/28/24 12:00 06/28/24 12:15 Temperature Pulse Rate 90 66 Respiratory Rate Blood Pressure Pulse Oximetry 100 Oxygen Delivery High Flow Therapy with Na Oxygen Flow Rate 15 Fraction of Inspired Oxygen 30 06/28/24 12:37 06/28/24 15:45 06/28/24 14:00 Temperature 36.8 C Pulse Rate 65 66 Respiratory Rate 20 Blood Pressure 121/60 Pulse Oximetry 99 99 Oxygen Delivery High Flow Nasal Cannula Oxygen Flow Rate 2 Fraction of Inspired Oxygen 06/28/24 16:00 06/28/24 18:00 06/28/24 16:00 Temperature Pulse Rate 63 67 Respiratory Rate Blood Pressure Pulse Oximetry 99 Oxygen Delivery Nasal Cannula Oxygen Flow Rate 2 Fraction of Inspired Oxygen 06/28/24 20:00 06/28/24 20:23 06/28/24 20:00 Temperature 36.7 C Pulse Rate 67 70 64 Respiratory Rate 20 20 Blood Pressure 124/61 Pulse Oximetry 99 93 Oxygen Delivery Nasal Cannula Oxygen Flow Rate 2 Fraction of Inspired Oxygen 06/28/24 22:00 06/28/24 22:40 06/28/24 22:41 Temperature Pulse Rate 59 L 63 63 Respiratory Rate 19 Blood Pressure Pulse Oximetry 98 98 Oxygen Delivery BiPAP Oxygen Flow Rate Fraction of Inspired Oxygen 06/28/24 23:50 06/29/24 00:16 06/29/24 00:00 Temperature 36.8 C Pulse Rate 63 63 60 Respiratory Rate 19 20 Blood Pressure 151/74 H Pulse Oximetry 98 97 Oxygen Delivery BiPAP Oxygen Flow Rate Fraction of Inspired Oxygen 30 06/29/24 02:00 06/29/24 03:45 06/29/24 02:20 Temperature Pulse Rate 57 L 57 L 66 Respiratory Rate 20 Blood Pressure Pulse Oximetry 97 97 Oxygen Delivery BiPAP Oxygen Flow Rate Fraction of Inspired Oxygen 30 06/29/24 04:00 06/29/24 05:00 06/29/24 06:00 Temperature 36.8 C Pulse Rate 61 65 66 Respiratory Rate 20 Blood Pressure 146/67 H Pulse Oximetry 92 Oxygen Delivery Oxygen Flow Rate Fraction of Inspired Oxygen 06/29/24 07:20 06/29/24 07:58 Temperature 36.9 C Pulse Rate 65 Respiratory Rate 20 Blood Pressure 151/64 H Pulse Oximetry 98 95 Oxygen Delivery High Flow Nasal Cannula Oxygen Flow Rate 2 Fraction of Inspired Oxygen Intake/Output Intake/Output: Intake & Output 06/26/24 06/27/24 06/28/24 06/29/24 23:59 23:59 23:59 23:59 Intake Total 2039.9 400 1700 Output Total 4550 5650 2150 300 [facility] -2510.1 -5250 -450 -300 Meds/Results Medications: Active Medications Generic Name Dose Route Start Last Admin Trade Name Freq PRN Reason Stop Dose Admin Acetaminophen 650 mg 06/24/24 02:04 Acetaminophen Elixir 325 Mg/10.15 Ml Udc PO Q4H PRN Mild Pain (1-3) or Fever Amlodipine Besylate 10 mg 06/28/24 09:00 06/28/24 08:50 Amlodipine Besylate 10 Mg Tablet PO 10 mg DAILY CHARITY Administration Atorvastatin Calcium 80 mg 06/24/24 09:00 06/28/24 08:50 Atorvastatin 40 Mg Tablet PO 80 mg DAILY CHARITY Administration Dextrose 12.5 gm 06/24/24 11:32 Dextrose 50% 25 Gm/50 Ml Syringe IV PUSH PRN PRN Hypoglycemia Protocol Glucagon 1 mg 06/24/24 11:32 Glucagon For Inj 1 Mg Vial IM PRN PRN Hypoglycemia Protocol Glucose 15 gm 06/24/24 11:32 Glucose Oral Gel 15 Gm Of Glucse In 37.5 Gm Tube PO PRN PRN Hypoglycemia Protocol Hydralazine HCl 10 mg 06/27/24 17:00 06/28/24 16:53 Hydralazine 10 Mg Tablet PO 10 mg BID CHARITY Administration Aztreonam 1 gm/ Sodium 50 mls @ 100 mls/hr 06/23/24 22:00 06/28/24 20:55 Chloride IVPB 06/30/24 10:29 Infused Q12H CHARITY Infusion Dextrose 1,000 mls @ 100 mls/hr 06/24/24 11:32 Dextrose 5% 1,000 Ml IVPB PRN PRN Hypoglycemia Protocol Insulin Aspart 5 units 06/28/24 17:00 06/28/24 15:54 Insulin Aspart (*Bkc) 100 Units/Ml 0.05 units/kg (5 units) Not Given SUB-Q TIDWM [facility] Insulin Aspart 4 - 8 units 06/28/24 16:30 06/29/24 05:35 Insulin Aspart (*Bkc) 100 Units/Ml SUB-Q Not Given ACHS [facility] Protocol Insulin Glargine 35 units 06/25/24 09:00 06/28/24 08:49 Insulin Glargine (*Bkc) 100 Units/Ml SUB-Q 35 units DAILY CHARITY Administration Levothyroxine Sodium 150 mcg 06/24/24 10:00 06/29/24 05:36 Levothyroxine Sodium 150 Mcg Tablet PO 150 mcg DAILY@0630 CHARITY Administration Levothyroxine Sodium 25 mcg 06/24/24 10:00 06/29/24 05:36 Levothyroxine Sodium 25 Mcg Tablet PO 25 mcg DAILY@0630 CHARITY Administration Pantoprazole Sodium 40 mg 06/27/24 21:00 06/28/24 20:24 Pantoprazole 40 Mg Tablet BY MOUTH 40 mg Q12HR CHARITY Administration Perflutren Lipid Microsphere 0 ml 06/27/24 08:09 Perflutren Lipid Microspheres 1.5 Ml Vial Diluted To 10 Ml Total Volume IV PUSH 06/30/24 08:10 ONCE PRN adequate visualization Protocol Polyethylene Glycol 17 gm 06/26/24 10:20 06/26/24 13:24 Polyethylene Glycol 3350 17 Gm Powd.Pack PO 17 gm QAM PRN Administration Constipation Pregabalin 75 mg 06/24/24 09:00 06/28/24 16:53 Pregabalin (*Crx) 75 Mg Capsule PO 75 mg BID CHARITY Administration Quetiapine Fumarate 25 mg 06/27/24 21:00 06/28/24 20:24 Quetiapine Fumarate 25 Mg Tablet PO 25 mg HS CHARITY Administration Sertraline HCl 100 mg 06/24/24 09:00 06/28/24 08:50 Sertraline Hcl 50 Mg Tablet PO 100 mg DAILY CHARITY Administration Sotalol HCl 80 mg 06/28/24 09:00 06/28/24 08:50 Sotalol Hcl 80 Mg Tablet PO 80 mg DAILY CHARITY Administration Umeclidinium/Vilanterol 1 puff 06/28/24 12:00 06/29/24 07:19 Umeclidinium/Vilanterol 62.5-25 Mcg Ellipta INHALATION 1 puff DAILYRT CHARITY Administration Radiology Results: ITS Impressions Renal Ultrasound 06/24/24 09:12 Impression: 1: Unremarkable renal ultrasound. No stones, masses or hydronephrosis. Venous Doppler Study 06/26/24 15:41 IMPRESSION: Negative bilateral lower extremity venous US. No deep vein thrombosis. Chest X-Ray 06/27/24 05:55 IMPRESSION: 1. Small lung volumes with stable diffuse lung disease, consistent with pulmonary edema versus pneumonia. Chest CT 06/28/24 14:36 IMPRESSION: 1. Patchy consolidation and groundglass opacities in the left lower lobe suspicious for pneumonia. More widespread scattered bilateral linear, bandlike and groundglass opacities for which would include a broader differential also including chronic pneumonia or chronic interstitial lung disease. Labs Labs: Laboratory Results - last 24 hr 06/28/24 06/28/24 06/28/24 08:48 11:03 11:06 WBC RBC Hgb Hct MCV MCH MCHC RDW Plt Count MPV Puncture Site ABG pH ABG pCO2 ABG pO2 ABG PO2/FiO2 Ratio ABG HCO3 ABG O2 Saturation ABG O2 Content ABG Base Excess A-a Gradient Oxyhemoglobin Total Hemoglobin O2 Delivery Device O2 Liters/Min FiO2 Sodium 139 Potassium 3.7 Chloride 101 Carbon Dioxide 32 H Anion Gap 6 BUN 51 H Creatinine 1.50 H Estim Creat Clear Calc 51 Estimated GFR 47 L Glucose 373 H POC Capillary Glucose > 500 H* > 500 H* Calcium 9.1 Magnesium 2.1 Total Bilirubin 0.8 AST 23 ALT 33 Alkaline Phosphatase 126 Total Creatine Kinase NT-Pro-B Natriuret Pep Total Protein 7.0 Albumin 3.7 Rheumatoid Factor Rheumatoid Factor Scrn Rheumatoid Factor Titer 06/28/24 06/28/24 06/29/24 15:46 19:41 04:51 WBC RBC Hgb Hct MCV MCH MCHC RDW Plt Count MPV Puncture Site Right radial ABG pH 7.438 ABG pCO2 48.4 H ABG pO2 71.7 L ABG PO2/FiO2 Ratio 1.99 ABG HCO3 32.0 H ABG O2 Saturation 94.8 L ABG O2 Content 17.5 ABG Base Excess 6.7 A-a Gradient 128.8 Oxyhemoglobin 93.6 Total Hemoglobin 13.3 O2 Delivery Device Other device O2 Liters/Min 4.0 FiO2 36 Sodium Potassium Chloride Carbon Dioxide Anion Gap BUN Creatinine Estim Creat Clear Calc Estimated GFR Glucose POC Capillary Glucose 440 H 346 H Calcium Magnesium Total Bilirubin AST ALT Alkaline Phosphatase Total Creatine Kinase NT-Pro-B Natriuret Pep Total Protein Albumin Rheumatoid Factor Rheumatoid Factor Scrn Rheumatoid Factor Titer 06/29/24 06/29/24 06/29/24 05:35 06:54 06:55 WBC 14.6 H RBC 4.66 Hgb 13.8 L Hct 43.6 MCV 93.6 MCH 29.6 MCHC 31.7 L RDW 15.9 H Plt Count 174 MPV 11.9 H Puncture Site ABG pH ABG pCO2 ABG pO2 ABG PO2/FiO2 Ratio ABG HCO3 ABG O2 Saturation ABG O2 Content ABG Base Excess A-a Gradient Oxyhemoglobin Total Hemoglobin O2 Delivery Device O2 Liters/Min FiO2 Sodium 139 Potassium 3.4 Chloride 100 Carbon Dioxide 34 H Anion Gap 5 BUN 52 H Creatinine 1.60 H Estim Creat Clear Calc 49 Estimated GFR 44 L Glucose 122 H POC Capillary Glucose 128 H Calcium 9.0 Magnesium 2.2 Total Bilirubin 0.6 AST 29 ALT 33 Alkaline Phosphatase 110 Total Creatine Kinase 33 L NT-Pro-B Natriuret Pep Total Protein 7.0 Albumin 3.4 L Rheumatoid Factor < 12.0 Rheumatoid Factor Scrn Rheumatoid Factor Titer 06/29/24 06/29/24 06:56 07:42 WBC RBC Hgb Hct MCV MCH MCHC RDW Plt Count MPV Puncture Site ABG pH ABG pCO2 ABG pO2 ABG PO2/FiO2 Ratio ABG HCO3 ABG O2 Saturation ABG O2 Content ABG Base Excess A-a Gradient Oxyhemoglobin Total Hemoglobin O2 Delivery Device O2 Liters/Min FiO2 Sodium Potassium Chloride Carbon Dioxide Anion Gap BUN Creatinine Estim Creat Clear Calc Estimated GFR Glucose POC Capillary Glucose 138 H Calcium Magnesium Total Bilirubin AST ALT Alkaline Phosphatase Total Creatine Kinase NT-Pro-B Natriuret Pep 800 H Total Protein Albumin Rheumatoid Factor Rheumatoid Factor Scrn Cancelled Rheumatoid Factor Titer Cancelled
[2024-06-29] MEDS: AZTREONAM 1 GM in SODIUM CHLORIDE 0.9% IV 50 ML 100 ML IVPB ×2 (10:16→21:31)
[2024-06-29] MEDS: SERTRALINE HCL 50 MG TABLET 100 MG PO (10:17)
[2024-06-29] MEDS: hydrALAZINE 10 MG TABLET PO ×2 (10:17→16:16)
[2024-06-29] MEDS: PREGABALIN (*CRX) 75 MG CAPSULE PO ×2 (10:17→16:16)
[2024-06-29] MEDS: ATORVASTATIN 40 MG TABLET 80 MG PO (10:17)
[2024-06-29] MEDS: SOTALOL HCL 80 MG TABLET PO (10:17)
[2024-06-29] MEDS: PANTOPRAZOLE 40 MG TABLET BY MOUTH ×2 (10:17→21:29)
[2024-06-29 11:37] LABS: Glucose Point of Care 381 mg/dl (65-105)
--- NOTE | 2024-06-29 12:45 | HOMEO2EVAL ---
Evaluation was performed at [facility] Home Oxygen Evaluation RC: Home Oxygen (O2) Evaluation Start: 06/29/24 09:06 Freq: ONCE Status: Active Protocol: RPE Activity Type Activity Date Activity User E-sign Co-sign Detail Recorded Client Recorded Date Recorded By Document 06/29/24 11:20 [email or web address] [email or web address] 06/29/24 12:44 DJO Document 06/29/24 11:25 [email or web address] 06/29/24 12:44 DJO Document 06/29/24 11:30 [email or web address] [email or web address] 06/29/24 12:44 DJO Document 06/29/24 11:35 [email or web address] [email or web address] 06/29/24 12:44 DJO Document 06/29/24 11:50 [email or web address] [email or web address] 06/29/24 12:44 DJO 06/29/24 06/29/24 06/29/24 11:20 11:25 11:30 Home O2 Evaluation [Oxygen] -Test Phase Resting Resting Exercise -Oxygen Delivery Room Air Nasal Cannula Nasal Cannula -Oxygen Flow Rate (L/min) 1 1 [Pulse Oximetry] -Pulse Oximetry (90-100 %) 88 L 92 88 L [Pulse Rate] -Pulse Rate (60-100 beats/min) 77 78 82 [Evaluation] -Activity Tolerance [Charges] -Evaluation Charges O2 Evaluation by Pulmonary 06/29/24 06/29/24 11:35 11:50 Home O2 Evaluation [Oxygen] -Test Phase Exercise Resting -Oxygen Delivery Nasal Cannula Nasal Cannula -Oxygen Flow Rate (L/min) 2 1 [Pulse Oximetry] -Pulse Oximetry (90-100 %) 91 91 [Pulse Rate] -Pulse Rate (60-100 beats/min) 86 74 [Evaluation] -Activity Tolerance Poor [Charges] -Evaluation Charges
[2024-06-29 16:29] LABS: Glucose Point of Care 256 mg/dl (65-105)
--- NOTE | 2024-06-29 17:29 | P.PNIM_ITS ---
Progress Note: A&P Assessment and Plan (1) Hypercapnic respiratory failure: Code(s): J96.92 - Respiratory failure, unspecified with hypercapnia Status: Acute Assessment and Plan: Patient has been noncompliant with his medications and CPAP at home. Patient had increasing agitation and confusion over the past several days so family brought him to the ER for evaluation. He was hypoxic with SpO2 in 50s on RA. He was placed on non-rebreather mask with improvement in saturation to upper 90s. ABG 7.11/80/211 on NRBM suggesting hypercapnic respiratory failure. CXR showed cardiomegaly with cardiac decompensation and pulmonary edema. Bilateral basal pneumonia with highly suggestive bilateral pneumonitis. Placed on BiPAP. Nebs and steroids started. IV abx started. Repeat ABG 7./82 on bipap. Patient intubated 06/23 and admitted to the ICU. He was also treated with intermittent doses of Lasix IV. He was stabilized. ABG improved. He was tolerating SBT bu patient self extubated later in the evening on 06/26. He was placed on Vapotherm since then. Was initially not tolerating BiPAP. Pulmonary consulted and appreciate their input. Echo was unhelpful due to poor images and patient refusing contrast. He has had an excellent diuresis with cumulative fluid balance of -3L. BNP 2780- > 800. Patient wore the hospital noninvasive ventilator with AVAPS last night with 4L bleed in and did well. ABG this morning was 7.44/48/72. Apnea showing SpO2 <88% was 0 minutes. Continue current noninvasive ventilator at bedtime, with naps and as needed. Encouraged compliance (2) COPD (chronic obstructive pulmonary disease): Code(s): J44.9 - Chronic obstructive pulmonary disease, unspecified Status: Acute Assessment and Plan: As above. Concern that his respiratory symptoms may be more likely related to diaph paralysis then from COPD. Nebs stopped. Steroids stopped. Wean O2 as tolerated. Continue Anoro (3) Pneumonia: Code(s): J18.9 - Pneumonia, unspecified organism Status: Acute Assessment and Plan: CXR as above. RSV, COVID and Influenza PCR nasal swab negative. He was started on IV antibiotics for pneumonia. WBC elevated on admission and climbed to 24K felt related to steroids. Leukocytosis trending down now that he is off steroids. BCx negative. Was on Vanco but stopped since MRSA nasal swab negative. CT chest showing patchy consolidation and ground glass opacities in the LLL as well as more widespread scattered bilateral linear, bandlike ground glass opacities - consider chronic PNA or ILD Azithromycin stopped after 5 days. Also on Aztreonam and finishing 7 day course tomorrow. Original plan per PharmD ID was for 7 days of Azithromycin. Patient responding well so will follow clincially. Viral panel and autoimmune panel ordered. (4) Acute kidney injury superimposed on CKD: Code(s): N17.9 - Acute kidney failure, unspecified; N18.9 - Chronic kidney disease, unspecified Status: Acute Assessment and Plan: Patient has a history of stage 5 kidney injury requiring dialysis in the past. Baseline creatinine 1.6 01/26. Cr was 3.0 on admission but has trended down from there. Renal ultrasound with no hydronephrosis. Creatinine continued to improve and now down to 1.6 felt probably at baseline. On lasix 60mg daily. Add back Lasix 20mg daily. Follow (5) Diabetes: Qualifiers: Diabetes mellitus complication status: without complication Diabetes mellitus terminal make up operator insulin use: with terminal make up operator use Diabetes mellitus type: type 2 Qualified Code(s): E11.9 - Type 2 diabetes mellitus without complications; Z79.4 - bed bug exterminator (current) use of insulin Code(s): E11.9 - Type 2 diabetes mellitus without complications Status: Acute Assessment and Plan: A1c 7.5. Patient with Type 2 diabetes on insulin pump at home. He did require insulin infusion per ICU protocol but weaned off now. He takes 1.65U/hour. Lantus and mealtime Novolog started. Glucose was poorly controlled but improved now. His mental status is much better. Continue AccuCheks covering with sliding scale. Hypoglycemia protocol available as needed. Continue to follow. 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 Plan hx of AFib - maintaining NSR. QTc 456. Continue sotalol. Metabolic encephalopathy - mental status improving over the past few days. Now Aox4. Continue Zoloft. On Seroquel 100mg at night but only on 25mg here. Advance seroquel to 50mg at night and monitor mental status. Follow. HTN - Patient's blood pressure was reviewed on 06/29. Blood pressure remains soft at times. Will hold Norvasc. Continue hydralazine for now. DVT prophylaxis - SCDs Code status - Full Subjective Date/time seen: 06/29/24 17:29 Interval history: 63yo male with CHAZ noncompliant with CPAP, COPD, tobacco abuse and diaphragmatic paralysis here for altered mental status. Tolerated the AVAPS overnight with 4L bleed in. Slept well. No CP or SOB. Does have a nonproductive cough. No n/v. Eating well. Exam 2 Narrative: AF 98.3 125/65 59 20 93% 2L Gen - NARD Chest - distant BS. nml RR CV - RRR S1/S2. Tele showing no significant dysrhythmias Abd - Soft, obese, NT - Browning secured draining clear yellow urine Ext - no pedal edema Neuro - Alert and oriented x4. Nonfocal exam. Psych - Nml mood and affect Skin - Warm and dry Objective Data Vital Signs Vital Signs: Vital Signs - 24 hr 06/28/24 18:00 06/28/24 20:00 06/28/24 20:23 Temperature 98.1 F Pulse Rate 67 67 70 Respiratory Rate 20 20 Blood Pressure 124/61 Pulse Oximetry 99 93 Oxygen Delivery Nasal Cannula Oxygen Flow Rate 2 Fraction of Inspired Oxygen 06/28/24 20:00 06/28/24 22:00 06/28/24 22:40 Temperature Pulse Rate 64 59 L 63 Respiratory Rate 19 Blood Pressure Pulse Oximetry 98 Oxygen Delivery Oxygen Flow Rate Fraction of Inspired Oxygen 06/28/24 22:41 06/28/24 23:50 06/29/24 00:16 Temperature 98.3 F Pulse Rate 63 63 63 Respiratory Rate 19 20 Blood Pressure 151/74 H Pulse Oximetry 98 98 97 Oxygen Delivery BiPAP BiPAP Oxygen Flow Rate Fraction of Inspired Oxygen 30 06/29/24 00:00 06/29/24 02:00 06/29/24 03:45 Temperature Pulse Rate 60 57 L 57 L Respiratory Rate 20 Blood Pressure Pulse Oximetry 97 Oxygen Delivery BiPAP Oxygen Flow Rate Fraction of Inspired Oxygen 30 06/29/24 02:20 06/29/24 04:00 06/29/24 05:00 Temperature 98.3 F Pulse Rate 66 61 65 Respiratory Rate 20 Blood Pressure 146/67 H Pulse Oximetry 97 92 Oxygen Delivery Oxygen Flow Rate Fraction of Inspired Oxygen 06/29/24 06:00 06/29/24 07:20 06/29/24 07:58 Temperature 98.4 F Pulse Rate 66 65 Respiratory Rate 20 Blood Pressure 151/64 H Pulse Oximetry 98 95 Oxygen Delivery High Flow Nasal Cannula Oxygen Flow Rate 2 Fraction of Inspired Oxygen 06/29/24 10:17 06/29/24 11:21 06/29/24 08:00 Temperature 98.1 F Pulse Rate 80 71 Respiratory Rate 22 H Blood Pressure 99/49 L Pulse Oximetry 93 95 Oxygen Delivery Nasal Cannula Oxygen Flow Rate 1 Fraction of Inspired Oxygen 06/29/24 12:00 06/29/24 11:20 06/29/24 11:25 Temperature Pulse Rate 77 78 Respiratory Rate Blood Pressure Pulse Oximetry 93 88 L 92 Oxygen Delivery Nasal Cannula Room Air Nasal Cannula Oxygen Flow Rate 2 1 Fraction of Inspired Oxygen 06/29/24 11:30 06/29/24 11:35 06/29/24 11:50 Temperature Pulse Rate 82 86 74 Respiratory Rate Blood Pressure Pulse Oximetry 88 L 91 91 Oxygen Delivery Nasal Cannula Nasal Cannula Nasal Cannula Oxygen Flow Rate 1 2 1 Fraction of Inspired Oxygen 06/29/24 08:00 06/29/24 10:00 06/29/24 12:00 Temperature Pulse Rate 75 72 70 Respiratory Rate Blood Pressure Pulse Oximetry Oxygen Delivery Oxygen Flow Rate Fraction of Inspired Oxygen 06/29/24 14:00 06/29/24 15:35 06/29/24 16:00 Temperature 98.3 F Pulse Rate 61 59 L Respiratory Rate 20 Blood Pressure 125/65 Pulse Oximetry 93 93 Oxygen Delivery Nasal Cannula Oxygen Flow Rate 2 Fraction of Inspired Oxygen 06/29/24 16:00 Temperature Pulse Rate 59 L Respiratory Rate Blood Pressure Pulse Oximetry Oxygen Delivery Oxygen Flow Rate Fraction of Inspired Oxygen Intake/Output Intake/Output: Intake & Output 06/26/24 06/27/24 06/28/24 06/29/24 23:59 23:59 23:59 23:59 Intake Total 2039.9 400 1700 720 Output Total 6230 5622 2150 300 Balance -5910.1 -6139 -391 420 Meds/Results Medications: Active Medications Generic Name Dose Route Start Last Admin Trade Name Freq PRN Reason Stop Dose Admin Acetaminophen 650 mg 06/24/24 02:04 Acetaminophen Elixir 325 Mg/10.15 Ml Udc PO Q4H PRN Mild Pain (1-3) or Fever Amlodipine Besylate 10 mg 06/28/24 09:00 06/29/24 09:55 Amlodipine Besylate 10 Mg Tablet PO Not Given DAILY CHARITY Atorvastatin Calcium 80 mg 06/24/24 09:00 06/29/24 10:17 Atorvastatin 40 Mg Tablet PO 80 mg DAILY CHARITY Administration Dextrose 12.5 gm 06/24/24 11:32 Dextrose 50% 25 Gm/50 Ml Syringe IV PUSH PRN PRN Hypoglycemia Protocol Glucagon 1 mg 06/24/24 11:32 Glucagon For Inj 1 Mg Vial IM PRN PRN Hypoglycemia Protocol Glucose 15 gm 06/24/24 11:32 Glucose Oral Gel 15 Gm Of Glucse In 37.5 Gm Tube PO PRN PRN Hypoglycemia Protocol Hydralazine HCl 10 mg 06/27/24 17:00 06/29/24 16:16 Hydralazine 10 Mg Tablet PO 10 mg BID CHARITY Administration Aztreonam 1 gm/ Sodium 50 mls @ 100 mls/hr 06/23/24 22:00 06/29/24 10:16 Chloride IVPB 06/30/24 10:29 100 mls/hr Q12H CHARITY Administration Dextrose 1,000 mls @ 100 mls/hr 06/24/24 11:32 Dextrose 5% 1,000 Ml IVPB PRN PRN Hypoglycemia Protocol Levothyroxine Sodium 150 mcg 06/24/24 10:00 06/29/24 05:36 Levothyroxine Sodium 150 Mcg Tablet PO 150 mcg DAILY@0630 CHARITY Administration Levothyroxine Sodium 25 mcg 06/24/24 10:00 06/29/24 05:36 Levothyroxine Sodium 25 Mcg Tablet PO 25 mcg DAILY@0630 CHARITY Administration Pantoprazole Sodium 40 mg 06/27/24 21:00 06/29/24 10:17 Pantoprazole 40 Mg Tablet BY MOUTH 40 mg Q12HR CHARITY Administration Perflutren Lipid Microsphere 0 ml 06/27/24 08:09 Perflutren Lipid Microspheres 1.5 Ml Vial Diluted To 10 Ml Total Volume IV PUSH 06/30/24 08:10 ONCE PRN adequate visualization Protocol Polyethylene Glycol 17 gm 06/26/24 10:20 06/26/24 13:24 Polyethylene Glycol 3350 17 Gm Powd.Pack PO 17 gm QAM PRN Administration Constipation Pregabalin 75 mg 06/24/24 09:00 06/29/24 16:16 Pregabalin (*Crx) 75 Mg Capsule PO 75 mg BID CHARITY Administration Quetiapine Fumarate 25 mg 06/27/24 21:00 06/28/24 20:24 Quetiapine Fumarate 25 Mg Tablet PO 25 mg HS CHARITY Administration Sertraline HCl 100 mg 06/24/24 09:00 06/29/24 10:17 Sertraline Hcl 50 Mg Tablet PO 100 mg DAILY CHARITY Administration Sotalol HCl 80 mg 06/28/24 09:00 06/29/24 10:17 Sotalol Hcl 80 Mg Tablet PO 80 mg DAILY CHARITY Administration Umeclidinium/Vilanterol 1 puff 06/28/24 12:00 06/29/24 07:19 Umeclidinium/Vilanterol 62.5-25 Mcg Ellipta INHALATION 1 puff DAILYRT CHARITY Administration Radiology Results: ITS Impressions Renal Ultrasound 06/24/24 09:12 Impression: 1: Unremarkable renal ultrasound. No stones, masses or hydronephrosis. Venous Doppler Study 06/26/24 15:41 IMPRESSION: Negative bilateral lower extremity venous US. No deep vein thrombosis. Chest X-Ray 06/27/24 05:55 IMPRESSION: 1. Small lung volumes with stable diffuse lung disease, consistent with pulmonary edema versus pneumonia. Chest CT 06/28/24 14:36 IMPRESSION: 1. Patchy consolidation and groundglass opacities in the left lower lobe suspicious for pneumonia. More widespread scattered bilateral linear, bandlike and groundglass opacities for which would include a broader differential also including chronic pneumonia or chronic interstitial lung disease. Labs Labs: Laboratory Results - last 24 hr 06/28/24 06/29/24 06/29/24 19:41 04:51 05:35 WBC RBC Hgb Hct MCV MCH MCHC RDW Plt Count MPV Puncture Site Right radial ABG pH 7.438 ABG pCO2 48.4 H ABG pO2 71.7 L ABG PO2/FiO2 Ratio 1.99 ABG HCO3 32.0 H ABG O2 Saturation 94.8 L ABG O2 Content 17.5 ABG Base Excess 6.7 A-a Gradient 128.8 Oxyhemoglobin 93.6 Total Hemoglobin 13.3 O2 Delivery Device Other device O2 Liters/Min 4.0 FiO2 36 Sodium Potassium Chloride Carbon Dioxide Anion Gap BUN Creatinine Estim Creat Clear Calc Estimated GFR Glucose POC Capillary Glucose 346 H 128 H Calcium Magnesium Total Bilirubin AST ALT Alkaline Phosphatase Total Creatine Kinase NT-Pro-B Natriuret Pep Total Protein Albumin Rheumatoid Factor Rheumatoid Factor Scrn Rheumatoid Factor Titer 06/29/24 06/29/24 06/29/24 06:54 06:55 06:56 WBC 14.6 H RBC 4.66 Hgb 13.8 L Hct 43.6 MCV 93.6 MCH 29.6 MCHC 31.7 L RDW 15.9 H Plt Count 174 MPV 11.9 H Puncture Site ABG pH ABG pCO2 ABG pO2 ABG PO2/FiO2 Ratio ABG HCO3 ABG O2 Saturation ABG O2 Content ABG Base Excess A-a Gradient Oxyhemoglobin Total Hemoglobin O2 Delivery Device O2 Liters/Min FiO2 Sodium 139 Potassium 3.4 Chloride 100 Carbon Dioxide 34 H Anion Gap 5 BUN 52 H Creatinine 1.60 H Estim Creat Clear Calc 49 Estimated GFR 44 L Glucose 122 H POC Capillary Glucose Calcium 9.0 Magnesium 2.2 Total Bilirubin 0.6 AST 29 ALT 33 Alkaline Phosphatase 110 Total Creatine Kinase 33 L NT-Pro-B Natriuret Pep 800 H Total Protein 7.0 Albumin 3.4 L Rheumatoid Factor < 12.0 Rheumatoid Factor Scrn Cancelled Rheumatoid Factor Titer Cancelled 06/29/24 06/29/24 06/29/24 07:42 11:07 15:32 WBC RBC Hgb Hct MCV MCH MCHC RDW Plt Count MPV Puncture Site ABG pH ABG pCO2 ABG pO2 ABG PO2/FiO2 Ratio ABG HCO3 ABG O2 Saturation ABG O2 Content ABG Base Excess A-a Gradient Oxyhemoglobin Total Hemoglobin O2 Delivery Device O2 Liters/Min FiO2 Sodium Potassium Chloride Carbon Dioxide Anion Gap BUN Creatinine Estim Creat Clear Calc Estimated GFR Glucose POC Capillary Glucose 138 H 381 H 256 H Calcium Magnesium Total Bilirubin AST ALT Alkaline Phosphatase Total Creatine Kinase NT-Pro-B Natriuret Pep Total Protein Albumin Rheumatoid Factor Rheumatoid Factor Scrn Rheumatoid Factor Titer
[2024-06-29 19:51] LABS: Glucose Point of Care 232 mg/dl (65-105)
[2024-06-29] MEDS: QUEtiapine FUMARATE 25 MG TABLET 50 MG PO (21:30)
[2024-06-29] MEDS: POTASSIUM CHLORIDE 20 MEQ ER TABLET PO (21:30)
[2024-06-30] VITALS (20 sets, daily range): BP systolic 114–137; BP diastolic 54–94; PULSE 50–75; RESP 16–20; TEMP 36.3–37.1; O2SAT 95–100
[2024-06-30 05:07] LABS: Hematocrit 42.9 % (42.0-52.0); Hemoglobin 13.4 g/dL (14.0-18.0); Mean Corpuscular HGB Conc 31.2 g/dl (32-36); Mean Corpuscular Hemoglobin 29.5 pg (26-34); Mean Corpuscular Volume 94.3 fl (80-100); Mean Platelet Volume 12.1 fl (7.4-10.4); Platelet Count Result 161 k/mm3 (150-375); Red Blood Count 4.55 M/mm3 (4.6-6.20); Red Cell Distribution Width 15.8 % (11.5-14.5); White Blood Count 14.6 K/mm3 (4.5-10.0)
[2024-06-30 05:23] LABS: Alanine Aminotransferase 37 U/L (6-50); Albumin Level 3.2 g/dL (3.5-5.1); Alkaline Phosphatase 105 U/L (38-126); Anion Gap 6 mmol/L (4-12); Aspartate Amino Transferase 33 U/L (17-59); Bilirubin,Total 0.5 mg/dL (0.2-1.3); Blood Urea Nitrogen 53 mg/dL (9-20); Calcium 8.9 mg/dL (8.4-10.2); Carbon Dioxide 33 mmol/L (22-30); Chloride 99 mmol/L (98-107); Estimated CRCL calculation 46 ml/min; Estimated Glomerular Filt Rate 41; Glucose 89 mg/dL (65-110); Magnesium 2.3 mg/dL (1.6-2.3); Phosphorus 3.2 mg/dL (2.5-4.5); Potassium 3.9 mmol/L (3.4-5.0); Sodium 138 mmol/L (137-145)
[2024-06-30] MEDS: LEVOTHYROXINE SODIUM 150 MCG TABLET PO (06:57)
[2024-06-30] MEDS: LEVOTHYROXINE SODIUM 25 MCG TABLET PO (06:58)
[2024-06-30] MEDS: UMECLIDINIUM/VILANTEROL 62.5-25 MCG ELLIPTA 1 PUFF INHALATION (07:04)
--- NOTE | 2024-06-30 08:20 | P.PNPL_ITS ---
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 PFTs on 12/05/2018 and 07/10/2020 demonstrate normal FEV1: FVC ratio, total lung capacity 46% predicted consistent with a restrictive abnormality. Patient has chronic hypercarbic respiratory failure and would benefit from noninvasive ventilation to prevent further deterioration and subsequent hospitalizations. Patient was placed on BiPAP on 06/26 but could not tolerate the the pressures. I placed him on a noninvasive ventilator with the AVAPS mode. Patient has weak-paralyzed diaphragms postoperatively with restrictive lung volumes and chronic hypercarbic respiratory failure With pH of 7.12/80/211 on admission. He failed BiPAP and was intubated on 06/23/2024. Currently the patient is on CMV rate of 18, tidal volume 480, 30% FiO2 and a PEEP of 8 with saturations 93%. ABG this morning 7.40/41/ 69. Plan: Mechanical ventilation is being managed by optimization consultant. I recommend extubation to noninvasive ventilation (BiPAP or AVAPS mode) and continuation of noninvasive ventilation p.r.n. during the day and at night to maintain adequate minute ventilation. please call the Pulmonary consult service after the patient is extubated. The patient has previously been prescribed a CPAP for his obstructive sleep apnea but he does not like to use it and has not used it. The tells me he will not use a noninvasive ventilator or CPAP in the future. If this is truly the case and the patient will be non compliant discussions regarding patient's and/or family's wishes regarding re-intubation should take place. 06/27/24: Patient self-extubated last night. He was initially placed on Vapotherm 60 L 30% FiO2 With a blood gas of 7.33/57/78, but then became tired and was placed on BiPAP Rate of 18 pressures 12 over rate inspiratory time 1.0 and a rise of 3. He tolerated BiPAP poorly and was attempting to pull it off and could not tolerate it. He was placed back on Vapotherm 50 L 45% FiO2 With a repeat blood gas of 7.38/56/78. When I enter the room the patient was awake and alert on Vapotherm 45 L and 30% FiO2 with saturations 94%. Patient denies any fevers but had a temperature last night. White blood cell count 15.5, creatinine 1.8. chest x-ray today shows decreased lung volumes with diffuse interstitial and alveolar infiltrates. He diuresed 2.5 L yesterday and cumulative he is +62 mL since admission. His weight today is 103.5 with an admission weight of 106.7. The patient could not tolerate the BiPAP and I placed him on a noninvasive ventilator with the AVAPS mode and adjusted settings to comfort resulting in a rate of 14, tidal volume 500, EPAP 8, minimal pressure support 6, maximal pressure support 25, inspiratory time 1.2, rise of 5 and 32% FiO2. He gerardo erated the settings. Plan: I will place him on the noninvasive ventilator with the AVAPS mode with the settings as above. I will obtain an overnight oximetry on 32% and an ABG in the morning prior to removal. I have discussed with the dental insurance coordinator will begin the process for a home noninvasive ventilator with the AVAPS mode. Later in the day filled out an order form to [employer] for a Adelita machine with a T TV -AVAPS-AE settings: rate 14, tidal volume 500, minimum EPAP 5, maximum EPAP 15, minimum pressure support 6, maximum pressure support 25, inspiratory time 1.2. 06/28: Patient transferred out of the ICU yesterday. Overall the patient states he is improved. States he is breathing back to his normal. Short says he has a worsening dry cough but no phlegm. No fever. Patient wore the hospital noninvasive ventilator with AVAPS settings as above with 32% FiO2 and did well overnight. He said he did get some sleep. ABG on these settings was 7.46/49/79. Overnight oximetry with recording duration 9 hours and 7 minutes, average saturation 97%, low saturation 76%, time with saturation less than or equal to 88% was 17 minutes. Oxygen desaturation index 24 with multiple sharp desaturations. Plan: Current noninvasive ventilator settings provide adequate ventilation. Patient has hypoxemia with frequent sharp desats. If he uses a hospital machine tonight will place him on EPAP 10 and increase his FiO2 to 36%. If his home machine is set up this has autoPEEP settings from [address] him on 4 L bleed in. Will repeat overnight oximetry tonight. Later in the day patient had a more confluent left lower lobe infiltrate and diffuse bilateral septal thickening with mild reticulation with an upper lobe predominance without a peripheral predominance and without honeycombing. 06/29/24: The patient continues to improve. He is sitting in a chair eating breakfast. He says he feels normal except for his weakness. He says his breathing is normal and denies fever, chills, phlegm or hemoptysis. When I enter the room he is on 2 L with saturations 96%. I decreased him to 1 L and his saturation was 93%. He is afebrile. White blood cell count 14.6, creatinine 1.6, cumulative diuresis since admission is 3.7 L. His weight today is 103. BNP has decreased from 1580 to 800. Patient wore home noninvasive ventilator with a Adelita machine with a T TV -AVAPS-AE settings: rate 14, tidal volume 500, minimum EPAP 5, maximum EPAP 15, minimum pressure support 6, maximum pressure support 25, inspiratory time 1.2, 4 L bleed in. Patient said he slept well with the machine and had no issues. ABG prior to removal was 7.44/48/72. Overnight oximetry with recording duration 6 hours and 10 minutes, average saturation 95%, low saturation 92%, time with saturation less than or equal to 88 was 0 minutes. Oxygen desaturation index was 0. CT scan with more confluent left lower lobe infiltrate consistent with pneumonia and diffuse bilateral septal thickening with mild reticulations with an upper lobe predominance. These changes may all be related to immune pneumonia but he may have chronic interstitial lung disease. He does not eyes arthritis, rashes. States that his dyspnea on exertion is been stable for the last 2 or 3 years. 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 He may have an interstitial lung disease. Plan: current home ventilator with 4 L bleed in provide adequate ventilation and oxygenation. He should continue this when he was transferred from the hospital. Regarding other etiologies for his possible interstitial lung disease I will send serologies. I will order a LINA screen that includes 11 different auto antibodies, an ANCA screen, a rheumatoid factor, anti CCP antibody, hypersensitivity pneumonitis panel, a CPK, an aldolase level, and myomarker 3 plus profile. patient will need a follow-up CT scan after he has recovered from this hospitalization to reassess his infiltrates. 06/30/2024: Patient continues to slowly improve. He is getting stronger. Says he is breathing fine. Dry cough that is at his baseline. White blood cell count 14.6. Afebrile. Creatinine 1.70. Currently is on 1 L with saturations 95%. Chest x-ray today shows diffuse interstitial alveolar infiltrates bilaterally with no change from 06/27. Yesterday positive 1.1 L, cumulative diuresis since admission 2.2 L. Weight today 106.8. Lasix 20 p.o. restarted today. Serologies: Rheumatoid factor less than 12, CPK normal at 33, LINA screen that includes 11 different auto antibodies, an ANCA screen, anti CCP antibody, hypersensitivity pneumonitis panel, an aldolase level, and myomarker 3 plus profile pending. Patient wore his home noninvasive ventilator with 4 L bleed in and said he slept well and tolerated the mask without any issues. From a pulmonary perspective patient is ready to be discharged on these pulmonary medications: Anoro Ellipta 62.5-25 at 1 puff q.day Albuterol rescue inhaler 2 puffs q.4 hours p.r.n. shortness of breath. Oxygen: 1 L oxygen at rest and 2 with activity. If the patient goes to acute rehab in [place] and they will use their own machine. AVAPS AE settings rate of 14, tidal volume 500, minimum EPAP 5, maximum EPAP 15, minimum pressure support 6, maximum pressure support 25, inspiratory time 1.2, and 4 L bleed in provide optimal ventilation and oxygenation. When he is discharged home when he naps or sleeps noninvasive ventilation through [employer] with TTV -AVAPS-AE settings: rate 14, tidal volume 500, minimum EPAP 5, maximum EPAP 15, minimum pressure support 6, maximum pressure support 25, inspiratory time 1.2, and 4 L bleed in. Follow-up in the Pulmonary Clinic in 4-6 weeks. 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 Discussed with Dr. Guerrier, will sign off. Call with questions (2) COPD (chronic obstructive pulmonary disease): Code(s): J44.9 - Chronic obstructive pulmonary disease, unspecified Status: Acute Assessment and Plan: Patient Smoked tobacco from 1987 to 2014 for total of 54 pack years, secondhand smoke exposure From his until 2005. Denies vaping or illicit drug use. PFTs with restriction, CT scan on 12/05/2018 with no evidence of emphysema. He has been prescribed trelegy in case he does have COPD. 06/26/24: Plan: If the patient does have COPD, agree with bronchodilators and would continue DuoNebs q.6 hours. At this time he has no wheezing and can discontinue Inhaled corticosteroids and I see the note no need for systemic steroids at this time. The patient is treating for possible pneumonia with vancomycin, azithromycin and aztreonam (started 06/23/24) per ICU team. Vent management per ICU team. 06/27/24: no wheezes on exam. Plan: Continue DuoNebs q.6 hours. Currently being treated for possible pneumonia and the ICU has begun deescalating his antibiotics. Agree with as aggressive diuresis as tolerated per ICU and hospitalist teams. 06/28/24: Patient states the DuoNebs provide him no clinical improvement. No wheezes on exam. Plan: I will change his DuoNebs to Anoro Ellipta 62.5-25 at 1 puff q.day and will continue this to see if he has a clinical benefit. Regarding pneumonia, status post vancomycin 04/24 through 04/27. Patient is s/p azithromycin 5 days from 04/23 through 04/27 and will DC today. Continue aztreonam, day 6. procalcitonin yesterday was 0.9. Last fever was 06/27 at midnight. I will check a CT scan of the chest today to assess for infiltrates. Patient was given 80 of Lasix and diuresed 5.2 L on 06/27 cumulative diuresis since admission is 4.6 L. His weight today is 99.9 with admission weight 106.7. Agree with diuresis as tolerated by his cardiac and renal systems. 06/29: Afebrile, white blood cell count 14.6. cumulative diuresis since admission is 3.7 L. His weight today is 103. BNP has decreased from 1580 to 800. Plan: Continue Anoro Ellipta 62.5-25 at 1 puff q.day. for pneumonia continue aztreonam, day 7. Patient diuresed 450 mL yesterday without Lasix. BNP is improved. Will follow off of Lasix for now. 06/30: Afebrile. White blood cell count 14.6, cumulative diuresis since admission -2.2 L. chest x-ray is stable. Plan: Continue Anoro Ellipta 62.5-25 at 1 puff q.day. patient is completing IV aztreonam antibiotics (day 8) for pneumonia today. Twenty Lasix p.o. us restarted today. (3) Obstructive sleep apnea syndrome in adult: Code(s): G47.33 - Obstructive sleep apnea (adult) (pediatric) Status: Acute Assessment and Plan: 05/20/2020;Split night study: AHI=8.2,desaturation 84%, disrupted sleep, loud snoring;CPAP titration;optimal=8 cm & 1 cm EPR. On 03/15/2024: Pulmonary clinic note states the patient does not tolerate PAP. 06/26/24: The tells me he does not like to wear his mask and hopefully will wear it in the future if needed. See above. Subjective Date/time seen: 06/30/24 08:20 Interval history: 06/26/2024: This is a new pulmonary consult for COPD. 63-year-old with a history of coronary artery disease status post CABG, aortic valve replacement, JIA resection, and aortic aneurysm status post repair (all 03/2018). postoperatively worsening shortness of breath. Weak/paralyzed bilateral diaphragms by sniff 09/17/2020, restrictive PFTs 07/10/2020, obstructive sleep apnea 05/20/2020 not tolerant to PAP therapy, possible COPD. COVID 10/10/2021 in ICU 4 weeks, not intubated, coded during dialysis. 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 end-stage renal disease off of hemodialysis since 01/2023. last seen in the Pulmonary Clinic on 03/15/2024. problem list includes bila teral diaphragm paralysis, recess she did have impairment on PFTs. Was on oxygen since January of 2022 after COVID not using it now. CHAZ not tolerant to PAP. Cat score was 13, using trilogy 1 puff most days. Short of breath with limited activity. After walking 10-5th or 15 ft he needs to sit down and rest. Complains of constant clear nasal drainage sees ENT. Plan was to collect fluid to rule out CSF leak. Room air saturations 96%. Regarding his COPD this was a presumed diagnosis, former smoker, improved with trilogy but not using because he has to rinse his mouth out. Currently not on oxygen. Regarding diaphragm paralysis this was noted after CABG and AVR. Obstructive sleep apnea not on treatment. Problems using past due to excessive humidity in the tubing. Follow-up in 6 months. 06/12/2024: PCP office note. He is very weak. Legs hurt. Fallen 3 times in last 10 days. reports he is hallucinating at night. Not wearing CPAP. Not using oxygen at night. Saturations 82-85% on room air. They declined him ER visit. 06/23/2024: Presented to the emergency department with confusion and weakness. Increasingly agitated and confused over the last several days. Somnolent but arouses. Speaking nonsensically. Blood pressure 120/75, heart rate 79, respiratory rate 24, saturations 50% on room air. Diminished breath sounds bilaterally. White blood cell count 14.4. Creatinine 3.0, was 1.66 on 01/25/2023. Influenza, RSV and COVID negative. Chest x-ray with bilateral elevated hemidiaphragms, status post median sternotomy, congestion And bibasilar infiltrates. Stat BiPAP, ABG, steroids and bronchodilators started. ABG 7.12/80/211 on 10 L oxygen. ABGs in not improved despite BiPAP 7.08/80/83 and he was intubated. Weight 106.7, Previous weight on 06/12/2024 106.1. 06/24/2024: Afebrile. White blood cell count 16.8. Creatinine 3.0. Remained intubated, On peep of 5 and 45% FiO2.developed hyperglycemia with an anion gap acidosis started on IV insulin. ABG 7.31/38 /99. Nasal MRSA. Weight 107.8. 06/25/2024 Afebrile. White blood cell count 23.8. Creatinine 2.6. intubated, peep of 8, FiO2 35%. ABG 7.32/44/79. Weight 111.1. 06/26/2024: I spoke with the at the bedside. she states that her his breathing was relatively good prior to his CABG, valve replacement and aortic graft placement in . After that he had breathing difficulty which has been unchanged over the last 6 years. The patient is intermittently compliant with inhalers for possible COPD. He is no longer smoking. Today white blood cell count 19.8. Creatinine 2.4. intubated, peep of 8, 35% FiO2. ABG 7.40/41/69. chest x-ray with ET tube in place, small lung volumes, bibasilar interstitial alveolar infiltrates. No change from 06/25/2024. At 10:00 a.m. he is febrile to 37.7. Weight 108.5. cumulative positive 4.8 L since admission. 06/27/24: Patient self-extubated last night. He was initially placed on Vapotherm 60 L 30% FiO2 With a blood gas of 7.33/57/78, but then became tired and was placed on BiPAP Rate of 18 pressures 12 over rate inspiratory time 1.0 and a rise of 3. He tolerated BiPAP poorly and was attempting to pull it off and could not tolerate it. He was placed back on Vapotherm 50 L 45% FiO2 With a repeat blood gas of 7.38/56/78. When I enter the room the patient was awake and alert on Vapotherm 45 L and 30% FiO2 with saturations 94%. Patient denies any fevers but had a temperature last night. White blood cell count 15.5, creatinine 1.8. chest x-ray today shows decreased lung volumes with diffuse interstitial and alveolar infiltrates. He diuresed 2.5 L yesterday and cumulative he is +62 mL since admission. His weight today is 103.5 with an admission weight of 106.7. The patient could not tolerate the BiPAP and I placed him on a noninvasive ventilator with the AVAPS mode and adjusted settings to comfort resulting in a rate of 14, tidal volume 500, EPAP 8, minimal pressure support 9, maximal pressure support 25, inspiratory time 1.2, rise of 5 and 32% FiO2. He tolerated the settings. Later in the day filled out an order form to [employer] for a Adelita machine with a T TV -AVAPS-AE settings: rate 14, tidal volume 500, minimum EPAP 5, maximum EPAP 15, minimum pressure support 6, maximum pressure support 25, inspiratory time 1.2. 06/28: Patient transferred out of the ICU yesterday. Overall the patient states he is improved. States he is breathing back to his normal. Short says he has a worsening dry cough but no phlegm. No fever. Patient wore the hospital noninvasive ventilator with AVAPS settings as above with 32% FiO2 and did well overnight. He said he did get some sleep. ABG on these settings was 7.46/49/79. Overnight oximetry with recording duration 9 hours and 7 minutes, average saturation 97%, low saturation 76%, time with saturation less than or equal to 88% was 17 minutes. Oxygen desaturation index 24 with multiple sharp desaturations. Patient was given 80 of Lasix and diuresed 5.2 L yesterday cumulative diuresis since admission is 4.6 L. His weight today is 99.9. Walked with physical therapy 1 ft times 2. Later in the day patient had a more confluent left lower lobe infiltrate and diffuse bilateral septal thickening with mild reticulation with an upper lobe predominance without a peripheral predominance and without honeycombing. 06/29/24: The patient continues to improve. He is sitting in a chair eating breakfast. He says he feels normal except for his weakness. He says his breathing is normal and denies fever, chills, phlegm or hemoptysis. When I enter the room he is on 2 L with saturations 96%. I decreased him to 1 L and his saturation was 93%. He is afebrile. White blood cell count 14.6, creatinine 1.6, cumulative diuresis since admission is 3.7 L. His weight today is 103. BNP has decreased from 1580 to 800. Walked with physical therapy 14 ft and 12 ft. patient wore home noninvasive ventilator with a [employer] machine with a T TV -AVAPS-AE settings: rate 14, tidal volume 500, minimum EPAP 5, maximum EPAP 15, minimum pressure support 6, maximum pressure support 25, inspiratory time 1.2, 4 L bleed in. Patient said he slept well with the machine and had no issues. ABG prior to removal was 7.44/48/72. Overnight oximetry with recording duration 6 hours and 10 minutes, average saturation 95%, low saturation 92%, time with saturation less than or equal to 88 was 0 minutes. Oxygen desaturation index was 0. 06/30/2024: Patient continues to slowly improve. He is getting stronger. Says he is breathing fine. Dry cough that is at his baseline. White blood cell count 14.6. Afebrile. Creatinine 1.70. Currently is on 1 L with saturations 95%. Chest x-ray today shows diffuse interstitial alveolar infiltrates bilaterally with no change from 06/27. Yesterday positive 1.1 L, cumulative diuresis since admission 2.2 L. Weight today 106.8. Lasix 20 p.o. restarted today. Patient wore his home noninvasive ventilator with 4 L bleed in and said he slept well and tolerated the mask without any issues. DATA: 01/14/2023: CT abdomen and pelvis. Findings. Imaged portions of the lower chest revealed patchy bibasilar ground-glass and interstitial opacities. Surgical changes of median sternotomy. * 08/21/2022 - 6 Min Walk: resting oxygen saturation on 2 L, 96%, pulse 62. While walking and breathing 4 L a minute he was able to walk for 2 minutes and 30 seconds. This was 305 m. Maintain saturation 96-98%. Heart rate at the end of this was 129 beats per minute. He used a wheeled walker. He had to stop at 2-1/2 minutes due to shortness of breath. 01/20/2022: CT scan of the chest without contrast. Impression: Interval improvement of the diffuse patchy lung opacities since 12/08/2021. This is favored to represent improving infection as described above. No suspicious pulmonary nodules or masses. No mediastinal, hilar axillary lymphadenopathy. *?09/17/2020:? fluoroscopic sniff test; no paradoxical motion of diaphragm, there is incomplete diaphragm excursion symmetrically with elevation of R and L diaphragm, Consider diaphragm eventration versus partial diaphragm paralysis bilaterally.? [facility], [address] [place] [address]. * 05/20/2020;Split night study: AHI=8.2,desaturation 84%, disrupted sleep, loud snoring;CPAP titration;optimal=8 cm & 1 cm EPR. * 07/10/2020 PFT : FEV1 = 47%, 1.44 L.? FVC = 37%, severely decreased. FEV1%=normal. [id number]%=72% predicted.? There is no statistically significant change after bronchodilator administration. TLC=46%. RV=nl. RV/TLC mildly increased consistent with mild air trapping. DLCO 38%, severely decreased. Flow volume loop: Consistent with restriction. IMPRESSION: Severe restrictive ventilatory impairment,? mild air trapping, severe diffusion impairment without change following? bronchodilator.? Restrictive disease can mask obstruction.? Clinical correlation is recommended.? Lack of response to bronchodilators should not preclude use if clinically indicated. * 05/20/2020 : Split night study:? AHI was 8.2,? desaturation to 84% disrupted sleep and loud snoring; proceeded to CPAP titration? with an optimal pressure of 8 cm with 1 cm of EPR.? He did not have REM at the setting.? He had elevated limb movements with an index of 86.6. He has been using? CPAP 8 cm with difficulty keeping the mask on.? He has significant air leak.? His compliance is measured from April 24 through July 22 but he did not even get his device until the end of June,? has only had a little over a month.? His AHI is 12.9, large air leak.? He has 1% Fabricio-Rodriguez respirations. 12/05/2018: CT scan chest: No prior studies for comparison. Findings: Heart size is normal. There is atherosclerosis of the coronary arteries and aorta. No significant pleural or pericardial effusion. Status post median sternotomy for CABG. No thoracic lymphadenopathy. Mild thoracic spondylosis with dextrocurvature. There is right lower lobe atelectasis. There is mild pleural thickening of the fissures. No suspicious pulmonary nodules or masses. There is an abnormal appearance of the ascending thoracic aorta consistent with aortic dissection extending from the aortic root to the proximal aspect of the aortic arch. There is gynecomastia. * 12/05/2018 PFT at [facility] in [place] FEV1= 54%, 1.83 L, FVC= 48%, normal FEV1/FVC.? No change with bronchodilator.? Lung volumes were not obtained. * echo at [facility] 10/06/2018 - right ventricle not well visualized, normal left atrium, right atrium mildly enlarged, right atrial pressure 3 mm mercury.? Normal IVC.? Prosthetic aortic valve.? Right ventricular systolic pressure less than 30 mmHg Review of Systems Review of Systems: ROS unobtainable: Yes unobtainable due to endotracheal tube Constitutional: Constitutional: Reports no additional constitutional complaints Eyes: Eyes: Reports no additional eye complaints ENT: Reports system reviewed and no additional complaints, except as documented Cardiovascular: Cardiovascular: Reports no additional cardiovascular complaints Respiratory: Respiratory: Reports no additional respiratory complaints Gastrointestinal: Gastrointestinal: Reports no additional gastrointestinal complaints Musculoskeletal: Musculoskeletal: Reports no additional musculoskeletal complaints Neurologic: Reports system reviewed and no additional complaints, except as documented Psychiatric: Psychiatric: Reports no additional psychiatric complaints Endocrine: Endocrine: Reports no additional endocrine complaints Hematologic/Lymphatic: Hematologic/Lymphatic: Reports no additional hematolo gic/lymphatic complaints Allergic/Immunologic: Allergic/Immunologic: Reports no additional allergic/immunologic complaints Exam Const: General: comfortable HENMT: Head: normal to inspection Ears: hearing grossly normal bilaterally Eyes: General: appearance normal, both eyes and all related structures Neck: Neck: normal visual inspection Chest: Chest palpation & inspection: normal inspection of the chest Resp: Auscultation: crackles, no rales, no rhonchi and no wheezes Other: 06/28 Basilar crackles, no wheezes. 06/29: Few basilar crackles, no wheezes 06/30 improved crackles, minimal Cardio: Jugular venous distension: no JVD GI: Inspection: normal to inspection Skin: General skin exam: normal color Neuro: Other: Patient is communicative and follows all commands. Extrem: General: normal to inspection Other: edema Psych: Appearance: grossly normal Objective Data Vital Signs Vital Signs: Vital Signs - 24 hr 06/29/24 10:17 06/29/24 11:21 06/29/24 12:00 Temperature 36.7 C Pulse Rate 80 71 Respiratory Rate 22 H Blood Pressure 99/49 L Pulse Oximetry 93 93 Oxygen Delivery Nasal Cannula Oxygen Flow Rate 2 06/29/24 11:20 06/29/24 11:25 06/29/24 11:30 Temperature Pulse Rate 77 78 82 Respiratory Rate Blood Pressure Pulse Oximetry 88 L 92 88 L Oxygen Delivery Room Air Nasal Cannula Nasal Cannula Oxygen Flow Rate 1 1 06/29/24 11:35 06/29/24 11:50 06/29/24 10:00 Temperature Pulse Rate 86 74 72 Respiratory Rate Blood Pressure Pulse Oximetry 91 91 Oxygen Delivery Nasal Cannula Nasal Cannula Oxygen Flow Rate 2 1 06/29/24 12:00 06/29/24 14:00 06/29/24 15:35 Temperature 36.8 C Pulse Rate 70 61 59 L Respiratory Rate 20 Blood Pressure 125/65 Pulse Oximetry 93 Oxygen Delivery Oxygen Flow Rate 06/29/24 16:00 06/29/24 16:00 06/29/24 19:36 Temperature 36.4 C Pulse Rate 59 L 62 Respiratory Rate 20 Blood Pressure 120/60 Pulse Oximetry 93 96 Oxygen Delivery Nasal Cannula Oxygen Flow Rate 2 06/29/24 20:00 06/29/24 20:00 06/29/24 22:00 Temperature Pulse Rate 61 61 63 Respiratory Rate 20 Blood Pressure Pulse Oximetry 96 Oxygen Delivery Nasal Cannula Oxygen Flow Rate 2 06/29/24 23:30 06/30/24 00:13 06/30/24 00:00 Temperature 37.0 C Pulse Rate 56 L 54 L Respiratory Rate 20 Blood Pressure 130/68 Pulse Oximetry 96 98 Oxygen Delivery High Flow Nasal Cannula Oxygen Flow Rate 2 06/30/24 00:00 06/29/24 23:30 06/30/24 05:30 Temperature 37.1 C Pulse Rate 56 L 65 52 L Respiratory Rate 20 19 20 Blood Pressure 127/59 L Pulse Oximetry 98 96 95 Oxygen Delivery BiPAP Oxygen Flow Rate 2 06/30/24 02:00 06/30/24 04:00 06/30/24 04:00 Temperature Pulse Rate 52 L 50 L 52 L Respiratory Rate 20 Blood Pressure Pulse Oximetry 95 Oxygen Delivery BiPAP Oxygen Flow Rate 2 06/30/24 06:00 06/30/24 06:00 06/30/24 07:05 Temperature Pulse Rate 58 L 52 L 60 Respiratory Rate 18 18 Blood Pressure Pulse Oximetry 100 98 Oxygen Delivery Nasal Cannula High Flow Nasal Cannula Oxygen Flow Rate 2 2 06/30/24 07:05 Temperature Pulse Rate 60 Respiratory Rate 18 Blood Pressure Pulse Oximetry Oxygen Delivery Oxygen Flow Rate Intake/Output Intake/Output: Intake & Output 06/27/24 06/28/24 06/29/24 06/30/24 23:59 23:59 23:59 23:59 Intake Total 400 1700 1360 400 Output Total 5650 2150 301 200 Balance -5250 -450 1059 200 Meds/Results Medications: Active Medications Generic Name Dose Route Start Last Admin Trade Name Freq PRN Reason Stop Dose Admin Acetaminophen 650 mg 06/24/24 02:04 Acetaminophen Elixir 325 Mg/10.15 Ml Udc PO Q4H PRN Mild Pain (1-3) or Fever Amlodipine Besylate 10 mg 06/28/24 09:00 06/29/24 09:55 Amlodipine Besylate 10 Mg Tablet PO Not Given DAILY CHARITY Atorvastatin Calcium 80 mg 06/24/24 09:00 06/29/24 10:17 Atorvastatin 40 Mg Tablet PO 80 mg DAILY CHARITY Administration Dextrose 12.5 gm 06/24/24 11:32 Dextrose 50% 25 Gm/50 Ml Syringe IV PUSH PRN PRN Hypoglycemia Protocol Furosemide 20 mg 06/30/24 09:00 Furosemide 20 Mg Tablet PO DAILY CHARITY Glucagon 1 mg 06/24/24 11:32 Glucagon For Inj 1 Mg Vial IM PRN PRN Hypoglycemia Protocol Glucose 15 gm 06/24/24 11:32 Glucose Oral Gel 15 Gm Of Glucse In 37.5 Gm Tube PO PRN PRN Hypoglycemia Protocol Hydralazine HCl 10 mg 06/27/24 17:00 06/29/24 16:16 Hydralazine 10 Mg Tablet PO 10 mg BID CHARITY Administration Aztreonam 1 gm/ Sodium 50 mls @ 100 mls/hr 06/23/24 22:00 06/29/24 22:00 Chloride IVPB 06/30/24 10:29 Infused Q12H CHARITY Infusion Dextrose 1,000 mls @ 100 mls/hr 06/24/24 11:32 Dextrose 5% 1,000 Ml IVPB PRN PRN Hypoglycemia Protocol Levothyroxine Sodium 150 mcg 06/24/24 10:00 06/30/24 06:57 Levothyroxine Sodium 150 Mcg Tablet PO 150 mcg DAILY@0630 CHARITY Administration Levothyroxine Sodium 25 mcg 06/24/24 10:00 06/30/24 06:58 Levothyroxine Sodium 25 Mcg Tablet PO 25 mcg DAILY@0630 CHARITY Administration Pantoprazole Sodium 40 mg 06/27/24 21:00 06/29/24 21:29 Pantoprazole 40 Mg Tablet BY MOUTH 40 mg Q12HR CHARITY Administration Polyethylene Glycol 17 gm 06/26/24 10:20 06/26/24 13:24 Polyethylene Glycol 3350 17 Gm Powd.Pack PO 17 gm QAM PRN Administration Constipation Pregabalin 75 mg 06/24/24 09:00 06/29/24 16:16 Pregabalin (*Crx) 75 Mg Capsule PO 75 mg BID CHARITY Administration Quetiapine Fumarate 50 mg 06/29/24 21:00 06/29/24 21:30 Quetiapine Fumarate 25 Mg Tablet PO 50 mg HS CHARITY Administration Sertraline HCl 100 mg 06/24/24 09:00 06/29/24 10:17 Sertraline Hcl 50 Mg Tablet PO 100 mg DAILY CHARITY Administration Sotalol HCl 80 mg 06/28/24 09:00 06/29/24 10:17 Sotalol Hcl 80 Mg Tablet PO 80 mg DAILY CHARITY Administration Umeclidinium/Vilanterol 1 puff 06/28/24 12:00 06/30/24 07:04 Umeclidinium/Vilanterol 62.5-25 Mcg Ellipta INHALATION 1 puff DAILYRT CHARITY Administration Radiology Results: ITS Impressions Renal Ultrasound 06/24/24 09:12 Impression: 1: Unremarkable renal ultrasound. No stones, masses or hydronephrosis. Venous Doppler Study 06/26/24 15:41 IMPRESSION: Negative bilateral lower extremity venous US. No deep vein thrombosis. Chest CT 06/28/24 14:36 IMPRESSION: 1. Patchy consolidation and groundglass opacities in the left lower lobe suspicious for pneumonia. More widespread scattered bilateral linear, bandlike and groundglass opacities for which would include a broader differential also including chronic pneumonia or chronic interstitial lung disease. Chest X-Ray 06/30/24 06:15 IMPRESSION: 1. Stable diffuse lung disease, likely a combination of chronic interstitial lung disease and pneumonia. Labs Labs: Laboratory Results - last 24 hr 06/29/24 06/29/24 06/29/24 11:07 15:32 19:48 WBC RBC Hgb Hct MCV MCH MCHC RDW Plt Count MPV Sodium Potassium Chloride Carbon Dioxide Anion Gap BUN Creatinine Estim Creat Clear Calc Estimated GFR Glucose POC Capillary Glucose 381 H 256 H 232 H Calcium Phosphorus Magnesium Total Bilirubin AST ALT Alkaline Phosphatase Total Protein Albumin 06/30/24 04:45 WBC 14.6 H RBC 4.55 L Hgb 13.4 L Hct 42.9 MCV 94.3 MCH 29.5 MCHC 31.2 L RDW 15.8 H Plt Count 161 MPV 12.1 H Sodium 138 Potassium 3.9 Chloride 99 Carbon Dioxide 33 H Anion Gap 6 BUN 53 H Creatinine 1.70 H Estim Creat Clear Calc 46 Estimated GFR 41 L Glucose 89 POC Capillary Glucose Calcium 8.9 Phosphorus 3.2 Magnesium 2.3 Total Bilirubin 0.5 AST 33 ALT 37 Alkaline Phosphatase 105 Total Protein 6.0 L Albumin 3.2 L
[2024-06-30 09:07] LABS: Glucose Point of Care 86 mg/dl (65-105)
[2024-06-30] MEDS: PANTOPRAZOLE 40 MG TABLET BY MOUTH ×2 (09:19→20:24)
[2024-06-30] MEDS: SERTRALINE HCL 50 MG TABLET 100 MG PO (09:19)
[2024-06-30] MEDS: SOTALOL HCL 80 MG TABLET PO (09:19)
[2024-06-30] MEDS: ATORVASTATIN 40 MG TABLET 80 MG PO (09:19)
[2024-06-30] MEDS: PREGABALIN (*CRX) 75 MG CAPSULE PO ×2 (09:19→16:48)
[2024-06-30] MEDS: FUROSEMIDE 20 MG TABLET PO (09:19)
[2024-06-30] MEDS: hydrALAZINE 10 MG TABLET PO ×2 (09:19→16:48)
[2024-06-30] MEDS: AZTREONAM 1 GM in SODIUM CHLORIDE 0.9% IV 50 ML 100 ML IVPB (09:20)
[2024-06-30 11:28] LABS: Glucose Point of Care 368 mg/dl (65-105)
[2024-06-30 12:38] LABS: ANA Cascade Screen NEGATIVE (NEGATIVE)
--- NOTE | 2024-06-30 13:02 | PC.NURSE ---
Patient glucose near lunch time elevated >300, checked with patient about self management with pump and meter. He stated that his setup came out and that he was about to replace it. Followed up within the hour and the patient stated that he replaced his pump setup and treated his glucose. This RN reinforced education on compliance with insulin pump contract and to ensure documentation of insulin rate and bolus as he had not flilled in data since this morning. He verbalized understanding. Will continue to check glucose with hospital glucometer per protocol.
[2024-06-30 16:32] LABS: Glucose Point of Care 115 mg/dl (65-105)
--- NOTE | 2024-06-30 17:36 | P.PNIM_ITS ---
Progress Note: A&P Assessment and Plan (1) Hypercapnic respiratory failure: Code(s): J96.92 - Respiratory failure, unspecified with hypercapnia Status: Acute Assessment and Plan: Patient has been noncompliant with his medications and CPAP at home. Patient had increasing agitation and confusion over the past several days so family brought him to the ER for evaluation. He was hypoxic with SpO2 in 50s on RA. He was placed on non-rebreather mask with improvement in saturation to upper 90s. ABG 7.11/80/211 on NRBM suggesting hypercapnic respiratory failure. CXR showed cardiomegaly with cardiac decompensation and pulmonary edema. Bilateral basal pneumonia with highly suggestive bilateral pneumonitis. Placed on BiPAP. Nebs and steroids started. IV abx started. Repeat ABG 7./82 on bipap. Patient intubated 06/23 and admitted to the ICU. He was also treated with intermittent doses of Lasix IV. He was stabilized. ABG improved. He was tolerating SBT bu patient self extubated later in the evening on 06/26. He was placed on Vapotherm since then. Was initially not tolerating BiPAP. Pulmonary consulted and appreciate their input. Echo was unhelpful due to poor images and patient refusing contrast. He has had an excellent diuresis with cumulative fluid balance of -3L. BNP 2780- > 800. Patient wore the hospital noninvasive ventilator with AVAPS last night with 4L bleed in and did well. ABG this morning was 7.44/48/72. Apnea showing SpO2 <88% was 0 minutes. Continue current noninvasive ventilator at bedtime, with naps and as needed. Wean O2 off during the day as tolerated. Encouraged compliance (2) COPD (chronic obstructive pulmonary disease): Code(s): J44.9 - Chronic obstructive pulmonary disease, unspecified Status: Acute Assessment and Plan: As above. Concern that his respiratory symptoms may be more likely related to diaph paralysis then from COPD. Nebs stopped. Steroids stopped. Wean O2 as tolerated. Continue Anoro (3) Pneumonia: Code(s): J18.9 - Pneumonia, unspecified organism Status: Acute Assessment and Plan: CXR as above. RSV, COVID and Influenza PCR nasal swab negative. He was started on IV antibiotics for pneumonia. WBC elevated on admission and climbed to 24K felt related to steroids. Leukocytosis trending down now that he is off steroids. BCx negative. Was on Vanco but stopped since MRSA nasal swab negative. CT chest showing patchy consolidation and ground glass opacities in the LLL as well as more widespread scattered bilateral linear, bandlike ground glass opacities - consider chronic PNA or ILD Azithromycin stopped after 5 days. Also on Aztreonam and finishing 7 day today Original plan per PharmD ID was for 7 days of Azithromycin. Patient responding well so will follow clinically. Viral panel and autoimmune panel ordered. (4) Acute kidney injury superimposed on CKD: Code(s): N17.9 - Acute kidney failure, unspecified; N18.9 - Chronic kidney disease, unspecified Status: Acute Assessment and Plan: Patient has a history of stage 5 kidney injury requiring dialysis in the past. Baseline creatinine 1.6 01/26. Cr was 3.0 on admission but has trended down from there. Renal ultrasound with no hydronephrosis. Creatinine continued to improve and now down to 1.7 felt probably at baseline. On lasix 60mg daily. Added back Lasix 20mg daily. Follow (5) Diabetes: Qualifiers: Diabetes mellitus type: type 2 Diabetes mellitus buttermaker helper insulin use: with [facility] use Diabetes mellitus complication status: without complication Qualified Code(s): E11.9 - Type 2 diabetes mellitus without complications; Z79.4 - [employer]modal customer service (current) use of insulin Code(s): E11.9 - Type 2 diabetes mellitus without complications Status: Acute Assessment and Plan: A1c 7.5. Patient with Type 2 diabetes on insulin pump at home. He did require insulin infusion per ICU protocol but weaned off now. He takes 1.65U/hour. Lantus and mealtime Novolog started. Glucose was poorly controlled but improved now. His mental status improved and felt he could manage his insulin pump so this was restarted. Continue [employer] covering with sliding scale. Hypoglycemia protocol available as needed. Continue to follow. 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 Plan hx of AFib - maintaining NSR. QTc 456. Continue sotalol. Not on anticoagulation. Metabolic encephalopathy - mental status improving over the past few days. Now Aox4. Continue Zoloft. On Seroquel 100mg at night but only on 25mg here. Advanced seroquel to 50mg at night and tolerating. Follow. HTN - Patient's blood pressure was reviewed on 06/30. Blood pressure well controlled. Will continue to hold Norvasc. Continue hydralazine for now. DVT prophylaxis - SCDs Code status - Full Subjective Date/time seen: 06/30/24 17:36 Interval history: 63yo male with CHAZ noncompliant with CPAP, COPD, tobacco abuse and diaphragmatic paralysis here for altered mental status. Tolerated the AVAPS overnight. Feels 'better than yesterday'. No CP or SOB. No n/v. Walking to the bathroom. Exam Narrative: AF 98.8 119/59 65 18 99% 2L Gen - NARD sitting up in the chair Chest - decreased BS in the left base o/w basilar rhonchi, nml RR CV - RRR S1/S2. Tele showing no significant dysrhythmias Abd - Soft, obese, NT Ext - 1+ pedal edema. Negative Homans Neuro - Alert and oriented x4. Nonfocal exam. Psych - Nml mood and affect Skin - Warm and dry Objective Data Vital Signs Vital Signs: Vital Signs - 24 hr 06/29/24 19:36 06/29/24 20:00 06/29/24 20:00 Temperature 97.6 F Pulse Rate 62 61 61 Respiratory Rate 20 20 Blood Pressure 120/60 Pulse Oximetry 96 96 Oxygen Delivery Nasal Cannula Oxygen Flow Rate 2 06/29/24 22:00 06/29/24 23:30 06/30/24 00:13 Temperature 98.6 F Pulse Rate 63 56 L Respiratory Rate 20 Blood Pressure 130/68 Pulse Oximetry 96 98 Oxygen Delivery High Flow Nasal Cannula Oxygen Flow Rate 2 06/30/24 00:00 06/30/24 00:00 06/29/24 23:30 Temperature Pulse Rate 54 L 56 L 65 Respiratory Rate 20 19 Blood Pressure Pulse Oximetry 98 96 Oxygen Delivery BiPAP Oxygen Flow Rate 2 06/30/24 05:30 06/30/24 02:00 06/30/24 04:00 Temperature 98.8 F Pulse Rate 52 L 52 L 50 L Respiratory Rate 20 Blood Pressure 127/59 L Pulse Oximetry 95 Oxygen Delivery Oxygen Flow Rate 06/30/24 04:00 06/30/24 06:00 06/30/24 06:00 Temperature Pulse Rate 52 L 58 L 52 L Respiratory Rate 20 18 Blood Pressure Pulse Oximetry 95 100 Oxygen Delivery BiPAP Nasal Cannula Oxygen Flow Rate 2 2 06/30/24 07:05 06/30/24 07:05 06/30/24 08:00 Temperature 97.7 F Pulse Rate 60 60 72 Respiratory Rate 18 18 16 Blood Pressure 137/59 L Pulse Oximetry 98 99 Oxygen Delivery High Flow Nasal Cannula Oxygen Flow Rate 2 06/30/24 08:00 06/30/24 09:19 06/30/24 08:00 Temperature Pulse Rate 69 75 Respiratory Rate Blood Pressure Pulse Oximetry 97 Oxygen Delivery Nasal Cannula Oxygen Flow Rate 2 06/30/24 10:00 06/30/24 12:00 06/30/24 12:00 Temperature 97.4 F L Pulse Rate 66 67 Respiratory Rate 18 Blood Pressure 114/54 L Pulse Oximetry 98 96 Oxygen Delivery Nasal Cannula Oxygen Flow Rate 2 06/30/24 12:00 06/30/24 14:00 06/30/24 16:00 Temperature 98.8 F Pulse Rate 65 68 65 Respiratory Rate 18 Blood Pressure 119/59 L Pulse Oximetry 99 Oxygen Delivery Oxygen Flow Rate Intake/Output Intake/Output: Intake & Output 06/27/24 06/28/24 06/29/24 06/30/24 23:59 23:59 23:59 23:59 Intake Total 400 1700 1360 1000 Output Total 5650 2150 301 850 Balance -5250 -450 1059 150 Meds/Results Medications: Active Medications Generic Name Dose Route Start Last Admin Trade Name Freq PRN Reason Stop Dose Admin Acetaminophen 650 mg 06/24/24 02:04 Acetaminophen Elixir 325 Mg/10.15 Ml Udc PO Q4H PRN Mild Pain (1-3) or Fever Amlodipine Besylate 10 mg 06/28/24 09:00 06/29/24 09:55 Amlodipine Besylate 10 Mg Tablet PO Not Given DAILY [facility] Atorvastatin Calcium 80 mg 06/24/24 09:00 06/30/24 09:19 Atorvastatin 40 Mg Tablet PO 80 mg DAILY CHARITY Administration Dextrose 12.5 gm 06/24/24 11:32 Dextrose 50% 25 Gm/50 Ml Syringe IV PUSH PRN PRN Hypoglycemia Protocol Furosemide 20 mg 06/30/24 09:00 06/30/24 09:19 Furosemide 20 Mg Tablet PO 20 mg DAILY [facility]ITY Administration Glucagon 1 mg 06/24/24 11:32 Glucagon For Inj 1 Mg Vial IM PRN PRN Hypoglycemia Protocol Glucose 15 gm 06/24/24 11:32 Glucose Oral Gel 15 Gm Of Glucse In 37.5 Gm Tube PO PRN PRN Hypoglycemia Protocol Hydralazine HCl 10 mg 06/27/24 17:00 06/30/24 16:48 Hydralazine 10 Mg Tablet PO 10 mg BID CHARITY Administration Dextrose 1,000 mls @ 100 mls/hr 06/24/24 11:32 Dextrose 5% 1,000 Ml IVPB PRN PRN Hypoglycemia Protocol Levothyroxine Sodium 150 mcg 06/24/24 10:00 06/30/24 06:57 Levothyroxine Sodium 150 Mcg Tablet PO 150 mcg DAILY@0630 CHARTIY Administration Levothyroxine Sodium 25 mcg 06/24/24 10:00 06/30/24 06:58 Levothyroxine Sodium 25 Mcg Tablet PO 25 mcg DAILY@0630 CHARITY Administration Pantoprazole Sodium 40 mg 06/27/24 21:00 06/30/24 09:19 Pantoprazole 40 Mg Tablet BY MOUTH 40 mg Q12HR [facility] Administration Polyethylene Glycol 17 gm 06/26/24 10:20 06/26/24 13:24 Polyethylene Glycol 3350 17 Gm Powd.Pack PO 17 gm QAM PRN Administration Constipation Pregabalin 75 mg 06/24/24 09:00 06/30/24 16:48 Pregabalin (*Crx) 75 Mg Capsule PO 75 mg BID CHARITY Administration Quetiapine Fumarate 50 mg 06/29/24 21:00 06/29/24 21:30 Quetiapine Fumarate 25 Mg Tablet PO 50 mg HS CHARITY Administration Sertraline HCl 100 mg 06/24/24 09:00 06/30/24 09:19 Sertraline Hcl 50 Mg Tablet PO 100 mg DAILY CHARITY Administration Sotalol HCl 80 mg 06/28/24 09:00 06/30/24 09:19 Sotalol Hcl 80 Mg Tablet PO 80 mg DAILY CHARITY Administration Umeclidinium/Vilanterol 1 puff 06/28/24 12:00 06/30/24 07:04 Umeclidinium/Vilanterol 62.5-25 Mcg Ellipta INHALATION 1 puff DAILYRT CHARITY Administration Radiology Results: ITS Impressions Renal Ultrasound 06/24/24 09:12 Impression: 1: Unremarkable renal ultrasound. No stones, masses or hydronephrosis. Venous Doppler Study 06/26/24 15:41 IMPRESSION: Negative bilateral lower extremity venous US. No deep vein thrombosis. Chest CT 06/28/24 14:36 IMPRESSION: 1. Patchy consolidation and groundglass opacities in the left lower lobe suspicious for pneumonia. More widespread scattered bilateral linear, bandlike and groundglass opacities for which would include a broader differential also including chronic pneumonia or chronic interstitial lung disease. Chest X-Ray 06/30/24 06:15 IMPRESSION: 1. Stable diffuse lung disease, likely a combination of chronic interstitial lung disease and pneumonia. Labs Labs: Laboratory Results - last 24 hr 06/29/24 06/29/24 06/30/24 06:54 19:48 04:45 WBC 14.6 H RBC 4.55 L Hgb 13.4 L Hct 42.9 MCV 94.3 MCH 29.5 MCHC 31.2 L RDW 15.8 H Plt Count 161 MPV 12.1 H Sodium 138 Potassium 3.9 Chloride 99 Carbon Dioxide 33 H Anion Gap 6 BUN 53 H Creatinine 1.70 H Estim Creat Clear Calc 46 Estimated GFR 41 L Glucose 89 POC Capillary Glucose 232 H Calcium 8.9 Phosphorus 3.2 Magnesium 2.3 Total Bilirubin 0.5 AST 33 ALT 37 Alkaline Phosphatase 105 Total Protein 6.0 L Albumin 3.2 L LINA Scrn Qualitative Negative 06/30/24 06/30/24 06/30/24 07:32 11:22 16:29 WBC RBC Hgb Hct MCV MCH MCHC RDW Plt Count MPV Sodium Potassium Chloride Carbon Dioxide Anion Gap BUN Creatinine Estim Creat Clear Calc Estimated GFR Glucose POC Capillary Glucose 86 368 H 115 H Calcium Phosphorus Magnesium Total Bilirubin AST ALT Alkaline Phosphatase Total Protein Albumin LINA Scrn Qualitative
[2024-06-30 20:01] LABS: Glucose Point of Care 102 mg/dl (65-105)
[2024-06-30] MEDS: QUEtiapine FUMARATE 25 MG TABLET 50 MG PO (20:24)
[2024-07-01] VITALS (17 sets, daily range): BP systolic 127–163; BP diastolic 69–78; PULSE 58–76; RESP 12–24; TEMP 36–36.8; O2SAT 97–100
[2024-07-01 04:50] LABS: Hematocrit 43.2 % (42.0-52.0); Hemoglobin 13.3 g/dL (14.0-18.0); Mean Corpuscular HGB Conc 30.8 g/dl (32-36); Mean Corpuscular Hemoglobin 29.8 pg (26-34); Mean Corpuscular Volume 96.6 fl (80-100); Mean Platelet Volume 12.2 fl (7.4-10.4); Platelet Count Result 162 k/mm3 (150-375); Red Blood Count 4.47 M/mm3 (4.6-6.20); Red Cell Distribution Width 15.9 % (11.5-14.5); White Blood Count 13.3 K/mm3 (4.5-10.0)
[2024-07-01 05:01] LABS: Alanine Aminotransferase 48 U/L (6-50); Albumin Level 3.3 g/dL (3.5-5.1); Alkaline Phosphatase 115 U/L (38-126); Anion Gap 3 mmol/L (4-12); Aspartate Amino Transferase 45 U/L (17-59); Bilirubin,Total 0.4 mg/dL (0.2-1.3); Blood Urea Nitrogen 52 mg/dL (9-20); Calcium 8.8 mg/dL (8.4-10.2); Carbon Dioxide 35 mmol/L (22-30); Chloride 102 mmol/L (98-107); Estimated CRCL calculation 53 ml/min; Estimated Glomerular Filt Rate 47; Glucose 121 mg/dL (65-110); Magnesium 2.4 mg/dL (1.6-2.3); Potassium 4.1 mmol/L (3.4-5.0); Sodium 140 mmol/L (137-145)
[2024-07-01] MEDS: LEVOTHYROXINE SODIUM 150 MCG TABLET PO (05:43)
[2024-07-01] MEDS: LEVOTHYROXINE SODIUM 25 MCG TABLET PO (05:43)
[2024-07-01] MEDS: UMECLIDINIUM/VILANTEROL 62.5-25 MCG ELLIPTA 1 PUFF INHALATION (07:44)
[2024-07-01 08:20] LABS: Glucose Point of Care 92 mg/dl (65-105)
[2024-07-01] MEDS: ATORVASTATIN 40 MG TABLET 80 MG PO (08:44)
[2024-07-01] MEDS: FUROSEMIDE 20 MG TABLET PO (08:45)
[2024-07-01] MEDS: SOTALOL HCL 80 MG TABLET PO (08:46)
[2024-07-01] MEDS: PANTOPRAZOLE 40 MG TABLET BY MOUTH ×2 (08:46→21:00)
[2024-07-01] MEDS: PREGABALIN (*CRX) 75 MG CAPSULE PO ×2 (08:46→18:29)
[2024-07-01] MEDS: hydrALAZINE 10 MG TABLET PO ×2 (08:46→18:29)
[2024-07-01] MEDS: SERTRALINE HCL 50 MG TABLET 100 MG PO (08:47)
[2024-07-01 11:40] LABS: Glucose Point of Care 188 mg/dl (65-105)
--- NOTE | 2024-07-01 14:47 | PC.NURSE ---
Reviewed and acknowledge charting Rosalina Bloom [facility]
--- NOTE | 2024-07-01 17:02 | PM.IMPN ---
Progress Note: A&P Assessment and Plan (1) Hypercapnic respiratory failure: Code(s): J96.92 - Respiratory failure, unspecified with hypercapnia Status: Acute Assessment and Plan: Patient has been noncompliant with his medications and CPAP at home. Patient had increasing agitation and confusion over the past several days so family brought him to the ER for evaluation. He was hypoxic with SpO2 in 50s on RA. He was placed on non-rebreather mask with improvement in saturation to upper 90s. ABG 7.1180/211 on NRBM suggesting hypercapnic respiratory failure. CXR showed cardiomegaly with cardiac decompensation and pulmonary edema. Bilateral basal pneumonia with highly suggestive bilateral pneumonitis. Placed on BiPAP. Nebs and steroids started. IV abx started. Repeat ABG 7./82 on bipap. Patient intubated 06/23 and admitted to the ICU. He was also treated with intermittent doses of Lasix IV. He was stabilized. ABG improved. He was tolerating SBT bu patient self extubated later in the evening on 06/26. He was placed on Vapotherm since then. Was initially not tolerating BiPAP. Pulmonary consulted and appreciate their input. Echo was unhelpful due to poor images and patient refusing contrast. He had an excellent diuresis but now becoming more even. BNP 2780-> 800. Patient wore the hospital noninvasive ventilator with AVAPS last night with 4L bleed in and did well. ABG on 06/29 was 7.44/48/72. Apnea link now showing SpO2 <88% was 0 minutes. Continue current noninvasive ventilator at bedtime, with naps and as needed. Wean O2 off during the day as tolerated. Advance Lasix Encouraged compliance (2) COPD (chronic obstructive pulmonary disease): Code(s): J44.9 - Chronic obstructive pulmonary disease, unspecified Status: Acute Assessment and Plan: As above. Concern that his respiratory symptoms may be more likely related to diaph paralysis then from COPD. Nebs stopped. Steroids stopped. Wean O2 as tolerated. Continue Anoro (3) Pneumonia: Code(s): J18.9 - Pneumonia, unspecified organism Status: Acute Assessment and Plan: CXR as above. RSV, COVID and Influenza PCR nasal swab negative. He was started on IV antibiotics for pneumonia. WBC elevated on admission and climbed to 24K felt related to steroids. Leukocytosis trending down now that he is off steroids. BCx negative. Was on Vanco but stopped since MRSA nasal swab negative. CT chest showing patchy consolidation and ground glass opacities in the LLL as well as more widespread scattered bilateral linear, bandlike ground glass opacities - consider chronic PNA or ILD Azithromycin stopped after 5 days. Also on Aztreonam and finished 7 days. Patient responded well to abx Viral panel and autoimmune panel ordered. Lasix resumed at lower dose and tolerated; will advance Lasix tomorrow. (4) Acute kidney injury superimposed on CKD: Code(s): N17.9 - Acute kidney failure, unspecified; N18.9 - Chronic kidney disease, unspecified Status: Acute Assessment and Plan: Patient has a history of stage 5 kidney injury requiring dialysis in the past. Baseline creatinine 1.6 01/26. Cr was 3.0 on admission but has trended down from there. Renal ultrasound with no hydronephrosis. Creatinine continued to improve and now down to 1.5 felt probably at baseline. On lasix 60mg daily at home. Added back Lasix 20mg daily and tolerated well. Advance Lasix. Follow (5) Diabetes: Qualifiers: Diabetes mellitus type: type 2 Diabetes mellitus skilled nursing insulin use: with skilled nursing use Diabetes mellitus complication status: without complication Qualified Code(s): E11.9 - Type 2 diabetes mellitus without complications; Z79.4 - intermodal customer service (current) use of insulin Code(s): E11.9 - Type 2 diabetes mellitus without complications Status: Acute Assessment and Plan: A1c 7.5. Patient with Type 2 diabetes on insulin pump at home. He did require insulin infusion per ICU protocol but weaned off now. He uses a pump at 1.65U/hour. Lantus and mealtime Novolog started. Glucose was poorly controlled initially but now improved. His mental status improved and felt he could manage his insulin pump so this was restarted. Continue AccuCheks covering with sliding scale. Hypoglycemia protocol available as needed. Continue to follow. 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 Plan hx of AFib - maintaining NSR. QTc 456. Continue sotalol. Not on anticoagulation. Metabolic encephalopathy - mental status improving over the past few days. Now Aox4. Continue Zoloft. On Seroquel 100mg at night but only on 25mg here. Advanced seroquel to 50mg at night and tolerating. Follow. HTN - Patient's blood pressure was reviewed on 07/01. Blood pressure is reasonably well controlled. Will continue to hold Norvasc. Continue hydralazine for now. DVT prophylaxis - SCDs Code status - Full Disp - discharge anytime once rehab aranged Subjective Date/time seen: 07/01/24 17:02 Interval history: 63yo male with CHAZ noncompliant with CPAP, COPD, tobacco abuse and diaphragmatic paralysis here for altered mental status. Glucose stable and he states at his normal levels. no problems overnight. No SOB. Walking in halls. He is wearing the AVAPS at night. Exam Narrative: AF 97.5 150/69 62 24 97% 1L Gen - NARD sitting up in the chair Chest - distant BS, nml RR CV - RRR S1/S2. Tele showing no significant dysrhythmias Abd - Soft, obese, NT Ext - trace pedal edema Neuro - Alert and appropriate Psych - Nml mood and affect Skin - Warm and dry Objective Data Vital Signs Vital Signs: Vital Signs - 24 hr 06/30/24 18:00 06/30/24 19:50 06/30/24 20:21 Temperature 98.1 F Pulse Rate 65 63 63 Respiratory Rate 18 18 Blood Pressure 135/68 Pulse Oximetry 97 97 Oxygen Delivery Nasal Cannula Oxygen Flow Rate 2 06/30/24 20:00 06/30/24 22:00 06/30/24 23:55 Temperature 98.1 F Pulse Rate 61 61 65 Respiratory Rate 18 Blood Pressure 128/94 H Pulse Oximetry 99 Oxygen Delivery Oxygen Flow Rate 07/01/24 00:00 07/01/24 00:30 07/01/24 02:00 Temperature Pulse Rate 59 L 59 L 61 Respiratory Rate 18 Blood Pressure Pulse Oximetry 99 Oxygen Delivery Nasal Cannula Oxygen Flow Rate 2 06/30/24 23:00 07/01/24 02:47 07/01/24 04:00 Temperature Pulse Rate 66 59 L 59 L Respiratory Rate 18 Blood Pressure Pulse Oximetry 97 99 99 Oxygen Delivery Nasal Cannula Oxygen Flow Rate 2 07/01/24 04:00 07/01/24 04:00 07/01/24 07:45 Temperature 97.6 F Pulse Rate 61 58 L Respiratory Rate 18 Blood Pressure 163/78 H Pulse Oximetry 100 98 Oxygen Delivery High Flow Nasal Cannula Oxygen Flow Rate 1 07/01/24 08:00 07/01/24 08:46 07/01/24 08:00 Temperature 96.8 F L Pulse Rate 76 70 65 Respiratory Rate 24 H Blood Pressure 137/78 Pulse Oximetry 98 Oxygen Delivery Oxygen Flow Rate 07/01/24 12:00 07/01/24 12:00 07/01/24 16:00 Temperature 97.5 F L Pulse Rate 65 67 62 Respiratory Rate 24 H Blood Pressure 150/69 H Pulse Oximetry 97 Oxygen Delivery Oxygen Flow Rate Intake/Output Intake/Output: Intake & Output 06/28/24 06/29/24 06/30/24 07/01/24 23:59 23:59 23:59 23:59 Intake Total 1700 1360 1360 1360 Output Total 2150 301 1050 200 Balance -450 3381 922 5352 Meds/Results Medications: Active Medications Generic Name Dose Route Start Last Admin Trade Name Freq PRN Reason Stop Dose Admin Acetaminophen 650 mg 06/24/24 02:04 Acetaminophen Elixir 325 Mg/10.15 Ml Udc PO Q4H PRN Mild Pain (1-3) or Fever Amlodipine Besylate 10 mg 06/28/24 09:00 06/29/24 09:55 Amlodipine Besylate 10 Mg Tablet PO Not Given DAILY CHARITY Atorvastatin Calcium 80 mg 06/24/24 09:00 07/01/24 08:44 Atorvastatin 40 Mg Tablet PO 80 mg DAILY CHARITY Administration Dextrose 12.5 gm 06/24/24 11:32 Dextrose 50% 25 Gm/50 Ml Syringe IV PUSH PRN PRN Hypoglycemia Protocol Furosemide 40 mg 07/02/24 09:00 Furosemide 40 Mg Tablet PO DAILY CHARITY Glucagon 1 mg 06/24/24 11:32 Glucagon For Inj 1 Mg Vial IM PRN PRN Hypoglycemia Protocol Glucose 15 gm 06/24/24 11:32 Glucose Oral Gel 15 Gm Of Glucse In 37.5 Gm Tube PO PRN PRN Hypoglycemia Protocol Hydralazine HCl 10 mg 06/27/24 17:00 07/01/24 08:46 Hydralazine 10 Mg Tablet PO 10 mg BID CHARITY Administration Dextrose 1,000 mls @ 100 mls/hr 06/24/24 11:32 Dextrose 5% 1,000 Ml IVPB PRN PRN Hypoglycemia Protocol Levothyroxine Sodium 150 mcg 06/24/24 10:00 07/01/24 05:43 Levothyroxine Sodium 150 Mcg Tablet PO 150 mcg DAILY@0630 CHARITY Administration Levothyroxine Sodium 25 mcg 06/24/24 10:00 07/01/24 05:43 Levothyroxine Sodium 25 Mcg Tablet PO 25 mcg DAILY@0630 CHARITY Administration Pantoprazole Sodium 40 mg 06/27/24 21:00 07/01/24 08:46 Pantoprazole 40 Mg Tablet BY MOUTH 40 mg Q12HR CHARITY Administration Polyethylene Glycol 17 gm 06/26/24 10:20 06/26/24 13:24 Polyethylene Glycol 3350 17 Gm Powd.Pack PO 17 gm QAM PRN Administration Constipation Pregabalin 75 mg 06/24/24 09:00 07/01/24 08:46 Pregabalin (*Crx) 75 Mg Capsule PO 75 mg BID CHARITY Administration Quetiapine Fumarate 50 mg 06/29/24 21:00 06/30/24 20:24 Quetiapine Fumarate 25 Mg Tablet PO 50 mg HS CHARITY Administration Sertraline HCl 100 mg 06/24/24 09:00 07/01/24 08:47 Sertraline Hcl 50 Mg Tablet PO 100 mg DAILY CHARITY Administration Sotalol HCl 80 mg 06/28/24 09:00 07/01/24 08:46 Sotalol Hcl 80 Mg Tablet PO 80 mg DAILY CHARITY Administration Umeclidinium/Vilanterol 1 puff 06/28/24 12:00 07/01/24 07:44 Umeclidinium/Vilanterol 62.5-25 Mcg Ellipta INHALATION 1 puff DAILYRT CHARITY Administration Radiology Results: ITS Impressions Renal Ultrasound 06/24/24 09:12 Impression: 1: Unremarkable renal ultrasound. No stones, masses or hydronephrosis. Venous Doppler Study 06/26/24 15:41 IMPRESSION: Negative bilateral lower extremity venous US. No deep vein thrombosis. Chest CT 06/28/24 14:36 IMPRESSION: 1. Patchy consolidation and groundglass opacities in the left lower lobe suspicious for pneumonia. More widespread scattered bilateral linear, bandlike and groundglass opacities for which would include a broader differential also including chronic pneumonia or chronic interstitial lung disease. Chest X-Ray 06/30/24 06:15 IMPRESSION: 1. Stable diffuse lung disease, likely a combination of chronic interstitial lung disease and pneumonia. Labs Labs: Laboratory Results - last 24 hr 06/30/24 07/01/24 07/01/24 19:57 04:40 07:34 WBC 13.3 H RBC 4.47 L Hgb 13.3 L Hct 43.2 MCV 96.6 MCH 29.8 MCHC 30.8 L RDW 15.9 H Plt Count 162 MPV 12.2 H Sodium 140 Potassium 4.1 Chloride 102 Carbon Dioxide 35 H Anion Gap 3 L BUN 52 H Creatinine 1.50 H Estim Creat Clear Calc 53 Estimated GFR 47 L Glucose 121 H POC Capillary Glucose 102 92 Calcium 8.8 Magnesium 2.4 H Total Bilirubin 0.4 AST 45 ALT 48 Alkaline Phosphatase 115 Total Protein 7.0 Albumin 3.3 L 07/01/24 11:13 WBC RBC Hgb Hct MCV MCH MCHC RDW Plt Count MPV Sodium Potassium Chloride Carbon Dioxide Anion Gap BUN Creatinine Estim Creat Clear Calc Estimated GFR Glucose POC Capillary Glucose 188 H Calcium Magnesium Total Bilirubin AST ALT Alkaline Phosphatase Total Protein Albumin
[2024-07-01 17:46] LABS: Glucose Point of Care 140 mg/dl (65-105)
[2024-07-01] MEDS: FUROSEMIDE INJ 40 MG/4 ML VIAL 20 MG IV PUSH (18:36)
[2024-07-01 20:13] LABS: Glucose Point of Care 210 mg/dl (65-105)
[2024-07-01] MEDS: QUEtiapine FUMARATE 25 MG TABLET 50 MG PO (21:03)
[2024-07-02] VITALS (19 sets, daily range): BP systolic 125–154; BP diastolic 63–93; PULSE 53–69; RESP 14–22; TEMP 36.4–37.1; O2SAT 95–100
[2024-07-02 05:19] LABS: Alanine Aminotransferase 56 U/L (6-50); Albumin Level 3.3 g/dL (3.5-5.1); Alkaline Phosphatase 121 U/L (38-126); Anion Gap 6 mmol/L (4-12); Aspartate Amino Transferase 57 U/L (17-59); Bilirubin,Total 0.4 mg/dL (0.2-1.3); Blood Urea Nitrogen 45 mg/dL (9-20); Calcium 9.2 mg/dL (8.4-10.2); Carbon Dioxide 33 mmol/L (22-30); Chloride 103 mmol/L (98-107); Estimated CRCL calculation 53 ml/min; Estimated Glomerular Filt Rate 47; Glucose 114 mg/dL (65-110); Magnesium 2.4 mg/dL (1.6-2.3); Potassium 4.7 mmol/L (3.4-5.0); Sodium 142 mmol/L (137-145)
[2024-07-02] MEDS: LEVOTHYROXINE SODIUM 25 MCG TABLET PO (06:16)
[2024-07-02] MEDS: LEVOTHYROXINE SODIUM 150 MCG TABLET PO (06:16)
[2024-07-02 06:47] LABS: Hematocrit 45.6 % (42.0-52.0); Mean Corpuscular HGB Conc 30.7 g/dl (32-36); Mean Corpuscular Hemoglobin 29.7 pg (26-34); Mean Corpuscular Volume 96.8 fl (80-100); Mean Platelet Volume 11.9 fl (7.4-10.4); Platelet Count Result 187 k/mm3 (150-375); Red Blood Count 4.71 M/mm3 (4.6-6.20); Red Cell Distribution Width 15.7 % (11.5-14.5); White Blood Count 14.4 K/mm3 (4.5-10.0)
[2024-07-02] MEDS: UMECLIDINIUM/VILANTEROL 62.5-25 MCG ELLIPTA 1 PUFF INHALATION (07:54)
[2024-07-02] MEDS: SOTALOL HCL 80 MG TABLET PO (08:22)
[2024-07-02] MEDS: FUROSEMIDE 40 MG TABLET PO (08:22)
[2024-07-02] MEDS: PREGABALIN (*CRX) 75 MG CAPSULE PO ×2 (08:22→16:12)
[2024-07-02] MEDS: ATORVASTATIN 40 MG TABLET 80 MG PO (08:22)
[2024-07-02] MEDS: hydrALAZINE 10 MG TABLET PO ×2 (08:23→16:13)
[2024-07-02] MEDS: PANTOPRAZOLE 40 MG TABLET BY MOUTH ×2 (08:23→20:21)
[2024-07-02] MEDS: SERTRALINE HCL 50 MG TABLET 100 MG PO (08:23)
[2024-07-02 08:27] LABS: Glucose Point of Care 168 mg/dl (65-105)
[2024-07-02 11:59] LABS: Glucose Point of Care 252 mg/dl (65-105)
[2024-07-02 15:52] LABS: Glucose Point of Care 96 mg/dl (65-105)
--- NOTE | 2024-07-02 16:02 | P.PNIM_ITS ---
Progress Note: A&P Assessment and Plan (1) Hypercapnic respiratory failure: Code(s): J96.92 - Respiratory failure, unspecified with hypercapnia Status: Acute Assessment and Plan: Patient has been noncompliant with his medications and CPAP at home. Patient had increasing agitation and confusion over the past several days so family brought him to the ER for evaluation. He was hypoxic with SpO2 in 50s on RA. He was placed on non-rebreather mask with improvement in saturation to upper 90s. ABG 7./211 on NRBM c/w hypercapnic respiratory failure. CXR showed cardiomegaly with cardiac decompensation and pulmonary edema. Bilateral basal pneumonia with highly suggestive bilateral pneumonitis. Placed on BiPAP. Nebs and steroids started. IV abx started. Repeat ABG 7./82 on bipap. Patient intubated 06/23 and admitted to the ICU. He was also treated with intermittent doses of Lasix IV. He was stabilized. ABG improved. He was tolerating SBT but patient self extubated later in the evening on 06/26. He was placed on Vapotherm. He was initially not tolerating BiPAP. Pulmonary consulted and appreciate their input. Echo was unhelpful due to poor images and patient refusing contrast. He had an excellent diuresis but now becoming more even. Patient wore the noninvasive ventilator with AVAPS with 4L bleed in and did well. ABG on 06/29 was 7.44/48/72. Apnea link now showing SpO2 <88% was 0 minutes. Continue current noninvasive ventilator at bedtime, with naps and as needed. Wean O2 off during the day as tolerated. Encouraged compliance (2) COPD (chronic obstructive pulmonary disease): Code(s): J44.9 - Chronic obstructive pulmonary disease, unspecified Status: Acute Assessment and Plan: As above. Concern that his respiratory symptoms may be more likely related to diaph paralysis then from COPD. Nebs stopped. Steroids stopped. Wean O2 as tolerated. Continue Anoro (3) Pneumonia: Code(s): J18.9 - Pneumonia, unspecified organism Status: Acute Assessment and Plan: CXR as above. RSV, COVID and Influenza PCR nasal swab negative. He was started on IV antibiotics for pneumonia. WBC elevated on admission and climbed to 24K felt related to steroids. Leukocytosis trending down now that he is off steroids. BCx negative. Was on Vanco but stopped since MRSA nasal swab negative. CT chest showing patchy consolidation and ground glass opacities in the LLL as well as more widespread scattered bilateral linear, bandlike ground glass opacities - consider chronic PNA or ILD Azithromycin stopped after 5 days. Also on Aztreonam and finished 7 days. Patient responded well to abx Viral panel and autoimmune panel ordered. Lasix resumed at lower dose and advanced (4) Acute kidney injury superimposed on CKD: Code(s): N17.9 - Acute kidney failure, unspecified; N18.9 - Chronic kidney disease, unspecified Status: Acute Assessment and Plan: Patient has a history of stage 5 kidney injury requiring dialysis in the past. Baseline creatinine 1.6 01/26. Cr was 3.0 on admission but has trended down from there. Renal ultrasound with no hydronephrosis. Creatinine continued to improve and now down to 1.5 felt probably at baseline. On lasix 60mg daily at home. Added back Lasix 20mg daily and advanced to 40mg Follow (5) Diabetes: Qualifiers: Diabetes mellitus type: type 2 Diabetes mellitus [facility] insulin use: with multimedia specialist use Diabetes mellitus complication status: without complication Qualified Code(s): E11.9 - Type 2 diabetes mellitus without complications; Z79.4 - director of recruitment and admissions (current) use of insulin Code(s): E11.9 - Type 2 diabetes mellitus without complications Status: Acute Assessment and Plan: A1c 7.5. Patient with Type 2 diabetes on insulin pump at home. He did require insulin infusion per ICU protocol but weaned off to Lantus and mealtime Novolog. His mental status improved and we were able to switch him back to his pump. Continue AccuCheks covering with sliding scale. Hypoglycemia protocol available as needed. Continue to follow. 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 Plan hx of AFib - maintaining NSR. QTc 456. Continue sotalol. Not on anticoagulation. Metabolic encephalopathy - mental status improved and now Aox4. Continue Zoloft. On Seroquel 100mg at night at home. Started on 25mg here and advanced to 50mg at night. He is tolerating this dose. Follow. HTN - Patient's blood pressure was reviewed on 07/02. Blood pressure is reasonably well controlled. Will continue to hold Norvasc. Continue hydralazine for now. DVT prophylaxis - SCDs Code status - Full Disp - discharge anytime once rehab arranged Subjective Date/time seen: 07/02/24 16:02 Interval history: 63yo male with CHAZ noncompliant with CPAP, COPD, tobacco abuse and diaphragmatic paralysis here for altered mental status. Had increased SOB last evening felt related to 'overdoing it'. He feels better. no CP. SOB better. No n/v. Glucose well controlled. Exam Narrative: AF 97.8 125/68 65 16 100% 2L Gen - NARD sitting up in the chair Chest - distant BS, nml RR CV - RRR S1/S2. Tele showing no significant dysrhythmias Abd - Soft, obese, NT Ext - trace pedal edema Psych - Nml mood and affect Skin - Warm and dry Objective Data Vital Signs Vital Signs: Vital Signs - 24 hr 07/01/24 20:00 07/01/24 18:00 07/01/24 20:00 Temperature 98.3 F Pulse Rate 64 65 65 Respiratory Rate 18 Blood Pressure 144/72 H Pulse Oximetry 100 Oxygen Delivery Oxygen Flow Rate Fraction of Inspired Oxygen 07/01/24 20:00 07/01/24 22:00 07/01/24 23:51 Temperature Pulse Rate 62 Respiratory Rate Blood Pressure Pulse Oximetry 97 97 Oxygen Delivery Nasal Cannula CPAP Oxygen Flow Rate 2 2 Fraction of Inspired Oxygen 07/01/24 23:53 07/02/24 00:04 07/02/24 00:00 Temperature 97.5 F L Pulse Rate 63 62 61 Respiratory Rate 20 16 Blood Pressure 127/73 Pulse Oximetry 100 97 Oxygen Delivery Oxygen Flow Rate Fraction of Inspired Oxygen 07/02/24 02:29 07/02/24 02:00 07/02/24 04:00 Temperature 97.7 F Pulse Rate 68 53 L 64 Respiratory Rate 22 H Blood Pressure 154/83 H Pulse Oximetry 96 98 Oxygen Delivery Oxygen Flow Rate Fraction of Inspired Oxygen 07/02/24 04:00 07/02/24 04:00 07/02/24 05:02 Temperature Pulse Rate 56 L 66 Respiratory Rate Blood Pressure Pulse Oximetry 95 97 Oxygen Delivery CPAP Oxygen Flow Rate 3 Fraction of Inspired Oxygen 07/02/24 06:00 07/02/24 07:54 07/02/24 08:22 Temperature Pulse Rate 67 68 Respiratory Rate Blood Pressure Pulse Oximetry 98 Oxygen Delivery Nasal Cannula Oxygen Flow Rate 2 Fraction of Inspired Oxygen 28 07/02/24 08:00 07/02/24 08:00 07/02/24 12:00 Temperature 97.6 F Pulse Rate 67 Respiratory Rate 16 Blood Pressure 149/77 H Pulse Oximetry 100 100 99 Oxygen Delivery Nasal Cannula Nasal Cannula Oxygen Flow Rate 2 2 Fraction of Inspired Oxygen 07/02/24 08:00 07/02/24 10:00 07/02/24 12:00 Temperature Pulse Rate 66 67 64 Respiratory Rate Blood Pressure Pulse Oximetry Oxygen Delivery Oxygen Flow Rate Fraction of Inspired Oxygen 07/02/24 12:00 07/02/24 14:00 Temperature 97.8 F Pulse Rate 63 65 Respiratory Rate 16 Blood Pressure 125/68 Pulse Oximetry 100 Oxygen Delivery Oxygen Flow Rate Fraction of Inspired Oxygen Intake/Output Intake/Output: Intake & Output 06/29/24 06/30/24 07/01/24 07/02/24 23:59 23:59 23:59 23:59 Intake Total 1360 1360 1950 740 Output Total 301 1050 1300 900 Balance 1059 310 650 -160 Meds/Results Medications: Active Medications Generic Name Dose Route Start Last Admin Trade Name Freq PRN Reason Stop Dose Admin Acetaminophen 650 mg 06/24/24 02:04 Acetaminophen Elixir 325 Mg/10.15 Ml Udc PO Q4H PRN Mild Pain (1-3) or Fever Amlodipine Besylate 10 mg 06/28/24 09:00 06/29/24 09:55 Amlodipine Besylate 10 Mg Tablet PO Not Given DAILY CHARITY Atorvastatin Calcium 80 mg 06/24/24 09:00 07/02/24 08:22 Atorvastatin 40 Mg Tablet PO 80 mg DAILY CHARITY Administration Dextrose 12.5 gm 06/24/24 11:32 Dextrose 50% 25 Gm/50 Ml Syringe IV PUSH PRN PRN Hypoglycemia Protocol Furosemide 40 mg 07/02/24 09:00 07/02/24 08:22 Furosemide 40 Mg Tablet PO 40 mg DAILY CHARITY Administration Glucagon 1 mg 06/24/24 11:32 Glucagon For Inj 1 Mg Vial IM PRN PRN Hypoglycemia Protocol Glucose 15 gm 06/24/24 11:32 Glucose Oral Gel 15 Gm Of Glucse In 37.5 Gm Tube PO PRN PRN Hypoglycemia Protocol Hydralazine HCl 10 mg 06/27/24 17:00 07/02/24 08:23 Hydralazine 10 Mg Tablet PO 10 mg BID CHARITY Administration Dextrose 1,000 mls @ 100 mls/hr 06/24/24 11:32 Dextrose 5% 1,000 Ml IVPB PRN PRN Hypoglycemia Protocol Levothyroxine Sodium 150 mcg 06/24/24 10:00 07/02/24 06:16 Levothyroxine Sodium 150 Mcg Tablet PO 150 mcg DAILY@0630 CHARITY Administration Levothyroxine Sodium 25 mcg 06/24/24 10:00 07/02/24 06:16 Levothyroxine Sodium 25 Mcg Tablet PO 25 mcg DAILY@0630 CHARITY Administration Pantoprazole Sodium 40 mg 06/27/24 21:00 07/02/24 08:23 Pantoprazole 40 Mg Tablet BY MOUTH 40 mg Q12HR CHARITY Administration Polyethylene Glycol 17 gm 06/26/24 10:20 06/26/24 13:24 Polyethylene Glycol 3350 17 Gm Powd.Pack PO 17 gm QAM PRN Administration Constipation Pregabalin 75 mg 06/24/24 09:00 07/02/24 08:22 Pregabalin (*Crx) 75 Mg Capsule PO 75 mg BID CHARITY Administration Quetiapine Fumarate 50 mg 06/29/24 21:00 07/01/24 21:03 Quetiapine Fumarate 25 Mg Tablet PO 50 mg HS CHARITY Administration Sertraline HCl 100 mg 06/24/24 09:00 07/02/24 08:23 Sertraline Hcl 50 Mg Tablet PO 100 mg DAILY CHARITY Administration Sotalol HCl 80 mg 06/28/24 09:00 07/02/24 08:22 Sotalol Hcl 80 Mg Tablet PO 80 mg DAILY CHARITY Administration Umeclidinium/Vilanterol 1 puff 06/28/24 12:00 07/02/24 07:54 Umeclidinium/Vilanterol 62.5-25 Mcg Ellipta INHALATION 1 puff DAILYRT CHARITY Administration Radiology Results: ITS Impressions Renal Ultrasound 06/24/24 09:12 Impression: 1: Unremarkable renal ultrasound. No stones, masses or hydronephrosis. Venous Doppler Study 06/26/24 15:41 IMPRESSION: Negative bilateral lower extremity venous US. No deep vein thrombosis. Chest CT 06/28/24 14:36 IMPRESSION: 1. Patchy consolidation and groundglass opacities in the left lower lobe suspicious for pneumonia. More widespread scattered bilateral linear, bandlike and groundglass opacities for which would include a broader differential also including chronic pneumonia or chronic interstitial lung disease. Chest X-Ray 06/30/24 06:15 IMPRESSION: 1. Stable diffuse lung disease, likely a combination of chronic interstitial lung disease and pneumonia. Labs Labs: Laboratory Results - last 24 hr 07/01/24 07/01/24 07/02/24 16:25 19:54 04:52 WBC RBC Hgb Hct MCV MCH MCHC RDW Plt Count MPV Sodium 142 Potassium 4.7 Chloride 103 Carbon Dioxide 33 H Anion Gap 6 BUN 45 H Creatinine 1.50 H Estim Creat Clear Calc 53 Estimated GFR 47 L Glucose 114 H POC Capillary Glucose 140 H 210 H Calcium 9.2 Magnesium 2.4 H Total Bilirubin 0.4 AST 57 ALT 56 H Alkaline Phosphatase 121 Total Protein 6.0 L Albumin 3.3 L 07/02/24 07/02/24 07/02/24 06:36 08:01 11:37 WBC 14.4 H RBC 4.71 Hgb 14.0 Hct 45.6 MCV 96.8 MCH 29.7 MCHC 30.7 L RDW 15.7 H Plt Count 187 MPV 11.9 H Sodium Potassium Chloride Carbon Dioxide Anion Gap BUN Creatinine Estim Creat Clear Calc Estimated GFR Glucose POC Capillary Glucose 168 H 252 H Calcium Magnesium Total Bilirubin AST ALT Alkaline Phosphatase Total Protein Albumin 07/02/24 15:32 WBC RBC Hgb Hct MCV MCH MCHC RDW Plt Count MPV Sodium Potassium Chloride Carbon Dioxide Anion Gap BUN Creatinine Estim Creat Clear Calc Estimated GFR Glucose POC Capillary Glucose 96 Calcium Magnesium Total Bilirubin AST ALT Alkaline Phosphatase Total Protein Albumin
[2024-07-02] MEDS: QUEtiapine FUMARATE 25 MG TABLET 50 MG PO (20:20)
[2024-07-02 20:40] LABS: Glucose Point of Care 195 mg/dl (65-105)
[2024-07-03] VITALS (22 sets, daily range): BP systolic 103–160; BP diastolic 53–97; PULSE 55–84; RESP 15–22; TEMP 36.3–36.9; O2SAT 92–100
[2024-07-03 05:12] LABS: Basophils Percent Auto 0.2 % (0.2-1.2); Eosinophils Absolute Auto 0.4 K/mm3 (0-0.3); Eosinophils Percent Auto 3.2 % (0-4.4); Hematocrit 42.7 % (42.0-52.0); Hemoglobin 13.1 g/dL (14.0-18.0); Immature Granulocyte Absolute 0.79 K/mm3 (0.00-0.031); Immature Granulocyte Percent A 6.3 % (0-0.5); Lymphocytes Absolute Auto 2.47 K/mm3 (0.9-3.2); Lymphocytes Percent Auto 19.8 % (18.3-44.2); Mean Corpuscular HGB Conc 30.7 g/dl (32-36); Mean Corpuscular Hemoglobin 29.5 pg (26-34); Mean Corpuscular Volume 96.2 fl (80-100); Mean Platelet Volume 12.2 fl (7.4-10.4); Monocytes Absolute Auto 1.2 K/mm3 (0.1-0.6); Monocytes Percent Auto 9.3 % (2.6-8.5); Neutrophils Absolute Auto 7.6 K/mm3 (1.3-6.7); Neutrophils Percent Auto 61.2 % (45.5-73.1); Platelet Count Result 159 k/mm3 (150-375); Red Blood Count 4.44 M/mm3 (4.6-6.20); Red Cell Distribution Width 15.8 % (11.5-14.5); White Blood Count 12.5 K/mm3 (4.5-10.0)
[2024-07-03 05:30] LABS: Alanine Aminotransferase 57 U/L (6-50); Albumin Level 3.2 g/dL (3.5-5.1); Alkaline Phosphatase 141 U/L (38-126); Anion Gap 5 mmol/L (4-12); Aspartate Amino Transferase 52 U/L (17-59); Bilirubin,Total 0.3 mg/dL (0.2-1.3); Blood Urea Nitrogen 44 mg/dL (9-20); Calcium 8.9 mg/dL (8.4-10.2); Carbon Dioxide 33 mmol/L (22-30); Chloride 102 mmol/L (98-107); Estimated CRCL calculation 44 ml/min; Estimated Glomerular Filt Rate 38; Glucose 276 mg/dL (65-110); Potassium 4.6 mmol/L (3.4-5.0); Sodium 140 mmol/L (137-145)
[2024-07-03] MEDS: LEVOTHYROXINE SODIUM 150 MCG TABLET PO (06:19)
[2024-07-03] MEDS: LEVOTHYROXINE SODIUM 25 MCG TABLET PO (06:19)
[2024-07-03] MEDS: UMECLIDINIUM/VILANTEROL 62.5-25 MCG ELLIPTA 1 PUFF INHALATION (07:04)
[2024-07-03 07:47] LABS: Glucose Point of Care 243 mg/dl (65-105)
[2024-07-03] MEDS: ATORVASTATIN 40 MG TABLET 80 MG PO (08:59)
[2024-07-03] MEDS: PREGABALIN (*CRX) 75 MG CAPSULE PO ×2 (09:00→16:57)
[2024-07-03] MEDS: PANTOPRAZOLE 40 MG TABLET BY MOUTH ×2 (09:00→20:47)
[2024-07-03] MEDS: hydrALAZINE 10 MG TABLET PO ×2 (09:00→16:57)
[2024-07-03] MEDS: SOTALOL HCL 80 MG TABLET PO (09:00)
[2024-07-03] MEDS: FUROSEMIDE 40 MG TABLET PO (09:00)
[2024-07-03] MEDS: SERTRALINE HCL 50 MG TABLET 100 MG PO (09:00)
[2024-07-03 11:28] LABS: Glucose Point of Care 167 mg/dl (65-105)
--- NOTE | 2024-07-03 12:36 | PCNFU ---
Nutrition Follow-Up Complete: Increased protein energy needs related to mechanical ventilation as evidenced by need for full tube feeding *Resolved - Pt extubated and advanced to a PO diet Goal:Meet estimated nutrition needs Pt meeting goal, continue with same goal. Pt current nutrition is Diabetic consistent carb, Glucerna shakes BID. Nutrition recommendation: continue with current plan of care Last recorded weight is 102.5 kg. Bowel Motility: +BM 07/02 Labs Reviewed:Hgb:13.1, Alb:2.2, GFR:38, BUN:44, Cr:1.8 Meds Noted: lasix, protonix, miralax Skin: WNL Additional Notes: Pt continues on a diabetic diet, intake 100%, tolerating. Agree with orders. Monitoring intake, wt, labs. Follow up in 7 days.
[2024-07-03 14:23] LABS: Aldolase 8.5 U/L (< OR = 8.1)
--- NOTE | 2024-07-03 14:46 | P.PNIM_ITS ---
Progress Note: A&P Assessment and Plan (1) Hypercapnic respiratory failure: Code(s): J96.92 - Respiratory failure, unspecified with hypercapnia Status: Acute Assessment and Plan: Patient has been noncompliant with his medications and CPAP at home. Patient had increasing agitation and confusion over the past several days so family brought him to the ER for evaluation. He was hypoxic with SpO2 in 50s on RA. He was placed on non-rebreather mask with improvement in saturation to upper 90s. ABG 7./211 on NRBM c/w hypercapnic respiratory failure. CXR showed cardiomegaly with cardiac decompensation and pulmonary edema. Bilateral basal pneumonia with highly suggestive bilateral pneumonitis. Placed on BiPAP. Nebs and steroids started. IV abx started. Repeat ABG 7./82 on bipap. Patient intubated 06/23 and admitted to the ICU. He was also treated with intermittent doses of Lasix IV. He was stabilized. ABG improved. He was tolerating SBT but patient self extubated later in the evening on 06/26. He was placed on Vapotherm. He was initially not tolerating BiPAP. Pulmonary consulted and appreciate their input. Echo was unhelpful due to poor images and patient refusing contrast. He had an excellent diuresis Patient wore the noninvasive ventilator with AVAPS with 4L bleed in and did well. ABG on 06/29 was 7.44/48/72. Apnea link now showing SpO2 <88% was 0 minutes. Continue current noninvasive ventilator at bedtime, with naps and as needed. Wean O2 off during the day as tolerated. Encouraged compliance (2) COPD (chronic obstructive pulmonary disease): Code(s): J44.9 - Chronic obstructive pulmonary disease, unspecified Status: Acute Assessment and Plan: As above. Concern that his respiratory symptoms may be more likely related to diaph paralysis then from COPD. Nebs stopped. Steroids stopped. Wean O2 as tolerated. Continue Anoro (3) Pneumonia: Code(s): J18.9 - Pneumonia, unspecified organism Status: Acute Assessment and Plan: CXR as above. RSV, COVID and Influenza PCR nasal swab negative. He was started on IV antibiotics for pneumonia. WBC elevated on admission and climbed to 24K felt related to steroids. Leukocytosis trending down now that he is off steroids. BCx negative. Was on Vanco but stopped since MRSA nasal swab negative. CT chest showing patchy consolidation and ground glass opacities in the LLL as well as more widespread scattered bilateral linear, bandlike ground glass opacities - consider chronic PNA or ILD Azithromycin stopped after 5 days. Also on Aztreonam and finished 7 days. Patient responded well to abx Viral panel and autoimmune panel ordered. Lasix resumed at lower dose and advanced to 40mg daily (4) Acute kidney injury superimposed on CKD: Code(s): N17.9 - Acute kidney failure, unspecified; N18.9 - Chronic kidney disease, unspecified Status: Acute Assessment and Plan: Patient has a history of stage 5 kidney injury requiring dialysis in the past. Baseline creatinine 1.6 in 01/26. Cr was 3.0 on admission but has trended down from there. Renal ultrasound with no hydronephrosis. Creatinine continued to improve and now down to 1.5 felt probably at baseline. On lasix 60mg daily at home. Added back Lasix 20mg daily and advanced to 40mg Follow (5) Diabetes: Qualifiers: Diabetes mellitus complication status: without complication Diabetes mellitus [employer] oil [employer] insulin use: with mcfp use Diabetes mellitus type: type 2 Qualified Code(s): E11.9 - Type 2 diabetes mellitus without complications; Z79.4 - senior living (current) use of insulin Code(s): E11.9 - Type 2 diabetes mellitus without complications Status: Acute Assessment and Plan: A1c 7.5. Patient with Type 2 diabetes on insulin pump at home. He did require insulin infusion per ICU protocol but weaned off to Lantus and mealtime Novolog. His mental status improved and we were able to switch him back to his pump. Continue AccuCheks covering with sliding scale. Hypoglycemia protocol available as needed. Continue to follow. 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 Plan Hx of AFib - maintaining NSR. QTc 456. Continue sotalol. Not on anticoagulation. Metabolic encephalopathy - mental status improved and now Aox4. Continue Zoloft. On Seroquel 100mg at night at home. Started on 25mg here and advanced to 50mg at night. He is tolerating this dose. Follow. HTN - Patient's blood pressure was reviewed on 07/03. Blood pressure is reasonably well controlled. Will add back Norvasc. Continue hydralazine for now. DVT prophylaxis - SCDs Code status - Full Disp - discharge anytime once rehab arranged Subjective Date/time seen: 07/03/24 14:46 Interval history: 63yo male with [employer] noncompliant with CPAP, COPD, tobacco abuse and diaphragmatic paralysis here for altered mental status. No problems overnight. SOB with exertion still but getting better. Tolerated mask last night. Walking to the bathroom but still SOB after walking 4-5 steps. Exam Narrative: AF 98.0 151/97 72 20 99% 3L Gen - NARD sitting up in the chair Chest - decreased BS in the bases o/w distant BS, nml RR CV - RRR S1/S2. Tele showing no significant dysrhythmias Abd - Soft, obese, NT Ext - trace pedal edema Psych - Nml mood and affect Skin - Warm and dry Objective Data Vital Signs Vital Signs: Vital Signs - 24 hr 07/02/24 16:00 07/02/24 16:00 07/02/24 16:00 Temperature 98.2 F Pulse Rate 64 62 Respiratory Rate 20 Blood Pressure 130/93 H Pulse Oximetry 100 100 Oxygen Delivery Nasal Cannula Oxygen Flow Rate 2 Fraction of Inspired Oxygen 07/02/24 19:49 07/02/24 18:00 07/02/24 20:00 Temperature 98.7 F Pulse Rate 62 66 Respiratory Rate 16 Blood Pressure 136/63 Pulse Oximetry 99 97 Oxygen Delivery Nasal Cannula Oxygen Flow Rate 2 Fraction of Inspired Oxygen 07/02/24 20:00 07/02/24 22:00 07/03/24 00:00 Temperature 98.3 F Pulse Rate 69 63 60 Respiratory Rate 18 Blood Pressure 135/62 Pulse Oximetry 92 Oxygen Delivery Oxygen Flow Rate Fraction of Inspired Oxygen 07/02/24 23:05 07/03/24 00:00 07/03/24 02:00 Temperature Pulse Rate 66 60 55 L Respiratory Rate 14 Blood Pressure Pulse Oximetry 96 Oxygen Delivery Oxygen Flow Rate Fraction of Inspired Oxygen 07/03/24 00:00 07/03/24 02:15 07/03/24 04:20 Temperature 97.4 F L Pulse Rate 56 L 68 Respiratory Rate 22 H Blood Pressure 103/53 L Pulse Oximetry 92 93 94 Oxygen Delivery CPAP Oxygen Flow Rate Fraction of Inspired Oxygen 07/03/24 04:00 07/03/24 04:00 07/03/24 06:00 Temperature Pulse Rate 57 L 80 Respiratory Rate Blood Pressure Pulse Oximetry 94 Oxygen Delivery Nasal Cannula Oxygen Flow Rate 2 Fraction of Inspired Oxygen 07/03/24 07:00 07/03/24 07:00 07/03/24 08:00 Temperature 97.9 F Pulse Rate 69 69 70 Respiratory Rate 18 18 18 Blood Pressure 160/89 H Pulse Oximetry 100 100 Oxygen Delivery Nasal Cannula Oxygen Flow Rate 2 Fraction of Inspired Oxygen 07/03/24 09:00 07/03/24 08:00 07/03/24 08:00 Temperature Pulse Rate 75 71 71 Respiratory Rate 18 Blood Pressure Pulse Oximetry 100 Oxygen Delivery Nasal Cannula Oxygen Flow Rate 3 Fraction of Inspired Oxygen 07/03/24 10:00 07/03/24 11:39 Temperature 98 F Pulse Rate 77 72 Respiratory Rate 20 Blood Pressure 151/97 H Pulse Oximetry 99 Oxygen Delivery Oxygen Flow Rate Fraction of Inspired Oxygen Intake/Output Intake/Output: Intake & Output 06/30/24 07/01/24 07/02/24 07/03/24 23:59 23:59 23:59 23:59 Intake Total 1360 1950 1650 830 Output Total 1050 1300 1900 175 Balance 310 650 -250 655 Meds/Results Medications: Active Medications Generic Name Dose Route Start Last Admin Trade Name Freq PRN Reason Stop Dose Admin Acetaminophen 650 mg 06/24/24 02:04 Acetaminophen Elixir 325 Mg/10.15 Ml Udc PO Q4H PRN Mild Pain (1-3) or Fever Amlodipine Besylate 10 mg 06/28/24 09:00 06/29/24 09:55 Amlodipine Besylate 10 Mg Tablet PO Not Given DAILY CHARITY Atorvastatin Calcium 80 mg 06/24/24 09:00 07/03/24 08:59 Atorvastatin 40 Mg Tablet PO 80 mg DAILY CHARITY Administration Dextrose 12.5 gm 06/24/24 11:32 Dextrose 50% 25 Gm/50 Ml Syringe IV PUSH PRN PRN Hypoglycemia Protocol Furosemide 40 mg 07/02/24 09:00 07/03/24 09:00 Furosemide 40 Mg Tablet PO 40 mg DAILY CHARITY Administration Glucagon 1 mg 06/24/24 11:32 Glucagon For Inj 1 Mg Vial IM PRN PRN Hypoglycemia Protocol Glucose 15 gm 06/24/24 11:32 Glucose Oral Gel 15 Gm Of Glucse In 37.5 Gm Tube PO PRN PRN Hypoglycemia Protocol Hydralazine HCl 10 mg 06/27/24 17:00 07/03/24 09:00 Hydralazine 10 Mg Tablet PO 10 mg BID CHARITY Administration Dextrose 1,000 mls @ 100 mls/hr 06/24/24 11:32 Dextrose 5% 1,000 Ml IVPB PRN PRN Hypoglycemia Protocol Levothyroxine Sodium 150 mcg 06/24/24 10:00 07/03/24 06:19 Levothyroxine Sodium 150 Mcg Tablet PO 150 mcg DAILY@0630 CHARITY Administration Levothyroxine Sodium 25 mcg 06/24/24 10:00 07/03/24 06:19 Levothyroxine Sodium 25 Mcg Tablet PO 25 mcg DAILY@0630 CHARITY Administration Pantoprazole Sodium 40 mg 06/27/24 21:00 07/03/24 09:00 Pantoprazole 40 Mg Tablet BY MOUTH 40 mg Q12HR CHARITY Administration Polyethylene Glycol 17 gm 06/26/24 10:20 06/26/24 13:24 Polyethylene Glycol 3350 17 Gm Powd.Pack PO 17 gm QAM PRN Administration Constipation Pregabalin 75 mg 06/24/24 09:00 07/03/24 09:00 Pregabalin (*Crx) 75 Mg Capsule PO 75 mg BID CHARITY Administration Quetiapine Fumarate 50 mg 06/29/24 21:00 07/02/24 20:20 Quetiapine Fumarate 25 Mg Tablet PO 50 mg HS CHARITY Administration Sertraline HCl 100 mg 06/24/24 09:00 07/03/24 09:00 Sertraline Hcl 50 Mg Tablet PO 100 mg DAILY CHARITY Administration Sotalol HCl 80 mg 06/28/24 09:00 07/03/24 09:00 Sotalol Hcl 80 Mg Tablet PO 80 mg DAILY CHARITY Administration Umeclidinium/Vilanterol 1 puff 06/28/24 12:00 07/03/24 07:04 Umeclidinium/Vilanterol 62.5-25 Mcg Ellipta INHALATION 1 puff DAILYRT CHARITY Administration Radiology Results: ITS Impressions Renal Ultrasound 06/24/24 09:12 Impression: 1: Unremarkable renal ultrasound. No stones, masses or hydronephrosis. Venous Doppler Study 06/26/24 15:41 IMPRESSION: Negative bilateral lower extremity venous US. No deep vein thrombosis. Chest CT 06/28/24 14:36 IMPRESSION: 1. Patchy consolidation and groundglass opacities in the left lower lobe suspicious for pneumonia. More widespread scattered bilateral linear, bandlike and groundglass opacities for which would include a broader differential also including chronic pneumonia or chronic interstitial lung disease. Chest X-Ray 06/30/24 06:15 IMPRESSION: 1. Stable diffuse lung disease, likely a combination of chronic interstitial lung disease and pneumonia. Labs Labs: Laboratory Results - last 24 hr 07/01/24 07/02/24 07/02/24 04:40 15:32 20:15 WBC RBC Hgb Hct MCV MCH MCHC RDW Plt Count MPV Immature Gran % (Auto) Neut % (Auto) Lymph % (Auto) Woodruff % (Auto) Eos % (Auto) Baso % (Auto) Lymph # (Auto) Woodruff # (Auto) Eos # (Auto) Baso # (Auto) Abs Immat Gran (auto) Absolute Neuts (auto) Absolute Nucleated RBC Nucleated RBC % Sodium Potassium Chloride Carbon Dioxide Anion Gap BUN Creatinine Estim Creat Clear Calc Estimated GFR Glucose POC Capillary Glucose 96 195 H Calcium Total Bilirubin AST ALT Alkaline Phosphatase Total Protein Albumin Aldolase 8.5 H 07/03/24 07/03/24 07/03/24 04:57 07:41 11:21 WBC 12.5 H RBC 4.44 L Hgb 13.1 L Hct 42.7 MCV 96.2 MCH 29.5 MCHC 30.7 L RDW 15.8 H Plt Count 159 MPV 12.2 H Immature Gran % (Auto) 6.3 H Neut % (Auto) 61.2 Lymph % (Auto) 19.8 Woodruff % (Auto) 9.3 H Eos % (Auto) 3.2 Baso % (Auto) 0.2 Lymph # (Auto) 2.47 Woodruff # (Auto) 1.2 H Eos # (Auto) 0.4 H Baso # (Auto) 0.0 Abs Immat Gran (auto) 0.79 H Absolute Neuts (auto) 7.6 H Absolute Nucleated RBC 0.000 Nucleated RBC % 0.0 Sodium 140 Potassium 4.6 Chloride 102 Carbon Dioxide 33 H Anion Gap 5 BUN 44 H Creatinine 1.80 H Estim Creat Clear Calc 44 Estimated GFR 38 L Glucose 276 H POC Capillary Glucose 243 H 167 H Calcium 8.9 Total Bilirubin 0.3 AST 52 ALT 57 H Alkaline Phosphatase 141 H Total Protein 6.0 L Albumin 3.2 L Aldolase
[2024-07-03 15:42] LABS: Anti Cyclic Citrullinated Pept <16 UNITS
[2024-07-03 16:21] LABS: Glucose Point of Care 142 mg/dl (65-105)
[2024-07-03] MEDS: QUEtiapine FUMARATE 25 MG TABLET 50 MG PO (20:47)
[2024-07-03 23:05] LABS: Glucose Point of Care 165 mg/dl (65-105)
--- NOTE | 2024-07-03 23:29 | PCRCNOTE ---
Patient stated that his DME company came and took away his NIV machine. Patient was placed on hospital V60 for the night.
[2024-07-04] VITALS (17 sets, daily range): BP systolic 122–147; BP diastolic 67–84; PULSE 52–74; RESP 14–26; TEMP 36.4–36.9; O2SAT 91–100
[2024-07-04 05:57] LABS: Alanine Aminotransferase 61 U/L (6-50); Albumin Level 3.2 g/dL (3.5-5.1); Alkaline Phosphatase 135 U/L (38-126); Anion Gap 3 mmol/L (4-12); Aspartate Amino Transferase 59 U/L (17-59); Bilirubin,Total 0.3 mg/dL (0.2-1.3); Blood Urea Nitrogen 45 mg/dL (9-20); Calcium 9.1 mg/dL (8.4-10.2); Carbon Dioxide 37 mmol/L (22-30); Chloride 102 mmol/L (98-107); Estimated CRCL calculation 46 ml/min; Estimated Glomerular Filt Rate 41; Glucose 140 mg/dL (65-110); Sodium 142 mmol/L (137-145)
[2024-07-04] MEDS: LEVOTHYROXINE SODIUM 25 MCG TABLET PO (06:08)
[2024-07-04] MEDS: LEVOTHYROXINE SODIUM 150 MCG TABLET PO (06:08)
[2024-07-04 07:48] LABS: Glucose Point of Care 162 mg/dl (65-105)
[2024-07-04] MEDS: UMECLIDINIUM/VILANTEROL 62.5-25 MCG ELLIPTA 1 PUFF INHALATION (07:53)
[2024-07-04 08:33] LABS: Potassium 4.9 mmol/L (3.4-5.0)
[2024-07-04] MEDS: PANTOPRAZOLE 40 MG TABLET BY MOUTH ×2 (08:35→21:08)
[2024-07-04] MEDS: FUROSEMIDE 40 MG TABLET PO (08:35)
[2024-07-04] MEDS: amLODIPine BESYLATE 10 MG TABLET PO (08:35)
[2024-07-04] MEDS: hydrALAZINE 10 MG TABLET PO ×2 (08:35→17:16)
[2024-07-04] MEDS: PREGABALIN (*CRX) 75 MG CAPSULE PO ×2 (08:35→17:16)
[2024-07-04] MEDS: SERTRALINE HCL 50 MG TABLET 100 MG PO (08:35)
[2024-07-04] MEDS: ATORVASTATIN 40 MG TABLET 80 MG PO (08:35)
[2024-07-04] MEDS: SOTALOL HCL 80 MG TABLET PO (08:35)
[2024-07-04 11:37] LABS: Glucose Point of Care 252 mg/dl (65-105)
[2024-07-04 13:39] LABS: ANCA Screen NEGATIVE (NEGATIVE)
--- NOTE | 2024-07-04 13:56 | PM.IMPN ---
Progress Note: A&P Assessment and Plan (1) Hypercapnic respiratory failure: Code(s): J96.92 - Respiratory failure, unspecified with hypercapnia Status: Acute Assessment and Plan: Patient has been noncompliant with his medications and CPAP at home. Patient had increasing agitation and confusion over the past several days so family brought him to the ER for evaluation. He was hypoxic with SpO2 in 50s on RA. He was placed on non-rebreather mask with improvement in saturation to upper 90s. ABG 7./211 on NRBM c/w hypercapnic respiratory failure. CXR showed cardiomegaly with cardiac decompensation and pulmonary edema. Bilateral basal pneumonia with highly suggestive bilateral pneumonitis. Placed on BiPAP. Nebs and steroids started. IV abx started. Repeat ABG 7./82 on bipap. Patient intubated 06/23 and admitted to the ICU. He was also treated with intermittent doses of Lasix IV. He was stabilized. ABG improved. He was tolerating SBT but patient self extubated later in the evening on 06/26. He was placed on Vapotherm. He was initially not tolerating BiPAP. Pulmonary consulted and appreciate their input. Echo was unhelpful due to poor images and patient refusing contrast. He had an excellent diuresis Patient wore the noninvasive ventilator with AVAPS with 4L bleed in and did well. ABG on 06/29 was 7.44/48/72. Apnea link now showing SpO2 <88% was 0 minutes. Continue current noninvasive ventilator at bedtime, with naps and as needed. Weaned off O2 off during the day. Encouraged compliance with NIV (2) COPD (chronic obstructive pulmonary disease): Code(s): J44.9 - Chronic obstructive pulmonary disease, unspecified Status: Acute Assessment and Plan: As above. Concern that his respiratory symptoms may be more likely related to diaph paralysis then from COPD. Nebs stopped. Steroids stopped. Weaned O2 off now. Continue Anoro (3) Pneumonia: Code(s): J18.9 - Pneumonia, unspecified organism Status: Acute Assessment and Plan: CXR as above. RSV, COVID and Influenza PCR nasal swab negative. He was started on IV antibiotics for pneumonia. WBC elevated on admission and climbed to 24K felt related to steroids. Leukocytosis trending down now that he is off steroids. BCx negative. Was on Vanco but stopped since MRSA nasal swab negative. CT chest showing patchy consolidation and ground glass opacities in the LLL as well as more widespread scattered bilateral linear, bandlike ground glass opacities - consider chronic PNA or ILD Azithromycin stopped after 5 days. Also on Aztreonam and finished 7 days. Patient responded well to abx Viral panel and autoimmune panel ordered. Lasix resumed at lower dose and advanced to 40mg daily (4) Acute kidney injury superimposed on CKD: Code(s): N17.9 - Acute kidney failure, unspecified; N18.9 - Chronic kidney disease, unspecified Status: Acute Assessment and Plan: Patient has a history of stage 5 kidney injury requiring dialysis in the past. Baseline creatinine 1.6 in 01/26. Cr was 3.0 on admission but has trended down from there. Renal ultrasound with no hydronephrosis. Creatinine continued to improve and now down to 1.5 felt probably at baseline. On lasix 60mg daily at home. Added back Lasix 20mg daily and advanced to 40mg which he is tolerating. Follow (5) Diabetes: Qualifiers: Diabetes mellitus complication status: without complication Diabetes mellitus termite treater insulin use: with correction use Diabetes mellitus type: type 2 Qualified Code(s): E11.9 - Type 2 diabetes mellitus without complications; Z79.4 - bed bug exterminator (current) use of insulin Code(s): E11.9 - Type 2 diabetes mellitus without complications Status: Acute Assessment and Plan: A1c 7.5. Patient with Type 2 diabetes on insulin pump at home. He did require insulin infusion per ICU protocol but weaned off to Lantus and mealtime Novolog. His mental status improved and we were able to switch him back to his pump. Patient managing his glucose and mostly good control. Continue to follow. 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 Plan Hx of AFib - maintaining NSR. QTc 456. Continue sotalol. Not on anticoagulation. Metabolic encephalopathy - mental status improved and now Aox4. Continue Zoloft. On Seroquel 100mg at night at home. Started on 25mg here and advanced to 50mg at night. He is tolerating this dose. Follow. HTN - Patient's blood pressure was reviewed on 07/04. Blood pressure is reasonably well controlled. Continue to follow DVT prophylaxis - SCDs Code status - Full Disp - discharge anytime once rehab arranged Subjective Date/time seen: 07/04/24 13:56 Interval history: 63yo male with CHAZ noncompliant with CPAP, COPD, tobacco abuse and diaphragmatic paralysis here for altered mental status. Wore hospital mask last night which he tolerated and was able to sleep. No problems overnight. Off O2 today. Exam Narrative: AF 97.6 130/69 65 18 94% ra Gen - NARD sitting up in the chair Chest - decreased BS in the bases o/w distant BS, nml RR CV - RRR S1/S2. Tele showing PVCs Abd - Soft, obese, NT Ext - trace pedal edema Psych - Nml mood and affect Skin - Warm and dry Objective Data Vital Signs Vital Signs: Vital Signs - 24 hr 07/03/24 14:00 07/03/24 15:45 07/03/24 16:00 Temperature 98.3 F Pulse Rate 65 63 63 Respiratory Rate 22 H Blood Pressure 140/64 Pulse Oximetry 100 Oxygen Delivery Oxygen Flow Rate Fraction of Inspired Oxygen 07/03/24 16:00 07/03/24 18:00 07/03/24 20:02 Temperature Pulse Rate 63 68 Respiratory Rate 22 H Blood Pressure Pulse Oximetry 100 98 Oxygen Delivery Nasal Cannula High Flow Nasal Cannula Oxygen Flow Rate 2 2 Fraction of Inspired Oxygen 07/03/24 21:41 07/03/24 20:00 07/03/24 22:00 Temperature 97.8 F Pulse Rate 66 67 61 Respiratory Rate 22 H Blood Pressure 112/54 L Pulse Oximetry 97 Oxygen Delivery Oxygen Flow Rate Fraction of Inspired Oxygen 07/03/24 20:00 07/03/24 23:26 07/03/24 23:10 Temperature 98.4 F Pulse Rate 84 64 Respiratory Rate 22 H 15 Blood Pressure 140/63 Pulse Oximetry 97 97 95 Oxygen Delivery High Flow Nasal Cannula Oxygen Flow Rate 2 Fraction of Inspired Oxygen 07/04/24 00:00 07/04/24 00:00 07/04/24 02:23 Temperature Pulse Rate 61 52 L Respiratory Rate 14 Blood Pressure Pulse Oximetry 97 99 Oxygen Delivery BiPAP Oxygen Flow Rate Fraction of Inspired Oxygen 07/04/24 02:00 07/04/24 04:00 07/04/24 04:00 Temperature Pulse Rate 54 L 54 L Respiratory Rate Blood Pressure Pulse Oximetry 98 Oxygen Delivery BiPAP Oxygen Flow Rate Fraction of Inspired Oxygen 07/04/24 05:08 07/04/24 05:57 07/04/24 07:33 Temperature 97.8 F 98 F Pulse Rate 58 L 60 65 Respiratory Rate 22 H 20 Blood Pressure 122/84 129/84 Pulse Oximetry 100 100 Oxygen Delivery Oxygen Flow Rate Fraction of Inspired Oxygen 07/04/24 08:35 07/04/24 08:00 07/04/24 08:00 Temperature Pulse Rate 74 64 Respiratory Rate Blood Pressure Pulse Oximetry 100 Oxygen Delivery Nasal Cannula Oxygen Flow Rate 2 Fraction of Inspired Oxygen 07/04/24 10:00 07/04/24 11:49 07/04/24 12:00 Temperature 98.5 F Pulse Rate 69 69 Respiratory Rate 14 Blood Pressure 147/67 H Pulse Oximetry 91 94 Oxygen Delivery Room Air Oxygen Flow Rate Fraction of Inspired Oxygen 07/04/24 12:00 Temperature Pulse Rate 70 Respiratory Rate Blood Pressure Pulse Oximetry Oxygen Delivery Oxygen Flow Rate Fraction of Inspired Oxygen Intake/Output Intake/Output: Intake & Output 07/01/24 07/02/24 07/03/24 07/04/24 23:59 23:59 23:59 23:59 Intake Total 1950 1650 2510 1030 Output Total 1300 1900 500 950 Balance 650 -250 2010 80 Meds/Results Medications: Active Medications Generic Name Dose Route Start Last Admin Trade Name Freq PRN Reason Stop Dose Admin Acetaminophen 650 mg 06/24/24 02:04 Acetaminophen Elixir 325 Mg/10.15 Ml Udc PO Q4H PRN Mild Pain (1-3) or Fever Amlodipine Besylate 10 mg 06/28/24 09:00 07/04/24 08:35 Amlodipine Besylate 10 Mg Tablet PO 10 mg DAILY CHARITY Administration Atorvastatin Calcium 80 mg 06/24/24 09:00 07/04/24 08:35 Atorvastatin 40 Mg Tablet PO 80 mg DAILY CHARITY Administration Dextrose 12.5 gm 06/24/24 11:32 Dextrose 50% 25 Gm/50 Ml Syringe IV PUSH PRN PRN Hypoglycemia Protocol Furosemide 40 mg 07/02/24 09:00 07/04/24 08:35 Furosemide 40 Mg Tablet PO 40 mg DAILY CHARITY Administration Glucagon 1 mg 06/24/24 11:32 Glucagon For Inj 1 Mg Vial IM PRN PRN Hypoglycemia Protocol Glucose 15 gm 06/24/24 11:32 Glucose Oral Gel 15 Gm Of Glucse In 37.5 Gm Tube PO PRN PRN Hypoglycemia Protocol Hydralazine HCl 10 mg 06/27/24 17:00 07/04/24 08:35 Hydralazine 10 Mg Tablet PO 10 mg BID CHARITY Administration Dextrose 1,000 mls @ 100 mls/hr 06/24/24 11:32 Dextrose 5% 1,000 Ml IVPB PRN PRN Hypoglycemia Protocol Levothyroxine Sodium 150 mcg 06/24/24 10:00 07/04/24 06:08 Levothyroxine Sodium 150 Mcg Tablet PO 150 mcg DAILY@0630 CHARITY Administration Levothyroxine Sodium 25 mcg 06/24/24 10:00 07/04/24 06:08 Levothyroxine Sodium 25 Mcg Tablet PO 25 mcg DAILY@0630 CHARITY Administration Pantoprazole Sodium 40 mg 06/27/24 21:00 07/04/24 08:35 Pantoprazole 40 Mg Tablet BY MOUTH 40 mg Q12HR CHARITY Administration Polyethylene Glycol 17 gm 06/26/24 10:20 06/26/24 13:24 Polyethylene Glycol 3350 17 Gm Powd.Pack PO 17 gm QAM PRN Administration Constipation Pregabalin 75 mg 06/24/24 09:00 07/04/24 08:35 Pregabalin (*Crx) 75 Mg Capsule PO 75 mg BID CHARITY Administration Quetiapine Fumarate 50 mg 06/29/24 21:00 07/03/24 20:47 Quetiapine Fumarate 25 Mg Tablet PO 50 mg HS CHARITY Administration Sertraline HCl 100 mg 06/24/24 09:00 07/04/24 08:35 Sertraline Hcl 50 Mg Tablet PO 100 mg DAILY CHARITY Administration Sotalol HCl 80 mg 06/28/24 09:00 07/04/24 08:35 Sotalol Hcl 80 Mg Tablet PO 80 mg DAILY CHARITY Administration Umeclidinium/Vilanterol 1 puff 06/28/24 12:00 07/04/24 07:53 Umeclidinium/Vilanterol 62.5-25 Mcg Ellipta INHALATION 1 puff DAILYRT CHARITY Administration Radiology Results: ITS Impressions Renal Ultrasound 06/24/24 09:12 Impression: 1: Unremarkable renal ultrasound. No stones, masses or hydronephrosis. Venous Doppler Study 06/26/24 15:41 IMPRESSION: Negative bilateral lower extremity venous US. No deep vein thrombosis. Chest CT 06/28/24 14:36 IMPRESSION: 1. Patchy consolidation and groundglass opacities in the left lower lobe suspicious for pneumonia. More widespread scattered bilateral linear, bandlike and groundglass opacities for which would include a broader differential also including chronic pneumonia or chronic interstitial lung disease. Chest X-Ray 06/30/24 06:15 IMPRESSION: 1. Stable diffuse lung disease, likely a combination of chronic interstitial lung disease and pneumonia. Labs Labs: Laboratory Results - last 24 hr 06/29/24 07/01/24 07/03/24 06:55 04:40 16:13 Sodium Potassium Chloride Carbon Dioxide Anion Gap BUN Creatinine Estim Creat Clear Calc Estimated GFR Glucose POC Capillary Glucose 142 H Calcium Total Bilirubin AST ALT Alkaline Phosphatase Total Protein Albumin Aldolase 8.5 H Anti-Cycl Citrul Peptide <16 ANCA Screen Negative 07/03/24 07/04/24 07/04/24 20:56 05:04 07:35 Sodium 142 Potassium 4.9 Chloride 102 Carbon Dioxide 37 H Anion Gap 3 L BUN 45 H Creatinine 1.70 H Estim Creat Clear Calc 46 Estimated GFR 41 L Glucose 140 H POC Capillary Glucose 165 H 162 H Calcium 9.1 Total Bilirubin 0.3 AST 59 ALT 61 H Alkaline Phosphatase 135 H Total Protein 6.0 L Albumin 3.2 L Aldolase Anti-Cycl Citrul Peptide ANCA Screen 07/04/24 11:26 Sodium Potassium Chloride Carbon Dioxide Anion Gap BUN Creatinine Estim Creat Clear Calc Estimated GFR Glucose POC Capillary Glucose 252 H Calcium Total Bilirubin AST ALT Alkaline Phosphatase Total Protein Albumin Aldolase Anti-Cycl Citrul Peptide ANCA Screen
[2024-07-04 17:39] LABS: Glucose Point of Care 116 mg/dl (65-105)
[2024-07-04] MEDS: QUEtiapine FUMARATE 25 MG TABLET 50 MG PO (21:08)
[2024-07-04 21:09] LABS: Glucose Point of Care 223 mg/dl (65-105)
[2024-07-05] VITALS (10 sets, daily range): BP systolic 131–147; BP diastolic 63–84; PULSE 52–79; RESP 14–20; TEMP 36.3–36.9; O2SAT 91–99
[2024-07-05] MEDS: LEVOTHYROXINE SODIUM 25 MCG TABLET PO (05:19)
[2024-07-05] MEDS: LEVOTHYROXINE SODIUM 150 MCG TABLET PO (05:19)
[2024-07-05] MEDS: UMECLIDINIUM/VILANTEROL 62.5-25 MCG ELLIPTA 1 PUFF INHALATION (07:50)
[2024-07-05] MEDS: hydrALAZINE 10 MG TABLET PO ×2 (08:17→16:43)
[2024-07-05] MEDS: PREGABALIN (*CRX) 75 MG CAPSULE PO ×2 (08:17→16:43)
[2024-07-05] MEDS: ATORVASTATIN 40 MG TABLET 80 MG PO (08:17)
[2024-07-05] MEDS: PANTOPRAZOLE 40 MG TABLET BY MOUTH ×2 (08:17→20:10)
[2024-07-05] MEDS: FUROSEMIDE 40 MG TABLET PO (08:17)
[2024-07-05] MEDS: SERTRALINE HCL 50 MG TABLET 100 MG PO (08:17)
[2024-07-05] MEDS: amLODIPine BESYLATE 10 MG TABLET PO (08:17)
[2024-07-05] MEDS: SOTALOL HCL 80 MG TABLET PO (08:21)
--- NOTE | 2024-07-05 09:23 | PM.IMPN ---
Progress Note: A&P Assessment and Plan (1) Restrictive lung disease: Code(s): J98.4 - Other disorders of lung Status: Acute (2) COPD (chronic obstructive pulmonary disease): Code(s): J44.9 - Chronic obstructive pulmonary disease, unspecified Status: Acute (3) Acute kidney injury superimposed on CKD: Code(s): N17.9 - Acute kidney failure, unspecified; N18.9 - Chronic kidney disease, unspecified Status: Acute (4) Hyperkalemia: Code(s): E87.5 - Hyperkalemia Status: Acute Plan (1) Hypercapnic respiratory failure: Code(s): J96.92 - Respiratory failure, unspecified with hypercapnia Status: Acute Assessment and Plan: Patient has been noncompliant with his medications and CPAP at home. Patient had increasing agitation and confusion over the past several days so family brought him to the ER for evaluation. He was hypoxic with SpO2 in 50s on RA. He was placed on non-rebreather mask with improvement in saturation to upper 90s. ABG 7./211 on NRBM c/w hypercapnic respiratory failure. CXR showed cardiomegaly with cardiac decompensation and pulmonary edema. Bilateral basal pneumonia with highly suggestive bilateral pneumonitis. Placed on BiPAP. Nebs and steroids started. IV abx started. Repeat ABG 7./82 on bipap. Patient intubated 06/23 and admitted to the ICU. He was also treated with intermittent doses of Lasix IV. He was stabilized. ABG improved. He was tolerating SBT but patient self extubated later in the evening on 06/26. He was placed on Vapotherm. He was initially not tolerating BiPAP. Pulmonary consulted and appreciate their input. Echo was unhelpful due to poor images and patient refusing contrast. He had an excellent diuresis Patient wore the noninvasive ventilator with AVAPS with 4L bleed in and did well. ABG on 06/29 was 7.44/48/72. Apnea link now showing SpO2 <88% was 0 minutes. Continue current noninvasive ventilator at bedtime, with naps and as needed. Weaned off O2 off during the day. Encouraged compliance with NIV (2) COPD (chronic obstructive pulmonary disease): Code(s): J44.9 - Chronic obstructive pulmonary disease, unspecified Status: Acute Assessment and Plan: As above. Concern that his respiratory symptoms may be more likely related to diaph paralysis then from COPD. Nebs stopped. Steroids stopped. Weaned O2 off now. Continue Anoro (3) Pneumonia: Code(s): J18.9 - Pneumonia, unspecified organism Status: Acute Assessment and Plan: CXR as above. RSV, COVID and Influenza PCR nasal swab negative. He was started on IV antibiotics for pneumonia. WBC elevated on admission and climbed to 24K felt related to steroids. Leukocytosis trending down now that he is off steroids. BCx negative. Was on Vanco but stopped since MRSA nasal swab negative. CT chest showing patchy consolidation and ground glass opacities in the LLL as well as more widespread scattered bilateral linear, bandlike ground glass opacities - consider chronic PNA or ILD Azithromycin stopped after 5 days. Also on Aztreonam and finished 7 days. Patient responded well to abx Viral panel and autoimmune panel ordered. pending results Lasix resumed at lower dose and advanced to 40mg daily (4) Acute kidney injury superimposed on CKD: Code(s): N17.9 - Acute kidney failure, unspecified; N18.9 - Chronic kidney disease, unspecified Status: Acute Assessment and Plan: Patient has a history of stage 5 kidney injury requiring dialysis in the past. Baseline creatinine 1.6 in 01/26. Cr was 3.0 on admission but has trended down from there. Renal ultrasound with no hydronephrosis. Creatinine continued to improve and now down to 1.5 felt probably at baseline. On lasix 60mg daily at home. Added back Lasix 20mg daily and advanced to 40mg which he is tolerating. stable Hyperkalemia Potassium 5.2, provide Lokelma 10 g once repeat BMP tm c.w, lasix po (5) Diabetes: Qualifiers: Diabetes mellitus complication status: without complication Diabetes mellitus penitentiary insulin use: with terminologist use Diabetes mellitus type: type 2 Qualified Code(s): E11.9 - Type 2 diabetes mellitus without complications; Z79.4 - senior care (current) use of insulin Code(s): E11.9 - Type 2 diabetes mellitus without complications Status: Acute Assessment and Plan: A1c 7.5. Patient with Type 2 diabetes on insulin pump at home. He did require insulin infusion per ICU protocol but weaned off to Lantus and mealtime Novolog. His mental status improved and we were able to switch him back to his pump. Patient managing his glucose and mostly good control. Continue to follow. 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 Hx of AFib - maintaining NSR. QTc 456. Continue sotalol. Not on anticoagulation. Metabolic encephalopathy - mental status improved and now Aox4. Continue Zoloft. On Seroquel 100mg at night at home. Started on 25mg here and advanced to 50mg at night. He is tolerating this dose. Follow. HTN - Patient's blood pressure was reviewed on 07/04. Blood pressure is reasonably well controlled. Continue to follow DVT prophylaxis - SCDs Code status - Full Disp - discharge pt to rehab tm if K is normal Subjective Date/time seen: 07/05/24 09:23 Interval history: Patient is afebrile, blood pressure stable, pulse ox 99-95 on room air, labs reviewed, potassium 5.2, K is trending up. Patient is not on potassium supplement. Patient still has general weakness. Patient is afebrile, blood pressure stable. Exam Narrative: GENERAL: Pleasant, in no acute distress. Well-nourished. - EYES: EOMI. Anicteric. - HENT: Moist mucous membranes. - LUNGS: Clear to auscultation bilaterally, no wheezing, rhonchi, or rales. - CARDIOVASCULAR: Regular rate and rhythm. No murmur. No JVD. - ABDOMEN: Soft, non-tender and non-distended. No palpable masses. - EXTREMITIES: No edema. Peripheral pulses 2+. Non-tender. - NEUROLOGIC: No focal neurological deficits. CN II-XII grossly intact. - PSYCHIATRIC: Awake, Alert and oriented x 3. Appropriate mood and affect. General weakness - SKIN: No rashes or lesions. Warm. - LYMPH: No cervical lymphadenopathy. Objective Data Vital Signs Vital Signs: Vital Signs - 24 hr 07/04/24 10:00 07/04/24 11:49 07/04/24 12:00 Temperature 98.5 F Pulse Rate 69 69 Respiratory Rate 14 Blood Pressure 147/67 H Pulse Oximetry 91 94 Oxygen Delivery Room Air 07/04/24 12:00 07/04/24 14:00 07/04/24 16:00 Temperature Pulse Rate 70 68 65 Respiratory Rate Blood Pressure Pulse Oximetry Oxygen Delivery 07/04/24 16:00 07/04/24 15:17 07/04/24 20:00 Temperature 97.6 F Pulse Rate 65 Respiratory Rate 18 Blood Pressure 130/69 Pulse Oximetry 94 93 94 Oxygen Delivery Room Air Room Air 07/04/24 22:55 07/05/24 02:46 07/05/24 04:12 Temperature 97.7 F Pulse Rate 58 L 71 Respiratory Rate 26 H 19 18 Blood Pressure 139/77 Pulse Oximetry 96 93 Oxygen Delivery 07/05/24 07:53 07/05/24 08:21 07/05/24 08:00 Temperature 97.4 F L Pulse Rate 74 79 Respiratory Rate 20 Blood Pressure 143/80 H Pulse Oximetry 96 99 Oxygen Delivery Room Air 07/05/24 08:00 Temperature Pulse Rate Respiratory Rate Blood Pressure Pulse Oximetry Oxygen Delivery Room Air Intake/Output Intake/Output: Intake & Output 07/02/24 07/03/24 07/04/24 07/05/24 23:59 23:59 23:59 23:59 Intake Total 1650 2510 3270 1100 Output Total 1107 080 3269 Balance -250 2010 1645 1100 Meds/Results Medications: Active Medications Generic Name Dose Route Start Last Admin Trade Name Freq PRN Reason Stop Dose Admin Acetaminophen 650 mg 06/24/24 02:04 Acetaminophen Elixir 325 Mg/10.15 Ml Udc PO Q4H PRN Mild Pain (1-3) or Fever Amlodipine Besylate 10 mg 06/28/24 09:00 07/05/24 08:17 Amlodipine Besylate 10 Mg Tablet PO 10 mg DAILY CHARITY Administration Atorvastatin Calcium 80 mg 06/24/24 09:00 07/05/24 08:17 Atorvastatin 40 Mg Tablet PO 80 mg DAILY CHARITY Administration Dextrose 12.5 gm 06/24/24 11:32 Dextrose 50% 25 Gm/50 Ml Syringe IV PUSH PRN PRN Hypoglycemia Protocol Furosemide 40 mg 07/02/24 09:00 07/05/24 08:17 Furosemide 40 Mg Tablet PO 40 mg DAILY CHARITY Administration Glucagon 1 mg 06/24/24 11:32 Glucagon For Inj 1 Mg Vial IM PRN PRN Hypoglycemia Protocol Glucose 15 gm 06/24/24 11:32 Glucose Oral Gel 15 Gm Of Glucse In 37.5 Gm Tube PO PRN PRN Hypoglycemia Protocol Hydralazine HCl 10 mg 06/27/24 17:00 07/05/24 08:17 Hydralazine 10 Mg Tablet PO 10 mg BID CHARITY Administration Dextrose 1,000 mls @ 100 mls/hr 06/24/24 11:32 Dextrose 5% 1,000 Ml IVPB PRN PRN Hypoglycemia Protocol Levothyroxine Sodium 150 mcg 06/24/24 10:00 07/05/24 05:19 Levothyroxine Sodium 150 Mcg Tablet PO 150 mcg DAILY@0630 CHARITY Administration Levothyroxine Sodium 25 mcg 06/24/24 10:00 07/05/24 05:19 Levothyroxine Sodium 25 Mcg Tablet PO 25 mcg DAILY@0630 CHARITY Administration Pantoprazole Sodium 40 mg 06/27/24 21:00 07/05/24 08:17 Pantoprazole 40 Mg Tablet BY MOUTH 40 mg Q12HR CHARITY Administration Polyethylene Glycol 17 gm 06/26/24 10:20 06/26/24 13:24 Polyethylene Glycol 3350 17 Gm Powd.Pack PO 17 gm QAM PRN Administration Constipation Pregabalin 75 mg 06/24/24 09:00 07/05/24 08:17 Pregabalin (*Crx) 75 Mg Capsule PO 75 mg BID CHARITY Administration Quetiapine Fumarate 50 mg 06/29/24 21:00 07/04/24 21:08 Quetiapine Fumarate 25 Mg Tablet PO 50 mg HS CHARITY Administration Sertraline HCl 100 mg 06/24/24 09:00 07/05/24 08:17 Sertraline Hcl 50 Mg Tablet PO 100 mg DAILY CHARITY Administration Sotalol HCl 80 mg 06/28/24 09:00 07/05/24 08:21 Sotalol Hcl 80 Mg Tablet PO 80 mg DAILY CHARITY Administration Umeclidinium/Vilanterol 1 puff 06/28/24 12:00 07/05/24 07:50 Umeclidinium/Vilanterol 62.5-25 Mcg Ellipta INHALATION 1 puff DAILYRT CHARITY Administration Radiology Results: ITS Impressions Renal Ultrasound 06/24/24 09:12 Impression: 1: Unremarkable renal ultrasound. No stones, masses or hydronephrosis. Venous Doppler Study 06/26/24 15:41 IMPRESSION: Negative bilateral lower extremity venous US. No deep vein thrombosis. Chest CT 06/28/24 14:36 IMPRESSION: 1. Patchy consolidation and groundglass opacities in the left lower lobe suspicious for pneumonia. More widespread scattered bilateral linear, bandlike and groundglass opacities for which would include a broader differential also including chronic pneumonia or chronic interstitial lung disease. Chest X-Ray 06/30/24 06:15 IMPRESSION: 1. Stable diffuse lung disease, likely a combination of chronic interstitial lung disease and pneumonia. Labs Labs: Laboratory Results - last 24 hr 06/29/24 06/29/24 07/04/24 06:55 14:37 11:26 POC Capillary Glucose 252 H ANCA Screen Negative SARS-CoV-2 RNA (RT-PCR) Not detected 07/04/24 07/04/24 15:59 20:47 POC Capillary Glucose 116 H 223 H ANCA Screen SARS-CoV-2 RNA (RT-PCR)
[2024-07-05 09:59] LABS: Basophils Absolute Auto 0.1 K/mm3 (0.0-0.1); Basophils Percent Auto 0.9 % (0.2-1.2); Eosinophils Absolute Auto 0.3 K/mm3 (0-0.3); Hematocrit 44.7 % (42.0-52.0); Hemoglobin 13.9 g/dL (14.0-18.0); Immature Granulocyte Absolute 0.55 K/mm3 (0.00-0.031); Immature Granulocyte Percent A 4.2 % (0-0.5); Lymphocytes Absolute Auto 1.74 K/mm3 (0.9-3.2); Lymphocytes Percent Auto 13.2 % (18.3-44.2); Mean Corpuscular HGB Conc 31.1 g/dl (32-36); Mean Corpuscular Hemoglobin 30.1 pg (26-34); Mean Corpuscular Volume 96.8 fl (80-100); Mean Platelet Volume 12.4 fl (7.4-10.4); Monocytes Percent Auto 7.2 % (2.6-8.5); Neutrophils Absolute Auto 9.6 K/mm3 (1.3-6.7); Neutrophils Percent Auto 72.5 % (45.5-73.1); Platelet Count Result 204 k/mm3 (150-375); Red Blood Count 4.62 M/mm3 (4.6-6.20); Red Cell Distribution Width 15.6 % (11.5-14.5); White Blood Count 13.2 K/mm3 (4.5-10.0)
[2024-07-05 10:07] LABS: Anion Gap 6 mmol/L (4-12); Blood Urea Nitrogen 44 mg/dL (9-20); Calcium 9.5 mg/dL (8.4-10.2); Carbon Dioxide 34 mmol/L (22-30); Chloride 100 mmol/L (98-107); Estimated CRCL calculation 47 ml/min; Estimated Glomerular Filt Rate 41; Glucose 332 mg/dL (65-110); Potassium 5.2 mmol/L (3.4-5.0); Sodium 140 mmol/L (137-145)
[2024-07-05 11:33] LABS: Glucose Point of Care 242 mg/dl (65-105)
--- NOTE | 2024-07-05 12:47 | P.DS_ITS ---
DS: Summary Time Spent with Patient Time attestation: Total time spent providing and/or coordinating discharge services: DS: Data Data Completed and Pending Labs on day of discharge: Labs from last 24 hours 07/05/24 07/05/24 07/04/24 11:04 09:50 20:47 WBC 13.2 H RBC 4.62 Hgb 13.9 L Hct 44.7 MCV 96.8 MCH 30.1 MCHC 31.1 L RDW 15.6 H Plt Count 204 MPV 12.4 H Immature Gran % (Auto) 4.2 H Neut % (Auto) 72.5 Lymph % (Auto) 13.2 L [place] % (Auto) 7.2 Eos % (Auto) 2.0 Baso % (Auto) 0.9 Lymph # (Auto) 1.74 [place] # (Auto) 1.0 H Eos # (Auto) 0.3 Baso # (Auto) 0.1 Abs Immat Gran (auto) 0.55 H Absolute Neuts (auto) 9.6 H Absolute Nucleated RBC 0.000 Nucleated RBC % 0.0 Sodium 140 Potassium 5.2 H Chloride 100 Carbon Dioxide 34 H Anion Gap 6 BUN 44 H Creatinine 1.70 H Estim Creat Clear Calc 47 Estimated GFR 41 L Glucose 332 H POC Capillary Glucose 242 H 223 H Calcium 9.5 ANCA Screen SARS-CoV-2 RNA (RT-PCR) 07/04/24 06/29/24 06/29/24 15:59 14:37 06:55 WBC RBC Hgb Hct MCV MCH MCHC RDW Plt Count MPV Immature Gran % (Auto) Neut % (Auto) Lymph % (Auto) [place] % (Auto) Eos % (Auto) Baso % (Auto) Lymph # (Auto) [place] # (Auto) Eos # (Auto) Baso # (Auto) Abs Immat Gran (auto) Absolute Neuts (auto) Absolute Nucleated RBC Nucleated RBC % Sodium Potassium Chloride Carbon Dioxide Anion Gap BUN Creatinine Estim Creat Clear Calc Estimated GFR Glucose POC Capillary Glucose 116 H Calcium ANCA Screen Negative SARS-CoV-2 RNA (RT-PCR) Not detected Discharge Plan Discharge Consulting providers: Anyi Don; Bryant Hinds Discharge Instructions: Respiratory Failure. Patient Instructions: COPD (Chronic Obstructive Pulmonary Disease) (GEN), Chronic Lung Disease and Infection Prevention (GEN), Acute Respiratory Failure (GEN) Discharge Medications: No Action furosemide 20 mg tablet 60 mg PO DAILY Trelegy Ellipta 100-62.5-25 mcg blister with device 1 inh inhalation Q24H Qty: 60 2RF pregabalin 75 mg capsule 75 mg PO BID atorvastatin 80 mg tablet 80 mg PO DAILY insulin aspart U-100 100 unit/mL solution 0.09 unit continuous subcutaneous infusion DAILY (DME) Dexcom G6 Sensor Device See Rx Instructions .ROUTE .MEDSUPPLY Qty: 1 Rx Instructions: As directed amlodipine 10 mg tablet 10 mg PO DAILY sotalol 80 mg tablet 80 mg PO DAILY hydralazine 10 mg tablet 10 mg PO BID (DME) MiniMed 630G Insulin Pump Misc See Rx Instructions .Route Rx Instructions: As directed insulin aspart U-100 [Novolog FlexPen U-100 Insulin] 100 unit/mL (3 mL) insulin pen 1 sliding scale dose subcut USEASDIRECTD levothyroxine 175 mcg tablet 175 mcg PO DAILY Qty: 90 0RF quetiapine [Seroquel] 100 mg tablet 100 mg PO QHS Qty: 90 1RF pantoprazole 40 mg tablet,delayed release (DR/EC) See Rx Instructions .ROUTE .COMPLEX Qty: 180 1RF Dose Instruction: TAKE 1 TABLET(40 MG) BY MOUTH TWICE DAILY Rx Instructions: TAKE 1 TABLET(40 MG) BY MOUTH TWICE DAILY lorazepam 1 mg tablet 1 mg PO BID PRN (Reason: anxiety) Qty: 180 0RF Rx Instructions: 3mo supply albuterol sulfate 90 mcg/actuation HFA aerosol inhaler 2 inh inhalation Q4H PRN (Reason: shortness of breath or wheezing) Qty: 8.5 2RF sertraline 100 mg tablet 100 mg PO DAILY Qty: 90 3RF Date of admission: 06/23/24 20:29 Primary Care Provider: Suraj Hawley Admitting Provider: Sandro French V. Attending physician on admission: Sandro French V. Condition: Serious
[2024-07-05] MEDS: SODIUM ZIRCONIUM CYCLOSILICATE 10 GM POWD.PACK PO ×2 (13:32→16:43)
[2024-07-05 15:38] LABS: Chloride Rand Ur <20 mmol/L (32-290); Creatinine Random Urine 99 mg/dL (20-320)
[2024-07-05 16:18] LABS: Glucose Point of Care 79 mg/dl (65-105)
[2024-07-05 17:09] LABS: Adenovirus DNA Not Detected (Not Detected); Chlamydophila pneumoniae Not Detected (Not Detected); Coronavirus 229E Not Detected (Not Detected); Coronavirus HKU1 Not Detected (Not Detected); Coronavirus NL63 Not Detected (Not Detected); Coronavirus OC43 Not Detected (Not Detected); Human Metapneumovirus Detected (Not Detected); Human Parainfluenza Virus 1 Not Detected (Not Detected); Human Parainfluenza Virus 2 Not Detected (Not Detected); Human Parainfluenza Virus 3 Not Detected (Not Detected); Human Parainfluenza Virus 4 Not Detected (Not Detected); Human RSV B Not Detected (Not Detected); Influenza A Not Detected (Not Detected); Influenza B Not Detected (Not Detected); Mycoplasma pneumoniae Not Detected (Not Detected); Rhinovirus/Enterovirus Not Detected (Not Detected)
[2024-07-05 20:03] LABS: Glucose Point of Care 241 mg/dl (65-105)
[2024-07-05] MEDS: QUEtiapine FUMARATE 25 MG TABLET 50 MG PO (20:10)
[2024-07-06 02:17] VITALS: PULSE 60; RESP 15; O2SAT 96
[2024-07-06 05:20] VITALS: BP 145/77; PULSE 60; RESP 19; TEMP 36.7; O2SAT 96
[2024-07-06] MEDS: LEVOTHYROXINE SODIUM 150 MCG TABLET PO (05:56)
[2024-07-06] MEDS: LEVOTHYROXINE SODIUM 25 MCG TABLET PO (05:56)
[2024-07-06] MEDS: UMECLIDINIUM/VILANTEROL 62.5-25 MCG ELLIPTA 1 PUFF INHALATION (06:58)
[2024-07-06 07:03] VITALS: PULSE 81; RESP 18; O2SAT 96
[2024-07-06 07:41] LABS: Glucose Point of Care 227 mg/dl (65-105)
[2024-07-06 08:00] VITALS: PULSE 87; O2SAT 92
[2024-07-06 08:15] LABS: Anion Gap 7 mmol/L (4-12); Blood Urea Nitrogen 45 mg/dL (9-20); Calcium 9.5 mg/dL (8.4-10.2); Carbon Dioxide 34 mmol/L (22-30); Chloride 99 mmol/L (98-107); Estimated CRCL calculation 40 ml/min; Estimated Glomerular Filt Rate 34; Glucose 246 mg/dL (65-110); Potassium 4.4 mmol/L (3.4-5.0); Sodium 140 mmol/L (137-145)
[2024-07-06 08:26] LABS: Basophils Absolute Auto 0.1 K/mm3 (0.0-0.1); Basophils Percent Auto 0.8 % (0.2-1.2); Eosinophils Absolute Auto 0.3 K/mm3 (0-0.3); Eosinophils Percent Auto 1.9 % (0-4.4); Hemoglobin 14.2 g/dL (14.0-18.0); Immature Granulocyte Absolute 0.54 K/mm3 (0.00-0.031); Lymphocytes Absolute Auto 2.15 K/mm3 (0.9-3.2); Lymphocytes Percent Auto 16.1 % (18.3-44.2); Mean Corpuscular HGB Conc 31.6 g/dl (32-36); Mean Corpuscular Hemoglobin 30.1 pg (26-34); Mean Corpuscular Volume 95.5 fl (80-100); Mean Platelet Volume 12.5 fl (7.4-10.4); Monocytes Percent Auto 7.8 % (2.6-8.5); Neutrophils Absolute Auto 9.3 K/mm3 (1.3-6.7); Neutrophils Percent Auto 69.4 % (45.5-73.1); Platelet Count Result 189 k/mm3 (150-375); Red Blood Count 4.71 M/mm3 (4.6-6.20); Red Cell Distribution Width 15.6 % (11.5-14.5); White Blood Count 13.4 K/mm3 (4.5-10.0)
[2024-07-06] MEDS: FUROSEMIDE 40 MG TABLET PO (10:27)
[2024-07-06] MEDS: ATORVASTATIN 40 MG TABLET 80 MG PO (10:27)
[2024-07-06] MEDS: SERTRALINE HCL 50 MG TABLET 100 MG PO (10:27)
[2024-07-06] MEDS: amLODIPine BESYLATE 10 MG TABLET PO (10:27)
[2024-07-06] MEDS: hydrALAZINE 10 MG TABLET PO (10:27)
[2024-07-06 10:28] VITALS: PULSE 87
[2024-07-06] MEDS: SOTALOL HCL 80 MG TABLET PO (10:28)
[2024-07-06] MEDS: PREGABALIN (*CRX) 75 MG CAPSULE PO (10:28)
[2024-07-06] MEDS: PANTOPRAZOLE 40 MG TABLET BY MOUTH (10:28)
[2024-07-06 11:21] LABS: Glucose Point of Care 261 mg/dl (65-105)
--- NOTE | 2024-07-06 12:12 | PM.DS ---
DS: Admitting Diagnosis Discharge Date 07/06/2024 Admitting Diagnosis Respiratory failure DS: Discharge Diagnosis Discharge Diagnosis (1) Restrictive lung disease: Code(s): J98.4 - Other disorders of lung Status: Acute (2) COPD (chronic obstructive pulmonary disease): Code(s): J44.9 - Chronic obstructive pulmonary disease, unspecified Status: Acute (3) Acute kidney injury superimposed on CKD: Code(s): N17.9 - Acute kidney failure, unspecified; N18.9 - Chronic kidney disease, unspecified Status: Acute (4) Hyperkalemia: Code(s): E87.5 - Hyperkalemia Status: Acute DS: Summary Hospital Course Hospital Course: Patient has been noncompliant with his medications and CPAP at home. Patient had increasing agitation and confusion over the past several days so family brought him to the ER for evaluation. He was hypoxic with SpO2 in 50s on RA. He was placed on non-rebreather mask with improvement in saturation to upper 90s. ABG 7.11/80/211 on NRBM c/w hypercapnic respiratory failure. CXR showed cardiomegaly with cardiac decompensation and pulmonary edema. Bilateral basal pneumonia with highly suggestive bilateral pneumonitis. Placed on BiPAP. Nebs and steroids started. IV abx started. Repeat ABG 7.08/80/82 on bipap. Patient intubated 06/23 and admitted to the ICU. He was also treated with intermittent doses of Lasix IV. He was stabilized. ABG improved. He was tolerating SBT but patient self extubated later in the evening on 06/26. He was placed on Vapotherm. He was initially not tolerating BiPAP. Pulmonary consulted and appreciate their input. Echo was unhelpful due to poor images and patient refusing contrast. He had an excellent diuresis Patient wore the noninvasive ventilator with AVAPS with 4L bleed in and did well. ABG on 06/29 was 7.44/48/72. Apnea link now showing SpO2 <88% was 0 minutes. Continue current noninvasive ventilator at bedtime, with naps and as needed. Which has been arranged Weaned off O2 off during the day. Encouraged compliance with NIV # COPD (chronic obstructive pulmonary disease): As above. Concern that his respiratory symptoms may be more likely related to diaph paralysis then from COPD. Nebs stopped. Steroids stopped. Weaned O2 off now. Continue Anoro # Pneumonia: CXR as above. RSV, COVID and Influenza PCR nasal swab negative. He was started on IV antibiotics for pneumonia. WBC elevated on admission and climbed to 24K felt related to steroids. Leukocytosis trending down now that he is off steroids. BCx negative. Was on Vanco but stopped since MRSA nasal swab negative. CT chest showing patchy consolidation and ground glass opacities in the LLL as well as more widespread scattered bilateral linear, bandlike ground glass opacities - consider chronic PNA or ILD Azithromycin stopped after 5 days. Also on Aztreonam and finished 7 days. Patient responded well to abx Viral panel and autoimmune panel ordered. pending results Lasix resumed at lower dose and advanced to 40mg daily # Acute kidney injury superimposed on CKD: Patient has a history of stage 5 kidney injury requiring dialysis in the past. Baseline creatinine 1.6 in 01/26. Cr was 3.0 on admission but has trended down from there. Renal ultrasound with no hydronephrosis. Creatinine continued to improve and now down to 1.5 felt probably at baseline. On lasix 60mg daily at home. Added back Lasix 20mg daily and advanced to 40mg which he is tolerating. stable # Hyperkalemia Potassium 5.2, provide Lokelma 10 g once This has resolved # Diabetes: A1c 7.5. Patient with Type 2 diabetes on insulin pump at home. He did require insulin infusion per ICU protocol but weaned off to Lantus and mealtime Novolog. His mental status improved and we were able to switch him back to his pump. Patient managing his glucose and mostly good control. Continue to follow. # Obstructive sleep apnea: As above # Diaphragm paralysis: As above # Noncompliance: Compliance with NIV has been encouraged. # Hx of AFib - maintaining NSR. QTc 456. Continue sotalol. Not on anticoagulation. # Metabolic encephalopathy - mental status improved and now Aox4. Continue Zoloft. On Seroquel 100mg at night at home. Started on 25mg here and advanced to 50mg at night. He is tolerating this dose. Follow. # HTN - Patient's blood pressure was reviewed on 07/04. Blood pressure is reasonably well controlled. Continue to follow # DVT prophylaxis - SCDs # Code status - Full # Disp -To [facility] for rehab Time Spent with Patient Time attestation: Total time spent providing and/or coordinating discharge services: 45 minutes Exam Narrative: GENERAL: Pleasant, in no acute distress. Well-nourished. - EYES: EOMI. Anicteric. - HENT: Moist mucous membranes. - LUNGS: Clear to auscultation bilaterally, no wheezing, rhonchi, or rales. - CARDIOVASCULAR: Regular rate and rhythm. No murmur. No JVD. - ABDOMEN: Soft, non-tender and non-distended. No palpable masses. - EXTREMITIES: No edema. Peripheral pulses 2+. Non-tender. - NEUROLOGIC: No focal neurological deficits. CN II-XII grossly intact. - PSYCHIATRIC: Awake, Alert and oriented x 3. Appropriate mood and affect. General weakness - SKIN: No rashes or lesions. Warm. - LYMPH: No cervical lymphadenopathy. DS: Data Data Completed and Pending Completed studies during hospitalization: Exam Type: CA echo doppler color flow Study Info Indications I50.20 - Unspecified systolic (congestive) heart failure Complete two-dimensional, color flow and Doppler transthoracic echocardiogram is performed. Reason for Poor Study: poor patient cooperation Summary 1. Technically difficult study with limited views. 2. Cannot estimate LVEF due to poor visualization of endocardial borders. Patient refused Definity. Recommend obtaining a repeat limited study with Definity (if patient agreeable) or consider alternative cardiac imaging modality to assess LVEF. The mid and distal colby of the LV appear hypokinetic, however, cannot accurately assess for regional wall motion abnormalities due to poor visualization of endocardial borders. 3. No significant valvular disease appreciated on this study, however, technically difficult study. Left Ventricle Cannot estimate LVEF due to poor visualization of endocardial borders. Patient refused Definity. Recommend obtaining a repeat limited study with Definity (if patient agreeable) or consider alternative cardiac imaging modality to assess LVEF. The mid and distal colby of the LV appear hypokinetic, however, cannot accurately assess for regional wall motion abnormalities due to poor visualization of endocardial borders. Left ventricular chamber dimension is normal. The left ventricular diastolic function is grade III diastolic dysfunction. Right Ventricle Right ventricular chamber dimension is not well visualized. Left Atria Left atrial chamber dimension is normal. Right Atria Right atrial chamber dimension is normal. Atrial Septum Intact interatrial septum visualized by color flow imaging. Aortic Valve The aortic valve is not well visualized. There is no aortic valve regurgitation. Pulmonic Valve The pulmonic valve is not well visualized. There is no pulmonic regurgitation. Mitral Valve There is trace mitral valve regurgitation. Tricuspid Valve There is trace tricuspid valve regurgitation. Pericardium/Pleural There is no pericardial effusion. Inferior Vena Cava Normal inferior vena cava with >50% collapse upon inspiration consistent with normal right atrial pressure, 3 mmHg. Aorta The aortic root size at the sinus of Valsalva is normal. Labs on day of discharge: Labs from last 24 hours 07/06/24 07/06/24 07/06/24 11:15 07:54 07:32 WBC 13.4 H RBC 4.71 Hgb 14.2 Hct 45.0 MCV 95.5 MCH 30.1 MCHC 31.6 L RDW 15.6 H Plt Count 189 MPV 12.5 H Immature Gran % (Auto) 4.0 H Neut % (Auto) 69.4 Lymph % (Auto) 16.1 L [place] % (Auto) 7.8 Eos % (Auto) 1.9 Baso % (Auto) 0.8 Lymph # (Auto) 2.15 [place] # (Auto) 1.0 H Eos # (Auto) 0.3 Baso # (Auto) 0.1 Abs Immat Gran (auto) 0.54 H Absolute Neuts (auto) 9.3 H Absolute Nucleated RBC 0.000 Nucleated RBC % 0.0 Sodium 140 Potassium 4.4 Chloride 99 Carbon Dioxide 34 H Anion Gap 7 BUN 45 H Creatinine 2.00 H Estim Creat Clear Calc 40 Estimated GFR 34 L Glucose 246 H POC Capillary Glucose 261 H 227 H Calcium 9.5 Ur Random Creatinine Ur Random Chloride U Random Chloride/Creat Nasal RSV Type A (PCR) Nasal RSV Type B (PCR) Chlamy pneumoniae PCR Adenovirus DNA Human Bocavirus (MARTINE) Coronavirus Type OC43 Coronavirus Type HKU1 Coronavirus Type 229E Coronavirus Type NL63 Human Metapneumovir PCR Influenza A (PCR) Influenza A (H1) RNA Influenza A (H3) PCR M. pneumoniae DNA Parainfluenza PCR Parainfluenza 2 (PCR) Parainfluenza 3 RNA (PCR) Parainfluenza 4 (PCR) Rhino/Enterovirus (MARTINE) Influenza Type B (PCR) Misc Test Comment 07/05/24 07/05/24 06/29/24 19:56 16:09 14:37 WBC RBC Hgb Hct MCV MCH MCHC RDW Plt Count MPV Immature Gran % (Auto) Neut % (Auto) Lymph % (Auto) [place] % (Auto) Eos % (Auto) Baso % (Auto) Lymph # (Auto) [place] # (Auto) Eos # (Auto) Baso # (Auto) Abs Immat Gran (auto) Absolute Neuts (auto) Absolute Nucleated RBC Nucleated RBC % Sodium Potassium Chloride Carbon Dioxide Anion Gap BUN Creatinine Estim Creat Clear Calc Estimated GFR Glucose POC Capillary Glucose 241 H 79 Calcium Ur Random Creatinine Ur Random Chloride U Random Chloride/Creat Nasal RSV Type A (PCR) Not detected Nasal RSV Type B (PCR) Not detected Chlamy pneumoniae PCR Not detected Adenovirus DNA Not detected Human Bocavirus (MARTINE) Not detected Coronavirus Type OC43 Not detected Coronavirus Type HKU1 Not detected Coronavirus Type 229E Not detected Coronavirus Type NL63 Not detected Human Metapneumovir PCR Detected A Influenza A (PCR) Not detected Influenza A (H1) RNA Not detected Influenza A (H3) PCR Not detected M. pneumoniae DNA Not detected Parainfluenza PCR Not detected Parainfluenza 2 (PCR) Not detected Parainfluenza 3 RNA (PCR) Not detected Parainfluenza 4 (PCR) Not detected Rhino/Enterovirus (MARTINE) Not detected Influenza Type B (PCR) Not detected Misc Test Comment see note 06/24/24 14:17 WBC RBC Hgb Hct MCV MCH MCHC RDW Plt Count MPV Immature Gran % (Auto) Neut % (Auto) Lymph % (Auto) [place] % (Auto) Eos % (Auto) Baso % (Auto) Lymph # (Auto) [place] # (Auto) Eos # (Auto) Baso # (Auto) Abs Immat Gran (auto) Absolute Neuts (auto) Absolute Nucleated RBC Nucleated RBC % Sodium Potassium Chloride Carbon Dioxide Anion Gap BUN Creatinine Estim Creat Clear Calc Estimated GFR Glucose POC Capillary Glucose Calcium Ur Random Creatinine 99 Ur Random Chloride <20 L U Random Chloride/Creat See note Nasal RSV Type A (PCR) Nasal RSV Type B (PCR) Chlamy pneumoniae PCR Adenovirus DNA Human Bocavirus (MARTINE) Coronavirus Type OC43 Coronavirus Type HKU1 Coronavirus Type 229E Coronavirus Type NL63 Human Metapneumovir PCR Influenza A (PCR) Influenza A (H1) RNA Influenza A (H3) PCR M. pneumoniae DNA Parainfluenza PCR Parainfluenza 2 (PCR) Parainfluenza 3 RNA (PCR) Parainfluenza 4 (PCR) Rhino/Enterovirus (MARTINE) Influenza Type B (PCR) [facility] [place] Test Comment Imaging Radiologist's impression: ITS Impressions Chest X-Ray 06/23/24 17:52 IMPRESSION: Cardiomegaly with cardiac decompensation and pulmonary edema. Bilateral basal pneumonia with highly suggestive bilateral pneumonitis. Changes are worse the the previous study. Chest X-Ray 06/23/24 21:14 IMPRESSION: Bilateral pneumonia. Endotracheal tube needs to be retracted by about 2 cm. Renal Ultrasound 06/24/24 09:12 Impression: 1: Unremarkable renal ultrasound. No stones, masses or hydronephrosis. Chest X-Ray 06/25/24 06:23 Impression: Probable mild central pulmonary edema and left basilar atelectatic change. Suspected mild underlying chronic interstitial disease. Support tubes, as above. Chest X-Ray 06/26/24 06:28 Impression: Bilateral pulmonary airspace disease, with bibasilar predominance, as detailed above. Correlate for pulmonary edema/atelectasis versus possibly pneumonia. Small left pleural effusion. Support tubes, as above. Venous Doppler Study 06/26/24 15:41 IMPRESSION: Negative bilateral lower extremity venous US. No deep vein thrombosis. Chest X-Ray 06/27/24 05:55 IMPRESSION: 1. Small lung volumes with stable diffuse lung disease, consistent with pulmonary edema versus pneumonia. Chest CT 06/28/24 14:36 IMPRESSION: 1. Patchy consolidation and groundglass opacities in the left lower lobe suspicious for pneumonia. More widespread scattered bilateral linear, bandlike and groundglass opacities for which would include a broader differential also including chronic pneumonia or chronic interstitial lung disease. Chest X-Ray 06/30/24 06:15 IMPRESSION: 1. Stable diffuse lung disease, likely a combination of chronic interstitial lung disease and pneumonia. Discharge Plan Discharge Attending physician on discharge: Daron Walker Consulting providers: Anyi Don; Bryant Hinds Discharging Clinician: Daron Walker Anticipated Discharge Date/Time: 07/06/24 12:11 Patient Disposition: [facility] Activity: as tolerated Diet: as tolerated and heart healthy Discharge Instructions: Respiratory Failure. AVAPS AE settings rate of 14, tidal volume 500, minimum EPAP 5, maximum EPAP 15, minimum pressure support 6, maximum pressure support 25, inspiratory time 1.2, and 4 L bleed in provide optimal ventilation and oxygenation. When he is discharged home when he naps or sleeps noninvasive ventilation through [employer] with TTV -AVAPS-AE settings: rate 14, tidal volume 500, minimum EPAP 5, maximum EPAP 15, minimum pressure support 6, maximum pressure support 25, inspiratory time 1.2, and 4 L bleed in. Oxygen: 1 L oxygen at rest and 2 with activity. Titrate oxygen as tolerated to keep SpO2 more than 90% Patient Instructions: COPD (Chronic Obstructive Pulmonary Disease) (GEN), Chronic Lung Disease and Infection Prevention (GEN), Acute Respiratory Failure (GEN) Stand Alone Forms: General Discharge Information Follow-up/Referrals: Suraj Hawley MD [Primary Care Provider] - 1 Week Bryant Hinds MD [Physician] - 5 Weeks Discharge Medications: New Anoro Ellipta 62.5-25 mcg/actuation Blister With Device 1 inh inhalation DAILYRT Qty: 60 0RF furosemide 40 mg Tablet 40 mg PO DAILY Qty: 30 1RF polyethylene glycol 3350 [Miralax] 17 gram Powder In Packet 17 g PO QAM PRN (Reason: Constipation) Qty: 30 0RF Continued Trelegy Ellipta 100-62.5-25 mcg blister with device 1 inh inhalation Q24H Qty: 60 2RF pregabalin 75 mg capsule 75 mg PO BID atorvastatin 80 mg tablet 80 mg PO DAILY insulin aspart U-100 100 unit/mL solution 0.09 unit continuous subcutaneous infusion DAILY (DME) Dex265 Network G6 Sensor Device See Rx Instructions .ROUTE .MEDSUPPLY Qty: 1 Rx Instructions: As directed amlodipine 10 mg tablet 10 mg PO DAILY sotalol 80 mg tablet 80 mg PO DAILY hydralazine 10 mg tablet 10 mg PO BID (DME) MiniMed 630G Insulin Pump Misc See Rx Instructions .Route Rx Instructions: As directed insulin aspart U-100 [Novolog FlexPen U-100 Insulin] 100 unit/mL (3 mL) insulin pen 1 sliding scale dose subcut USEASDIRECTD levothyroxine 175 mcg tablet 175 mcg PO DAILY Qty: 90 0RF quetiapine [Seroquel] 100 mg tablet 100 mg PO QHS Qty: 90 1RF pantoprazole 40 mg tablet,delayed release (DR/EC) See Rx Instructions .ROUTE .COMPLEX Qty: 180 1RF Dose Instruction: TAKE 1 TABLET(40 MG) BY MOUTH TWICE DAILY Rx Instructions: TAKE 1 TABLET(40 MG) BY MOUTH TWICE DAILY lorazepam 1 mg tablet 1 mg PO BID PRN (Reason: anxiety) Qty: 180 0RF Rx Instructions: 3mo supply albuterol sulfate 90 mcg/actuation HFA aerosol inhaler 2 inh inhalation Q4H PRN (Reason: shortness of breath or wheezing) Qty: 8.5 2RF sertraline 100 mg tablet 100 mg PO DAILY Qty: 90 3RF Discontinued furosemide 20 mg tablet 60 mg PO DAILY Date of admission: 06/23/24 20:29 Primary Care Provider: Suraj Hawley Admitting Provider: Sandro French V. Attending physician on admission: Sandro French V. Condition: Improved
[2024-07-09 13:08] LABS: JO-1 AB <11 SI (<11); MI-2 Alpha Ab <11 SI (<11); MI-2 Beta Ab <11 SI (<11); NXP-2 AB <11 SI (<11); TIF1 Gamma Ab <11 SI (<11)
[2024-07-12 14:13] LABS: Aspergillus fumigatus NEGATIVE (NEGATIVE)
== END 2024-07-06 14:05 | DRG 208 ==
LOC: ANHED 16:44 → ANHICU 20:58 → ANHIMU 06-28 06:41 → ANH3MEDSUR 07-06 12:12 → ANHIMU 07-07 11:04
PROVIDERS: Hospitalist; Internal Medicine; Internal Medicine Pulmonary Disease; Physician Assistant; Admitting Provider Internal Medicine; Emergency Provider Emergency Medicine; PCP Family Medicine; Visit Provider Internal Medicine
DX: J98.4 Other disorders of lung (principal); J96.22 Acute and chronic respiratory failure with hypercapnia; G93.41 Metabolic encephalopathy; N17.9 Acute kidney failure, unspecified; J44.1 Chronic obstructive pulmonary disease with (acute) exacerbation; J44.0 Chronic obstructive pulmonary disease with (acute) lower respiratory infection; J18.9 Pneumonia, unspecified organism; J98.6 Disorders of diaphragm; Z91.148 Patient's other noncompliance with medication regimen for other reason; I12.9 Hypertensive chronic kidney disease with stage 1 through stage 4 chronic kidney disease, or unspecified chronic kidney disease; E11.22 Type 2 diabetes mellitus with diabetic chronic kidney disease; N18.9 Chronic kidney disease, unspecified; E11.319 Type 2 diabetes mellitus with unspecified diabetic retinopathy without macular edema; E11.42 Type 2 diabetes mellitus with diabetic polyneuropathy; E03.9 Hypothyroidism, unspecified; I48.91 Unspecified atrial fibrillation; G47.33 Obstructive sleep apnea (adult) (pediatric); E87.5 Hyperkalemia; Z20.822 Contact with and (suspected) exposure to COVID-19; Z95.2 Presence of prosthetic heart valve; Z95.1 Presence of aortocoronary bypass graft; Z87.891 Personal history of nicotine dependence; E66.9 Obesity, unspecified; Z68.34 Body mass index [BMI] 34.0-34.9, adult; Z79.4 Long term (current) use of insulin; Z86.16 Personal history of COVID-19
CPT/HCPCS: 31500; 36415; 36600; 71045; 71250; 76775; 80048; 80053; 81001; 82010; 82085; 82104; 82375; 82436; 82550; 82570; 82805; 82948; 83036; 83050; 83605; 83735; 83880; 84100; 84133; 84145; 84182; 84300; 84439; 84443; 84484; 85018; 85025; 85027; 85610; 85730; 85999; 86036; 86038; 86200; 86225; 86235; 86364; 86430; 87040; 87633; 87637; 87641; 92610; 93005; 93306; 93970; 94002; 94003; 94618; 94640; 94762; 96365; 96367; 96375; 97110; 97116; 97161; 97166; 97530; 97535; 99291; A9270; J0360; J0456; J0457; J1644; J1720; J1815; J1940; J2250; J2470; J2919; J3010; J3370; J3480; J7030; J7120; P9047

== ENCOUNTER 2024-08-10 10:17 | Outpatient (CLI) | payer MEDICARE, SELFPAY ==
--- NOTE | ~2024-08-10 | XR_ITS ---
XR chest 2V 08/10/2024 10:48 Indication: Acute or chronic respiratory failure Procedure: 2 view chest Comparison: Comparison to multiple prior studies sequentially, with oldest reviewed study dated 06/07. Findings: Status post median sternotomy for CABG. Cardiomegaly with interstitial edema. There is atel ectasis/scarring in the upper lobes. Impression: 1: Cardiomegaly with interstitial edema. Reviewed, dictated and finalized at location B. RTISER Impression: 1: Cardiomegaly with interstitial edema.
== END 2024-08-10 10:18 | disposition home or self-care (01) ==
PROVIDERS: PCP Family Medicine; Visit Provider Internal Medicine Critical Care Medicine
DX: J96.22 Acute and chronic respiratory failure with hypercapnia (principal); I51.7 Cardiomegaly; R91.8 Other nonspecific abnormal finding of lung field
CPT/HCPCS: 71046